=== PATIENT | male | born 1955 | race Caucasian/White ===

== ENCOUNTER 2019-12-12 22:18 | Inpatient (IN) | payer BC ==
[2019-12-12] MEDS ORDERED: NALOXONE 0.4 MG/ML 1 ML VIAL IV PRN (22:34)
[2019-12-12] MEDS ORDERED: ACETAMINOPHEN TAB 325 MG TAB PO PRN (22:34)
--- NOTE | 2019-12-12 22:34 | ED ---
General Adult HPI - General Chief complaint: Weakness Stated complaint: Weakness Time Seen by Provider: 12/12/19 22:24 Source: patient, EMS Mode of arrival: EMS Limitations: physical limitation - History of Present Illness Initial comments: Dictation was produced using [employer] dictation software. please excuse any grammatical, word or spelling errors. This patient was cared for during a federal and state declared state of emergency secondary to Covid 19 Chief Complaint: 64-year-old male with multiple comorbidities transferred from [facility] for debility. History of Present Illness: 64-year-old male he was transferred here from [facility] for debility. Patient was initially seen at [facility]. Patient story begins several weeks ago where he was diagnosed with a pathologic fracture to the left femur he was transferred to [facility] oriented orthopedic fixation. Shortly after he developed a pulmonary embolism and was placed on a liquids. Was recommended to him that he was to go to rehab facility however he opted instead to do home rehab. Over the last couple days patient has been having difficulties at home taking care of himself and performing his daily living. He then presented to [facility] because he could not handle take care of himself anymore. His initial complaint 1 pre sented to [facility] was generalized fatigue. Patient had workup performed there. He is found have stable vital signs he had labs that were within acceptable limits. An attempt was made to try to keep patient at their facility however concerned that that facility does not have up with specialists it was decided to transfer patient here. The ROS documented in this emergency department record has been reviewed and confirmed by me. Those systems with pertinent positive or negative responses have been documented in the HPI. All other systems are other negative and/or noncontributory. PHYSICAL EXAM: General Impression: Alert and oriented x3, not in acute distress HEENT: Normocephalic atraumatic, extra-ocular movements intact, pupils equal and reactive to light bilaterally, mucous membranes moist. Cardiovascular: Heart regular rate and rhythm Chest: Able to complete full sentences, no retractions, no tachypnea Abdomen: abdomen soft, non-tender, non-distended, no organomegaly Musculoskeletal: Pulses present and equal in all extremities, no peripheral edema Motor: no focal deficits noted Neurological: CN II-XII grossly intact, no focal motor or sensory deficits noted Skin: Intact with no visualized rashes Psych: Normal affect and mood ED course: 64 year-old male transferred from [facility] for debility. Patient was transferred here with intention of arranging for rehab facility placement. Patient's well-appearing at bedside. Transfer documentation was reviewed. Vital signs upon arrival shows mild tachycardia 107, rest vital signs within acceptable limits. Chest or documentation was placed and patient's chart. [facility]. - Related Data Previous Rx's Medication Instructions Recorded ALPRAZolam [Xanax] 0.25 mg PO DIRECTED #90 tab 04/21/17 Apixaban [Eliquis] 5 mg PO BID 30 Days tab 04/21/17 Flecainide [Tambocor] 50 mg PO Q12HR 30 Days tab 04/21/17 Nicotine 21Mg/24Hr Patch [Habitrol] 1 each TRANSDERM DAILY 28 Days 04/21/17 patch buPROPion XL [Wellbutrin XL] 150 mg PO DAILY 30 Days tab.er.24h 04/21/17 traZODone HCL [Desyrel] 300 mg PO HS 30 Days tab 04/21/17 Allergies Allergy/AdvReac Type Severity Reaction Status Date / Time No Known Allergies Allergy Verified 04/19/17 02:23 Review of Systems ROS Statement: Those systems with pertinent positive or pertinent negative responses have been documented in the HPI. ROS Other: All systems not noted in ROS Statement are negative. 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, lung CA History of Any Multi-Drug Resistant Organisms: None Reported Past Surgical History: Orthopedic Surgery Additional Past Surgical History / Comment(s): left quadriceps; skull fx age 15, chyna placed in right femur Past Psychological History: Depression Smoking Status: Current some day smoker Past Alcohol Use History: None Reported Past Drug Use History: Marijuana - Past Family History Mother Family Medical History: AFIB Father Family Medical History: Diabetes Mellitus General Exam Limitations: physical limitation Course Vital Signs 12/12/19 22:20 Temperature 98.9 F Pulse Rate 107 H Respiratory 16 Rate Blood Pressure 122/95 O2 Sat by Pulse 94 L Oximetry Disposition Clinical Impression: Debility Disposition: ADMITTED IP TO THIS HOSP Condition: Fair Referrals: Emil Saunders MD [Primary Care Provider] - 1-2 days Decision Time: 22:34
[2019-12-12] MEDS: SODIUM CHLORIDE 0.9% 1,000 ML IV SCH (22:49)
[2019-12-13] MEDS: APIXABAN 5 MG TAB PO SCH ×3 (01:18→21:44)
[2019-12-13] MEDS: METOPROLOL TARTRATE 25 MG TAB PO SCH ×3 (01:18→21:45)
[2019-12-13] MEDS: HYDROcodone/APAP 10-325MG 1 EACH TAB PO PRN ×4 (01:19→21:48)
[2019-12-13] MEDS: levETIRAcetam 500 MG TAB PO SCH ×3 (01:19→21:44)
[2019-12-13] MEDS: LORazepam 1 MG TAB PO PRN ×3 (04:11→19:55)
[2019-12-13] MEDS: IPRATROPIUM-ALBUTEROL 3 ML NEB INHALATION SCH ×4 (08:20→21:55)
[2019-12-13] MEDS: PANTOPRAZOLE 40 MG TABLET PO SCH (08:37)
[2019-12-13] MEDS: DILTIAZEM CD 240 MG CAP.ER.24H PO SCH (08:37)
[2019-12-13 10:48] LABS: Basophils # (A) 0.1 k/uL (0-0.2); Basophils % (A) 0 %; Eosinophils # (A) 0.1 k/uL (0-0.7); Eosinophils % (A) 1 %; HCT 43.8 % (39.0-53.0); HGB 13.8 gm/dL (13.0-17.5); Lymphocytes # (A) 1.3 k/uL (1.0-4.8); Lymphocytes % (A) 9 %; MCH 29.4 pg (25.0-35.0); MCHC 31.5 g/dL (31.0-37.0); MCV 93.1 fL (80.0-100.0); Monocytes # (A) 0.7 k/uL (0-1.0); Monocytes % (A) 5 %; Neutrophils # (A) 12.7 k/uL (1.3-7.7); Neutrophils % (A) 85 %; Platelet Count 298 k/uL (150-450); RBC 4.71 m/uL (4.30-5.90); RDW 15.5 % (11.5-15.5)
[2019-12-13 11:18] LABS: ALT 36 U/L (4-49); AST 22 U/L (17-59); African American GFR (CKD) >90 (>60 ml/min/1.73 sqM); Albumin 2.9 g/dL (3.5-5.0); Alkaline Phosphatase 82 U/L (38-126); Anion Gap 3 mmol/L; Blood Urea Nitrogen 18 mg/dL (9-20); Carbon Dioxide 30 mmol/L (22-30); Chloride 98 mmol/L (98-107); Glucose 132 mg/dL (74-99); Non-African American GFR(CKD) >90 (>60 ml/min/1.73 sqM); Potassium 4.5 mmol/L (3.5-5.1); Sodium 131 mmol/L (137-145); Total Protein 5.5 g/dL (6.3-8.2)
[2019-12-13] MEDS ORDERED: THIAMINE 100 MG/ML 2 ML VIAL IM STA (15:26)
[2019-12-13] MEDS ORDERED: LORazepam 2 MG/ML INJ IV PRN ×3 (15:26)
[2019-12-13] MEDS: NICOTINE 14MG/24HR PATCH TRANSDERM SCH (15:46)
--- NOTE | 2019-12-13 16:14 | HP ---
HISTORY AND PHYSICAL DATE OF SERVICE: 12/13/2019 CHIEF COMPLAINT: Weakness. HISTORY OF PRESENT ILLNESS: This 64-year-old gentleman with a past medical history of multiple medical problems, including atrial fibrillation, history of lung cancer, history of depression, being followed by primary physician Dr. Emil Saunders in the outpatient setting, presented to a hospital elsewhere with complaints of weakness. The patient has a very complicated recent medical history. The patient apparently has stage IV lung cancer with metastases to the clavicle and to the spine and also had a pathological fracture of the left femur. The patient was admitted apparently to [facility]. The patient also had an episode of atrial fibrillation and was admitted to the psych floor also in [facility]. Currently because of the fracture, the patient was transferred, and subsequently ORIF of the femur fracture was done. Postoperatively the patient developed pulmonary embolism and was placed on Eliquis. The patient was recommended inpatient rehab but declined that and opted for home care. The patient apparently tried to perform the home rehab for 2 days and was unable to that. The patient also had overall generalized weakness. Apparently he was living with his ex-, who is driving in and out from [place], and apparently the ex- brought the patient to the hospital, unable to take care of him, and the patient is admitted for further evaluation and treatment. Patient apparently was slated for radiation for the cancer also. The patient also has some mild shortness of breath. There is no history of any fever, rigor or chills. No history of headache, loss of consciousness, seizures at this time. PAST MEDICAL HISTORY: History of atrial fibrillation, history of lung cancer with metastases, history of skull fracture, history of depression. MEDICATIONS: Medications prior to admission include: 1. Fentanyl patch 50 mcg q.72 hours. 2. Senokot 8.6. 3. DuoNeb q.i.d. and p.r.n. 4. Diltiazem 240 mg daily. 5. Keppra 500 mg p.o. b.i.d. 6. Omeprazole 20 mg daily. 7. Metoprolol 25 mg b.i.d. 8. Eliquis 5 mg p.o. b.i.d. 9. Ativan 0.5 mg b.i.d. p.r.n. 10.Advance 1 tablet q.6 p.r.n. ALLERGIES: NONE. FAMILY HISTORY: History of atrial ablation in the family. SOCIAL HISTORY: History of smoking. REVIEW OF SYSTEMS: ENT: No diminished hearing. No diminished vision. CARDIOVASCULAR SYSTEM: As mentioned earlier. RESPIRATORY SYSTEM: As mentioned earlier. GI: No nausea, vomiting, diarrhea. : No dysuria or retention. NERVOUS SYSTEM: As mentioned earlier. ALLERGY/IMMUNOLOGY: No asthma, hayfever. MUSCULOSKELETAL: As mentioned earlier. HEMATOLOGY/ONCOLOGY: As mentioned earlier. ENDOCRINE: No history of diabetes, hypothyroidism. CONSTITUTIONAL: As mentioned earlier. DERMATOLOGY: Negative. RHEUMATOLOGY: Negative. PSYCHIATRY: As mentioned earlier. PHYSICAL EXAMINATION: Patient is alert, oriented x3. The pulse is 99, blood pressure 120/83, respiration 18, temperature 98.2, pulse ox 92% on 3 L. HEENT: Conjunctivae normal. NECK: No jugular venous distention. CARDIOVASCULAR SYSTEM: S1, S2 muffled. No S3. No S4. RESPIRATORY SYSTEM: Breath sounds diminished at the bases. A few scattered rhonchi and crackles. ABDOMEN: Soft, non-tender. LEGS: Status post surgery on the left leg. NERVOUS SYSTEM: Higher functions as mentioned earlier. Moves all 4 limbs. No focal motor or sensory deficit. LYMPHATICS: No lymph node palpable in neck, axillae or groin. SKIN: No ulcer, rash, bleeding. JOINTS: No active deforming arthropathy. LABS: WBC 15, sodium 131, calcium 8, albumin 2.9. ASSESSMENT: 1. History of left hip pathologic fracture and recent open reduction internal fixation. 2. Gait dysfunction with failure of outpatient treatment. 3. Hyponatremia. 4. History of recent stage IV lung cancer with metastases to the right clavicle as well as spine, for radiation therapy. 5. Increased white count. 6. Chronic obstructive pulmonary disease. 7. History of recent pulmonary embolism, on Eliquis. 8. History atrial fibrillation/flutter. 9. History of depression. 10.Continued ongoing nicotine dependence. 11.History of ETOH. 12.History of tetrahydrocannabinol. 13.FULL CODE. RECOMMENDATIONS AND DISCUSSION: In this 64-year-old gentleman who presented with multiple complex medical issues, at this time I recommend to continue current management, continue symptomatic treatment. Otherwise, I would recommend continuing the Eliquis. Obtain a baseline chest x-ray. Resume the home medications, bronchodilators, pain management. Will consult Dr. Reza regarding the radiation. Otherwise, social research assistant will be consulted for evaluating the home situation as well as arranging for possible ECF rehab. Overall prognosis is extremely guarded, which I discussed at length with the patient. The patient understands and agrees. Further recommendations to follow. MMKORYL / SUDHEERN: [id number] /
[2019-12-13] MEDS: THIAMINE 100 MG TAB PO SCH (16:22)
[2019-12-13 17:03] VITALS: BMI 29.8
--- NOTE | 2019-12-13 17:50 | XR ---
EXAMINATION TYPE: XR femur LT DATE OF EXAM: 12/13/2019 COMPARISON: NONE HISTORY: Postop TECHNIQUE: 4 views FINDINGS: There is intramedullary chyna with transverse screw fixing the intertrochanteric fracture lef t femur in anatomic position. The left acetabulum appears intact. Knee joint is anatomic. There is so me osteoarthritic spurring in the medial femoral and tibial condyles. IMPRESSION: Satisfactory reduction of the fracture. No complicating process seen.
[2019-12-13] MEDS: SENNOSIDES 8.6 MG TAB PO SCH (21:45)
[2019-12-13 22:33] LABS: Appearance,Urine Clear (Clear); Color,Urine Amber
[2019-12-13 22:34] LABS: Bilirubin,Urine Negative (Negative); Blood,Urine Negative (Negative); Glucose,Urine (UA) 2+ (Negative); Ketones,Urine Negative (Negative); Leukocyte Esterase,Urine Negative (Negative); Nitrite,Urine Negative (Negative); Protein,Urine Negative (Negative)
[2019-12-13 22:43] LABS: Amphetamine Screen,Urine Not Detected (NotDetected); Barbiturate Screen,Urine Not Detected (NotDetected); Benzodiazepines Screen,Urine Detected (NotDetected); Cocaine Screen,Urine Not Detected (NotDetected); Methadone Screen, Urine Not Detected (NotDetected); Opiate Screen,Urine Detected (NotDetected); Oxycodone Screen, Urine Not Detected (NotDetected); Phencyclidine Screen,Urine Not Detected (NotDetected); Tricyclic Antidepressant,Urine Not Detected (NotDetected); Urn Cannabinoid Scrn Detected (NotDetected)
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
[2019-12-14] MEDS: SODIUM CHLORIDE 0.9% 1,000 ML IV SCH (00:45)
[2019-12-14] MEDS: LORazepam 1 MG TAB PO PRN ×3 (05:30→17:58)
[2019-12-14] MEDS: IPRATROPIUM-ALBUTEROL 3 ML NEB INHALATION SCH ×4 (07:30→20:17)
[2019-12-14] MEDS ORDERED: THIAMINE 100 MG TAB PO SCH (07:30)
[2019-12-14] MEDS: levETIRAcetam 500 MG TAB PO SCH ×2 (08:48→20:40)
[2019-12-14] MEDS: METOPROLOL TARTRATE 25 MG TAB PO SCH ×2 (08:48→20:39)
[2019-12-14] MEDS: THIAMINE 100 MG TAB PO SCH (08:48)
[2019-12-14] MEDS: APIXABAN 5 MG TAB PO SCH ×2 (08:48→20:40)
[2019-12-14] MEDS: PANTOPRAZOLE 40 MG TABLET PO SCH (08:48)
[2019-12-14] MEDS: DEXAMETHASONE 4 MG TAB PO SCH ×2 (08:48→20:39)
[2019-12-14] MEDS: NICOTINE 14MG/24HR PATCH TRANSDERM SCH (08:49)
[2019-12-14] MEDS: DILTIAZEM CD 240 MG CAP.ER.24H PO SCH (08:49)
--- NOTE | 2019-12-14 10:15 | P.CNOR ---
History of Present Illness - [facility] Consult date: 12/14/19 Requesting physician: Chris Obregon Consult reason: fracture (follow-up evaluation for left hip and femur status post ORIF for pathological fracture) History of present illness: Patient is a pleasant 64-year-old male who is seeing exam at the bedside after consultation was placed for evaluation of his left femur. Patient is known to have recently undergone surgical fixation for a left femur pathological fracture. Surgery was performed at [facility] on 12/02/2018. Patient states his left hip and thigh pain has been adequately controlled. He has been ambulating on the left lower extremity without difficulty. He states he's been allowed to ambulate on the left lower extremity by his orthopedic surgeon. His vinay at the surgical sites remain intact. Patient is currently being seen and examined by multiple other medical bilaterally. He is known to have met astatic lung cancer. He continues to be seen by oncology as well as radiation oncology. Patient states he is ready to proceed with chemotherapy and radiation. Previous right clavicle biopsy performed on 11/17/2019 was positive for adenocarcinoma most consistent with primary lung cancer. Previous MRI of the brain was negative for metastatic disease. Oncology is currently pending for repeat brain MRI. Thoracic MRI imaging does show involvement of the T4 vertebrae. Patient states he is not having any significant difficulty regards to his left lower extremity. Patient does have a past medical history of atrial fibrillation. Patient is not having any difficulty with answering questions at the bedside. Patient also has a history of recent Recent pulmonary embolism status post ORIF currently on Eliquis. 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, lung CA History of Any Multi-Drug Resistant Organisms: None Reported Past Surgical History: Orthopedic Surgery Additional Past Surgical History / Comment(s): left quadriceps; skull fx age 15, chyna placed in right femur Past Psychological History: Depression Smoking Status: Current some day smoker Past Alcohol Use History: None Reported Past Drug Use History: Marijuana - Past Family History Mother Family Medical History: AFIB Father Family Medical History: Diabetes Mellitus Medications and Allergies Home Medications Medication Instructions Recorded Confirmed Type Apixaban [Eliquis] 5 mg PO BID 30 Days tab 04/21/17 12/12/19 Rx Diltiazem HCl [Diltiazem HCl 24Hr 240 mg PO DAILY 12/12/19 12/12/19 History ER (Cd)] Hydrocodone/Acetaminophen [[place] 1 tab PO Q6H PRN 12/12/19 12/12/19 History 10-325] Ipratropium-Albuterol Nebulize 3 ml INHALATION RT-QID 12/12/19 12/12/19 History [Duoneb 0.5 mg-3 mg/3 ml Soln] LORazepam [Ativan] 0.5 mg PO BID PRN 12/12/19 12/12/19 History Metoprolol Tartrate 25 mg PO BID 12/12/19 12/12/19 History Omeprazole 20 mg PO DAILY 12/12/19 12/12/19 History Sennosides [Senokot] 8.6 mg PO HS 12/12/19 12/12/19 History fentaNYL 50MCG/HR PATCH [Duragesic 50 mcg TRANSDERM Q72H 12/12/19 12/12/19 History 50MCG/HR] levETIRAcetam [Keppra] 500 mg PO BID 12/12/19 12/12/19 History Allergies Allergy/AdvReac Type Severity Reaction Status Date / Time No Known Allergies Allergy Verified 12/12/19 23:05 Physical Examination Physical Exam: Patient is awake, alert, and oriented 3 Vital signs stable Good chest excursion with deep inspiration and expiration No signs or symptoms of DVT; no calf pain Dressing is removed over the left hip and femur Evidence of vinay intact 3 surgical sites at the left hip and femur [place] are removed physical examination Incision sites appear to be healing well No active drainage or obvious sign of infection from the surgical sites at the left hip and femur Evidence of bruising around the left hip incision site and left proximal femur i ncision site Evidence of a well-healed incision over the anterior left knee from previous surgical intervention Dorsiflexion and plantarflexion positive sustained left lower extremity Patient is able slowly lift his left lower extremity off the bed Neurovascularly intact left lower extremity Results Pertinent studies: X-rays of the left femur taken on 12/13/2019: Evidence of intramedullary chyna with transverse screw fixation of the intertrochanteric fracture of the left femur which appears in satisfactory reduction; osteoarthritic spurring of the medial femoral and tibial condyles - Labs Labs: Abnormal Lab Results - Last 24 Hours (Table) 12/13/19 12/13/19 12/13/19 Range/Units 10:04 10:04 22:24 WBC 15.0 H (3.8-10.6) k/uL Neutrophils # 12.7 H (1.3-7.7) k/uL Sodium 131 L (137-145) mmol/L Glucose 132 H (74-99) mg/dL Calcium 8.0 L (8.4-10.2) mg/dL Total Protein 5.5 L (6.3-8.2) g/dL Albumin 2.9 L (3.5-5.0) g/dL Ur Specific [place] 1.000 L (1.001-1.035) Urine Opiates Screen Detected H (NotDetected) U Benzodiazepines Scrn Detected H (NotDetected) U Marijuana (THC) Screen Detected H (NotDetected) H & H 12/13/19 Range/Units 10:04 Hgb 13.8 (13.0-17.5) gm/dL Hct 43.8 (39.0-53.0) % Result Diagrams: 12/13/19 10:04 12/13/19 10:04 Assessment and Plan Assessment: Status post left hip and femur intramedullary nail fixation for pathologic femur fracture Metastatic adenocarcinoma of the lung Atrial fibrillation Recent pulmonary embolism status post ORIF currently on Eliquis (1) Pathologic femoral fracture Current Visit: Yes Status: Acute Code(s): M84.453A - PATHOLOGICAL FRACTURE, UNSP FEMUR, INIT ENCNTR FOR FRACTURE SNOMED Code(s): 962244109 (2) Adenocarcinoma, lung Current Visit: Yes Status: Acute Code(s): C34.90 - MALIGNANT NEOPLASM OF UNSP PART OF UNSP BRONCHUS OR LUNG SNOMED Code(s): 651656929 (3) Metastatic lung carcinoma Current Visit: Yes Status: Acute Code(s): C78.00 - SECONDARY MALIGNANT NEOPL ASM OF UNSPECIFIED LUNG SNOMED Code(s): 01213509 (4) Pulmonary embolism Current Visit: Yes Status: Acute Code(s): I26.99 - OTHER PULMONARY EMBOLISM WITHOUT ACUTE COR PULMONALE SNOMED Code(s): 93364265 (5) Atrial fibrillation Current Visit: Yes Status: Acute Code(s): I48.91 - UNSPECIFIED ATRIAL FIBRILLATION SNOMED Code(s): 21368892 Plan: Plan: 1. Patient has been discussed in detail with Dr. Alber Amse. Patient recently underwent left hip and femur intramedullary nail fixation for pathologic fracture performed on 12/03/2019 at [facility]. He is currently receiving further workup and multiple medical providers including oncology in medicine. He is known have metastatic adenocarcinoma of the lung. He is not able to follow-up with his orthopedic surgeon postoperatively. X-ray imaging of his left femur were taken here in the hospital which shows satisfactory alignment of the intramedullary nail fixation. Vinay have been removed at the bedside. His incision sites appear to be healing appropriately. There is no obvious sign of infection at his left hip. At this time, we are not planning for any acute treatment in regards to his left hip to left femur. He'll be cleared for discharge from an orthopedic standpoint. We will plan to have him follow-up in the outpatient setting with the surgeon who performed his surgery at [facility]. The patient's family states they have already been in contact with the surgeon and we'll plan to follow-up in the outpatient setting. Patient may continue with postoperative instructions as set forth by his orthopedic surgeon. Patient states he's been cleared to weight-bear on the left lower extremity by his previous surgeon and we discussed he may continue with weightbearing status as instructed. 2. Patient will continue be seen and examined by multiple other medical providers including medicine and oncology for his other medical diagnoses including metastatic adenocarcinoma of the lung and recent pulmonary embolism status post ORIF Time with Patient: Greater than 30 (Including obtaining history, physical examination, reviewing of imaging, and dictation.)
[2019-12-14] MEDS: HYDROcodone/APAP 10-325MG 1 EACH TAB PO PRN (10:26)
[2019-12-14 10:36] LABS: Basophils # (A) 0.1 k/uL (0-0.2); Basophils % (A) 0 %; Eosinophils # (A) 0.1 k/uL (0-0.7); Eosinophils % (A) 1 %; HCT 45.6 % (39.0-53.0); HGB 14.6 gm/dL (13.0-17.5); Lymphocytes # (A) 1.3 k/uL (1.0-4.8); Lymphocytes % (A) 9 %; MCH 29.5 pg (25.0-35.0); MCHC 31.9 g/dL (31.0-37.0); MCV 92.3 fL (80.0-100.0); Monocytes # (A) 0.6 k/uL (0-1.0); Monocytes % (A) 4 %; Neutrophils # (A) 13.4 k/uL (1.3-7.7); Neutrophils % (A) 86 %; Platelet Count 287 k/uL (150-450); RBC 4.94 m/uL (4.30-5.90); RDW 15.6 % (11.5-15.5); WBC 15.5 k/uL (3.8-10.6)
[2019-12-14 10:51] LABS: African American GFR (CKD) >90 (>60 ml/min/1.73 sqM); Anion Gap 6 mmol/L; Blood Urea Nitrogen 13 mg/dL (9-20); Calcium 8.5 mg/dL (8.4-10.2); Carbon Dioxide 26 mmol/L (22-30); Chloride 100 mmol/L (98-107); Glucose 127 mg/dL (74-99); Non-African American GFR(CKD) >90 (>60 ml/min/1.73 sqM); Potassium 4.4 mmol/L (3.5-5.1); Sodium 132 mmol/L (137-145)
--- NOTE | 2019-12-14 12:30 | P.CN ---
Psychiatric Consult - . Consult date: 12/14/19 Consult:: The patient was off the unit for testing when I attempted to interview him this morning at an early assessment. I'll try to interview him tomorrow. 12/14/19 12:30
--- NOTE | 2019-12-14 13:47 | MR ---
EXAMINATION TYPE: MR brain wo/w con DATE OF EXAM: 12/14/2019 COMPARISON: NONE HISTORY: Metastatic lung worsening neurological sx/sensation TECHNIQUE: Multiplanar, multisequence images of the brain and brainstem is performed without and with IV contras t, utilizing 10 mL intravenous Gadavist . FINDINGS: Diffusion weighted images demonstrate no evidence of a recent infarct or other diffusion ab normality. There is no worrisome extra-axial fluid collection. Mild ventricular and sulcal prominenc e. More prominent multifocal areas of T2 hyperintensity seen throughout the superficial, deep, and pe riventricular white matter. Midline structures demonstrate pituitary gland pushed to the right and posterior aspect axial image 1 2 possibly due to cellular nonenhancing cyst or cystic component measuring 7 x 6 x 9 mm axial image 1 2 and sagittal image 72. Postcontrast images show heterogeneous enhancement with superior extension m easuring roughly 16 mm sagittal image 77. Cannot exclude sellar mass such as pituitary tumor or macro adenoma. The lesion comes in close proximity to the optic chiasm coronal image 39. Pituitary stalk is not well identified. The craniocervical junction appears within normal limits. Post contrast images demonstrate no suspic ious enhancing intraparenchymal masses or. The dural venous sinuses appear patent. The visualized sin uses are clear and the globes are intact. IMPRESSION: 1. No suspicious enhancing intraparenchymal masses to suggest metastatic disease to the brain. 2. Background mild diffuse cerebral atrophy and moderate chronic small vessel ischemic change. 3. Suspicious sellar mass felt to have both solid and cystic component with suprasellar extension. Di fferential includes pituitary tumor or macroadenoma and other neoplasms such as craniopharyngioma. Ne urosurgical referral advised. Single metastatic focus this level unlikely but not entirely excluded.
--- NOTE | 2019-12-14 14:39 | MR ---
EXAMINATION TYPE: MR thoracic spine wo/w con DATE OF EXAM: 12/14/2019 COMPARISON: NONE HISTORY: Metastatic lung worsening neurological sx/sensation TECHNIQUE: Multiplanar, multisequence imaging of thoracic spine is performed without and with IV cont rast, the patient injected with 10 cc of gadolinium this for the study. FINDINGS: Spinal cord shows normal course, caliber, and signal as it courses the thoracic spine. Jd tebral body heights are satisfactory. Slight levoconvex scoliotic curvature centered upper thoracic s pine on coronal images. There is heterogeneous diminished T1 and increased T2 signal with enhancement involving the T4 vertebral body. Similar finding of diminished signal and enhancement involving the T3 spinous process noted. Posterior disc herniation is seen effacing the anterior thecal sac T7-T8 le everette sagittal image 7. Review of the axial images shows abnormal enhancing T3 spinous process image 12 with posterior epidu ral soft tissue causing some mild mass effect on the spinal canal posterior left aspect axial image 1 2. There is confirmation of central disc protrusion effacing the anterior thecal sac T7-T8 level axial i mage 18 series 1101. There are small right and tiny left pleural effusions noted. IMPRESSION: Osseous metastatic lesions are identified. Consider whole body bone scan to assess for p ossible additional lesions. No cord enhancing lesions are present.
[2019-12-14 15:22] VITALS: RESP 18
--- NOTE | 2019-12-14 17:44 | P.PN ---
Subjective Progress Note Date: 12/14/19 Principal diagnosis: no acute complaints Objective - Vital Signs Vital signs: Vital Signs Temp 98.1 F 12/14/19 15:00 Pulse 88 12/14/19 16:51 Resp 18 12/14/19 16:00 BP 129/77 12/14/19 15:00 Pulse Ox 96 12/14/19 15:00 Intake & Output 12/13/19 12/14/19 12/14/19 18:59 06:59 18:59 Intake Total 708 300 Output Total 1000 2150 200 Balance -292 -2150 100 Weight 102.512 kg Intake: Intake, IV Titration 300 Amount Sodium Chloride 0.9% 1, 300 000 ml @ 20 mls/hr IV . Q24H [facility] Rx#:[id number] Oral 708 Output: Urine 1000 2150 200 Other: Voiding Method Bedpan Bedpan # Voids 1 - Exam Gen: Alert NAD O/P Dry Lungs: No increased effort, Clear ant Heart: Tachy Abdomen:L Soft, ND Ext: Weak unilateral Inappropriate at times - Labs CBC & Chem 7: 12/14/19 10:01 12/14/19 10:01 Labs: Abnormal Lab Results - Last 24 Hours (Table) 12/13/19 12/14/19 12/14/19 Range/Units 22:24 10:01 10:01 WBC 15.5 H (3.8-10.6) k/uL RDW 15.6 H (11.5-15.5) % Neutrophils # 13.4 H (1.3-7.7) k/uL Sodium 132 L (137-145) mmol/L Creatinine 0.61 L (0.66-1.25) mg/dL Glucose 127 H (74-99) mg/dL Ur Specific [place] 1.000 L (1.001-1.035) Urine Opiates Screen Detected H (NotDetected) U Benzodiazepines Scrn Detected H (NotDetected) U Marijuana (THC) Screen Detected H (NotDetected) Assessment and Plan Plan: Assessement and Recommendations: Left Hip Pathological Fracture: Status Post ORIF Recent Diagnosis of Metastatic Adenocarcinoma of the Lung: - Currently undergoing palliative radiation in [place] under the care of Dr. Goncalves - Further details of his oncologic history and events in HPI Progressive events of disorientation: - Possible hypoxic related versus other - MRI Brain reveals ?non malignant or cystic changes. Will discuss with Dr. Reza regarding need of neurosurg consultation Worsening stability and unable to perform ADLS: - Question sensation loss new - Discussed with Radiation onc - Thoracic imaging revealed bone lesions - Re-initiate Dex and PPI Chronic Hypoxic Respiratory Failure: - Continue on home o2 Recent Pulmonary Embolism post ORIF: - Continue on Eliquis Hx: Aflutter RVR: on Eliquis Discussed with Primary team, plan to follow-up within 2 weeks
[2019-12-14] MEDS: SENNOSIDES 8.6 MG TAB PO SCH (20:39)
--- NOTE | 2019-12-14 22:56 | PN ---
PROGRESS NOTE DATE OF SERVICE: 12/14/2019 This 64-year-old gentleman admitted with weakness also had recent surgery. The patient had a pathologic fracture on the left femur. The patient also had significant cancer with metastasis, and brain MRI was done. Multiple consultants are following the patient closely. Brain MRI showed no suspicious enhancing parenchymal lesions. However, suspicious sella mass was thought to be a suprasellar extension. Otherwise, a thoracic spine MRI was also done which showed osseous metastatic lesions. No chest pain. No palpitations. No fever. Past medical history reviewed. REVIEW OF SYSTEMS: CARDIOVASCULAR SYSTEM: No angina, palpitations. RESPIRATORY SYSTEM: As mentioned earlier. GI: No nausea, vomiting. : No dysuria or retention. NERVOUS SYSTEM: No numbness, weakness. CURRENT MEDICATIONS: Current medications include Tylenol, [place], DuoNeb q.i.d., Eliquis, Cardizem, Keppra, Ativan, Lopressor, Narcan, Habitrol, Protonix, Senokot. PHYSICAL EXAMINATION: Patient is alert and oriented x3. The pulse is 89, blood pressure 129/77, respiration 18, temperature 98.1, pulse ox 96% on 2 L. HEENT: Conjunctivae normal. NECK: No jugular venous distention. CARDIOVASCULAR SYSTEM: S1, S2 muffled. RESPIRATORY SYSTEM: Breath sounds diminished at the bases. No rhonchi. No crackles. ABDOMEN: Soft, non-tender. LEGS: No edema. No swelling. NERVOUS SYSTEM: Diffusely weak. LABS: WBC 15.5, sodium 132. UA shows THC, benzodiazepines. ASSESSMENT: 1. History of recent left hip pathological fracture and recent open reduction internal fixation. 2. Gait dysfunction with failure of outpatient treatment. 3. Hyponatremia. 4. History of recent stage IV lung cancer with metastases to the right clavicle as well as spine, for radiation therapy. 5. Increased white count. 6. Chronic obstructive pulmonary disease. 7. History of recent pulmonary embolism, on Eliquis. 8. History of atrial flutter/fibrillation. 9. History of depression. 10.Continued ongoing nicotine dependence. 11.History of ETOH remotely. 12.History of tetrahydrocannabinol. 13.FULL CODE. RECOMMENDATIONS AND DISCUSSION: In this 64-year-old gentleman who presented with multiple complex medical issues, we will monitor the patient closely, continue the current medications, continue symptomatic treatment. The patient has multiple social issues at this time. At this time I would recommend evaluation by Case Management and social workers and possible ECF rehab. Otherwise, the patient has multiple medical problems, as mentioned earlier. We will follow the patient along with Psychiatry as well as Hematology/Oncology. Once again, the prognosis is extremely guarded. Further recommendations to follow. RONAK / SUDHEERN: [id number] / JAMES
[2019-12-15] MEDS: HYDROcodone/APAP 10-325MG 1 EACH TAB PO PRN ×2 (00:41→07:50)
[2019-12-15] MEDS: LORazepam 1 MG TAB PO PRN ×2 (02:22→07:51)
[2019-12-15] MEDS: SODIUM CHLORIDE 0.9% 1,000 ML IV SCH (02:33)
[2019-12-15] MEDS ORDERED: IPRATROPIUM-ALBUTEROL 3 ML NEB INHALATION PRN (02:39)
[2019-12-15] MEDS: levETIRAcetam 500 MG TAB PO SCH (07:42)
[2019-12-15] MEDS: METOPROLOL TARTRATE 25 MG TAB PO SCH (07:42)
[2019-12-15] MEDS: PANTOPRAZOLE 40 MG TABLET PO SCH (07:42)
[2019-12-15] MEDS: APIXABAN 5 MG TAB PO SCH (07:42)
[2019-12-15] MEDS: DEXAMETHASONE 4 MG TAB PO SCH (07:42)
[2019-12-15] MEDS: DILTIAZEM CD 240 MG CAP.ER.24H PO SCH (07:42)
[2019-12-15] MEDS: THIAMINE 100 MG TAB PO SCH (07:43)
[2019-12-15] MEDS: NICOTINE 14MG/24HR PATCH TRANSDERM SCH (07:43)
[2019-12-15 08:34] VITALS: BP 144/93; TEMP 97.8
[2019-12-15] MEDS: IPRATROPIUM-ALBUTEROL 3 ML NEB INHALATION SCH ×2 (09:02→12:32)
[2019-12-15 10:47] LABS: African American GFR (CKD) >90 (>60 ml/min/1.73 sqM); Anion Gap 7 mmol/L; Blood Urea Nitrogen 17 mg/dL (9-20); Calcium 8.7 mg/dL (8.4-10.2); Carbon Dioxide 26 mmol/L (22-30); Chloride 99 mmol/L (98-107); Glucose 230 mg/dL (74-99); Non-African American GFR(CKD) >90 (>60 ml/min/1.73 sqM); Potassium 4.7 mmol/L (3.5-5.1); Sodium 132 mmol/L (137-145)
[2019-12-15 11:35] LABS: Basophils % (A) 0 %; Eosinophils % (A) 0 %; HCT 45.2 % (39.0-53.0); HGB 14.4 gm/dL (13.0-17.5); Lymphocytes # (A) 0.8 k/uL (1.0-4.8); Lymphocytes % (A) 4 %; MCH 29.6 pg (25.0-35.0); MCHC 31.7 g/dL (31.0-37.0); MCV 93.3 fL (80.0-100.0); Mean Platelet Volume 7.6; Monocytes # (A) 0.4 k/uL (0-1.0); Monocytes % (A) 2 %; Neutrophils # (A) 19.8 k/uL (1.3-7.7); Neutrophils % (A) 94 %; Platelet Count 318 k/uL (150-450); RBC 4.84 m/uL (4.30-5.90); RDW 15.2 % (11.5-15.5); WBC 21.1 k/uL (3.8-10.6)
--- NOTE | 2019-12-15 11:46 | P.PN ---
Subjective Progress Note Date: 12/15/19 Principal diagnosis: no acute complaints Reviewed MRI of the brain. Not definitive evidence of metastatic disease. There is a sub centimeter abnormality. Since he does have prior MRI of the brain will ask radiation oncology to compare imaging and make recommendations for outpati ent follow-up. Does not appear to be definitive enough to cause issue with his intermittent confusion. It appears his confusion was related to fentanyl patch. Therefore this has been discontinued. Objective - Vital Signs Vital signs: Vital Signs Temp 97.8 F 12/15/19 07:23 Pulse 90 12/15/19 09:15 Resp 18 12/15/19 07:23 BP 144/93 12/15/19 07:23 Pulse Ox 93 L 12/15/19 07:23 Intake & Output 12/14/19 12/15/19 12/15/19 18:59 06:59 18:59 Intake Total 300 Output Total 200 800 Balance 100 -800 Intake: Intake, IV Titration 300 Amount Sodium Chloride 0.9% 1, 300 000 ml @ 20 mls/hr IV . Q24H [facility] Rx#:[id number] Output: Urine 200 800 Other: # Voids 1 - Exam Gen: Alert NAD O/P Dry Lungs: No increased effort, Clear ant Heart: Tachy Abdomen:L Soft, ND Ext: Weak unilateral Inappropriate at times - Labs CBC & Chem 7: 12/15/19 10:00 12/15/19 10:00 Labs: Abnormal Lab Results - Last 24 Hours (Table) 12/15/19 12/15/19 Range/Units 10:00 10:00 WBC 21.1 H (3.8-10.6) k/uL Neutrophils # 19.8 H (1.3-7.7) k/uL Lymphocytes # 0.8 L (1.0-4.8) k/uL Sodium 132 L (137-145) mmol/L Glucose 230 H (74-99) mg/dL Assessment and Plan Plan: Assessement and Recommendations: Left Hip Pathological Fracture: Status Post ORIF Recent Diagnosis of Metastatic Adenocarcinoma of the Lung: - Currently undergoing palliative radiation in [place] under the care of Dr. Goncalves - Further details of his oncologic history and events in HPI Progressive events of disorientation: - Possible hypoxic related versus other - MRI Brain reveals ?non malignant or cystic changes. Will discuss with Dr. Dr. Goodman radiation oncology regarding these findings. He can compare to prior and will communicate with current radiation oncologist Dr. Goncalves. Worsening stability and unable to perform ADLS: - Question sensation loss new - Discussed with Radiation onc - Thoracic imaging revealed bone lesions - Re-initiate Dex and PPI Chronic Hypoxic Respiratory Failure: - Continue on home o2 Recent Pulmonary Embolism post ORIF: - Continue on Eliquis Hx: Aflutter RVR: on Eliquis Plan: Despite progressive recommendations for inpatient or outpatient rehab facility he refuses. he agreed to PT/OT in his home and wants to get radiation started with Dr. Goncalves. - Ok for discharge from our standpoint, would like Dr. goodman to review MRI of the brain with prior to provide recommendation for incidental finding found.
[2019-12-15 12:39] VITALS: PULSE 92
--- NOTE | 2019-12-15 15:29 | P.CONS ---
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 He is status post left ORIF, and unfortunately developed postoperative DVT/PE. He was recently admitted secondary to concern for confusion and difficulty taking care of himself at home. According to the patient, he became confused after his pain medication was altered and he was placed on a 50 g fentanyl patch. He states that over the past couple of days since removal, he has been much more clear mentally. On admission, he underwent an MRI of the brain on December 13. This revealed no evidence of distant metastasis, however note was made of a solid/cystic mass in the sellar region. This is felt to be consistent with adenoma versus less likely a metastatic disease. MRI of the T-spine again redemonstrated a known metastatic deposit in the T4 vertebral body and the spinous process of T3. There is no evidence of spinal cord compression. At the current time, the patient denies difficulty with headache, nausea or vomiting. He states his pain is under better control at this time. He notes that his back is not causing him significant pain at this time. He still has some discomfort in the left hip and right clavicular region. He has been evaluated radiation oncology by Dr. Goncalves in [facility]. Review of Systems Constitutional: Denies chills, Denies fever Eyes: denies blurred vision Ears, nose, mouth and throat: Denies headache Cardiovascular: Denies chest pain Respiratory: Denies cough Gastrointestinal: Denies abdominal pain Genitourinary: Denies flank pain Musculoskeletal: Denies frequent falls, Denies low back pain Neurological: Reports confusion (improved), Denies aphasia, Denies ataxia, Denies balance difficulties, Denies convulsions, Denies double vision Psychiatric: Denies anxiety, Denies depression 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, lung CA History of Any Multi-Drug Resistant Organisms: None Reported Past Surgical History: Orthopedic Surgery Additional Past Surgical History / Comment(s): left quadriceps; skull fx age 15, chyna placed in right femur Past Psychological History: Depression Smoking Status: Current some day smoker Past Alcohol Use History: None Reported Past Drug Use History: Marijuana - Past Family History Mother Family Medical History: AFIB Father Family Medical History: Diabetes Mellitus Medications and Allergies Home Medications Medication Instructions Recorded Confirmed Type Apixaban [Eliquis] 5 mg PO BID 30 Days tab 04/21/17 12/12/19 Rx Diltiazem HCl [Diltiazem HCl 24Hr 240 mg PO DAILY 12/12/19 12/12/19 History ER (Cd)] Hydrocodone/Acetaminophen [[place] 1 tab PO Q6H PRN 12/12/19 12/12/19 History 10-325] Ipratropium-Albuterol Nebulize 3 ml INHALATION RT-QID 12/12/19 12/12/19 History [Duoneb 0.5 mg-3 mg/3 ml Soln] LORazepam [Ativan] 0.5 mg PO BID PRN 12/12/19 12/12/19 History Metoprolol Tartrate 25 mg PO BID 12/12/19 12/12/19 History Omeprazole 20 mg PO DAILY 12/12/19 12/12/19 History Sennosides [Senokot] 8.6 mg PO HS 12/12/19 12/12/19 History levETIRAcetam [Keppra] 500 mg PO BID 12/12/19 12/12/19 History Acetaminophen Tab [Tylenol] 650 mg PO Q6HR PRN tab 12/15/19 Rx Dexamethasone [Hexadrol] 4 mg PO DAILY #30 tab 12/15/19 Rx Ipratropium-Albuterol Nebulize 3 ml INHALATION RT-QID PRN ml 12/15/19 Rx [Duoneb 0.5 mg-3 mg/3 ml Soln] Thiamine [Vitamin B-1] 100 mg PO DAILY 30 Days #30 tab 12/15/19 Rx Allergies Allergy/AdvReac Type Severity Reaction Status Date / Time No Known Allergies Allergy Verified 12/12/19 23:05 Physical Exam Vitals: Vital Signs Temp Pulse Pulse Resp BP Pulse Ox 12/15/19 12:39 92 12/15/19 12:32 94 12/15/19 09:15 90 12/15/19 09:02 94 12/15/19 07:23 97.8 F 104 H 18 144/93 93 L 12/15/19 03:15 98.0 F 67 129/84 94 L 12/15/19 02:55 93 12/15/19 02:45 93 12/14/19 20:26 88 12/14/19 20:20 88 12/14/19 18:40 98.0 F 96 124/73 93 L 12/14/19 16:51 88 12/14/19 16:39 84 12/14/19 16:00 18 Intake and Output 12/15/19 12/15/19 12/15/19 06:59 14:59 22:59 Output Total 800 Balance -800 Output: Urine 800 Other: # Voids 1 - Constitutional General appearance: average body habitus, no acute distress - EENT Eyes: EOMI, PERRLA - Neck Neck: no lymphadenopathy - Respiratory Respiratory: bilateral: CTA - Cardiovascular Rhythm: regular - Integumentary Integumentary: no cellulitis - Neurologic Neurologic: CNII-XII intact - Musculoskeletal Musculoskeletal: strength equal bilaterally - Psychiatric Psychiatric: A&O x's 3, appropriate affect Results CBC & Chem 7: 12/15/19 10:00 12/15/19 10:00 Labs: Abnormal Lab Results - Last 24 Hours (Table) 12/15/19 12/15/19 Range/Units 10:00 10:00 WBC 21.1 H (3.8-10.6) k/uL Neutrophils # 19.8 H (1.3-7.7) k/uL Lymphocytes # 0.8 L (1.0-4.8) k/uL Sodium 132 L (137-145) mmol/L Glucose 230 H (74-99) mg/dL MRI - head: report reviewed, image reviewed Assessment and Plan Plan: The patient is a 64-year-old male with a history of a recently diagnosed 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 He is status post left ORIF, and unfortunately developed postoperative DVT/PE. He was recently admitted secondary to concern for confusion and difficulty taking care of himself at home. 1. Sellar mass on MRI brain: Based on my review, this would be a very atypical appearance for metastasis. This is most likely consistent with the patient's known history of non-secretory pituitary adenoma. I will mention this to Dr. Goncalves for attention on future exams. 2. Metastatic NSCLC: The patient is not yet initiated radiotherapy or chemotherapy. He is planning to follow-up with Dr. Goncalves as an outpatient, with plans to treat the right clavicle, thoracic spine and left hip in a palliative fashion. He will also be following with medical oncology tomorrow. The T-spine is not currently symptomatic with no evidence of compression. This can also be treated as outpatient. Time with Patient: Less than 30
--- NOTE | 2019-12-16 10:01 | P.DS ---
Providers Date of admission: 12/12/19 22:36 Expected date of discharge: 12/15/19 Attending physician: Gwen Chahal Consults: 12/13/19 14:24 Consult Physician Routine Consulting Provider: Chau Reza Consult Reason/Comments: Lung CA, current radiation treatment Do you want consulting provider notified?: Yes 12/13/19 14:32 Consult Physician Routine Consulting Provider: Jose Villela Consult Reason/Comments: orthopedic fixation of pathologic left femur fracture Do you want consulting provider notified?: Yes 12/13/19 15:29 Consult Physician Routine Consulting Provider: Rafal Pavon Consult Reason/Comments: depression Do you want consulting provider notified?: Yes 12/15/19 11:35 Consult Physician Routine Consulting Provider: Mansoor Goodman Consult Reason/Comments: regarding findings on MRI, have see b4 DC Do you want consulting provider notified?: Yes Primary care physician: Emil Saunders [place] [facility] Course: Final diagnosis History of recent left hip pathological fracture and recent open reduction internal fixation Gait dysfunction with failure of outpatient treatment Hyponatremia History of recent stage IV lung cancer with metastasis to the right clavicle as well as spine, for radiation therapy Increased white blood count Chronic obstructive pulmonary disease History of recent pulmonary embolism on anticoagulation History of atrial flutter/fibrillation History of depression Continued ongoing nicotine dependence history of EtOH remotely History of THC Full code Discharge disposition Patient is being discharged in a stable condition with guarded prognosis to home. Patient will follow-up with Dr. Emil Saunders upon discharge in the outpatient setting. Patient will continue with residential home care in the outpatient setting. Patient will also be following up with radiation oncology Dr. Goncalves in [place] in the outpatient setting. Total time taken is greater than 35 minutes. History of present illness This is a 64-year-old male who was recently admitted with weakness and also underwent recent surgery of the left hip and was being closely monitored. Multiple medical consultations following. Patient was seen by oncology and will continue with follow-up in the outpatient setting. Patient was also seen and evaluated by radiation oncology and recommending outpatient follow-up with Dr. Goncalves in [place] as scheduled. Patient was seen and evaluated by PT/OT recommending possible subacute rehab at an [facility] although patient is refusing and will be going home. Arrangements have been made for home care by case management in the outpatient setting. Currently no reports of chest pain, shortness of breath, or palpitations. Patient is afebrile. No reports of nausea or vomiting and patient is tolerating diet. Patient will be discharged home today. Discussed with the patient at length about continuing to avoid alcohol intake Guarded prognosis. On exam vital signs are stable. Temp is 97.8F, pulse is 104, respirations are 18, blood pressure is 144/93, oxygen saturation is 93% on 2-3 L via nasal cannula. Cardio S1, S2 are muffled. Respiratory system shows diminished breath sounds at the bases with some rhonchi noted. Abdomen is soft and nontender. Nervous system shows no focal deficits. Please refer to medication reconciliation sheet for a list of medications. Patient Condition at Discharge: Fair Plan - Discharge Summary New Discharge Prescriptions: New Ipratropium-Albuterol Nebulize [Duoneb 0.5 mg-3 mg/3 ml Soln] 3 ml INHALATION RT-QID PRN ml PRN Reason: Shortness Of Breath Or Wheezing Dexamethasone [Hexadrol] 4 mg PO DAILY #30 tab Acetaminophen Tab [Tylenol] 650 mg PO Q6HR PRN tab PRN Reason: Mild Pain Or Fever > 100.5 Thiamine [Vitamin B-1] 100 mg PO DAILY 30 Days #30 tab Continue Apixaban [Eliquis] 5 mg PO BID 30 Days tab Diltiazem HCl [Diltiazem HCl 24Hr ER (Cd)] 240 mg PO DAILY levETIRAcetam [Keppra] 500 mg PO BID Sennosides [Senokot] 8.6 mg PO HS Omeprazole 20 mg PO DAILY Metoprolol Tartrate 25 mg PO BID LORazepam [Ativan] 0.5 mg PO BID PRN PRN Reason: Anxiety Hydrocodone/Acetaminophen [[place] 10-325] 1 tab PO Q6H PRN PRN Reason: Pain Ipratropium-Albuterol Nebulize [Duoneb 0.5 mg-3 mg/3 ml Soln] 3 ml INHALATION RT-QID Discontinued fentaNYL 50MCG/HR PATCH [Duragesic 50MCG/HR] 50 mcg TRANSDERM Q72H Discharge Medication List Apixaban [Eliquis] 5 mg PO BID 30 Days tab 04/21/17 [Rx] Diltiazem HCl [Diltiazem HCl 24Hr ER (Cd)] 240 mg PO DAILY 06/21/20 [History] Hydrocodone/Acetaminophen [[place] 10-325] 1 tab PO Q6H PRN 12/12/19 [History] Ipratropium-Albuterol Nebulize [Duoneb 0.5 mg-3 mg/3 ml Soln] 3 ml INHALATION RT-QID 12/12/19 [History] LORazepam [Ativan] 0.5 mg PO BID PRN 12/12/19 [History] Metoprolol Tartrate 25 mg PO BID 12/12/19 [History] Omeprazole 20 mg PO DAILY 12/12/19 [History] Sennosides [Senokot] 8.6 mg PO HS 12/12/19 [History] levETIRAcetam [Keppra] 500 mg PO BID 12/12/19 [History] Acetaminophen Tab [Tylenol] 650 mg PO Q6HR PRN tab 12/15/19 [Rx] Dexamethasone [Hexadrol] 4 mg PO DAILY #30 tab 12/15/19 [Rx] Ipratropium-Albuterol Nebulize [Duoneb 0.5 mg-3 mg/3 ml Soln] 3 ml INHALATION RT-QID PRN ml 12/15/19 [Rx] Thiamine [Vitamin B-1] 100 mg PO DAILY 30 Days #30 tab 12/15/19 [Rx] Follow up Appointment(s)/Referral(s): Emil Saunders MD [Primary Care Provider] - 1-2 days (Staff unable to reach office at time of discharge please call to set up a follow up appointment) Residential Home,Health [NON-STAFF] - Patient Instructions/Handouts: Weakness (DC) Activity/Diet/Wound Care/Special Instructions: Radiation oncology to see prior to discharge Continue current diet Follow-up with primary care provider upon discharge Follow-up with oncology upon discharge Discontinue fentanyl patch Activity Limited until follow-up Continue with home care Discharge Disposition: HOME WITH HOME HEALTH SERVICES
== END 2019-12-15 14:45 | disposition home health service (06) | DRG 948 ==
LOC: EC 22:18 → 4SSUR 22:36
PROVIDERS: ADMIT Internal Medicine; ATTEND Internal Medicine
DX: R53.1 Weakness (principal); C34.11 Malignant neoplasm of upper lobe, right bronchus or lung; J96.11 Chronic respiratory failure with hypoxia; C79.51 Secondary malignant neoplasm of bone; E87.1 Hypo-osmolality and hyponatremia; I48.92 Unspecified atrial flutter; M84.452D Pathological fracture, left femur, subsequent encounter for fracture with routine healing; F17.210 Nicotine dependence, cigarettes, uncomplicated; Z11.59 Encounter for screening for other viral diseases; F32.9 Major depressive disorder, single episode, unspecified; H91.91 Unspecified hearing loss, right ear; Z86.711 Personal history of pulmonary embolism; Z79.01 Long term (current) use of anticoagulants; I48.91 Unspecified atrial fibrillation; J44.9 Chronic obstructive pulmonary disease, unspecified; Z79.899 Other long term (current) drug therapy; Z83.3 Family history of diabetes mellitus; D35.2 Benign neoplasm of pituitary gland; R53.81 Other malaise; R41.0 Disorientation, unspecified; R26.9 Unspecified abnormalities of gait and mobility; D72.829 Elevated white blood cell count, unspecified; Z99.81 Dependence on supplemental oxygen; Z79.891 Long term (current) use of opiate analgesic
CPT/HCPCS: 70553; 72157; 80048; 80053; 80306; 81003; 85025; 94640; 99285

== ENCOUNTER 2020-02-04 12:59 | Inpatient (IN) | payer BC ==
--- NOTE | 2020-02-04 13:25 | ED ---
General Adult HPI - General Chief complaint: Recheck/Abnormal Lab/Rx Stated complaint: Hand wounds Time Seen by Provider: 02/04/20 13:19 Source: patient, RN notes reviewed, old records reviewed Mode of arrival: ambulatory Limitations: no limitations - History of Present Illness Initial comments: 64-year-old male history of lung and bone cancer presenting for evaluation of right upper extremity swelling and nonhealing infection in the right hand. This initiated as a blister which has now responded to oral antibiotics and Lasix. Patient has diffuse body swelling and complains of dyspnea. He is on Lasix but is uncertain of what dose he is currently taking. He was sent over from his oncologist for evaluation. He is not currently on chemotherapy. He denies fever. Denies central chest pain. - Related Data Home Medications Medication Instructions Recorded Confirmed Diltiazem HCl [Diltiazem HCl 24Hr 240 mg PO DAILY 12/12/19 12/12/19 ER (Cd)] Hydrocodone/Acetaminophen [[place] 1 tab PO Q6H PRN 12/12/19 12/12/19 10-325] Ipratropium-Albuterol Nebulize 3 ml INHALATION RT-QID 12/12/19 12/12/19 [Duoneb 0.5 mg-3 mg/3 ml Soln] LORazepam [Ativan] 0.5 mg PO BID PRN 12/12/19 12/12/19 Metoprolol Tartrate 25 mg PO BID 12/12/19 12/12/19 Omeprazole 20 mg PO DAILY 12/12/19 12/12/19 Sennosides [Senokot] 8.6 mg PO HS 12/12/19 12/12/19 levETIRAcetam [Keppra] 500 mg PO BID 12/12/19 12/12/19 Previous Rx's Medication Instructions Recorded Apixaban [Eliquis] 5 mg PO BID 30 Days tab 04/21/17 Acetaminophen Tab [Tylenol] 650 mg PO Q6HR PRN tab 12/15/19 Ipratropium-Albuterol Nebulize 3 ml INHALATION RT-QID PRN ml 12/15/19 [Duoneb 0.5 mg-3 mg/3 ml Soln] Thiamine [Vitamin B-1] 100 mg PO DAILY 30 Days #30 tab 12/15/19 dexAMETHasone [Hexadrol] 4 mg PO DAILY #30 tab 12/15/19 Allergies Allergy/AdvReac Type Severity Reaction Status Date / Time No Known Allergies Allergy Verified 02/04/20 13:08 Review of Systems ROS Statement: Those systems with pertinent positive or pertinent negative responses have been documented in the HPI. ROS Other: All systems not noted in ROS Statement are negative. 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, lung CA History of Any Multi-Drug Resistant Organisms: None Reported Past Surgical History: Orthopedic Surgery Additional Past Surgical History / Comment(s): left quadriceps; skull fx age 15, chyna placed in right femur Past Psychological History: Depression Smoking Status: Current every day smoker Past Alcohol Use History: None Reported Past Drug Use History: Marijuana - Past Family History Mother Family Medical History: AFIB Father Family Medical History: Diabetes Mellitus General Exam Limitations: no limitations General appearance: alert, in distress Head exam: Present: atraumatic, normocephalic Eye exam: Present: normal appearance, PERRL ENT exam: Present: normal exam Neck exam: Present: normal inspection. Absent: tenderness, meningismus Respiratory exam: Present: respiratory distress, rales, decreased breath sounds Cardiovascular Exam: Present: tachycardia, irregular rhythm GI/Abdominal exam: Present: soft. Absent: distended, tenderness, guarding, rebound Extremities exam: Present: pedal edema, other (Bilateral upper and lower edema, anasarca. Right hand cellulitis with blistering and minimal hemorrhage.) Neurological exam: Present: alert, oriented X3 Psychiatric exam: Present: normal affect, normal mood Course Vital Signs 02/04/20 02/04/20 02/04/20 13:02 13:30 13:45 Temperature 98.2 F Pulse Rate 113 H 101 H 102 H Respiratory 20 22 17 Rate Blood Pressure 112/65 92/74 93/67 O2 Sat by Pulse 90 L 100 98 Oximetry 02/04/20 02/04/20 02/04/20 14:00 14:15 14:30 Temperature Pulse Rate 96 97 90 Respiratory 22 15 25 H Rate Blood Pressure 91/78 94/53 84/69 O2 Sat by Pulse 84 L 85 L Oximetry 02/04/20 14:45 Temperature Pulse Rate 102 H Respiratory 20 Rate Blood Pressure 92/68 O2 Sat by Pulse 94 L Oximetry - Reevaluation(s) Reevaluation #1: 02/04/20 14:[address] Garcia, will admit EKG Findings - EKG Comments: EKG Findings:: Atrial fibrillation with RVR, low voltage, rate of 110, QRS duration 86, QTC 438., No ST segment elevation. Medical Decision Making - Medical Decision Making 63-year-old male with active cancer presenting with right hand swelling and erythema. His right hand is infected, with cellulitic changes, no no drainable abscess appreciated, there is soft tissue swelling in the right upper extremity and venous Doppler has been ordered to rule out DVT, these results are pending. Patient has a significantly elevated white blood cell count of 37,000. I started ceftriaxone and vancomycin in the emergency department. He will be admitted with both oncology and infectious disease on consult. He may require hand surgery evaluation. He has been admitted to internal medicine. Patient is anemic and homicidal. With a very high white count. He has electrolyte imbalance including hyponatremia and hypokalemia. He's been given 1 g of calcium gluconate in the emergency department. Chest x-ray and ultrasound of the right upper extremity results are pending. - Lab Data Result diagrams: 02/04/20 13:56 02/04/20 13:56 Lab Results 02/04/20 02/04/20 02/04/20 Range/Units 13:56 13:56 13:56 WBC 37.2 H (3.8-10.6) k/uL RBC 3.36 L (4.30-5.90) m/uL Hgb 10.1 L D (13.0-17.5) gm/dL Hct 30.6 L (39.0-53.0) % MCV 91.1 (80.0-100.0) fL MCH 29.9 (25.0-35.0) pg MCHC 32.9 (31.0-37.0) g/dL RDW 18.5 H (11.5-15.5) % Plt Count 73 L D (150-450) k/uL Neutrophils % (Manual) 89 % Band Neutrophils % 4 % Lymphocytes % (Manual) 2 % Monocytes % (Manual) 4 % Metamyelocytes % 1 % Myelocytes % 1 % Neutrophils # (Manual) 34.50 H (1.3-7.7) k/uL Lymphocytes # (Manual) 0.74 L (1.0-4.8) k/uL Monocytes # (Manual) 1.49 H (0-1.0) k/uL Metamyelocytes # (Man) 0.37 H (0) k/uL Myelocytes # (Manual) 0.37 H (0) k/uL Nucleated RBCs 0 (0-0) /100 WBC Manual Slide Review Performed Toxic Granulation Present Toxic Vacuolation Present Dohle Bodies Present Anisocytosis Slight PT 11.7 (9.0-12.0) sec INR 1.2 H (<1.2) APTT 28.3 (22.0-30.0) sec Sodium 129 L (137-145) mmol/L Potassium 4.8 (3.5-5.1) mmol/L Chloride 97 L (98-107) mmol/L Carbon Dioxide 26 (22-30) mmol/L Anion Gap 6 mmol/L BUN 18 (9-20) mg/dL Creatinine 1.03 (0.66-1.25) mg/dL Est GFR (CKD-EPI)AfAm 89 (>60 ml/min/1.73 sqM) Est GFR (CKD-EPI)NonAf 77 (>60 ml/min/1.73 sqM) Glucose 100 H (74-99) mg/dL Plasma Lactic Acid Oswald (0.7-2.0) mmol/L Calcium 6.3 L* (8.4-10.2) mg/dL Magnesium 1.8 (1.6-2.3) mg/dL Total Bilirubin 0.6 (0.2-1.3) mg/dL AST 22 (17-59) U/L ALT 18 (4-49) U/L Alkaline Phosphatase 164 H (38-126) U/L NT-Pro-B Natriuret Pep pg/mL Total Protein 4.9 L (6.3-8.2) g/dL Albumin 2.6 L (3.5-5.0) g/dL 02/04/20 02/04/20 Range/Units 13:56 13:56 WBC (3.8-10.6) k/uL RBC (4.30-5.90) m/uL Hgb (13.0-17.5) gm/dL Hct (39.0-53.0) % MCV (80.0-100.0) fL MCH (25.0-35.0) pg MCHC (31.0-37.0) g/dL RDW (11.5-15.5) % Plt Count (150-450) k/uL Neutrophils % (Manual) % Band Neutrophils % % Lymphocytes % (Manual) % Monocytes % (Manual) % Metamyelocytes % % Myelocytes % % Neutrophils # (Manual) (1.3-7.7) k/uL Lymphocytes # (Manual) (1.0-4.8) k/uL Monocytes # (Manual) (0-1.0) k/uL Metamyelocytes # (Man) (0) k/uL Myelocytes # (Manual) (0) k/uL Nucleated RBCs (0-0) /100 WBC Manual Slide Review Toxic Granulation Toxic Vacuolation Dohle Bodies Anisocytosis PT (9.0-12.0) sec INR (<1.2) APTT (22.0-30.0) sec Sodium (137-145) mmol/L Potassium (3.5-5.1) mmol/L Chloride (98-107) mmol/L Carbon Dioxide (22-30) mmol/L Anion Gap mmol/L BUN (9-20) mg/dL Creatinine (0.66-1.25) mg/dL Est GFR (CKD-EPI)AfAm (>60 ml/min/1.73 sqM) Est GFR (CKD-EPI)NonAf (>60 ml/min/1.73 sqM) Glucose (74-99) mg/dL Plasma Lactic Acid Oswald 1.4 (0.7-2.0) mmol/L Calcium (8.4-10.2) mg/dL Magnesium (1.6-2.3) mg/dL Total Bilirubin (0.2-1.3) mg/dL AST (17-59) U/L ALT (4-49) U/L Alkaline Phosphatase (38-126) U/L NT-Pro-B Natriuret Pep 1980 pg/mL Total Protein (6.3-8.2) g/dL Albumin (3.5-5.0) g/dL Disposition Clinical Impression: Metastatic lung carcinoma, Rapid atrial fibrillation, Cellulitis of right hand, Sepsis, Hyponatremia, Hypocalcemia Disposition: ADMITTED IP TO THIS HOSP Condition: Stable Is patient prescribed a controlled substance at d/c from ED?: No Referrals: Nonstaff,Physician [Primary Care Provider] - 1-2 days Decision to Admit Reason: Admit from EC Decision Date: 02/04/20 Decision Time: 14:52
[2020-02-04] MEDS ORDERED: VANCOMYCIN IV PER PHARMACY 1 EACH MISC MISCELLANE PRN ×2 (13:30→20:21)
[2020-02-04] MEDS ORDERED: cefTRIAXone IN SWFI 1,000 MG/10 ML SYRINGE IVP STA (13:30)
[2020-02-04] MEDS ORDERED: VANCOMYCIN 1,500 MG in SODIUM CHLORIDE 0.9% 250 ML IVPB ONE (14:00)
[2020-02-04 14:07] LABS: Anisocytosis Slight; HCT 30.6 % (39.0-53.0); MCH 29.9 pg (25.0-35.0); MCHC 32.9 g/dL (31.0-37.0); MCV 91.1 fL (80.0-100.0); Mean Platelet Volume 10.1; RBC 3.36 m/uL (4.30-5.90); RDW 18.5 % (11.5-15.5); WBC 37.2 k/uL (3.8-10.6)
[2020-02-04 14:16] LABS: HGB 10.1 gm/dL (13.0-17.5)
[2020-02-04 14:23] LABS: INR 1.2 (<1.2); Partial Thromboplastin Time 28.3 sec (22.0-30.0); Prothrombin Time 11.7 sec (9.0-12.0)
[2020-02-04 14:29] LABS: Albumin 2.6 g/dL (3.5-5.0); Magnesium 1.8 mg/dL (1.6-2.3); Potassium 4.8 mmol/L (3.5-5.1); Total Bilirubin 0.6 mg/dL (0.2-1.3); Total Protein 4.9 g/dL (6.3-8.2)
[2020-02-04 14:30] LABS: Platelet Count 73 k/uL (150-450)
[2020-02-04 14:33] LABS: Band Neutrophils % 4 %; Lymphocytes # (M) 0.74 k/uL (1.0-4.8); Metamyelocytes # (M) 0.37 k/uL (0); Metamyelocytes % 1 %; Monocytes # (M) 1.49 k/uL (0-1.0); Myelocytes # (M) 0.37 k/uL (0); Myelocytes % 1 %; Neutrophils % (M) 89 %; Nucleated Red Blood Cells 0 /100 WBC (0-0); Total Cells Counted 200
[2020-02-04 14:35] LABS: Dohle Bodies Present; Toxic Granulation Present; Toxic Vacuolation Present
[2020-02-04] MEDS ORDERED: NALOXONE 0.4 MG/ML 1 ML VIAL IV PRN (14:46)
[2020-02-04 14:57] LABS: Calcium 6.3 mg/dL (8.4-10.2)
[2020-02-04] MEDS ORDERED: CALCIUM GLUCONATE 1 GM in SODIUM CHLORIDE 0.9% 100 ML IVPB ONE (15:00)
--- NOTE | 2020-02-04 15:03 | US ---
EXAMINATION TYPE: US venous doppler duplex UE RT DATE OF EXAM: 02/04/2020 COMPARISON: NONE CLINICAL HISTORY: 64-year-old male DVT. Right arm swelling, h/o lung CA with mets SIDE PERFORMED: Right FINDINGS: Right Arm: Noncompressible clot within the right IJV, otherwise, the remainder appeared negative for DVT IMPRESSION: Exam positive for DVT involving the right internal jugular vein.
--- NOTE | 2020-02-04 16:25 | XR ---
EXAMINATION TYPE: XR chest 2V DATE OF EXAM: 02/04/2020 CLINICAL HISTORY: Difficulty breathing . History of lung cancer. TECHNIQUE: Frontal and lateral views of the chest are obtained. COMPARISON: Chest radiograph 04/15/2017 FINDINGS: Right-sided MediPort distal tip over the cavoatrial junction. Elevation of the right hemid iaphragm. The cardiomediastinal silhouette is within normal limits for size. Pulmonary vasculature is normal. There is a somewhat linear hazy airspace opacity of the right lung base. Likely small right pleural effusion. No pneumothorax seen. There is questionable cortical lucency of the right mid clavi deborah. IMPRESSION: 1. Small right pleural effusion. 2. Somewhat linear hazy airspace opacity of the right lung base likely represents atelectasis. 3. Cortical lucency over the superior right mid clavicle may represent fracture, however with overlap ping tubing. Correlation can be performed with patient history and/or point tenderness.
[2020-02-04] MEDS ORDERED: IPRATROPIUM-ALBUTEROL 3 ML NEB INHALATION PRN (18:13)
[2020-02-04] MEDS ORDERED: IPRATROPIUM-ALBUTEROL 3 ML NEB INHALATION STA (18:13)
[2020-02-04] MEDS ORDERED: HYDROcodone/APAP 10-325MG 1 EACH TAB PO PRN (18:13)
[2020-02-04] MEDS ORDERED: FUROSEMIDE 10 MG/ML 4 ML VIAL IV STA (18:47)
[2020-02-04] MEDS ORDERED: CALCIUM CHLORIDE 100 MG/ML 10 ML SYRINGE IVP ONE (19:00)
--- NOTE | 2020-02-04 20:37 | P.HPIM ---
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 fib, chronic hypoxic respiratory failure, and COPD who presented to the emergency department at the [facility] of radiation oncology secondary to difficulty breathing. On arrival to the ER he was found to have a pulse rate of 113 and was 90% on room air. Laboratory analysis showed white blood cell count of 37.2, hemoglobin 10.1, platelets 73, sodium 129, calcium 6.3, alkaline phosphatase 164. EKG demonstrated atrial fibrillation with rapid ventricular response at a heart rate of 110. Chest x-ray demonstrated hazy airspace opacity at the right lung base likely representing atelectasis, cortical lucency over the superior right mid clavicle. Venous Doppler demonstrated a DVT in the right IJ. Patient was found have a right hand cellulitis versus osteomyelitis. He was started on vancomycin and Rocephin. Arrangements were made for admission. Patient seen and examined at bedside with significant other present. Initially he reports he was sent in by Dr. Reza due to increasing right hand edema. He stated that the swelling began approximately 2 weeks ago. He then noted due to his extensive swelling that he developed some splitting of his skin as well as skin slopping. He states later his hand started to look infected. He is having pain in the hand. He has difficulty both flexing and extending the fingers of the right hand. He has been taking Keflex without improvement on outpatient basis. His significant other than states he actually came to the hospital due to an event that happened at radiation therapy in [place] today. Apparently he went to lay flat and he describes that he had a panic attack. His heart rate went up to 140. He became short of breath and had some chest discomfort and palpitations. This resolved and he was able to complete his radiation treatment. He reports that he has had shortness of breath worsening with ambulation or lying flat. He reports that he has had swollen lower extremities for the last several months but they have been getting worse. He does have some left arm swelling but it is not as severe as the right. He states that he has had a decreased appetite and has not been eating much and has been drinking some fluids. He denies any significant cough. No chest pain, syncope. No fevers/ch ills, no nausea or vomiting. He isn't experiencing constipation but no diarrhea. Patient initially stated that he was on Eliquis in the past secondary to his A. fib after much testing he was taken off Eliquis. However on review of pulmonary consult from November 2019 patient should've been on Eliquis secondary to recent pulmonary embolism. It appears that the last and his Eliquis was prescribed was 12/08/2019 and he confirms that he is not taking this medications currently He follows with Dr. pittman and Rebekah Da Silva from [place]. Review of Systems Pertinent positives and negatives as discussed in HPI, a complete review of systems was performed and all other systems are negative. 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 Nebulizer. No oxygent at home - Past Family History Mother Family Medical History: AFIB Father Family Medical History: Diabetes Mellitus Medications and Allergies Home Medications Medication Instructions Recorded Confirmed Type Diltiazem HCl [Diltiazem HCl 24Hr 240 mg PO DAILY 12/12/19 02/04/20 History ER (Cd)] Hydrocodone/Acetaminophen [[place] 1 tab PO Q4-6H PRN 12/12/19 02/04/20 History 10-325] Metoprolol Tartrate 25 mg PO BID 12/12/19 02/04/20 History Omeprazole 20 mg PO DAILY 12/12/19 02/04/20 History levETIRAcetam [Keppra] 500 mg PO HS 12/12/19 02/04/20 History Acetaminophen Tab [Tylenol] 650 mg PO Q6HR PRN tab 12/15/19 02/04/20 Rx Ipratropium-Albuterol Nebulize 3 ml INHALATION RT-QID PRN ml 12/15/19 02/04/20 Rx [Duoneb 0.5 mg-3 mg/3 ml Soln] Thiamine [Vitamin B-1] 100 mg PO DAILY 30 Days #30 tab 12/15/19 02/04/20 Rx Calcium/Magnesium/Zinc 1 tab PO TID 02/04/20 02/04/20 History [Hicknmx-Feakpiynh-Fvkt Tablet] Cephalexin [Keflex] 500 mg PO BID 02/04/20 02/04/20 History Cholecalciferol [Vitamin D3] 400 unit PO DAILY 02/04/20 02/04/20 History Folic Acid 1 mg PO DAILY 02/04/20 02/04/20 History Furosemide [Lasix] 20 mg PO DAILY 02/04/20 02/04/20 History LORazepam [Ativan] 1 mg PO BID PRN 02/04/20 02/04/20 History Loratadine [Claritin] 10 mg PO DAILY 02/04/20 02/04/20 History Nystatin 100,000 Unit/ml Susp 4 ml PO QID 02/04/20 02/04/20 History [Mycostatin Oral Susp] Ondansetron Odt [Zofran Odt] 4 mg PO Q6H PRN 02/04/20 02/04/20 History Potassium Unknown 1 tab PO DAILY 02/04/20 02/04/20 History fentaNYL 25MCG/HR PATCH [Duragesic 25 mcg TRANSDERM Q72H 02/04/20 02/04/20 History 25MCG/HR] levETIRAcetam [Keppra Xr] 500 mg PO DAILY 02/04/20 02/04/20 History Allergies Allergy/AdvReac Type Severity Reaction Status Date / Time No Known Allergies Allergy Verified 02/04/20 18:03 Physical Exam Osteopathic Statement: *. No significant issues noted on an osteopathic structural exam other than those noted in the History and Physical/Consult. Vitals: Vital Signs Temp Pulse Resp BP Pulse Ox 02/04/20 16:00 94 15 84/72 98 02/04/20 15:45 103 H 14 91/67 97 02/04/20 15:30 108 H 24 95/81 99 02/04/20 15:15 101 H 16 99/75 98 02/04/20 15:00 104 H 18 87/68 98 02/04/20 14:45 102 H 20 92/68 94 L 02/04/20 14:30 90 25 H 84/69 85 L 02/04/20 14:15 97 15 94/53 84 L 02/04/20 14:00 96 22 91/78 02/04/20 13:45 102 H 17 93/67 98 02/04/20 13:30 101 H 22 92/74 100 02/04/20 13:02 98.2 F 113 H 20 112/65 90 L Intake and Output 02/04/20 02/04/20 02/04/20 06:59 14:59 22:59 Other: Weight 97.069 kg General: Ill-appearing, moderate distress, appears older than stated age, obese Derm: erythema with skin sloughing over right hand, purulent drainage. warm, dry Head: atraumatic, normocephalic, symmetric Eyes: EOMI, no lid lag, anicteric sclera, pupils equal round reactive to light ENT: Nose and ears atraumatic, no thrush, no pharyngeal erythema Neck: No thyromegaly, no cervical lymphadenopathy, trachea midline, supple Mouth: no lip lesion, mucus membranes moist Cardiovascular: S1S2 reg, no murmur, positive posterior tibial pulse bilateral,1+ bilateral lower extremity edema, 2+ left upper extremity edema, and 3+ right upper extremity edema, Capillary refill less than 2 seconds Lungs: decreased breath sounds bilateral, no ronchi, no rales, no wheeze, no accessory muscle use Abdominal: soft, nontender to palpation, no guarding, no appreciable organomegaly, normal bowel sounds Ext: right hand with swelling and difficulty with flexion and extension secondary to gross edema, sensation intact, no gross muscle atrophy, muscle strength muscle strength 5 out of 5 in all 4 extremities, no contractures Neuro: CN II-XI grossly intact, light touch intact all 4 extremities, finger to nose within normal limits, Psych: Alert, oriented, appropriate affect Results CBC & Chem 7: 02/04/20 13:56 02/04/20 13:56 Labs: Abnormal Lab Results - Last 24 Hours (Table) 02/04/20 02/04/20 02/04/20 Range/Units 13:56 13:56 13:56 WBC 37.2 H (3.8-10.6) k/uL RBC 3.36 L (4.30-5.90) m/uL Hgb 10.1 L D (13.0-17.5) gm/dL Hct 30.6 L (39.0-53.0) % RDW 18.5 H (11.5-15.5) % Plt Count 73 L D (150-450) k/uL Neutrophils # (Manual) 34.50 H (1.3-7.7) k/uL Lymphocytes # (Manual) 0.74 L (1.0-4.8) k/uL Monocytes # (Manual) 1.49 H (0-1.0) k/uL Metamyelocytes # (Man) 0.37 H (0) k/uL Myelocytes # (Manual) 0.37 H (0) k/uL INR 1.2 H (<1.2) Sodium 129 L (137-145) mmol/L Chloride 97 L (98-107) mmol/L Glucose 100 H (74-99) mg/dL Calcium 6.3 L* (8.4-10.2) mg/dL Alkaline Phosphatase 164 H (38-126) U/L Total Protein 4.9 L (6.3-8.2) g/dL Albumin 2.6 L (3.5-5.0) g/dL Chest x-ray: report reviewed Venous US: report reviewed Thrombosis Risk Factor Assmnt - DVT/VTE Prophylaxis DVT/VTE Prophylaxis: Pharmacologic Prophylaxis ordered Assessment and Plan Assessment: Right hand cellulitis with sepsis -Concern for osteomyelitis. Check CRP, consult orthopedic surgery. -Manas Ackerman -BRIAN consultation -Blood cultures -Repeat CBC in a.m. -Limit IV fluids secondary to significant fluid overload Diffuse anasarca -May be secondary to severe protein calorie malnutrition -Consideration for SVC syndrome however patient denies any facial swelling -Check echocardiogram to rule out systolic cardiomyopathy Intractable pain, cancer-related -Continue with home [place], fentanyl patch -Morphine as needed for breakthrough pain -Significant other is leery to increase fentanyl patch as patient has had an accidental overdose in the past. However this seems unrealistic with patient's progressive nature of his disease. Anemia and thrombocytopenia -Suspect secondary to chemotherapy -Repeat CBC in a.m. -Follow platelet count closely with his Eliquis. Right IJ DVT -Eliquis -Oncology recommendations Recent pulmonary embolism -Patient has not been taking Eliquis at home -Discussion with oncology in a.m. Hyponatremia -Suspect hypervolemic -Lasix 40 mg IV twice daily -Follow electrolytes -Avoid fluid resuscitation Adenocarcinoma with metastatic disease to the spine, hip, and clavicle - Known metastatic disease to the left iliac wing, small lesion left fifth rib, 2.6 cm lytic lesion at T4, 2 cm right upper lobe mass, left lower extremity moth-eaten the appearance of the femoral neck -consult oncology Atrophic fibrillation with rapid ventricular response -IV fluids -Continue with patient's diltiazem and metoprolol -Telemetry monitoring History of seizure disorder -Keppra COPD without exacerbation -Continue home inhaler regiment The patient is admitted with an anticipated greater than 2 midnight stay for evaluation of right had cellulitis. Surrogate decision-maker: Sisters CODE STATUS: Full DVT prophylaxis: Willy Anticipated discharge date: 3-[address]: Home A total of 90 minutes of time was spent on this complex patient.
[2020-02-04] MEDS: levETIRAcetam 500 MG TAB PO SCH (21:36)
[2020-02-04] MEDS: APIXABAN 5 MG TAB PO SCH (21:36)
[2020-02-04] MEDS: METOPROLOL TARTRATE 25 MG TAB PO SCH (21:36)
[2020-02-04] MEDS: NYSTATIN 100,000 UNIT/ML SUSP 500,000 UNIT/5 ML CUP PO SCH (21:37)
[2020-02-04] MEDS: NON FORMULARY DRUG (Calcium/Magnesium/Zinc [Calcium-Magnesium-Zinc Tablet] 1 TAB) PO SCH (21:37)
[2020-02-04] MEDS: AMPICILLIN-SULBACTAM 3 GM in SODIUM CHLORIDE 0.9% 100 ML IVPB SCH (23:18)
[2020-02-04] MEDS: HYDROcodone/APAP 10-325MG 1 EACH TAB PO PRN (23:34)
[2020-02-04] MEDS: LORazepam 1 MG TAB PO PRN (23:42)
[2020-02-05] MEDS: VANCOMYCIN 1,500 MG in SODIUM CHLORIDE 0.9% 250 ML IVPB SCH ×2 (01:15→13:54)
--- NOTE | 2020-02-05 01:27 | P.CONS ---
History of Present Illness - Reason for Consult Consult date: 02/04/20 Right hand cellulitis Requesting physician: Lilli Garcia - Chief Complaint Shortness of breath and and swelling x days - History of Present Illness Patient is 64 year male with a past medical history significant for metastatic adenocarcinoma of the lung currently undergoing chemotherapy and radiation therapy patient seemed to have problem with increasing swelling in all of his 4 extremities however more in his right arm patient seemed to have some superficial ulceration on the dorsum aspect of the right hand for possible ruptured blister that he has for more than 2 weeks now patient apparently has been treated outpatient setting with an oral antibiotic however the patient did not seem to have significant improvement patient was sent to the ER from the oncology office with concern for possible respiratory difficulty on arrival to the ER the patient was intermittently according and he was satting about 90% on room air, patient did have a upper extremity Doppler was positive for DVT involving the right internal jugular vein patient did have a white count of 37,000 but no fever he has been diagnosed with possible cellulitis of the right hand dorsum the patient was started on vancomycin and Unasyn has been admitted to the hospital infectious disease was consulted for further management of antibiotic therapy, patient had been complaining of shortness of breath apparently has been getting worse for the last few days patient did have a cough but no worsening or any purulent sputum production patient denies hemoptysis and no chest pain, did have mild than anything. 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, lung CA stage IV with bony metastases, Seizure disorder, pulmonary embolism, depression History of Any Multi-Drug Resistant Organisms: None Reported Past Surgical History: Orthopedic Surgery Additional Past Surgical History / Comment(s): left quadriceps; skull fx age 15, chyna placed in right femur 3 months ago Past Anesthesia/Blood Transfusion Reactions: No Reported Reaction Past Psychological History: Depression Smoking Status: Current every day smoker Past Alcohol Use History: None Reported Past Drug Use History: Marijuana - Past Family History Mother Family Medical History: AFIB Father Family Medical History: Diabetes Mellitus Medications and Allergies Home Medications Medication Instructions Recorded Confirmed Type Diltiazem HCl [Diltiazem HCl 24Hr 240 mg PO DAILY 12/12/19 02/04/20 History ER (Cd)] Hydrocodone/Acetaminophen [[place] 1 tab PO Q4-6H PRN 12/12/19 02/04/20 History 10-325] Metoprolol Tartrate 25 mg PO BID 12/12/19 02/04/20 History Omeprazole 20 mg PO DAILY 12/12/19 02/04/20 History levETIRAcetam [Keppra] 500 mg PO HS 12/12/19 02/04/20 History Acetaminophen Tab [Tylenol] 650 mg PO Q6HR PRN tab 12/15/19 02/04/20 Rx Ipratropium-Albuterol Nebulize 3 ml INHALATION RT-QID PRN ml 12/15/19 02/04/20 Rx [Duoneb 0.5 mg-3 mg/3 ml Soln] Thiamine [Vitamin B-1] 100 mg PO DAILY 30 Days #30 tab 12/15/19 02/04/20 Rx Calcium/Magnesium/Zinc 1 tab PO TID 02/04/20 02/04/20 History [Lghediq-Tbhpvgrsz-Ltln Tablet] Cephalexin [Keflex] 500 mg PO BID 02/04/20 02/04/20 History Cholecalciferol [Vitamin D3] 400 unit PO DAILY 02/04/20 02/04/20 History Folic Acid 1 mg PO DAILY 02/04/20 02/04/20 History Furosemide [Lasix] 20 mg PO DAILY 02/04/20 02/04/20 History LORazepam [Ativan] 1 mg PO BID PRN 02/04/20 02/04/20 History Loratadine [Claritin] 10 mg PO DAILY 02/04/20 02/04/20 History Nystatin 100,000 Unit/ml Susp 4 ml PO QID 02/04/20 02/04/20 History [Mycostatin Oral Susp] Ondansetron Odt [Zofran Odt] 4 mg PO Q6H PRN 02/04/20 02/04/20 History Potassium Unknown 1 tab PO DAILY 02/04/20 02/04/20 History fentaNYL 25MCG/HR PATCH [Duragesic 25 mcg TRANSDERM Q72H 02/04/20 02/04/20 History 25MCG/HR] levETIRAcetam [Keppra Xr] 500 mg PO DAILY 02/04/20 02/04/20 History Allergies Allergy/AdvReac Type Severity Reaction Status Date / Time No Known Allergies Allergy Verified 02/04/20 18:03 Physical Exam Vitals: Vital Signs Temp Pulse Pulse Resp BP BP Pulse Ox 02/04/20 23:00 97.7 F 66 16 96/61 90 L 02/04/20 20:22 97.6 F 108 H 16 130/84 94 L 02/04/20 19:54 116 H 18 100/68 93 L 02/04/20 19:04 114 H 18 02/04/20 19:00 112 H 19 99 02/04/20 18:54 112 H 18 02/04/20 18:30 118 H 16 103/61 99 02/04/20 18:00 109 H 23 114/71 95 02/04/20 17:30 98 11 L 85/67 96 02/04/20 17:00 105 H 22 92/79 100 02/04/20 16:30 99 13 82/71 96 02/04/20 16:00 94 15 84/72 98 02/04/20 15:45 103 H 14 91/67 97 02/04/20 15:30 108 H 24 95/81 99 02/04/20 15:15 101 H 16 99/75 98 02/04/20 15:00 104 H 18 87/68 98 02/04/20 14:45 102 H 20 92/68 94 L 02/04/20 14:30 90 25 H 84/69 85 L 02/04/20 14:15 97 15 94/53 84 L 02/04/20 14:00 96 22 91/78 02/04/20 13:45 102 H 17 93/67 98 02/04/20 13:30 101 H 22 92/74 100 02/04/20 13:02 98.2 F 113 H 20 112/65 90 L Intake and Output 02/04/20 02/04/20 02/05/20 14:59 22:59 06:59 Intake Total 200 Balance 200 Intake: Oral 200 Other: Voiding Method Toilet Urinal Weight 97.069 kg 97.069 kg GENERAL DESCRIPTION: Middle-aged male lying in bed, no distress. No tachypnea or accessory muscle of respiration use. HEENT: Shows Pallor , no scleral icterus. Oral mucous membrane is dry. No pharyngeal erythema or thrush NECK: Trachea central, no thyromegaly. LUNGS: Unlabored breathing. Decreased breath sounds at the base. No wheeze or crackle. HEART: S1, S2, regular rate and rhythm. No loud murmur ABDOMEN: Soft, no tenderness , guarding or rigidity, no organomegaly EXTREMITIES: 2+ edema of feet. Right hand dorsum did have swelling some superfi cial ulceration minimal slough no foul-smelling drainage SKIN: No rash, no masses palpable. NEUROLOGICAL: The patient is awake, alert, oriented x3, mood and affect normal. Results CBC & Chem 7: 02/04/20 13:56 02/04/20 13:56 Labs: Abnormal Lab Results - Last 24 Hours (Table) 02/04/20 02/04/20 02/04/20 Range/Units 13:56 13:56 13:56 WBC 37.2 H (3.8-10.6) k/uL RBC 3.36 L (4.30-5.90) m/uL Hgb 10.1 L D (13.0-17.5) gm/dL Hct 30.6 L (39.0-53.0) % RDW 18.5 H (11.5-15.5) % Plt Count 73 L D (150-450) k/uL Neutrophils # (Manual) 34.50 H (1.3-7.7) k/uL Lymphocytes # (Manual) 0.74 L (1.0-4.8) k/uL Monocytes # (Manual) 1.49 H (0-1.0) k/uL Metamyelocytes # (Man) 0.37 H (0) k/uL Myelocytes # (Manual) 0.37 H (0) k/uL INR 1.2 H (<1.2) Sodium 129 L (137-145) mmol/L Chloride 97 L (98-107) mmol/L Glucose 100 H (74-99) mg/dL Calcium 6.3 L* (8.4-10.2) mg/dL Alkaline Phosphatase 164 H (38-126) U/L C-Reactive Protein (<10.0) mg/L Total Protein 4.9 L (6.3-8.2) g/dL Albumin 2.6 L (3.5-5.0) g/dL 08/14/20 Range/Units 13:56 WBC (3.8-10.6) k/uL RBC (4.30-5.90) m/uL Hgb (13.0-17.5) gm/dL Hct (39.0-53.0) % RDW (11.5-15.5) % Plt Count (150-450) k/uL Neutrophils # (Manual) (1.3-7.7) k/uL Lymphocytes # (Manual) (1.0-4.8) k/uL Monocytes # (Manual) (0-1.0) k/uL Metamyelocytes # (Man) (0) k/uL Myelocytes # (Manual) (0) k/uL INR (<1.2) Sodium (137-145) mmol/L Chloride (98-107) mmol/L Glucose (74-99) mg/dL Calcium (8.4-10.2) mg/dL Alkaline Phosphatase (38-126) U/L C-Reactive Protein 70.7 H (<10.0) mg/L Total Protein (6.3-8.2) g/dL Albumin (3.5-5.0) g/dL Assessment and Plan Assessment: 1- patient with generalized swelling of his 4 extremities in this patient noticed to have more swelling of the right hand now with evidence of right IJ DVT may be contributing to some of his significant swelling in the right upper extremity patient did have some superficial ulceration dorsum of right hand Likely from some ruptured blister from increasing fluid concern for possible secondary cellulitis (1) Cellulitis of right hand Current Visit: Yes Status: Acute Code(s): L03.113 - CELLULITIS OF RIGHT UPPER LIMB SNOMED Code(s): 59979466 Plan: 1- local wound care to the right hand dorsum wound dry Aquacel silver dressing and mild compression dressing 2-vancomycin pharmacy to dose and Unasyn to continue for possible cellulitis We will follow on clinical condition and cultures to further adjust medication if needed Thank you for this consultation will follow this patient with you Time with Patient: Greater than 30
[2020-02-05] MEDS: HYDROcodone/APAP 10-325MG 1 EACH TAB PO PRN ×3 (03:55→20:18)
[2020-02-05] MEDS: AMPICILLIN-SULBACTAM 3 GM in SODIUM CHLORIDE 0.9% 100 ML IVPB SCH ×4 (05:29→23:14)
[2020-02-05] MEDS: FOLIC ACID 1 MG TAB PO SCH (07:22)
[2020-02-05] MEDS: METOPROLOL TARTRATE 25 MG TAB PO SCH (07:22)
[2020-02-05] MEDS: APIXABAN 5 MG TAB PO SCH (07:22)
[2020-02-05] MEDS: PANTOPRAZOLE 40 MG TABLET PO SCH (07:22)
[2020-02-05] MEDS: LORATADINE 10 MG TAB PO SCH (07:22)
[2020-02-05] MEDS: NON FORMULARY DRUG (Calcium/Magnesium/Zinc [Calcium-Magnesium-Zinc Tablet] 1 TAB) PO SCH ×3 (07:32→21:17)
[2020-02-05] MEDS: levETIRAcetam 250 MG TAB PO SCH ×2 (07:33→20:15)
[2020-02-05] MEDS: NYSTATIN 100,000 UNIT/ML SUSP 500,000 UNIT/5 ML CUP PO SCH ×4 (07:34→21:22)
[2020-02-05] MEDS: CHOLECALCIFEROL 400 UNIT TAB PO SCH (07:34)
[2020-02-05] MEDS ORDERED: DILTIAZEM CD 240 MG CAP.ER.24H PO SCH (09:00)
[2020-02-05 09:37] LABS: Anisocytosis Slight; HCT 31.9 % (39.0-53.0); HGB 10.3 gm/dL (13.0-17.5); MCH 30.1 pg (25.0-35.0); MCHC 32.2 g/dL (31.0-37.0); MCV 93.5 fL (80.0-100.0); Macrocytosis Slight; Mean Platelet Volume 9.5; RBC 3.41 m/uL (4.30-5.90); RDW 18.9 % (11.5-15.5); WBC 36.4 k/uL (3.8-10.6)
[2020-02-05 09:44] LABS: African American GFR (CKD) >90 (>60 ml/min/1.73 sqM); Anion Gap 6 mmol/L; Blood Urea Nitrogen 14 mg/dL (9-20); C Reactive Protein 59.8 mg/L (<10.0); Carbon Dioxide 26 mmol/L (22-30); Chloride 99 mmol/L (98-107); Glucose 109 mg/dL (74-99); Magnesium 1.8 mg/dL (1.6-2.3); Non-African American GFR(CKD) 86 (>60 ml/min/1.73 sqM); Phosphorus 2.9 mg/dL (2.5-4.5); Potassium 4.3 mmol/L (3.5-5.1); Sodium 131 mmol/L (137-145)
[2020-02-05 09:47] LABS: Platelet Count 87 k/uL (150-450)
[2020-02-05 09:51] LABS: Calcium 6.4 mg/dL (8.4-10.2)
[2020-02-05] MEDS ORDERED: CALCIUM GLUCONATE 2 GM in SODIUM CHLORIDE 0.9% 100 ML IVPB ONE (11:00)
--- NOTE | 2020-02-05 11:25 | P.CNOR ---
History of Present Illness - [facility] Consult date: 02/05/20 Consult reason: other History of present illness: Patient is a 64-year-old male who was brought to [facility] yesterday afternoon with an episode of severe shortness of breath that occurred while at his doctor's appointment in [place]. Patient has a known history of metastatic lung cancer and is currently being treated. He was found to have significant abnormalities in his labs and other exacerbation of his medical comorbidities. He was admitted to the hospital. Orthopedic team was consult with regards to right hand swelling/cellulitis. Patient was evaluated today at bedside, is resting comfortably. He states that he's had swelling in the hand for about 3 weeks, he was initially told cellulitis, hehas been taking oral Keflex for this with little improvement. He is noted worsening swelling of the hand. Patient's also had total body swelling that has been going on for quite some time. He denies any previous surgery involving the right hand. He admits to recent orthopedic surgery on his left hip due to the metastatic cancer, this was done by an orthopedic surgeon in [place]. He admits that since being admitted to the hospital receiving IV antibiotics, the swelling in both hands seems to be much improved. He states that the movement throughout both hands and fingers is much improved. He has no other orthopedic complaints at this time. 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, lung CA stage IV with bony metastases, Seizure disorder, pulmonary embolism, depression History of Any Multi-Drug Resistant Organisms: None Reported Past Surgical History: Orthopedic Surgery Additional Past Surgical History / Comment(s): left quadriceps; skull fx age 15, chyna placed in right femur 3 months ago Past Anesthesia/Blood Transfusion Reactions: No Reported Reaction Past Psychological History: Depression Smoking Status: Current every day smoker Past Alcohol Use History: None Reported Past Drug Use History: Marijuana - Past Family History Mother Family Medical History: AFIB Father Family Medical History: Diabetes Mellitus Medications and Allergies Home Medications Medication Instructions Recorded Confirmed Type Diltiazem HCl [Diltiazem HCl 24Hr 240 mg PO DAILY 12/12/19 02/04/20 History ER (Cd)] Hydrocodone/Acetaminophen [Dobbins 1 tab PO Q4-6H PRN 12/12/19 02/04/20 History 10-325] Metoprolol Tartrate 25 mg PO BID 12/12/19 02/04/20 History Omeprazole 20 mg PO DAILY 12/12/19 02/04/20 History levETIRAcetam [Keppra] 500 mg PO HS 12/12/19 02/04/20 History Acetaminophen Tab [Tylenol] 650 mg PO Q6HR PRN tab 12/15/19 02/04/20 Rx Ipratropium-Albuterol Nebulize 3 ml INHALATION RT-QID PRN ml 12/15/19 02/04/20 Rx [Duoneb 0.5 mg-3 mg/3 ml Soln] Thiamine [Vitamin B-1] 100 mg PO DAILY 30 Days #30 tab 12/15/19 02/04/20 Rx Calcium/Magnesium/Zinc 1 tab PO TID 02/04/20 02/04/20 History [Mbxreca-Fvzawbczk-Cupz Tablet] Cephalexin [Keflex] 500 mg PO BID 02/04/20 02/04/20 History Cholecalciferol [Vitamin D3] 400 unit PO DAILY 02/04/20 02/04/20 History Folic Acid 1 mg PO DAILY 02/04/20 02/04/20 History Furosemide [Lasix] 20 mg PO DAILY 02/04/20 02/04/20 History LORazepam [Ativan] 1 mg PO BID PRN 02/04/20 02/04/20 History Loratadine [Claritin] 10 mg PO DAILY 02/04/20 02/04/20 History Nystatin 100,000 Unit/ml Susp 4 ml PO QID 02/04/20 02/04/20 History [Mycostatin Oral Susp] Ondansetron Odt [Zofran Odt] 4 mg PO Q6H PRN 02/04/20 02/04/20 History Potassium Unknown 1 tab PO DAILY 02/04/20 02/04/20 History fentaNYL 25MCG/HR PATCH [Duragesic 25 mcg TRANSDERM Q72H 02/04/20 02/04/20 History 25MCG/HR] levETIRAcetam [Keppra Xr] 500 mg PO DAILY 02/04/20 02/04/20 History Allergies Allergy/AdvReac Type Severity Reaction Status Date / Time No Known Allergies Allergy Verified 02/04/20 18:03 Physical Examination Right upper extremity: Obvious soft tissue swelling and erythema noted throughout the hand. There are multiple areas of scabs and sloughing skin. There are 2 main scabs over the dorsum of the hand along the third and fourth metacarpal. I'm unable to appreciate any active drainage. They're difficult to assess for any areas of fluctuance. There was no significant erythema or areas of fluctuance appreciated on the flexor side. Patient was able to wiggle all the fingers in almost make a full fist. His sensation to light touch throughout that extremity is intact. His radial pulses 2+. Results - Labs Labs: Abnormal Lab Results - Last 24 Hours (Table) 02/04/20 02/04/20 02/04/20 Range/Units 13:56 13:56 13:56 WBC 37.2 H (3.8-10.6) k/uL RBC 3.36 L (4.30-5.90) m/uL Hgb 10.1 L D (13.0-17.5) gm/dL Hct 30.6 L (39.0-53.0) % RDW 18.5 H (11.5-15.5) % Plt Count 73 L D (150-450) k/uL Neutrophils # (Manual) 34.50 H (1.3-7.7) k/uL Lymphocytes # (Manual) 0.74 L (1.0-4.8) k/uL Monocytes # (Manual) 1.49 H (0-1.0) k/uL Metamyelocytes # (Man) 0.37 H (0) k/uL Myelocytes # (Manual) 0.37 H (0) k/uL INR 1.2 H (<1.2) Sodium 129 L (137-145) mmol/L Chloride 97 L (98-107) mmol/L Glucose 100 H (74-99) mg/dL Calcium 6.3 L* (8.4-10.2) mg/dL Alkaline Phosphatase 164 H (38-126) U/L C-Reactive Protein (<10.0) mg/L Total Protein 4.9 L (6.3-8.2) g/dL Albumin 2.6 L (3.5-5.0) g/dL 02/04/20 02/05/20 02/05/20 Range/Units 13:56 08:38 08:38 WBC 36.4 H (3.8-10.6) k/uL RBC 3.41 L (4.30-5.90) m/uL Hgb 10.3 L (13.0-17.5) gm/dL Hct 31.9 L (39.0-53.0) % RDW 18.9 H (11.5-15.5) % Plt Count 87 L (150-450) k/uL Neutrophils # (Manual) (1.3-7.7) k/uL Lymphocytes # (Manual) (1.0-4.8) k/uL Monocytes # (Manual) (0-1.0) k/uL Metamyelocytes # (Man) (0) k/uL Myelocytes # (Manual) (0) k/uL INR (<1.2) Sodium 131 L (137-145) mmol/L Chloride (98-107) mmol/L Glucose 109 H (74-99) mg/dL Calcium 6.4 L* (8.4-10.2) mg/dL Alkaline Phosphatase (38-126) U/L C-Reactive Protein 70.7 H 59.8 H (<10.0) mg/L Total Protein (6.3-8.2) g/dL Albumin (3.5-5.0) g/dL H & H 02/04/20 02/05/20 Range/Units 13:56 08:38 Hgb 10.1 L D 10.3 L (13.0-17.5) gm/dL Hct 30.6 L 31.9 L (39.0-53.0) % Coagulation 02/04/20 Range/Units 13:56 INR 1.2 H (<1.2) Result Diagrams: 02/05/20 08:38 02/05/20 08:38 Assessment and Plan Assessment: Right hand cellulitis/abscess Multiple medical comorbidities Plan: I was able to discuss the case, including both physical exam findings and imaging studies my attending Dr. Barker. Due to the significant amount of skin sloughing in the areas of scabbing there is a high concern for possible abscess. Also with regards to failed outpatient antibiotic treatment, we would like to proceed with an incision and drainage with irrigation and debridement procedure of the right hand. Our plan is to proceed with this on 02/06/2020. Obtain consent Nothing by mouth after midnight Other district medical examiner recommendations Further recommendations to follow Time with Patient: Less than 30
--- NOTE | 2020-02-05 12:01 | XR ---
EXAMINATION TYPE: XR hand complete RT DATE OF EXAM: 02/05/2020 CLINICAL HISTORY: Pain and swelling. TECHNIQUE: Frontal, lateral and oblique images of the right hand are obtained. COMPARISON: None. FINDINGS: There is no acute fracture/dislocation evident in the right hand. The joint spaces in the right hand appear within normal limits. No suspicious bony destruction. Mild to moderate diffuse subc utaneous edema and soft tissue swelling noted greatest over the distal forearm and wrist level extend ing into the dorsum of the hand over the metacarpals. IMPRESSION: As above.
[2020-02-05] MEDS: IPRATROPIUM-ALBUTEROL 3 ML NEB INHALATION PRN ×2 (14:03→19:33)
[2020-02-05] MEDS ORDERED: HEPARIN SODIUM,PORCINE 10,000 UNIT/ML 1 ML VIAL IV ONE (14:37)
[2020-02-05] MEDS ORDERED: HEPARIN SODIUM,PORCINE 5,000 UNIT/ML 1 ML VIAL IV PRN (14:37)
[2020-02-05] MEDS ORDERED: LACTULOSE 20 GM/30 ML CUP PO PRN (14:41)
[2020-02-05] MEDS ORDERED: HEPARIN SOD,PORK IN 0.45% NACL 25,000 UNIT in 0.45% NACL 1 250ML.BAG IV SCH (14:45)
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
[2020-02-05] MEDS: guaiFENesin 600 MG TABLET.ER PO SCH ×2 (14:53→20:15)
[2020-02-05] MEDS: polyethylene glycoL 3350 17 GM POWD.PACK PO SCH (14:53)
--- NOTE | 2020-02-05 14:57 | ECHOF ---
Referral Reason:chf MEASUREMENTS -------- HEIGHT: 180.3 cm WEIGHT: 97.1 kg BP: RVIDd: 3.1 cm (< 3.3) IVSd: 1.1 cm (0.6 - 1.1) LVIDd: 5.8 cm (3.9 - 5.3) LVPWd: 1.2 cm (0.6 - 1.1) IVSs: 1.3 cm LVIDs: 4.9 cm LVPWs: 1.6 cm LAESV Index (A-L): 26.73 ml/m Ao Diam: 4.1 cm (2.0 - 3.7) AV Cusp: 2.6 cm (1.5 - 2.6) LA Diam: 3.4 cm (2.7 - 3.8) MV EXCURSION: 21.518 mm (> 18.000) MV EF SLOPE: 131 mm/s (70 - 150) EPSS: 1.2 cm RAP: 5.00 mmHg RVSP: 18.80 mmHg FINDINGS -------- Atrial fibrillation. This was a technically adequate study. The left ventricular size is normal. There is mild concentric left ventricular hypertrophy. There is moderate global hypokinesis of LV . Overall left ventricular systolic function is moderately im paired with, an EF between 35 - 40 %. The right ventricle is normal in size. Normal LA size by volume 22+/-6 ml/m2. The right atrial size is normal. Unable to visualize the septum. The aortic valve is trileaflet, and appears structurally normal. No aortic stenosis or regurgitation. The mitral valve leaflets are mildly thickened. [id number] mitral regurgitation is present. The tricuspid valve appears structurally normal. Trace tricuspid regurgitation present. Right ang tricular systolic pressure is normal at < 35 mmHg. There is no pulmonic regurgitation present. The aortic root is dilated measuring 4.1 cm.. Normal inferior vena cava with normal inspiratory collapse consistent with estimated right atrial pre ssure of 5 mmHg. There is a small, generalized pericardial effusion present. CONCLUSIONS -------- 1. There is mild concentric left ventricular hypertrophy. 2. There is moderate global hypokinesis of LV . 3. Overall left ventricular systolic function is moderately impaired with, an EF between 35 - 40 %. 4. Normal LA size by volume 22+/-6 ml/m2. 5. The aortic valve is trileaflet, and appears structurally normal. No aortic stenosis or regurgitati on. 6. Pksa-ig-oznrsgoy mitral regurgitation is present. 7. Trace tricuspid regurgitation present. 8. The aortic root is dilated measuring 4.1 cm. 9. There is a small, generalized pericardial effusion present. [employer]SEMBLER: Deepa Kaufman RDCS
[2020-02-05 15:17] LABS: Anisocytosis Slight; Basophils # (A) 0.1 k/uL (0-0.2); Basophils % (A) 0 %; Eosinophils % (A) 0 %; HCT 30.5 % (39.0-53.0); HGB 9.9 gm/dL (13.0-17.5); Lymphocytes # (A) 0.6 k/uL (1.0-4.8); Lymphocytes % (A) 2 %; MCH 30.2 pg (25.0-35.0); MCHC 32.4 g/dL (31.0-37.0); Macrocytosis Slight; Mean Platelet Volume 9.7; Monocytes % (A) 3 %; Neutrophils # (A) 29.3 k/uL (1.3-7.7); Neutrophils % (A) 94 %; RBC 3.28 m/uL (4.30-5.90); WBC 31.2 k/uL (3.8-10.6)
[2020-02-05 15:21] LABS: INR 1.3 (<1.2)
[2020-02-05 15:22] LABS: Partial Thromboplastin Time 33.6 sec (22.0-30.0); Prothrombin Time 12.7 sec (9.0-12.0)
[2020-02-05 15:48] LABS: Platelet Count 98 k/uL (150-450)
--- NOTE | 2020-02-05 16:43 | US ---
EXAMINATION TYPE: US venous doppler duplex LE BI DATE OF EXAM: 02/05/2020 4:16 PM COMPARISON: NONE CLINICAL HISTORY: edema, PE. SIDE PERFORMED: Bilateral TECHNIQUE: The lower extremity deep venous system is examined utilizing real time linear array sonog karen with graded compression, doppler sonography and color-flow sonography. VESSELS IMAGED: External Iliac Vein (EIV) Common Femoral Vein Deep Femoral Vein Greater Saphenous Vein * Femoral Vein Popliteal Vein Small Saphenous Vein * Proximal Calf Veins (* superficial vessels) Right Leg: Negative for DVT Left Leg: Negative for DVT IMPRESSION: No evidence of deep vein thrombosis in both legs.
[2020-02-05] MEDS: levETIRAcetam 500 MG TAB PO SCH (20:15)
[2020-02-05] MEDS ORDERED: METOPROLOL TARTRATE 12.5 MG TAB PO SCH (21:00)
[2020-02-05] MEDS: LORazepam 1 MG TAB PO PRN (21:29)
--- NOTE | 2020-02-05 21:29 | P.PN ---
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 fib, chronic hypoxic respiratory failure, and COPD who presented to the emergency department at the direction of radiation oncology secondary to difficulty breathing. On arrival to the ER he was found to have a pulse rate of 113 and was 90% on room air. Laboratory analysis showed white blood cell count of 37.2, hemoglobin 10.1, platelets 73, sodium 129, calcium 6.3, alkaline phosphatase 164. EKG demonstrated atrial fibrillation with rapid ventricular response at a heart rate of 110. Chest x-ray demonstrated hazy airspace opacity at the right lung base likely representing atelectasis, cortical lucency over the superior right mid clavicle. Venous Doppler demonstrated a DVT in the right IJ. Patient was found have a right hand cellulitis versus osteomyelitis. He was started on vancomycin and Rocephin. Arrangements were made for admission. ID, ortho and oncology were consulted. Plan for I and D in the AM 02/05 he was trasnitioned of eliquis and onto heparin gtt due to need for intervention. Patient seen and examined at bedside. He reports that his hand pain is slightly better. He also reports that he is having improvement in his swelling in his hands and his legs. He continues to have some shortness of breath. He reports the pain still is not well-controlled encouraged him to use his morphine. We again discussed his overall prognosis and his frustration with his current state of health. We discussed the importance of him getting up and moving around. He is in agreement. General: ill appearing, moderate distress due to pain, appears at stated age Derm: Right hand with dressing in place, significant decrease in edema right and left upper extremities warm, dry Head: atraumatic, normocephalic, symmetric Eyes: EOMI, no lid lag, anicteric sclera Mouth: no lip lesion, mucus membranes moist Cardiovascular: S1S2 reg, no murmur, positive posterior tibial pulse bilateral, Lungs: Crackles and rales bilateral , no accessory muscle use Abdominal: soft, nontender to palpation, no guarding, no appreciable o rganomegaly Ext: no gross muscle atrophy, 2+ edema bilateral lower extremities, no contractures Neuro: CN II-XI grossly intact, no focal neuro deficits Psych: Alert, oriented, appropriate affect Right hand cellulitis with sepsis -ortho recs appreciated: I and D 02/06/2020 - ID recs appreciated -Manas Ackerman -Blood cultures negative to date -Repeat CBC in a.m. -Limit IV fluids secondary to significant fluid overload - x-ray without osteomyelitis Acute exacerbation of systolic cardiomyopathy, newly discovered - Lasix IV BID - strict I and O daily weights - consult cardio - continue with BB, stop CA leslie with low EF and hypotension in hopes of starting ACEI Intractable pain, cancer-related -Continue with home [place], fentanyl patch -Morphine as needed for breakthrough pain -Significant other is leery to increase fentanyl patch as patient has had an accidental overdose in the past. However this seems unrealistic with patient's progressive nature of his disease. Anemia and thrombocytopenia -Suspect secondary to chemotherapy -Repeat CBC in a.m. 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 Increase Metoprolol. - cardio consult -Telemetry monitoring History of seizure disorder -Keppra COPD without exacerbation -Continue home inhaler regiment Hypocalcemia - likley due to Xgeva side effect - replacement - Corrected calcium 7.7 DVT prophylaxis: heparin gtt Anticipated discharge date: 3-[address]: Home A total of 35 minutes of time was spent on this complex patient. Objective - Vital Signs Vital signs: Vital Signs Temp 98.1 F 02/05/20 15:00 Pulse 113 H 02/05/20 19:43 Resp 20 02/05/20 15:00 BP 94/46 08/15/20 15:00 Pulse Ox 97 02/05/20 15:00 Intake & Output 02/05/20 02/05/20 02/06/20 06:59 18:59 06:59 Intake Total 500 Output Total 1100 Balance -600 Weight 97.069 kg Intake: Oral 500 Output: Urine 1100 Other: Voiding Method Toilet Toilet Urinal Urinal # Voids 1 2 - Labs CBC & Chem 7: 02/05/20 14:47 02/05/20 08:38 Labs: Abnormal Lab Results - Last 24 Hours (Table) 02/05/20 02/05/20 02/05/20 Range/Units 08:38 08:38 14:47 WBC 36.4 H 31.2 H (3.8-10.6) k/uL RBC 3.41 L 3.28 L (4.30-5.90) m/uL Hgb 10.3 L 9.9 L (13.0-17.5) gm/dL Hct 31.9 L 30.5 L (39.0-53.0) % RDW 18.9 H 19.0 H (11.5-15.5) % Plt Count 87 L 98 L (150-450) k/uL Neutrophils # 29.3 H (1.3-7.7) k/uL Lymphocytes # 0.6 L (1.0-4.8) k/uL PT (9.0-12.0) sec INR (<1.2) APTT (22.0-30.0) sec Sodium 131 L (137-145) mmol/L Glucose 109 H (74-99) mg/dL Calcium 6.4 L* (8.4-10.2) mg/dL C-Reactive Protein 59.8 H (<10.0) mg/L 02/05/20 Range/Units 14:47 WBC (3.8-10.6) k/uL RBC (4.30-5.90) m/uL Hgb (13.0-17.5) gm/dL Hct (39.0-53.0) % RDW (11.5-15.5) % Plt Count (150-450) k/uL Neutrophils # (1.3-7.7) k/uL Lymphocytes # (1.0-4.8) k/uL PT 12.7 H (9.0-12.0) sec INR 1.3 H (<1.2) APTT 33.6 H (22.0-30.0) sec Sodium (137-145) mmol/L Glucose (74-99) mg/dL Calcium (8.4-10.2) mg/dL C-Reactive Protein (<10.0) mg/L Microbiology - Last 24 Hours (Table) 02/04/20 13:51 Blood Culture - Preliminary Blood No Growth after 24 hours
--- NOTE | 2020-02-05 23:22 | PN ---
PROGRESS NOTE DATE OF SERVICE: 02/05/2020 REASON FOR FOLLOWUP: Right hand cellulitis. INTERVAL HISTORY: Patient is currently afebrile. Overall pain and discomfort to the right hand is slightly decreased. The patient denies having any chest pain or shortness of breath or cough. No abdominal pain or diarrhea. PHYSICAL EXAMINATION: Blood pressure is 94/53 with a pulse of 129, temperature 98.3. He is 95% on 3 L nasal cannula. General description is a middle-aged male up in the bed in no distress. Respiratory system: Unlabored breathing, clear to auscultation anteriorly. Heart S1, S2. Regular rate and rhythm. Right hand is currently dressed up. No obvious drainage on the dressing. LABS: Hemoglobin is 9.8, white count 31.2, BUN of 14, creatinine 0.94. DIAGNOSTIC IMPRESSION AND PLAN: Patient with right hand wound cellulitis, concern for possible underlying abscess. Scheduled for surgery tomorrow with medical deep cultures. Continue with vancomycin and Unasyn adjusting antibiotic further based on culture report. Continue supportive care. MMODL / IJN: [id number] /
--- NOTE | 2020-02-06 01:09 | P.PN ---
Progress Note - Text Progress Note Date: 02/06/20 Patient's PTT continues to be elevated despite Heparin infusion being held since 2209. Possibly secondary to impaired clearance and having recently having been on Eliquis. Case discussed in detail with pharmacist and patient's RN. Will avoid reversing due to underlying DVT. Neurochecks q1h ordered. Will continue to monitor PTT.
[2020-02-06] MEDS: VANCOMYCIN 1,500 MG in SODIUM CHLORIDE 0.9% 250 ML IVPB SCH (01:26)
[2020-02-06] MEDS: LORazepam 1 MG TAB PO PRN (04:51)
[2020-02-06] MEDS ORDERED: METOPROLOL TARTRATE 12.5 MG TAB PO STA (04:56)
[2020-02-06] MEDS: AMPICILLIN-SULBACTAM 3 GM in SODIUM CHLORIDE 0.9% 100 ML IVPB SCH ×3 (05:06→16:38)
[2020-02-06 05:45] LABS: Anisocytosis Slight; HCT 31.9 % (39.0-53.0); HGB 10.4 gm/dL (13.0-17.5); MCH 30.6 pg (25.0-35.0); MCHC 32.7 g/dL (31.0-37.0); MCV 93.5 fL (80.0-100.0); Macrocytosis Slight; Platelet Count 113 k/uL (150-450); RBC 3.41 m/uL (4.30-5.90); RDW 19.1 % (11.5-15.5); WBC 29.5 k/uL (3.8-10.6)
[2020-02-06 05:53] LABS: African American GFR (CKD) >90 (>60 ml/min/1.73 sqM); Anion Gap 3 mmol/L; Blood Urea Nitrogen 14 mg/dL (9-20); Calcium 6.6 mg/dL (8.4-10.2); Carbon Dioxide 27 mmol/L (22-30); Chloride 102 mmol/L (98-107); Glucose 110 mg/dL (74-99); Magnesium 1.8 mg/dL (1.6-2.3); Non-African American GFR(CKD) >90 (>60 ml/min/1.73 sqM); Phosphorus 3.2 mg/dL (2.5-4.5); Potassium 4.1 mmol/L (3.5-5.1); Sodium 132 mmol/L (137-145)
[2020-02-06 06:12] LABS: Metamyelocytes # (M) 0.59 k/uL (0); Metamyelocytes % 2 %; Monocytes # (M) 1.77 k/uL (0-1.0); Myelocytes # (M) 0.89 k/uL (0); Myelocytes % 3 %; Neutrophils # (M) 25.96 k/uL (1.3-7.7); Neutrophils % (M) 88 %; Nucleated Red Blood Cells 0 /100 WBC (0-0); Total Cells Counted 200
[2020-02-06] MEDS ORDERED: HEPARIN SODIUM,PORCINE 10,000 UNIT/ML 1 ML VIAL IV ONE (06:28)
[2020-02-06] MEDS ORDERED: HEPARIN SODIUM,PORCINE 5,000 UNIT/ML 1 ML VIAL IV PRN (06:28)
[2020-02-06] MEDS: HEPARIN SOD,PORK IN 0.45% NACL 25,000 UNIT in 0.45% NACL 1 250ML.BAG IV SCH (06:39)
[2020-02-06] MEDS ORDERED: SODIUM CHLORIDE 0.9% 1,000 ML IV ONE ×2 (09:49→12:10)
[2020-02-06] MEDS ORDERED: PHENYLEPHRINE-0.9% NACL SYG 1 MG/10 ML SYRINGE ONE (10:18)
[2020-02-06] MEDS ORDERED: LABETALOL 5 MG/ML VIAL MDV ONE (10:18)
[2020-02-06] MEDS ORDERED: LIDOCAINE 2%-EPI 1:100,000 20 ML VIAL ONE (10:18)
[2020-02-06] MEDS ORDERED: MIDAZOLAM 2 MG/2 ML VIAL ONE (10:18)
[2020-02-06] MEDS ORDERED: fentaNYL (PF) 50 MCG/ML 2 ML AMP ONE (10:18)
[2020-02-06] MEDS ORDERED: ceFAZolin 1,000 MG in SODIUM CHLORIDE 0.9% 1,000 ML IRRIGATION ONE (10:33)
--- NOTE | 2020-02-06 11:00 | P.OP ---
Date of Procedure: 02/06/20 Preoperative Diagnosis: Right hand cellulitis/necrotic dorsal eschar Postoperative Diagnosis: Same Procedure(s) Performed: Irrigation and debridement right hand necrotic eschar Anesthesia: regional Surgeon: Pan Barker Specialty Development Consultant #1: Abhi Martin Estimated Blood Loss (ml): 5 Pathology: other (Cultures) Condition: stable Disposition: PACU Indications for Procedure: The patient is a 64-year-old male with metastatic lung adenocarcinoma presents with progressive right hand pain/swelling/cellulitis despite IV antibiotic treatment. A discussion of the risks and benefits of operative intervention was made with patient. He opted to proceed. Operative risks to include persistence of infection need for subsequent procedures was discussed. Informed consent was obtained. Operative Findings: As below Description of Procedure: The patient was brought to the operating room after placement of a supraclavicular block by anesthesia. The right upper extremity was prepped and draped in normal fashion. 2 large necrotic eschar were noted dorsally. These were debrided sharply with a scalpel back to a bleeding base. This extended down to the subcutaneous tissues. Remaining skin was also removed. Cultures were obtained. This was then copiously irrigated with normal saline. A sterile dressing was then placed. The patient was then awoken from sedation and transferred to recovery room in good condition. Blood loss was estimated 5 mL. No complications were incurred.
[2020-02-06] MEDS ORDERED: VANCOMYCIN TROUGH DUE 1 EACH MISC MISCELLANE ONE (13:00)
--- NOTE | 2020-02-06 13:37 | P.CRDCN ---
History of Present Illness Consult date: 02/06/20 Requesting physician: Lilli Garcia Reason for Consult (text): new cardiomyopathy Chief complaint: Upper extremity swelling and nonhealing infection on the right hand History of present illness: This is a pleasant 64-year-old gentleman with a history of atrial fibrillation, status post cardioversion in 2017, smoking, mildly impaired LV systolic function with ejection fraction of 45-50% on echo done in 2017. He was recently diagnosed with adenocarcinoma of the lung with bone metastasis requiring left hip ORIF. He developed PE postoperatively and was placed on Eliquis. He has been undergoing radiation to his spine, right clavicle and left hip. He has been started on a chemotherapy immunotherapy combination about 2 weeks ago. Since starting the chemotherapy he began experiencing some swelling of his upper and lower extremities. He presented to his oncologist with some blistering and superficial ulcers and redness of the right hand. He recommended admission for IV antibiotics and the patient refused at that time. He subsequently called his oncologist with complaints of rapid heartbeat at which time he was recommended to go to the nearest emergency room however drove down here to [place] as the patient lives up near [place]. Upon presentation he was found to be in atrial fibrillation with rapid ventricular response. He underwent debridement of that wound this morning. We were asked to see the patient in consultation due to an abnormal echocardiogram which showed an ejection fraction of 35-40%. The patient has also been found to have a new DVT in the right internal jugular vein. He has been on IV heparin due to the surgery but will likely be switched back to Eliquis. Patient's NT proBNP is elevated at 1980. His CBC is relatively stable. Blood pressure is running on the low side. 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, lung CA stage IV with bony metastases, Seizure disorder, pulmonary embolism, depression History of Any Multi-Drug Resistant Organisms: None Reported Past Surgical History: Orthopedic Surgery Additional Past Surgical History / Comment(s): left quadriceps; skull fx age 15, chyna placed in right femur 3 months ago Past Anesthesia/Blood Transfusion Reactions: No Reported Reaction Past Psychological History: Depression Smoking Status: Current every day smoker Past Alcohol Use History: None Reported Past Drug Use History: Marijuana - Past Family History Mother Family Medical History: AFIB Father Family Medical History: Diabetes Mellitus Medications and Allergies Home Medications Medication Instructions Recorded Confirmed Type Diltiazem HCl [Diltiazem HCl 24Hr 240 mg PO DAILY 12/12/19 02/04/20 History ER (Cd)] Hydrocodone/Acetaminophen [[place] 1 tab PO Q4-6H PRN 12/12/19 02/04/20 History 10-325] Metoprolol Tartrate 25 mg PO BID 12/12/19 02/04/20 History Omeprazole 20 mg PO DAILY 12/12/19 02/04/20 History levETIRAcetam [Keppra] 500 mg PO HS 12/12/19 02/04/20 History Acetaminophen Tab [Tylenol] 650 mg PO Q6HR PRN tab 12/15/19 02/04/20 Rx Ipratropium-Albuterol Nebulize 3 ml INHALATION RT-QID PRN ml 12/15/19 02/04/20 Rx [Duoneb 0.5 mg-3 mg/3 ml Soln] Thiamine [Vitamin B-1] 100 mg PO DAILY 30 Days #30 tab 12/15/19 02/04/20 Rx Calcium/Magnesium/Zinc 1 tab PO TID 02/04/20 02/04/20 History [Deotsxj-Lcobdzqyp-Pgjl Tablet] Cephalexin [Keflex] 500 mg PO BID 02/04/20 02/04/20 History Cholecalciferol [Vitamin D3] 400 unit PO DAILY 02/04/20 02/04/20 History Folic Acid 1 mg PO DAILY 02/04/20 02/04/20 History Furosemide [Lasix] 20 mg PO DAILY 02/04/20 02/04/20 History LORazepam [Ativan] 1 mg PO BID PRN 02/04/20 02/04/20 History Loratadine [Claritin] 10 mg PO DAILY 02/04/20 02/04/20 History Nystatin 100,000 Unit/ml Susp 4 ml PO QID 02/04/20 02/04/20 History [Mycostatin Oral Susp] Ondansetron Odt [Zofran Odt] 4 mg PO Q6H PRN 02/04/20 02/04/20 History Potassium Unknown 1 tab PO DAILY 02/04/20 02/04/20 History fentaNYL 25MCG/HR PATCH [Duragesic 25 mcg TRANSDERM Q72H 02/04/20 02/04/20 History 25MCG/HR] levETIRAcetam [Keppra Xr] 500 mg PO DAILY 02/04/20 02/04/20 History Allergies Allergy/AdvReac Type Severity Reaction Status Date / Time No Known Allergies Allergy Verified 02/04/20 18:03 Physical Exam Vitals: Vital Signs Temp Pulse Pulse Pulse Resp BP BP 02/06/20 12:25 59 L 24 84/54 02/06/20 12:00 68 20 96/59 02/06/20 11:50 120 H 20 118/56 02/06/20 11:39 117 H 18 91/57 02/06/20 11:24 121 H 18 02/06/20 11:09 122 H 18 87/50 02/06/20 10:54 97.1 F L 115 H 20 91/56 02/06/20 09:58 122 H 22 80/56 02/06/20 09:28 98.8 F 62 20 108/80 02/06/20 09:21 24 02/06/20 05:45 98.4 F 126 H 24 115/69 02/06/20 00:47 97.8 F 73 20 98/66 02/05/20 21:20 89 96/66 02/05/20 19:43 113 H 02/05/20 19:33 112 H 02/05/20 19:02 98.3 F 129 H 26 H 94/53 02/05/20 15:00 98.1 F 119 H 20 94/46 02/05/20 14:11 96 02/05/20 14:03 98 Pulse Ox 02/06/20 12:25 92 L 02/06/20 12:00 93 L 02/06/20 11:50 95 02/06/20 11:39 96 02/06/20 11:24 98 02/06/20 11:09 02/06/20 10:54 98 02/06/20 09:58 92 L 02/06/20 09:28 94 L 02/06/20 09:21 02/06/20 05:45 97 02/06/20 00:47 94 L 02/05/20 21:20 96 02/05/20 19:43 02/05/20 19:33 02/05/20 19:02 95 02/05/20 15:00 97 02/05/20 14:11 02/05/20 14:03 Intake and Output 02/05/20 02/06/20 02/06/20 22:59 06:59 14:59 Intake Total 81.536 401 Output Total 600 5 Balance 81.536 -600 396 Intake: IV 401 Intake, IV Titration 81.536 Amount Heparin Sod,Pork in 0.45% 81.536 NaCl 25,000 unit In 0.45 % NaCl 1 250ml.bag @ 18 UNITS/KG/HR 17.472 mls/hr IV .[id number] [facility] Rx#: [id number] Output: Urine 600 Estimated Blood Loss 5 Other: Voiding Method Toilet Toilet Toilet Urinal Urinal Urinal PHYSICAL EXAMINATION: This is a 64-year-old male in no apparent distress at the time of my examination. VITAL SIGNS: Blood pressure 84/54, heart rate 59, respirations 24, temp 97.1F. Patient is 92 % on 3 L nasal cannula. HEENT: Head is atraumatic, normocephalic. Pupils are equal, round. Sclerae anicteric. Conjunctivae are clear. Mucous membranes of the mouth are moist. Neck is supple. There is no elevated jugular venous pressure. No carotid bruit is heard. CHEST EXAMINATION: Lungs reveal diminished air entry bilaterally. No wheezes rales or rhonchi. HEART EXAMINATION: Heart irregularly irregular, positive S1 and S2. No S3. No S4. With a systolic ejection murmur at the base. ABDOMEN: Soft, nontender. Bowel sounds are heard. No organomegaly noted. EXTREMITIES: 2+ peripheral pulses with evidence of generalized peripheral edema and no calf tenderness noted. Dressing and Luther wrap noted to right forearm and hand. NEUROLOGIC EXAMINATION: Patient is awake, alert and oriented x3. Results 02/06/20 05:23 02/06/20 05:23 Coagulation 02/05/20 02/05/20 02/05/20 Range/Units 14:47 20:42 22:41 PT 12.7 H (9.0-12.0) sec APTT 33.6 H >200.0 H* >200.0 H* (22.0-30.0) sec 02/06/20 02/06/20 Range/Units 00:10 05:23 PT (9.0-12.0) sec APTT >200.0 H* 30.4 H (22.0-30.0) sec CBC 02/05/20 02/06/20 Range/Units 14:47 05:23 WBC 31.2 H 29.5 H (3.8-10.6) k/uL RBC 3.28 L 3.41 L (4.30-5.90) m/uL Hgb 9.9 L 10.4 L (13.0-17.5) gm/dL Hct 30.5 L 31.9 L (39.0-53.0) % Plt Count 98 L 113 L (150-450) k/uL Comprehensive Metabolic Panel 02/06/20 Range/Units 05:23 Sodium 132 L (137-145) mmol/L Potassium 4.1 (3.5-5.1) mmol/L Chloride 102 (98-107) mmol/L Carbon Dioxide 27 (22-30) mmol/L BUN 14 (9-20) mg/dL Creatinine 0.74 (0.66-1.25) mg/dL Glucose 110 H (74-99) mg/dL Calcium 6.6 L (8.4-10.2) mg/dL Current Medications Generic Name Dose Route Start Last Admin Trade Name Freq PRN Reason Stop Dose Admin Hydrocodone Bitart/Acetaminophen 1 each 02/04/20 20:18 02/05/20 20:18 [place] 10 PO 1 each Q4H PRN Administration Pain Albuterol/Ipratropium 3 ml 02/04/20 20:18 02/05/20 19:33 Duoneb 0.5 Mg-3 Mg/3 Ml Soln INHALATION 3 ml RT-QID PRN Administration Shortness Of Breath Or Wheezing Cholecalciferol 400 unit 02/05/20 09:00 02/05/20 07:34 Vitamin D3 PO 400 unit DAILY RENA Administration Fentanyl 1 patch 02/05/20 09:00 02/05/20 07:21 Duragesic 25mcg/Hr Patch TRANSDERM 1 patch Q72H RENA Administration Folic Acid 1 mg 02/05/20 09:00 02/05/20 07:22 Folic Acid PO 1 mg DAILY RENA Administration Guaifenesin 600 mg 02/05/20 14:45 02/05/20 20:15 Mucinex PO 600 mg Q12HR RENA Administration Heparin Sodium (Porcine) 0 unit 02/05/20 14:37 Heparin IV PER PROTOCOL PRN Low PTT Protocol Heparin Sodium (Porcine) 0 unit 02/06/20 06:28 Heparin IV PER PROTOCOL PRN Low PTT Protocol Vancomycin HCl 1,500 mg/ 250 mls @ 125 mls/hr 02/05/20 02:00 02/06/20 01:26 Sodium Chloride IVPB 125 mls/hr Q12H RENA Administration Ampicillin Sodium/Sulbactam 100 mls @ 200 mls/hr 02/05/20 00:00 02/06/20 13:03 Sodium 3 gm/ Sodium Chloride IVPB 200 mls/hr Q6HR RENA Administration Heparin Sodium/Sodium Chloride 250 mls @ 17.472 mls/hr 02/06/20 06:30 02/06/20 06:39 25,000 unit/ Sodium Chloride IV 18 units/kg/hr .[id number] RENA 17.472 mls/hr Administration Protocol 18 UNITS/KG/HR Lactulose 20 gm 02/05/20 14:41 02/05/20 20:15 Cephulac PO 20 gm DAILY PRN Administration Constipation Levetiracetam 500 mg 02/04/20 21:00 02/05/20 20:15 Keppra PO 500 mg HS RENA Administration Levetiracetam 250 mg 02/05/20 09:00 02/05/20 20:15 Keppra PO 250 mg BID RENA Administration Loratadine 10 mg 02/05/20 09:00 02/05/20 07:22 Claritin PO 10 mg DAILY RENA Administration Lorazepam 1 mg 02/04/20 20:18 02/06/20 04:51 Ativan PO 1 mg BID PRN Administration Anxiety Metoprolol Tartrate 25 mg 02/06/20 09:00 Lopressor PO BID RENA Morphine Sulfate 4 mg 02/04/20 18:47 Morphine Sulfate (Inj) IVP Q6HR PRN Pain Naloxone HCl 0.2 mg 02/04/20 14:46 Narcan IV Q2M PRN Opioid Reversal Nystatin 400,000 unit 02/04/20 22:00 02/05/20 21:22 Mycostatin Oral Susp PO 400,000 unit QID RENA Administration Pantoprazole Sodium 40 mg 02/05/20 09:00 08/15/20 07:22 Protonix PO 40 mg DAILY RENA Administration Polyethylene Glycol 17 gm 02/05/20 14:45 02/05/20 14:53 Miralax PO 17 gm DAILY RENA Administration Intake and Output 02/05/20 02/06/20 02/06/20 22:59 06:59 14:59 Intake Total 81.536 401 Output Total 600 5 Balance 81.536 -600 396 Intake: IV 401 Intake, IV Titration 81.536 Amount Heparin Sod,Pork in 0.45% 81.536 NaCl 25,000 unit In 0.45 % NaCl 1 250ml.bag @ 18 UNITS/KG/HR 17.472 mls/hr IV .[id number] [facility] Rx#: [id number] Output: Urine 600 Estimated Blood Loss 5 Other: Voiding Method Toilet Toilet Toilet Urinal Urinal Urinal 02/06/20 05:23 02/06/20 05:23 Assessment and Plan Assessment: #1 lung cancer with bone metastasis #2 acute on chronic systolic congestive heart failure #3 atrial fibrillation, likely persistent #4 DVT #5 right hand cellulitis, status post debridement #6 nicotine dependence Plan: From cardiology perspective we will add IV diuretics. We will hold off on initiating an LUTHER inhibitor due to hypotension. Continue beta leslie. Due to the complexity and acuity of his comorbid conditions we will treat the patient medically at this time. We will continue to follow the patient and provide further recommendations accordingly. Continue to follow renal function and e lectrolytes as well as intake and output and daily weights. [employer] note has been reviewed, I agree with a documented findings and plan of care. Patient was seen and examined.
[2020-02-06] MEDS: NYSTATIN 100,000 UNIT/ML SUSP 500,000 UNIT/5 ML CUP PO SCH ×4 (14:24→22:36)
[2020-02-06] MEDS: guaiFENesin 600 MG TABLET.ER PO SCH ×2 (14:25→22:33)
[2020-02-06] MEDS: PANTOPRAZOLE 40 MG TABLET PO SCH (14:25)
[2020-02-06] MEDS: polyethylene glycoL 3350 17 GM POWD.PACK PO SCH (14:26)
[2020-02-06] MEDS: LORATADINE 10 MG TAB PO SCH (14:26)
[2020-02-06] MEDS: FOLIC ACID 1 MG TAB PO SCH (14:26)
[2020-02-06] MEDS: HYDROcodone/APAP 10-325MG 1 EACH TAB PO PRN (14:27)
[2020-02-06] MEDS: METOPROLOL TARTRATE 12.5 MG TAB PO SCH ×2 (14:33→22:35)
[2020-02-06] MEDS: CHOLECALCIFEROL 400 UNIT TAB PO SCH (14:39)
[2020-02-06] MEDS: levETIRAcetam 250 MG TAB PO SCH ×2 (15:06→22:34)
[2020-02-06] MEDS ORDERED: VANCOMYCIN 1,500 MG in SODIUM CHLORIDE 0.9% 250 ML IVPB SCH (18:00)
--- NOTE | 2020-02-06 18:22 | P.PN ---
Subjective Progress Note Date: 02/06/20 Patient was seen and examined. No acute events overnight. Underwent I&D today. He complains of thirst from being nothing by mouth yesterday. Patient reports continued pain in his right hand, requesting additional medication. He denies any chest pain, shortness breath or palpitations. No nausea or vomiting. No fever or chills. Objective - Vital Signs Vital signs: Vital Signs Temp 98.7 F 02/06/20 17:06 Pulse 100 02/06/20 17:06 Resp 16 02/06/20 17:06 BP 83/60 02/06/20 17:06 Pulse Ox 95 02/06/20 17:06 Intake & Output 02/05/20 02/06/20 02/06/20 18:59 06:59 18:59 Intake Total 81.536 541.067 Output Total 600 5 Balance -518.464 536.067 Intake: IV 401 Intake, IV Titration 81.536 140.067 Amount Heparin Sod,Pork in 0.45% 81.536 NaCl 25,000 unit In 0.45 % NaCl 1 250ml.bag @ 18 UNITS/KG/HR 17.472 mls/hr IV .[id number] [facility] Rx#: [id number] Heparin Sod,Pork in 0.45% 140.067 NaCl 25,000 unit In 0.45 % NaCl 1 250ml.bag @ 18 UNITS/KG/HR 17.472 mls/hr IV .[id number] [facility] Rx#: [id number] Output: Urine 600 Estimated Blood Loss 5 Other: Voiding Method Toilet Toilet Toilet Urinal Urinal Urinal # Voids 2 - Exam General: [non toxic], [no distress], [appears at stated age] Derm: [warm], [dry], right and dressing clean dry and intact Head: [atraumatic], [normocephalic], [symmetric] Eyes: [EOMI], [no lid lag], [anicteric sclera] Mouth: [no lip lesion], [mucus membranes moist] Cardiovascular: [S1S2 reg], [no murmur], [positive posterior tibial pulse bilateral], Lungs: [Coarse breath sounds bilateral], [no rhonchi, no rales] , [no accessory muscle use] Abdominal: [soft], [ nontender to palpation], [no guarding], [no appreciable organomegaly] Ext: [no gross muscle atrophy], [2+ pitting lower extremity edema], [no contractures] Neuro: [no focal neuro deficits] Psych: [Alert], [oriented], [appropriate affect] - Labs CBC & Chem 7: 02/06/20 05:23 02/06/20 05:23 Labs: Abnormal Lab Results - Last 24 Hours (Table) 02/05/20 02/05/20 02/06/20 Range/Units 20:42 22:41 00:10 WBC (3.8-10.6) k/uL RBC (4.30-5.90) m/uL Hgb (13.0-17.5) gm/dL Hct (39.0-53.0) % RDW (11.5-15.5) % Plt Count (150-450) k/uL Neutrophils # (Manual) (1.3-7.7) k/uL Lymphocytes # (Manual) (1.0-4.8) k/uL Monocytes # (Manual) (0-1.0) k/uL Metamyelocytes # (Man) (0) k/uL Myelocytes # (Manual) (0) k/uL APTT >200.0 H* >200.0 H* >200.0 H* (22.0-30.0) sec Sodium (137-145) mmol/L Glucose (74-99) mg/dL Calcium (8.4-10.2) mg/dL 02/06/20 02/06/20 02/06/20 Range/Units 05:23 05:23 05:23 WBC 29.5 H (3.8-10.6) k/uL RBC 3.41 L (4.30-5.90) m/uL Hgb 10.4 L (13.0-17.5) gm/dL Hct 31.9 L (39.0-53.0) % RDW 19.1 H (11.5-15.5) % Plt Count 113 L (150-450) k/uL Neutrophils # (Manual) 25.96 H (1.3-7.7) k/uL Lymphocytes # (Manual) 0.30 L (1.0-4.8) k/uL Monocytes # (Manual) 1.77 H (0-1.0) k/uL Metamyelocytes # (Man) 0.59 H (0) k/uL Myelocytes # (Manual) 0.89 H (0) k/uL APTT 30.4 H (22.0-30.0) sec Sodium 132 L (137-145) mmol/L Glucose 110 H (74-99) mg/dL Calcium 6.6 L (8.4-10.2) mg/dL 02/06/20 Range/Units 12:43 WBC (3.8-10.6) k/uL RBC (4.30-5.90) m/uL Hgb (13.0-17.5) gm/dL Hct (39.0-53.0) % RDW (11.5-15.5) % Plt Count (150-450) k/uL Neutrophils # (Manual) (1.3-7.7) k/uL Lymphocytes # (Manual) (1.0-4.8) k/uL Monocytes # (Manual) (0-1.0) k/uL Metamyelocytes # (Man) (0) k/uL Myelocytes # (Manual) (0) k/uL APTT >200.0 H* (22.0-30.0) sec Sodium (137-145) mmol/L Glucose (74-99) mg/dL Calcium (8.4-10.2) mg/dL Microbiology - Last 24 Hours (Table) 02/06/20 10:41 Anaerobic Culture - Preliminary Hand - Right 02/06/20 10:41 Wound Culture - Preliminary Hand - Right 02/04/20 13:51 Blood Culture - Preliminary Blood No Growth after 48 hours Assessment and Plan Assessment: Right hand cellulitis with sepsis -ortho recs appreciated: I and D 02/06/2020, follow wound cultures - ID recs appreciated -Manas Ackerman -Blood cultures negative to date -Repeat CBC in a.m. -Limit IV fluids secondary to significant fluid overload - x-ray without osteomyelitis Acute exacerbation of systolic cardiomyopathy, newly discovered - Lasix IV BID - strict I and O daily weights - consult cardio - continue with BB, stop CA leslie with low EF and hypotension in hopes of starting ACEI Intractable pain, cancer-related -Increase [place] from 1 tab to 2 tab for better pain control -Continue with home fentanyl patch -Morphine as needed for breakthrough pain -Significant other is leery to increase fentanyl patch as patient has had an accidental overdose in the past. However this seems unrealistic with patient's progressive nature of his disease. Anemia and thrombocytopenia -Suspect secondary to chemotherapy -Repeat CBC in a.m. -Follow platelet count closely with anticoagulation Right IJ DVT -Eliquis meterman, likely life long - heparin gtt to bridge for surgery - LE dopplers per oncology -Oncology recommendations appreciated, D/W Dr. 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 Increase Metoprolol. - cardio consult -Telemetry monitoring History of seizure disorder -Keppra COPD without exacerbation -Continue home inhaler regiment Hypocalcemia - likley due to Xgeva side effect - replacement
[2020-02-06] MEDS: IPRATROPIUM-ALBUTEROL 3 ML NEB INHALATION PRN (20:36)
[2020-02-06] MEDS: levETIRAcetam 500 MG TAB PO SCH (22:33)
--- NOTE | 2020-02-06 23:10 | PN ---
PROGRESS NOTE DATE OF SERVICE: 02/06/2020 REASON FOR FOLLOWUP: Right hand necrotic wound and cellulitis. INTERVAL HISTORY: The patient is afebrile. The patient is taken to the OR and is status post debridement of the right hand dorsum necrotic wound and deep cultures. Patient tolerated procedure. Complaining of pain to the right hand, more of a throbbing , no radiation. PHYSICAL EXAMINATION: Blood pressure 96/59 with pulse of 68, temperature 98. He is 93% on 3 L nasal cannula. General description is a middle-aged male lying in bed in no distress. RESPIRATORY SYSTEM: Unlabored breathing, clear to auscultation anteriorly. HEART: S1, S2. Regular rate and rhythm. ABDOMEN: Soft, no tenderness. The right hand is currently dressed up. Minimal blood-stained drainage on the dressing. LABS: Hemoglobin is 10.4, white count 29.5, BUN of 14, creatinine 0.74. Vancomycin trough is 20. Blood culture so far negative. DIAGNOSTIC IMPRESSION AND PLAN: Patient with right hand necrotic wound with cellulitis, status post debridement. Cultures are pending. Will wait for the culture to finalize to determine his discharge antibiotics and monitor his kidney function and Vancomycin trough closely. Continue supportive care. MMODL / IJN: [id number] /
[2020-02-07] MEDS: AMPICILLIN-SULBACTAM 3 GM in SODIUM CHLORIDE 0.9% 100 ML IVPB SCH ×5 (00:02→23:19)
[2020-02-07] MEDS: HYDROcodone/APAP 10-325MG 1 EACH TAB PO PRN ×4 (01:08→21:36)
[2020-02-07 03:30] LABS: Anisocytosis Slight; HCT 29.8 % (39.0-53.0); HGB 9.5 gm/dL (13.0-17.5); Hypochromasia Slight; MCH 30.2 pg (25.0-35.0); MCHC 31.9 g/dL (31.0-37.0); MCV 94.7 fL (80.0-100.0); Macrocytosis Slight; Mean Platelet Volume 8.8; Platelet Count 148 k/uL (150-450); RBC 3.15 m/uL (4.30-5.90); RDW 19.4 % (11.5-15.5); WBC 37.2 k/uL (3.8-10.6)
[2020-02-07 03:38] LABS: African American GFR (CKD) >90 (>60 ml/min/1.73 sqM); Anion Gap 4 mmol/L; Blood Urea Nitrogen 15 mg/dL (9-20); Carbon Dioxide 26 mmol/L (22-30); Chloride 104 mmol/L (98-107); Glucose 90 mg/dL (74-99); Non-African American GFR(CKD) >90 (>60 ml/min/1.73 sqM); Potassium 4.1 mmol/L (3.5-5.1); Sodium 134 mmol/L (137-145)
[2020-02-07 04:13] LABS: Band Neutrophils % 9 %; Lymphocytes # (M) 1.86 k/uL (1.0-4.8); Metamyelocytes # (M) 1.86 k/uL (0); Metamyelocytes % 5 %; Monocytes # (M) 2.23 k/uL (0-1.0); Myelocytes # (M) 0.37 k/uL (0); Myelocytes % 1 %; Neutrophils % (M) 74 %; Nucleated Red Blood Cells 0 /100 WBC (0-0); Total Cells Counted 100; Toxic Granulation Present
[2020-02-07] MEDS ORDERED: CALCIUM GLUCONATE 2 GM in SODIUM CHLORIDE 0.9% 100 ML IVPB ONE (05:11)
[2020-02-07] MEDS: HEPARIN SOD,PORK IN 0.45% NACL 25,000 UNIT in 0.45% NACL 1 250ML.BAG IV SCH ×2 (05:53→08:21)
--- NOTE | 2020-02-07 07:24 | P.ANPRN ---
Procedure Note - Anesthesia - Nerve Block Performed Right Supraclavicular Single Time Out Performed: Yes Date of Procedure: 02/06/20 Procedure Start Time: 10:02 Procedure Stop Time: 10:06 Location of Patient: PreOp Indication: Acute Post-Operative Pain, Requested by Surgeon Sedation Type: Sedate with meaningful contact maintained Preparation: Sterile Prep Position: Supine Needle Types: Pajunk Needle Gauge: 21 Ultrasound used to visualize needle placement: Yes Ultrasound used to observe medication spread: Yes Blood Aspirated: No Pain Paresthesia on Injection Noted: No Resistance on Injection: Normal Image Stored and Saved: Yes Events: Uneventful and Well Tolerated (lido 2% with epi 20 cc)
--- NOTE | 2020-02-07 08:06 | P.PN ---
Subjective Progress Note Date: 02/07/20 This is a pleasant 64-year-old gentleman with a history of atrial fibrillation, status post cardioversion in 2017, smoking, mildly impaired LV systolic function with ejection fraction of 45-50% on echo done in 2017. He was recently diagnosed with adenocarcinoma of the lung with bone metastasis requiring left hip ORIF. He developed PE postoperatively and was placed on Eliquis. He has been undergoing radiation to his spine, right clavicle and left hip. He has been started on a chemotherapy immunotherapy combination about 2 weeks ago. Since starting the chemotherapy he began experiencing some swelling of his upper and lower extremities. He presented to his oncologist with some blistering and superficial ulcers and redness of the right hand. He recommended admission for IV antibiotics and the patient refused at that time. He subsequently called his oncologist with complaints of rapid heartbeat at which time he was recommended to go to the nearest emergency room however drove down here to [place] as the patient lives up near [place]. Upon presentation he was found to be in atrial fibrillation with rapid ventricular response. He underwent debridement of that wound this morning. We were asked to see the patient in consultation due to an abnormal echocardiogram which showed an ejection fraction of 35-40%. The patient has also been found to have a new DVT in the right internal jugular vein. He has been on IV heparin due to the surgery but will likely be switched back to Eliquis. Patient's NT proBNP is elevated at 1980. His CBC is relatively stable. Blood pressure is running on the low side. 02/07/2020 The patient was seen and examined this morning sitting up in a chair. He is more awake and alert this morning. She is to have significant upper extremity edema. Lower extremity edema seems to be improved. Breathing is stable. He remains on IV heparin. Renal function as well as lytes are stable this morning. Blood pressure remains low at times. He remains in atrial fibrillation with a rate around 100-110 with spikes up to 130 at times. He is currently on metoprolol titrate 25 mg by mouth twice a day. Objective - Vital Signs Vital signs: Vital Signs Temp 97.7 F 02/07/20 04:00 Pulse 108 H 02/07/20 04:00 Resp 14 02/07/20 04:00 BP 93/56 02/07/20 04:00 Pulse Ox 93 L 02/07/20 04:00 Intake & Output 02/06/20 02/07/20 02/07/20 18:59 06:59 18:59 Intake Total 661.067 91.728 Output Total 5 Balance 656.067 91.728 Weight 98.5 kg Intake: IV 401 Intake, IV Titration 140.067 91.728 Amount Heparin Sod,Pork in 0.45% 140.067 91.728 NaCl 25,000 unit In 0.45 % NaCl 1 250ml.bag @ 18 UNITS/KG/HR 17.472 mls/hr IV .[id number] [facility] Rx#: [id number] Oral 120 Output: Estimated Blood Loss 5 Other: Voiding Method Toilet Toilet Urinal Urinal - Exam PHYSICAL EXAMINATION: HEENT: Head is atraumatic, normocephalic. Pupils equal, round. Neck is supple. There is no elevated jugular venous pressure. HEART EXAMINATION: Heart sounds irregularly irregular, S1 and S2 with a systolic ejection murmur at the base. CHEST EXAMINATION: Lungs reveal diminished air exchange bilaterally. No chest wall tenderness is noted on palpation or with deep breathing. ABDOMEN: Soft, nontender. Bowel sounds are heard. No organomegaly noted. EXTREMITIES: 2+ peripheral pulses with evidence of pitting peripheral edema. Dressing and Luther wrap noted to right forearm and hand. NEUROLOGIC patient is awake, alert and oriented x3. . - Labs CBC & Chem 7: 02/07/20 03:11 02/07/20 03:11 Labs: Abnormal Lab Results - Last 24 Hours (Table) 02/06/20 02/06/20 02/07/20 Range/Units 12:43 20:50 00:15 WBC (3.8-10.6) k/uL RBC (4.30-5.90) m/uL Hgb (13.0-17.5) gm/dL Hct (39.0-53.0) % RDW (11.5-15.5) % Plt Count (150-450) k/uL Neutrophils # (Manual) (1.3-7.7) k/uL Monocytes # (Manual) (0-1.0) k/uL Metamyelocytes # (Man) (0) k/uL Myelocytes # (Manual) (0) k/uL APTT >200.0 H* >200.0 H* 122.4 H* (22.0-30.0) sec Sodium (137-145) mmol/L Calcium (8.4-10.2) mg/dL 02/07/20 02/07/20 02/07/20 Range/Units 03:11 03:11 03:11 WBC 37.2 H (3.8-10.6) k/uL RBC 3.15 L (4.30-5.90) m/uL Hgb 9.5 L (13.0-17.5) gm/dL Hct 29.8 L (39.0-53.0) % RDW 19.4 H (11.5-15.5) % Plt Count 148 L (150-450) k/uL Neutrophils # (Manual) 30.80 H (1.3-7.7) k/uL Monocytes # (Manual) 2.23 H (0-1.0) k/uL Metamyelocytes # (Man) 1.86 H (0) k/uL Myelocytes # (Manual) 0.37 H (0) k/uL APTT 40.4 H (22.0-30.0) sec Sodium 134 L (137-145) mmol/L Calcium 6.0 L* (8.4-10.2) mg/dL Microbiology - Last 24 Hours (Table) 02/06/20 10:41 Gram Stain - Preliminary Hand - Right Wound Culture - Preliminary 02/06/20 10:41 Anaerobic Culture - Preliminary Hand - Right 02/04/20 13:51 Blood Culture - Preliminary Blood No Growth after 48 hours Assessment and Plan Assessment: #1 lung cancer with bone metastasis #2 acute on chronic systolic congestive heart failure #3 atrial fibrillation, likely persistent, heart rate suboptimally controlled. #4 DVT #5 right hand cellulitis, status post debridement #6 nicotine dependence Plan: From cardiology perspective we will add IV diuretics. We will hold off on initiating an LUTHER inhibitor due to hypotension. Continue beta leslie. Due to the complexity and acuity of his comorbid conditions we will treat the patient medically at this time. Continue to follow renal function and electrolytes as well as intake and output and daily weights. We will follow heart rate closely and provide further recommendations accordingly. MANAGEMENT REP note has been reviewed, I agree with a documented findings and plan of care. Patient was seen and examined.
[2020-02-07] MEDS: LORazepam 1 MG TAB PO PRN ×2 (08:35→23:18)
[2020-02-07] MEDS: FOLIC ACID 1 MG TAB PO SCH (08:37)
[2020-02-07] MEDS: guaiFENesin 600 MG TABLET.ER PO SCH ×2 (08:37→21:35)
[2020-02-07] MEDS: FUROSEMIDE 10 MG/ML 4 ML VIAL IV SCH ×2 (08:37→21:36)
[2020-02-07] MEDS: CHOLECALCIFEROL 400 UNIT TAB PO SCH (08:37)
[2020-02-07] MEDS: METOPROLOL TARTRATE 12.5 MG TAB PO SCH ×2 (08:38→21:35)
[2020-02-07] MEDS: LORATADINE 10 MG TAB PO SCH (08:38)
[2020-02-07] MEDS: PANTOPRAZOLE 40 MG TABLET PO SCH (08:38)
[2020-02-07] MEDS: levETIRAcetam 250 MG TAB PO SCH ×2 (08:38→23:18)
[2020-02-07] MEDS: polyethylene glycoL 3350 17 GM POWD.PACK PO SCH (08:39)
[2020-02-07] MEDS: NYSTATIN 100,000 UNIT/ML SUSP 500,000 UNIT/5 ML CUP PO SCH ×4 (08:39→21:35)
[2020-02-07] MEDS: VANCOMYCIN 1,500 MG in SODIUM CHLORIDE 0.9% 250 ML IVPB SCH (13:22)
[2020-02-07] MEDS ORDERED: CALCIUM CHLORIDE 100 MG/ML 10 ML SYRINGE IVP ONE (15:08)
--- NOTE | 2020-02-07 15:59 | P.PN ---
Subjective Progress Note Date: 02/07/20 Patient was seen and examined. No acute events overnight. Underwent I&D yesterday. Patient reports continued pain in his right hand. He denies any chest pain or palpitations. Breathing slightly improved from yesterday. No IV access, plans for midline today. No nausea or vomiting. No fever or chills. Objective - Vital Signs Vital signs: Vital Signs Temp 97.6 F 02/07/20 12:00 Pulse 110 H 02/07/20 12:00 Resp 20 02/07/20 12:00 BP 90/54 02/07/20 12:00 Pulse Ox 92 L 02/07/20 12:00 Intake & Output 02/06/20 02/07/20 02/07/20 18:59 06:59 18:59 Intake Total 661.067 91.728 Output Total 5 Balance 656.067 91.728 Weight 98.5 kg Intake: IV 401 Intake, IV Titration 140.067 91.728 Amount Heparin Sod,Pork in 0.45% 140.067 91.728 NaCl 25,000 unit In 0.45 % NaCl 1 250ml.bag @ 18 UNITS/KG/HR 17.472 mls/hr IV .[id number] [facility] Rx#: [id number] Oral 120 Output: Estimated Blood Loss 5 Other: Voiding Method Toilet Toilet Toilet Urinal Urinal Urinal - Exam General: [non toxic], [no distress], [appears at stated age] Derm: [warm], [dry], right hand dressing clean dry and intact Head: [atraumatic], [normocephalic], [symmetric] Eyes: [EOMI], [no lid lag], [anicteric sclera] Mouth: [no lip lesion], [mucus membranes moist] Cardiovascular: [S1S2 reg], [no murmur], [positive posterior tibial pulse bilateral], Lungs: [Coarse breath sounds bilateral], [no rhonchi, no rales] , [no accessory muscle use] Abdominal: [soft], [ nontender to palpation], [no guarding], [no appreciable organomegaly] Ext: [no gross muscle atrophy], [2+ pitting lower extremity edema], [no contractures] Neuro: [no focal neuro deficits] Psych: [Alert], [oriented], [appropriate affect] - Labs CBC & Chem 7: 02/07/20 03:11 02/07/20 03:11 Labs: Abnormal Lab Results - Last 24 Hours (Table) 02/06/20 02/07/20 02/07/20 Range/Units 20:50 00:15 03:11 WBC (3.8-10.6) k/uL RBC (4.30-5.90) m/uL Hgb (13.0-17.5) gm/dL Hct (39.0-53.0) % RDW (11.5-15.5) % Plt Count (150-450) k/uL Neutrophils # (Manual) (1.3-7.7) k/uL Monocytes # (Manual) (0-1.0) k/uL Metamyelocytes # (Man) (0) k/uL Myelocytes # (Manual) (0) k/uL APTT >200.0 H* 122.4 H* (22.0-30.0) sec Sodium 134 L (137-145) mmol/L Calcium 6.0 L* (8.4-10.2) mg/dL 02/07/20 02/07/20 02/07/20 Range/Units 03:11 03:11 11:53 WBC 37.2 H (3.8-10.6) k/uL RBC 3.15 L (4.30-5.90) m/uL Hgb 9.5 L (13.0-17.5) gm/dL Hct 29.8 L (39.0-53.0) % RDW 19.4 H (11.5-15.5) % Plt Count 148 L (150-450) k/uL Neutrophils # (Manual) 30.80 H (1.3-7.7) k/uL Monocytes # (Manual) 2.23 H (0-1.0) k/uL Metamyelocytes # (Man) 1.86 H (0) k/uL Myelocytes # (Manual) 0.37 H (0) k/uL APTT 40.4 H 33.2 H (22.0-30.0) sec Sodium (137-145) mmol/L Calcium (8.4-10.2) mg/dL Microbiology - Last 24 Hours (Table) 02/06/20 10:41 Gram Stain - Preliminary Hand - Right Wound Culture - Preliminary 02/06/20 10:41 Anaerobic Culture - Preliminary Hand - Right 02/04/20 13:51 Blood Culture - Preliminary Blood No Growth after 48 hours Assessment and Plan Assessment: Right hand cellulitis with sepsis -ortho recs appreciated: I and D 02/06/2020, follow wound cultures - ID recs appreciated -Manas Ackerman -Blood cultures negative to date -Repeat CBC in AM -Limit IV fluids secondary to significant fluid overload - x-ray without osteomyelitis Hypocalcemia - 1g IV calcium gluconate today - Repeat CMP tomorrow Acute exacerbation of systolic cardiomyopathy, newly discovered - Lasix 40mg IV BID - strict I and O daily weights - consult cardio - continue with BB, stop CA leslie with low EF and hypotension in hopes of starting ACEI Intractable pain, cancer-related -Increase [place] from 1 tab to 2 tab for better pain control -Continue with home fentanyl patch -Morphine as needed for breakthrough pain -Significant other is leery to increase fentanyl patch as patient has had an accidental overdose in the past. However this seems unrealistic with patient's progressive nature of his disease. Anemia and thrombocytopenia -Suspect secondary to chemotherapy -Repeat CBC in AM -Follow platelet count closely with anticoagulation Right IJ DVT - heparin gtt to bridge for surgery, restart Eliquis when OK by orthopedic surgery - LE dopplers per oncology -Oncology recommendations appreciated, D/W Dr. 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 Increase Metoprolol. - cardio consult -Telemetry monitoring History of seizure disorder -Keppra COPD without exacerbation -Continue home inhaler regiment
--- NOTE | 2020-02-07 17:20 | CT ---
EXAMINATION TYPE: CT angio chest DATE OF EXAM: 02/07/2020 COMPARISON: None HISTORY: Abnormal cxr. CT DLP: 827.1 mGycm Automated exposure control for dose reduction was used. CONTRAST: Performed with IV Contrast, patient injected with 100 mL of Isovue 370. Images were obtained from the thoracic inlet to the diaphragm with IV contrast and 3-D post processed images. There is moderate bilateral pleural effusions. Heart is slightly enlarged. There is some atelectasis at both lung bases. There is 2 cm enlarged pretracheal lymph node. There are no hilar masses. There i s some spurring in the thoracic spine. There is 2 cm enlarged subcarinal lymph node. There are lymph nodes at the right pulmonary hilum measuring up to 2 cm. There is osteosclerosis and mild compression deformity of T4 vertebra. There is some destructive alonzo ges on the posterior aspect of the body there is suggestion of mass encroaching on the spinal canal a t T4 level. There is probably spinal stenosis. Destructive changes extend into the left pedicle of T4 . I see no filling defects in the pulmonary arteries. Thoracic aorta is intact. There is no aneurysm or dissection. IMPRESSION: No evidence of pulmonary embolism. I lateral pleural effusions and bilateral pulmonary airspace consolidation and atelectasis in the low er lung chin. Mediastinal and right bronchial adenopathy. Destructive lesion in T4 vertebra with mass encroaching on the spinal canal. Pathologic compression m ild fracture of T4. There is significant progression of disease at T4 level compared to the MR scan o f 12/14/2019.
--- NOTE | 2020-02-07 17:36 | P.PN ---
Subjective Progress Note Date: 02/07/20 Principal diagnosis: Status post irrigation and debridement right hand necrotic eschar Patient evaluated today at bedside, is resting comfortably. He has minimal pain in the right hand. He denies any fevers or chills at this time. Objective - Vital Signs Vital signs: Vital Signs Temp 97.6 F 02/07/20 12:00 Pulse 110 H 02/07/20 12:00 Resp 20 02/07/20 12:00 BP 90/54 02/07/20 12:00 Pulse Ox 92 L 02/07/20 12:00 Intake & Output 02/06/20 02/07/20 02/07/20 18:59 06:59 18:59 Intake Total 661.067 91.728 Output Total 5 Balance 656.067 91.728 Weight 98.5 kg Intake: IV 401 Intake, IV Titration 140.067 91.728 Amount Heparin Sod,Pork in 0.45% 140.067 91.728 NaCl 25,000 unit In 0.45 % NaCl 1 250ml.bag @ 18 UNITS/KG/HR 17.472 mls/hr IV .[id number] [facility] Rx#: [id number] Oral 120 Output: Estimated Blood Loss 5 Other: Voiding Method Toilet Toilet Toilet Urinal Urinal Urinal - Exam right upper extremity: Postoperative bandages in good position and condition. Sensation to light touch that the extremity is intact. Skin is warm to touch. - Labs CBC & Chem 7: 02/07/20 03:11 02/07/20 03:11 Labs: Abnormal Lab Results - Last 24 Hours (Table) 02/06/20 02/07/20 02/07/20 Range/Units 20:50 00:15 03:11 WBC (3.8-10.6) k/uL RBC (4.30-5.90) m/uL Hgb (13.0-17.5) gm/dL Hct (39.0-53.0) % RDW (11.5-15.5) % Plt Count (150-450) k/uL Neutrophils # (Manual) (1.3-7.7) k/uL Monocytes # (Manual) (0-1.0) k/uL Metamyelocytes # (Man) (0) k/uL Myelocytes # (Manual) (0) k/uL APTT >200.0 H* 122.4 H* (22.0-30.0) sec Sodium 134 L (137-145) mmol/L Calcium 6.0 L* (8.4-10.2) mg/dL 02/07/20 02/07/20 02/07/20 Range/Units 03:11 03:11 11:53 WBC 37.2 H (3.8-10.6) k/uL RBC 3.15 L (4.30-5.90) m/uL Hgb 9.5 L (13.0-17.5) gm/dL Hct 29.8 L (39.0-53.0) % RDW 19.4 H (11.5-15.5) % Plt Count 148 L (150-450) k/uL Neutrophils # (Manual) 30.80 H (1.3-7.7) k/uL Monocytes # (Manual) 2.23 H (0-1.0) k/uL Metamyelocytes # (Man) 1.86 H (0) k/uL Myelocytes # (Manual) 0.37 H (0) k/uL APTT 40.4 H 33.2 H (22.0-30.0) sec Sodium (137-145) mmol/L Calcium (8.4-10.2) mg/dL Microbiology - Last 24 Hours (Table) 02/04/20 13:51 Blood Culture - Preliminary Blood No Growth after 72 hours 02/06/20 10:41 Gram Stain - Preliminary Hand - Right Wound Culture - Preliminary 02/06/20 10:41 Anaerobic Culture - Preliminary Hand - Right Assessment and Plan Assessment: Status post irrigation and debridement right hand necrotic eschar Plan: Plan for dressing change tomorrow at bedside, I will do this myself Continue elevating to help with swelling Other biomedical equipment technician and recommendations Time with Patient: Less than 30
[2020-02-07] MEDS: IPRATROPIUM-ALBUTEROL 3 ML NEB INHALATION PRN (19:33)
--- NOTE | 2020-02-07 20:45 | P.PN ---
Subjective Progress Note Date: 02/07/20 Principal diagnosis: Sepsis Patient seen in follow-up, family member at bedside. He is laying in bed eating. He has only agreed to get out of bed once today, we discussed the importance of getting up, sitting in chair and working with PT/OT. BLE edema appears improved. BUE edema still persistent and skin scaled and cracking, right arm wrapped. Objective - Vital Signs Vital signs: Vital Signs Temp 97.7 F 02/07/20 04:00 Pulse 108 H 02/07/20 04:00 Resp 14 02/07/20 04:00 BP 93/56 02/07/20 04:00 Pulse Ox 93 L 02/07/20 04:00 Intake & Output 02/06/20 02/07/20 02/07/20 18:59 06:59 18:59 Intake Total 661.067 91.728 Output Total 5 Balance 656.067 91.728 Weight 98.5 kg Intake: IV 401 Intake, IV Titration 140.067 91.728 Amount Heparin Sod,Pork in 0.45% 140.067 91.728 NaCl 25,000 unit In 0.45 % NaCl 1 250ml.bag @ 18 UNITS/KG/HR 17.472 mls/hr IV .[id number] [facility] Rx#: [id number] Oral 120 Output: Estimated Blood Loss 5 Other: Voiding Method Toilet Toilet Urinal Urinal - Exam - Constitutional General appearance: mild distress - EENT Eyes: EOMI, PERRLA ENT: hearing grossly normal, normal oropharynx - Neck Neck: no lymphadenopathy - Respiratory Respiratory: bilateral: CTA - Cardiovascular Rhythm: irregularly irregular Heart sounds: normal: S1, S2 - Gastrointestinal General gastrointestinal: normal bowel sounds, soft - Integumentary Confluent erythema involving the distal right upper extremity and right hand associated with underlying swelling. Central portion of dorsum of right hand showed confluent purulent area with thin underlying skin. Dorsum of left hand shows erythema with thickening of the skin and development o f small patches of purulence Integumentary: calor, cellulitis - Neurologic Neurologic: CNII-XII intact - Musculoskeletal Musculoskeletal: generalized weakness, strength equal bilaterally - Psychiatric Psychiatric: A&O x's 3 - Labs CBC & Chem 7: 02/07/20 03:11 02/07/20 03:11 Labs: Abnormal Lab Results - Last 24 Hours (Table) 02/06/20 02/06/20 02/07/20 Range/Units 12:43 20:50 00:15 WBC (3.8-10.6) k/uL RBC (4.30-5.90) m/uL Hgb (13.0-17.5) gm/dL Hct (39.0-53.0) % RDW (11.5-15.5) % Plt Count (150-450) k/uL Neutrophils # (Manual) (1.3-7.7) k/uL Monocytes # (Manual) (0-1.0) k/uL Metamyelocytes # (Man) (0) k/uL Myelocytes # (Manual) (0) k/uL APTT >200.0 H* >200.0 H* 122.4 H* (22.0-30.0) sec Sodium (137-145) mmol/L Calcium (8.4-10.2) mg/dL 02/07/20 02/07/20 02/07/20 Range/Units 03:11 03:11 03:11 WBC 37.2 H (3.8-10.6) k/uL RBC 3.15 L (4.30-5.90) m/uL Hgb 9.5 L (13.0-17.5) gm/dL Hct 29.8 L (39.0-53.0) % RDW 19.4 H (11.5-15.5) % Plt Count 148 L (150-450) k/uL Neutrophils # (Manual) 30.80 H (1.3-7.7) k/uL Monocytes # (Manual) 2.23 H (0-1.0) k/uL Metamyelocytes # (Man) 1.86 H (0) k/uL Myelocytes # (Manual) 0.37 H (0) k/uL APTT 40.4 H (22.0-30.0) sec Sodium 134 L (137-145) mmol/L Calcium 6.0 L* (8.4-10.2) mg/dL Microbiology - Last 24 Hours (Table) 02/06/20 10:41 Gram Stain - Preliminary Hand - Right Wound Culture - Preliminary 02/06/20 10:41 Anaerobic Culture - Preliminary Hand - Right 02/04/20 13:51 Blood Culture - Preliminary Blood No Growth after 48 hours Assessment and Plan (1) Metastatic lung carcinoma Current Visit: Yes Status: Acute Code(s): C78.00 - SECONDARY MALIGNANT NEOPLASM OF UNSPECIFIED LUNG SNOMED Code(s): 46279663 (2) Sepsis Current Visit: Yes Status: Acute Code(s): A41.9 - SEPSIS, UNSPECIFIED ORGANISM SNOMED Code(s): 05084482 Plan: Comments: Hand x-ray report reviewed Chest x-ray: report reviewed Venous US: report reviewed Assessment and Plan: Sepsis - Cellulitis of right hand - Right upper extremity examination appears same, wrapped, LUE with cracking and erythema scaling. - He had been strongly advised for admission for IV antibiotics in previous follow-up visits but had refused the same. - He has been seen by hand surgery and status post debridement on 02/05 - ID is following and managing antibiotics. Deep vein thrombosis (DVT) of right upper extremity - New Acute DVT in the right internal jugular. - Doppler within the last 2-3 weeks for the same complaint was negative. - The patient was supposed to be on anticoagulation but apparently had stopped taking it. - Re-discussed adherence to his anticoagulation as he will likely need to be on it indefinitely as long as he tolerates it well. - Heparin drip was initiated in anticipation of I and D, ok to resume PO anticoagulation as previously ordered Rapid atrial fibrillation - New onset atrial fibrillation. He came in with very rapid ventricular rate. - Increase could be due to sepsis - CTA was negative for PE - Rate is much better controlled. - Continue on anticoagulation BLE and BUE Edema - Etiology of Right IJ clot unknown, CTA ordered to also further assess for SVC type phenomenon - BLE doppler negative for DVT - Echocardiogram reviewed and EF 35-40% Metastatic lung carcinoma - Primarily skeletal disease, with fairly mild systemic disease - Status post palliative radiation to symptomatic sites of bone disease, as well as surgery to the left hip. - He has just started systemic chemotherapy with immunotherapy as noted. This will be on hold until acute condition resolves. - Despite receiving radiation to symptomatic sites in the skeleton, the patient still complains of pain. - Concern of decreased performance status and continuation of systemic treatment related to this. We discussed increased activity, out of bed and in chair and working with PT/OT Hypocalcemia - Likely secondary to Sepsis and Xgeva effect - Check in am and supp prn Plan: Given multiple ongoing medical issues, overall prognosis is guarded. Continue current supportive care.
[2020-02-07] MEDS: levETIRAcetam 500 MG TAB PO SCH (21:35)
--- NOTE | 2020-02-07 23:26 | PN ---
PROGRESS NOTE DATE OF SERVICE: 02/07/2020 REASON FOR FOLLOWUP: Right hand wound and cellulitis. INTERVAL HISTORY: The patient is currently afebrile, has been breathing comfortably. Denies having any chest pain or shortness of breath or cough. No nausea or vomiting. No abdominal pain or diarrhea. the right hand. PHYSICAL EXAMINATION: Blood pressure is 97/68 with the pulse of 124, temperature 98.1. He is 91% on 3 L nasal cannula. General description is a middle-aged male lying in bed in no distress. RESPIRATORY SYSTEM: Unlabored breathing, decreased breath sounds at the bases. No wheeze. HEART: S1, S2. Regular rate and rhythm. ABDOMEN: Soft, no tenderness. Right right hand is currently dressed up. No obvious drainage on the dressing. LABS: Hemoglobin 9.5, white count 37.2, BUN of 15, creatinine 0.68. Wound cultures currently pending. DIAGNOSTIC IMPRESSION AND PLAN: Patient with right hand abscess and necrotic wound status post debridement. Cultures are currently pending. The patient is currently covered with the Unasyn and vancomycin to continue adjusting antibiotic further based on culture report. Continue supportive care. MMODL / IJN: [id number] /
[2020-02-08] MEDS: HYDROcodone/APAP 10-325MG 1 EACH TAB PO PRN ×4 (05:31→20:20)
[2020-02-08] MEDS: AMPICILLIN-SULBACTAM 3 GM in SODIUM CHLORIDE 0.9% 100 ML IVPB SCH ×4 (05:35→23:43)
[2020-02-08] MEDS: HEPARIN SOD,PORK IN 0.45% NACL 25,000 UNIT in 0.45% NACL 1 250ML.BAG IV SCH (05:37)
[2020-02-08] MEDS: VANCOMYCIN 1,500 MG in SODIUM CHLORIDE 0.9% 250 ML IVPB SCH (06:30)
[2020-02-08 06:43] LABS: Ionized Calcium 4.2 mg/dL (4.5-5.3)
[2020-02-08 06:45] LABS: Anisocytosis Moderate; HCT 30.5 % (39.0-53.0); HGB 9.4 gm/dL (13.0-17.5); Hypochromasia Slight; MCH 29.5 pg (25.0-35.0); MCHC 30.9 g/dL (31.0-37.0); MCV 95.5 fL (80.0-100.0); Macrocytosis Slight; Mean Platelet Volume 8.5; Platelet Count 181 k/uL (150-450); RBC 3.19 m/uL (4.30-5.90)
[2020-02-08 06:56] LABS: ALT 13 U/L (4-49); AST 18 U/L (17-59); African American GFR (CKD) >90 (>60 ml/min/1.73 sqM); Albumin 2.2 g/dL (3.5-5.0); Alkaline Phosphatase 134 U/L (38-126); Anion Gap 5 mmol/L; Blood Urea Nitrogen 13 mg/dL (9-20); Calcium 6.7 mg/dL (8.4-10.2); Carbon Dioxide 28 mmol/L (22-30); Chloride 102 mmol/L (98-107); Glucose 95 mg/dL (74-99); Magnesium 1.5 mg/dL (1.6-2.3); Non-African American GFR(CKD) >90 (>60 ml/min/1.73 sqM); Potassium 4.1 mmol/L (3.5-5.1); Sodium 135 mmol/L (137-145); Total Bilirubin 0.4 mg/dL (0.2-1.3); Total Protein 4.6 g/dL (6.3-8.2)
[2020-02-08 07:22] LABS: Monocytes # (M) 0.63 k/uL (0-1.0); Myelocytes % 3 %; Neutrophils % (M) 94 %; Nucleated Red Blood Cells 1 /100 WBC (0-0); Total Cells Counted 200
[2020-02-08 07:23] LABS: Lymphocytes # (M) 0.31 k/uL (1.0-4.8); Myelocytes # (M) 0.94 k/uL (0); Neutrophils # (M) 29.52 k/uL (1.3-7.7); WBC 31.4 k/uL (3.8-10.6)
[2020-02-08] MEDS: IPRATROPIUM-ALBUTEROL 3 ML NEB INHALATION PRN ×2 (08:02→18:00)
--- NOTE | 2020-02-08 09:04 | P.PN ---
Subjective Progress Note Date: 02/08/20 Feels better today. Remains afebrile. Heart rate 120 to 130 Objective - Vital Signs Vital signs: Vital Signs Temp 97.2 F L 02/08/20 04:00 Pulse 104 H 02/08/20 08:15 Resp 18 02/08/20 04:00 BP 125/79 02/08/20 04:00 Pulse Ox 98 02/08/20 04:00 Intake & Output 02/07/20 02/08/20 02/08/20 18:59 06:59 18:59 Intake Total 600 Output Total 850 Balance -250 Weight 101.5 kg Intake: Oral 600 Output: Urine 850 Other: Voiding Method Toilet Toilet Urinal Urinal # Voids 3 # Bowel Movements 1 - Exam General: [non toxic], [no distress], [appears at stated age] Derm: [warm], [dry], right hand dressing clean dry and intact Head: [atraumatic] Eyes: [EOMI], Mouth: [no lip lesion], [mucus membranes moist] Cardiovascular: [S1S2 reg], [no murmur], tachycardic. Lungs: [Coarse breath sounds bilateral], [no rhonchi, no rales] , [no accessory muscle use] Abdominal: [soft], [ nontender to palpation], [no guarding], [no appreciable organomegaly] Ext: [no gross muscle atrophy], [2+ pitting lower extremity edema], [no cont ractures] Neuro: [no focal neuro deficits] Psych: [Alert], [oriented], [appropriate affect] - Labs CBC & Chem 7: 02/08/20 06:22 02/08/20 06:22 Labs: Abnormal Lab Results - Last 24 Hours (Table) 02/07/20 02/07/20 02/08/20 Range/Units 11:53 19:25 06:22 WBC (3.8-10.6) k/uL RBC (4.30-5.90) m/uL Hgb (13.0-17.5) gm/dL Hct (39.0-53.0) % MCHC (31.0-37.0) g/dL RDW (11.5-15.5) % Neutrophils # (Manual) (1.3-7.7) k/uL Lymphocytes # (Manual) (1.0-4.8) k/uL Myelocytes # (Manual) (0) k/uL Nucleated RBCs (0-0) /100 WBC APTT 33.2 H 46.2 H (22.0-30.0) sec Sodium 135 L (137-145) mmol/L Calcium 6.7 L (8.4-10.2) mg/dL Ionized Calcium Rachel 4.2 L (4.5-5.3) mg/dL Magnesium 1.5 L (1.6-2.3) mg/dL Alkaline Phosphatase 134 H (38-126) U/L Total Protein 4.6 L (6.3-8.2) g/dL Albumin 2.2 L (3.5-5.0) g/dL 02/08/20 Range/Units 06:22 WBC 31.4 H (3.8-10.6) k/uL RBC 3.19 L (4.30-5.90) m/uL Hgb 9.4 L (13.0-17.5) gm/dL Hct 30.5 L (39.0-53.0) % MCHC 30.9 L (31.0-37.0) g/dL RDW 20.0 H (11.5-15.5) % Neutrophils # (Manual) 29.52 H (1.3-7.7) k/uL Lymphocytes # (Manual) 0.31 L (1.0-4.8) k/uL Myelocytes # (Manual) 0.94 H (0) k/uL Nucleated RBCs 1 H (0-0) /100 WBC APTT (22.0-30.0) sec Sodium (137-145) mmol/L Calcium (8.4-10.2) mg/dL Ionized Calcium Rachel (4.5-5.3) mg/dL Magnesium (1.6-2.3) mg/dL Alkaline Phosphatase (38-126) U/L Total Protein (6.3-8.2) g/dL Albumin (3.5-5.0) g/dL Microbiology - Last 24 Hours (Table) 02/04/20 13:51 Blood Culture - Preliminary Blood No Growth after 72 hours Assessment and Plan Plan: Right hand cellulitis with sepsis -ortho recs appreciated: I and D 02/06/2020, follow wound cultures - ID recs appreciated, continue current management. -Manas Ackerman -Blood cultures negative -Limit IV fluids secondary to significant fluid overload - x-ray without osteomyelitis Hypocalcemia Serum calcium 6.7 with albumin 2.2, monitor. Acute exacerbation of systolic cardiomyopathy, newly discovered - Lasix 40mg IV BID - strict I and O daily weights - consult cardio - continue with BB, stop CA leslie with low EF and hypotension in hopes of starting ACEI Intractable pain, cancer-related -Increase [place] from 1 tab to 2 tab for better pain control -Continue with home fentanyl patch -Morphine as needed for breakthrough pain Anemia and thrombocytopenia -Suspect secondary to chemotherapy -Repeat CBC , monitor. Right IJ DVT - heparin gtt to bridge for surgery, restart Eliquis when OK by orthopedic surgery - LE dopplers per oncology -Oncology recommendations appreciated Recent pulmonary embolism -Patient has not been taking Eliquis at home, restart platelets 1. Orbital. 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 Increase Metoprolol. - cardio consult , input appreciated -Telemetry monitoring History of seizure disorder -Keppra COPD without exacerbation -Continue home inhaler regiment Disposition: Home in 2-3 days
[2020-02-08] MEDS: PANTOPRAZOLE 40 MG TABLET PO SCH (10:06)
[2020-02-08] MEDS: NYSTATIN 100,000 UNIT/ML SUSP 500,000 UNIT/5 ML CUP PO SCH ×4 (10:07→23:43)
[2020-02-08] MEDS: levETIRAcetam 250 MG TAB PO SCH ×2 (10:07→21:59)
[2020-02-08] MEDS: MAGNESIUM SULFATE-D5W PMX 1 GM in DEXTROSE/WATER 1 100ML.BAG IVPB SCH ×2 (10:07→12:16)
[2020-02-08] MEDS: FOLIC ACID 1 MG TAB PO SCH (10:07)
[2020-02-08] MEDS: polyethylene glycoL 3350 17 GM POWD.PACK PO SCH (10:07)
[2020-02-08] MEDS: guaiFENesin 600 MG TABLET.ER PO SCH ×2 (10:08→20:19)
[2020-02-08] MEDS: LORATADINE 10 MG TAB PO SCH (10:08)
[2020-02-08] MEDS: CHOLECALCIFEROL 400 UNIT TAB PO SCH (10:08)
--- NOTE | 2020-02-08 10:49 | P.PN ---
Subjective Progress Note Date: 02/08/20 CHIEF COMPLAINT: atrial fibrillation HISTORY OF PRESENT ILLNESS: Patient examined this morning the bedside. Patient denies chest pain. Denies shortness of breath. Patient reports his lower extremity edema is improving. He remains on IV Lasix. Fluid balance over the last 24 hours is -250 mL's. Patient remains in afib. HR 104 this morning. PHYSICAL EXAM: VITAL SIGNS: Reviewed. GENERAL: Well-developed in no acute distress. NECK: Supple. No JVD or thyromegaly LUNGS: Respirations even and unlabored. Lungs essentially clear to auscultation bilaterally. HEART: Irregular rate and rhythm. S1 and S2 heard. EXTREMITIES: Normal range of motion. No clubbing or cyanosis. Peripheral pulses intact. 2+ lower extremity edema ASSESSMENT: #1 lung cancer with bone metastasis #2 acute on chronic systolic congestive heart failure #3 atrial fibrillation, persistent, heart rate suboptimally controlled #4 DVT #5 right hand cellulitis, status post debridement #6 nicotine dependence PLAN: -Discontinue IV heparin -Begin Eliquis 5mg BID -Increase metoprolol to 50 mg twice a day for optimal heart rate control -Discontinue IV lasix. Begin oral lasix 40mg daily Nurse practitioner note has been reviewed by physician. Signing provider agrees with the documented findings, assessment, and plan of care. Objective - Vital Signs Vital signs: Vital Signs Temp 97.2 F L 02/08/20 04:00 Pulse 104 H 02/08/20 08:15 Resp 18 02/08/20 04:00 BP 125/79 02/08/20 04:00 Pulse Ox 98 02/08/20 04:00 Intake & Output 02/07/20 02/08/20 02/08/20 18:59 06:59 18:59 Intake Total 600 Output Total 850 Balance -250 Weight 101.5 kg Intake: Oral 600 Output: Urine 850 Other: Voiding Method Toilet Toilet Urinal Urinal # Voids 3 # Bowel Movements 1 - Labs CBC & Chem 7: 02/08/20 06:22 02/08/20 06:22 Labs: Abnormal Lab Results - Last 24 Hours (Table) 02/07/20 02/07/20 02/08/20 Range/Units 11:53 19:25 06:22 WBC (3.8-10.6) k/uL RBC (4.30-5.90) m/uL Hgb (13.0-17.5) gm/dL Hct (39.0-53.0) % MCHC (31.0-37.0) g/dL RDW (11.5-15.5) % Neutrophils # (Manual) (1.3-7.7) k/uL Lymphocytes # (Manual) (1.0-4.8) k/uL Myelocytes # (Manual) (0) k/uL Nucleated RBCs (0-0) /100 WBC APTT 33.2 H 46.2 H (22.0-30.0) sec Sodium 135 L (137-145) mmol/L Calcium 6.7 L (8.4-10.2) mg/dL Ionized Calcium Rachel 4.2 L (4.5-5.3) mg/dL Magnesium 1.5 L (1.6-2.3) mg/dL Alkaline Phosphatase 134 H (38-126) U/L Total Protein 4.6 L (6.3-8.2) g/dL Albumin 2.2 L (3.5-5.0) g/dL 02/08/20 Range/Units 06:22 WBC 31.4 H (3.8-10.6) k/uL RBC 3.19 L (4.30-5.90) m/uL Hgb 9.4 L (13.0-17.5) gm/dL Hct 30.5 L (39.0-53.0) % MCHC 30.9 L (31.0-37.0) g/dL RDW 20.0 H (11.5-15.5) % Neutrophils # (Manual) 29.52 H (1.3-7.7) k/uL Lymphocytes # (Manual) 0.31 L (1.0-4.8) k/uL Myelocytes # (Manual) 0.94 H (0) k/uL Nucleated RBCs 1 H (0-0) /100 WBC APTT (22.0-30.0) sec Sodium (137-145) mmol/L Calcium (8.4-10.2) mg/dL Ionized Calcium Rachel (4.5-5.3) mg/dL Magnesium (1.6-2.3) mg/dL Alkaline Phosphatase (38-126) U/L Total Protein (6.3-8.2) g/dL Albumin (3.5-5.0) g/dL Microbiology - Last 24 Hours (Table) 02/04/20 13:51 Blood Culture - Preliminary Blood No Growth after 72 hours
[2020-02-08] MEDS: MORPHINE SULFATE 4 MG/ML SYRINGE IVP PRN ×2 (12:12→17:18)
[2020-02-08] MEDS: APIXABAN 5 MG TAB PO SCH ×2 (12:16→20:19)
[2020-02-08] MEDS ORDERED: PETROLATUM, WHITE OINT 50 GM TUBE TOPICAL PRN (12:35)
--- NOTE | 2020-02-08 12:45 | P.PN ---
Subjective Progress Note Date: 02/08/20 Principal diagnosis: Sepsis Remains afebrile. He sat in chair today. He is eager to go home, his sister at bedside. Wound culture from I and D negative at this time (treated with Keflex and doxycycline prior) Objective - Vital Signs Vital signs: Vital Signs Temp 97.6 F 02/08/20 12:00 Pulse 104 H 02/08/20 12:00 Resp 20 02/08/20 12:00 BP 107/84 02/08/20 12:00 Pulse Ox 100 02/08/20 12:00 Intake & Output 02/07/20 02/08/20 02/08/20 18:59 06:59 18:59 Intake Total 600 630 Output Total 850 Balance -250 630 Weight 101.5 kg Intake: Oral 600 630 Output: Urine 850 Other: Voiding Method Toilet Toilet Urinal Urinal # Voids 3 # Bowel Movements 1 - Exam - Constitutional General appearance: mild distress - EENT Eyes: EOMI, PERRLA ENT: hearing grossly normal, normal oropharynx - Neck Neck: no lymphadenopathy - Respiratory Respiratory: bilateral: CTA - Cardiovascular Rhythm: irregularly irregular Heart sounds: normal: S1, S2 - Gastrointestinal General gastrointestinal: normal bowel sounds, soft - Integumentary Confluent erythema involving the distal right upper extremity and right hand associated with underlying swelling. Central portion of dorsum of right hand showed confluent purulent area with thin underlying skin. Dorsum of left hand shows erythema with thickening of the skin and development of small patches of purulence Integumentary: calor, cellulitis - Neurologic Neurologic: CNII-XII intact - Musculoskeletal Musculoskeletal: generalized weakness, strength equal bilaterally - Psychiatric Psychiatric: A&O x's 3 - Labs CBC & Chem 7: 02/08/20 06:22 02/08/20 06:22 Labs: Abnormal Lab Results - Last 24 Hours (Table) 02/07/20 02/07/20 02/08/20 Range/Units 11:53 19:25 06:22 WBC (3.8-10.6) k/uL RBC (4.30-5.90) m/uL Hgb (13.0-17.5) gm/dL Hct (39.0-53.0) % MCHC (31.0-37.0) g/dL RDW (11.5-15.5) % Neutrophils # (Manual) (1.3-7.7) k/uL Lymphocytes # (Manual) (1.0-4.8) k/uL Myelocytes # (Manual) (0) k/uL Nucleated RBCs (0-0) /100 WBC APTT 33.2 H 46.2 H (22.0-30.0) sec Sodium 135 L (137-145) mmol/L Calcium 6.7 L (8.4-10.2) mg/dL Ionized Calcium Rachel 4.2 L (4.5-5.3) mg/dL Magnesium 1.5 L (1.6-2.3) mg/dL Alkaline Phosphatase 134 H (38-126) U/L Total Protein 4.6 L (6.3-8.2) g/dL Albumin 2.2 L (3.5-5.0) g/dL 02/08/20 Range/Units 06:22 WBC 31.4 H (3.8-10.6) k/uL RBC 3.19 L (4.30-5.90) m/uL Hgb 9.4 L (13.0-17.5) gm/dL Hct 30.5 L (39.0-53.0) % MCHC 30.9 L (31.0-37.0) g/dL RDW 20.0 H (11.5-15.5) % Neutrophils # (Manual) 29.52 H (1.3-7.7) k/uL Lymphocytes # (Manual) 0.31 L (1.0-4.8) k/uL Myelocytes # (Manual) 0.94 H (0) k/uL Nucleated RBCs 1 H (0-0) /100 WBC APTT (22.0-30.0) sec Sodium (137-145) mmol/L Calcium (8.4-10.2) mg/dL Ionized Calcium Rachel (4.5-5.3) mg/dL Magnesium (1.6-2.3) mg/dL Alkaline Phosphatase (38-126) U/L Total Protein (6.3-8.2) g/dL Albumin (3.5-5.0) g/dL Microbiology - Last 24 Hours (Table) 02/06/20 10:41 Gram Stain - Final Hand - Right Wound Culture - Final 02/04/20 13:51 Blood Culture - Preliminary Blood No Growth after 72 hours Assessment and Plan (1) Metastatic lung carcinoma Current Visit: Yes Status: Acute Code(s): C78.00 - SECONDARY MALIGNANT NEOPLASM OF UNSPECIFIED LUNG SNOMED Code(s): 86348201 (2) Sepsis Current Visit: Yes Status: Acute Code(s): A41.9 - SEPSIS, UNSPECIFIED ORGANISM SNOMED Code(s): 29336124 Plan: Comments: Hand x-ray report reviewed Chest x-ray: report reviewed Venous US: report reviewed Assessment and Plan: Sepsis - Cellulitis of right hand - Right upper extremity examination appears same, wrapped, LUE with cracking and erythema scaling. - He had been strongly advised for admission for IV antibiotics in previous follow-up visits but had refused the same. - He has been seen by hand surgery and status post debridement on 02/05 - ID is following and managing antibiotics. - Defer home medications to ID. HE was previously treated with Keflex and doxy. Deep vein thrombosis (DVT) of right upper extremity - New Acute DVT in the right internal jugular. - Doppler within the last 2-3 weeks for the same complaint was negative. - The patient was supposed to be on anticoagulation but apparently had stopped taking it. - Re-discussed adherence to his anticoagulation as he will likely need to be on it indefinitely as long as he tolerates it well. - Resumed on Eliquis Rapid atrial fibrillation - New onset atrial fibrillation. He came in with very rapid ventricular rate. - Increase could be due to sepsis - CTA was negative for PE - Rate is much better controlled. - Continue on anticoagulation BLE and BUE Edema - Etiology of Right IJ clot unknown, CTA ordered to also further assess for SVC type phenomenon - BLE doppler negative for DVT - Echocardiogram reviewed and EF 35-40% Metastatic lung carcinoma - Primarily skeletal disease, with fairly mild systemic disease - Status post palliative radiation to symptomatic sites of bone disease, as well as surgery to the left hip. - He has just started systemic chemotherapy with immunotherapy as noted. This will be on hold until acute condition resolves. - Despite receiving radiation to symptomatic sites in the skeleton, the patient still complains of pain. - Concern of decreased performance status and continuation of systemic treatm ent related to this. We discussed increased activity, out of bed and in chair and working with PT/OT Hypocalcemia - Likely secondary to Sepsis and Xgeva effect - Check in am and supp prn Weakness and Myopathy: - Increase activity with PT/OT - Will need support at discharge, primary team managing - Up in chair with all meals Plan: Given multiple ongoing medical issues, overall prognosis is guarded. Continue current supportive care. Will need improved performance and resolution of above issues prior to resuming treatment for his metastatic lung cancer Discussed in detail with patient and significant other Aquaphor ordered for dry cracked skin. Still very swollen and decreased appetite, patient's sister with many questions all answered to the best of my ability.
[2020-02-08] MEDS: LORazepam 1 MG TAB PO PRN ×2 (13:05→21:59)
[2020-02-08] MEDS: FUROSEMIDE 10 MG/ML 4 ML VIAL IV SCH (14:01)
[2020-02-08] MEDS ORDERED: METOPROLOL TARTRATE 25 MG TAB PO STA (14:02)
[2020-02-08] MEDS: METOPROLOL TARTRATE 12.5 MG TAB PO SCH (14:02)
--- NOTE | 2020-02-08 15:59 | P.PN ---
Subjective Progress Note Date: 02/08/20 Principal diagnosis: Status post irrigation and debridement right hand necrotic eschar Patient evaluated today at bedside, is resting comfortably. He has minimal pain in the right hand. He denies any fevers or chills at this time. Objective - Vital Signs Vital signs: Vital Signs Temp 97.6 F 02/08/20 12:00 Pulse 104 H 02/08/20 12:00 Resp 20 02/08/20 12:00 BP 107/84 02/08/20 12:00 Pulse Ox 100 02/08/20 12:00 Intake & Output 02/07/20 02/08/20 02/08/20 18:59 06:59 18:59 Intake Total 600 630 Output Total 850 Balance -250 630 Weight 101.5 kg Intake: Oral 600 630 Output: Urine 850 Other: Voiding Method Toilet Toilet Urinal Urinal # Voids 3 # Bowel Movements 1 - Exam right upper extremity: Postoperative bandages in good position and condition. Discussed with nursing staff, the dressing was changed today. Silvadene cream applied. No purulent drainage noted - Labs CBC & Chem 7: 02/08/20 06:22 02/08/20 06:22 Labs: Abnormal Lab Results - Last 24 Hours (Table) 02/07/20 02/08/20 02/08/20 Range/Units 19:25 06:22 06:22 WBC 31.4 H (3.8-10.6) k/uL RBC 3.19 L (4.30-5.90) m/uL Hgb 9.4 L (13.0-17.5) gm/dL Hct 30.5 L (39.0-53.0) % MCHC 30.9 L (31.0-37.0) g/dL RDW 20.0 H (11.5-15.5) % Neutrophils # (Manual) 29.52 H (1.3-7.7) k/uL Lymphocytes # (Manual) 0.31 L (1.0-4.8) k/uL Myelocytes # (Manual) 0.94 H (0) k/uL Nucleated RBCs 1 H (0-0) /100 WBC APTT 46.2 H (22.0-30.0) sec Sodium 135 L (137-145) mmol/L Calcium 6.7 L (8.4-10.2) mg/dL Ionized Calcium Rachel 4.2 L (4.5-5.3) mg/dL Magnesium 1.5 L (1.6-2.3) mg/dL Alkaline Phosphatase 134 H (38-126) U/L Total Protein 4.6 L (6.3-8.2) g/dL Albumin 2.2 L (3.5-5.0) g/dL Microbiology - Last 24 Hours (Table) 02/06/20 10:41 Anaerobic Culture - Preliminary Hand - Right 02/06/20 10:41 Gram Stain - Final Hand - Right Wound Culture - Final 02/04/20 13:51 Blood Culture - Preliminary Blood No Growth after 72 hours Assessment and Plan Assessment: Status post irrigation and debridement right hand necrotic eschar Plan: Dressing changes every 2 days Continue elevating to help with swelling Other medical coding manager and recommendations We will be available for any questions regarding patient Time with Patient: Less than 30
[2020-02-08] MEDS: levETIRAcetam 500 MG TAB PO SCH (20:19)
[2020-02-08] MEDS: METOPROLOL TARTRATE 50 MG TAB PO SCH (20:19)
--- NOTE | 2020-02-09 00:45 | PN ---
PROGRESS NOTE DATE OF SERVICE: 02/08/2020 REASON FOR FOLLOWUP: Right hand dorsum wound and cellulitis. INTERVAL HISTORY: The patient is currently afebrile. The patient is breathing comfortably. Denies having any chest pain or shortness of breath. No cough. No nausea. No abdominal pain. No pain to the right hand, swelling has decreased. PHYSICAL EXAMINATION: Blood pressure 119/73 with a pulse of 121, temperature is 97.6. He is 97% on 2 L nasal cannula. General description is a middle-aged male lying in bed in no distress. RESPIRATORY SYSTEM: Unlabored breathing, clear to auscultation anteriorly. HEART: S1, S2. Regular rate and rhythm. ABDOMEN: Soft, no tenderness. Right hand dorsum swelling and redness has much improved. No necrotic tissue or any drainage. LABS: Wound culture has been negative for resistant pathogen. White count is 31.4. DIAGNOSTIC IMPRESSION AND PLAN: Patient with right hand dorsum necrotic wound with secondary cellulitis, status post debridement. Culture has been negative for any resistant gram-positive. Vancomycin will be discontinued. Continue with Unasyn and if continue to improve hopefully finish therapy with oral antibiotics. Continue with supportive care. MMODL / IJN: [id number] /
[2020-02-09] MEDS: HYDROcodone/APAP 10-325MG 1 EACH TAB PO PRN ×3 (02:05→17:12)
[2020-02-09] MEDS: AMPICILLIN-SULBACTAM 3 GM in SODIUM CHLORIDE 0.9% 100 ML IVPB SCH ×2 (05:19→13:00)
[2020-02-09] MEDS: IPRATROPIUM-ALBUTEROL 3 ML NEB INHALATION PRN (07:51)
[2020-02-09] MEDS: PANTOPRAZOLE 40 MG TABLET PO SCH (08:45)
[2020-02-09] MEDS: FOLIC ACID 1 MG TAB PO SCH (08:47)
[2020-02-09] MEDS: LORATADINE 10 MG TAB PO SCH (08:47)
[2020-02-09] MEDS: APIXABAN 5 MG TAB PO SCH (08:47)
[2020-02-09] MEDS: guaiFENesin 600 MG TABLET.ER PO SCH (08:47)
[2020-02-09] MEDS: METOPROLOL TARTRATE 50 MG TAB PO SCH (08:47)
[2020-02-09] MEDS: LORazepam 1 MG TAB PO PRN (08:47)
[2020-02-09] MEDS: CHOLECALCIFEROL 400 UNIT TAB PO SCH (08:48)
[2020-02-09] MEDS: levETIRAcetam 250 MG TAB PO SCH (08:48)
[2020-02-09] MEDS: NYSTATIN 100,000 UNIT/ML SUSP 500,000 UNIT/5 ML CUP PO SCH ×2 (08:49→13:04)
[2020-02-09] MEDS: polyethylene glycoL 3350 17 GM POWD.PACK PO SCH (08:49)
[2020-02-09 08:50] LABS: Anisocytosis Moderate; HCT 32.7 % (39.0-53.0); HGB 10.3 gm/dL (13.0-17.5); Hypochromasia Slight; MCH 30.3 pg (25.0-35.0); MCHC 31.7 g/dL (31.0-37.0); MCV 95.7 fL (80.0-100.0); Macrocytosis Slight; Platelet Count 266 k/uL (150-450); Poikilocytosis Slight; RBC 3.42 m/uL (4.30-5.90); RDW 20.1 % (11.5-15.5); WBC 36.3 k/uL (3.8-10.6)
[2020-02-09 08:58] LABS: African American GFR (CKD) >90 (>60 ml/min/1.73 sqM); Anion Gap 6 mmol/L; Blood Urea Nitrogen 12 mg/dL (9-20); Calcium 6.9 mg/dL (8.4-10.2); Carbon Dioxide 26 mmol/L (22-30); Chloride 103 mmol/L (98-107); Glucose 97 mg/dL (74-99); Non-African American GFR(CKD) >90 (>60 ml/min/1.73 sqM); Potassium 4.4 mmol/L (3.5-5.1); Sodium 135 mmol/L (137-145)
[2020-02-09] MEDS ORDERED: FUROSEMIDE 40 MG TAB PO SCH (09:00)
[2020-02-09 09:39] LABS: Band Neutrophils % 2 %; Metamyelocytes # (M) 1.82 k/uL (0); Metamyelocytes % 5 %; Monocytes # (M) 1.09 k/uL (0-1.0); Myelocytes # (M) 1.45 k/uL (0); Myelocytes % 4 %; Neutrophils % (M) 87 %; Nucleated Red Blood Cells 0 /100 WBC (0-0); Promyelocytes # (M) 0.36 k/uL (0); Promyelocytes % 1 %; Total Cells Counted 200
[2020-02-09 09:40] LABS: Toxic Granulation Present
--- NOTE | 2020-02-09 12:02 | P.DS ---
Providers Date of admission: 02/04/20 14:46 Expected date of discharge: 02/09/20 Attending physician: Lilli Garcia DO Consults: 02/04/20 14:46 Consult Physician Routine Consulting Provider: Chau Reza Consult Reason/Comments: Right hand infection, anasarca Do you want consulting provider notified?: Yes Consult Physician Routine Consulting Provider: Maame Barajas Consult Reason/Comments: Right hand infection, failed outpatient treatment Do you want consulting provider notified?: Yes 02/05/20 09:28 Consult Physician Routine Consulting Provider: Christos Vickers Consult Reason/Comments: right hand cellulitis Do you want consulting provider notified?: Already Contacted 02/05/20 21:22 Consult Physician Routine Consulting Provider: Christopher Suresh Consult Reason/Comments: newly discovered systolic cardiomyopathy Do you want consulting provider notified?: Yes Primary care physician: Physician Nonstaff Hospital Course: HPI: Patient is a 64-year-old male with 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 fib, chronic hypoxic respiratory failure, and COPD who presented to the emergency department at the direction of radiation oncology secondary to difficulty breathing. On arrival to the ER he was found to have a pulse rate of 113 and was 90% on room air. Laboratory analysis showed white blood cell count of 37.2, hemoglobin 10.1, platelets 73, sodium 129, calcium 6.3, alkaline phosphatase 164. EKG demonstrated atrial fibrillation with rapid ventricular response at a heart rate of 110. Chest x-ray demonstrated hazy airspace opacity at the right lung base likely representing atelectasis, cortical lucency over the superior right mid clavicle. Venous Doppler demonstrated a DVT in the right IJ. Patient was found have a right hand cellulitis versus osteomyelitis. He was started on vancomycin and Rocephin. Arrangements were made for admission. Patient seen and examined at bedside with significant other present. Initially he reports he was sent in by Dr. Reza due to increasing right hand edema. He stated that the swelling began approximately 2 weeks ago. He then noted due to his extensive swelling that he developed some splitting of his skin as well as skin slopping. He states later his hand started to look infected. He is having pain in the hand. He has difficulty both flexing and extending the fingers of the right hand. He has been taking Keflex without improvement on outpatient basis. His significant other than states he actually came to the hospital due to an event that happened at radiation therapy in [place] today. Apparently he went to lay flat and he describes that he had a panic attack. His heart rate went up to 140. He became short of breath and had some chest discomfort and palpitations. This resolved and he was able to complete his radiation treatment. He reports that he has had shortness of breath worsening with ambulation or lying flat. He reports that he has had swollen lower extremities for the last several months but they have been getting worse. He does have some left arm swelling but it is not as severe as the right. He states that he has had a decreased appetite and has not been eating much and has been drinking some fluids. He denies any significant cough. No chest pain, syncope. No fev ers/chills, no nausea or vomiting. He isn't experiencing constipation but no diarrhea. Patient initially stated that he was on Eliquis in the past secondary to his A. fib after much testing he was taken off Eliquis. However on review of pulmonary consult from November 2019 patient should've been on Eliquis secondary to recent pulmonary embolism. It appears that the last and his Eliquis was prescribed was 12/08/2019 and he confirms that he is not taking this medications currently He follows with Dr. pittman and Rebekah Da Silva from [place]. Hospital course and treatment: Patient was admitted to the hospital with right hand cellulitis and sepsis, he was evaluated by orthopedics, he underwent an I&D 02/06/2020, cultures obtained, remained negative. He was evaluated by infectious disease and was treated with IV vancomycin and Unasyn, switched to Augmentin at the time of discharge. He was treated with IV Lasix for hypervolemia and acute on chronic systolic heart failure with ejection fraction 35%. He was evaluated by cardiology for possible paroxysmal atrial fibrillation, he was started on Eliquis, metoprolol was increased, Cardizem was placed on hold secondary to low EF. He had mild hyponatremia secondary to hypovolemia which improved with IV Lasix. At the time of discharge he was switched to oral Lasix 40 mg daily. He was found to have new onset DVT in the right internal jugular and was anticoagulated. He has a history of metastatic lung carcinoma to the bones, he status post palliative radiation, he will need follow-up with hematology/oncology as an outpatient He also had hypocalcemia secondary to sepsis and Xgeva effect He was physically weak and was evaluated by CT status. He continued to have leukocytosis which is multifactorial. He feels much better and wants to go home, we will discharge patient home with follow-up appointments. Patient Condition at Discharge: Fair Plan - Discharge Summary New Discharge Prescriptions: New Apixaban [Eliquis] 5 mg PO BID #60 tab Amoxic-Pot Clav 875-125Mg [Augmentin 875-125] 1 tab PO Q12HR #14 tab Apixaban [Eliquis] 5 mg PO BID #0 tab Furosemide [Lasix] 40 mg PO DAILY 30 Days #30 tab Metoprolol Tartrate [Lopressor] 100 mg PO BID 30 Days #60 tab lisinopriL [Zestril] 2.5 mg PO DAILY 30 Days #30 tab Continue levETIRAcetam [Keppra] 500 mg PO HS Omeprazole 20 mg PO DAILY Hydrocodone/Acetaminophen [[place] 10-325] 1 tab PO Q4-6H PRN PRN Reason: Pain Ipratropium-Albuterol Nebulize [Duoneb 0.5 mg-3 mg/3 ml Soln] 3 ml INHALATION RT-QID PRN ml PRN Reason: Shortness Of Breath Or Wheezing Acetaminophen Tab [Tylenol] 650 mg PO Q6HR PRN tab PRN Reason: Mild Pain Or Fever > 100.5 Thiamine [Vitamin B-1] 100 mg PO DAILY 30 Days #30 tab Cholecalciferol [Vitamin D3] 400 unit PO DAILY Calcium/Magnesium/Zinc [Pxdvnct-Xvmuqxacg-Oijl Tablet] 1 tab PO TID Ondansetron Odt [Zofran ODT] 4 mg PO Q6H PRN PRN Reason: Nausea Nystatin 100,000 Unit/ml Susp [Mycostatin Oral Susp] 4 ml PO QID levETIRAcetam [Keppra Xr] 500 mg PO DAILY fentaNYL 25MCG/HR PATCH [Duragesic 25MCG/HR] 25 mcg TRANSDERM Q72H Folic Acid 1 mg PO DAILY Loratadine [Claritin] 10 mg PO DAILY Potassium Unknown 1 tab PO DAILY LORazepam [Ativan] 0.5 mg PO BID PRN PRN Reason: Anxiety LORazepam 1 mg PO HS Discontinued Diltiazem HCl [Diltiazem HCl 24Hr ER (Cd)] 240 mg PO DAILY Metoprolol Tartrate 25 mg PO BID Furosemide [Lasix] 20 mg PO DAILY Cephalexin [Keflex] 500 mg PO BID Discharge Medication List Hydrocodone/Acetaminophen [[place] 10-325] 1 tab PO Q4-6H PRN 12/12/19 [History] Omeprazole 20 mg PO DAILY 12/12/19 [History] levETIRAcetam [Keppra] 500 mg PO HS 12/12/19 [History] Acetaminophen Tab [Tylenol] 650 mg PO Q6HR PRN tab 12/15/19 [Rx] Ipratropium-Albuterol Nebulize [Duoneb 0.5 mg-3 mg/3 ml Soln] 3 ml INHALATION RT-QID PRN ml 12/15/19 [Rx] Thiamine [Vitamin B-1] 100 mg PO DAILY 30 Days #30 tab 12/15/19 [Rx] Calcium/Magnesium/Zinc [Lvgeojp-Qeyaqujmt-Ilei Tablet] 1 tab PO TID 02/04/20 [History] Cholecalciferol [Vitamin D3] 400 unit PO DAILY 02/04/20 [History] Folic Acid 1 mg PO DAILY 02/04/20 [History] Loratadine [Claritin] 10 mg PO DAILY 02/04/20 [History] Nystatin 100,000 Unit/ml Susp [Mycostatin Oral Susp] 4 ml PO QID 02/04/20 [History] Ondansetron Odt [Zofran ODT] 4 mg PO Q6H PRN 02/04/20 [History] Potassium Unknown 1 tab PO DAILY 02/04/20 [History] fentaNYL 25MCG/HR PATCH [Duragesic 25MCG/HR] 25 mcg TRANSDERM Q72H 02/04/20 [History] levETIRAcetam [Keppra Xr] 500 mg PO DAILY 02/04/20 [History] LORazepam 1 mg PO HS 02/07/20 [History] LORazepam [Ativan] 0.5 mg PO BID PRN 02/07/20 [History] Apixaban [Eliquis] 5 mg PO BID #60 tab 02/08/20 [Rx] Amoxic-Pot Clav 875-125Mg [Augmentin 875-125] 1 tab PO Q12HR #14 tab 02/09/20 [Rx] Apixaban [Eliquis] 5 mg PO BID #0 tab 02/09/20 [Rx] Furosemide [Lasix] 40 mg PO DAILY 30 Days #30 tab 02/09/20 [Rx] Metoprolol Tartrate [Lopressor] 100 mg PO BID 30 Days #60 tab 02/09/20 [Rx] lisinopriL [Zestril] 2.5 mg PO DAILY 30 Days #30 tab 02/09/20 [Rx] Follow up Appointment(s)/Referral(s): Nonstaff,Physician [Primary Care Provider] - 1-2 days Residential Home[facility] [NON-STAFF] - Discharge Disposition: HOME WITH HOME HEALTH SERVICES
[2020-02-09] MEDS ORDERED: VANCOMYCIN TROUGH DUE 1 EACH MISC MISCELLANE ONE (13:00)
[2020-02-09 14:00] VITALS: RESP 18; TEMP 98.2
--- NOTE | 2020-02-09 14:00 | P.PN ---
<Kasia Cobian Iris - Last Filed: 02/09/20 14:00> Subjective Progress Note Date: 02/09/20 CHIEF COMPLAINT: atrial fibrillation HISTORY OF PRESENT ILLNESS: Patient examined this morning the bedside. Patient denies chest pain. Denies shortness of breath. Patient reports his lower extremity edema is improving. Patient was transitioned to oral Lasix yesterday. Beta leslie was increased yesterday due to uncontrolled heart rate. His heart rate remains in the 110s today. PHYSICAL EXAM: VITAL SIGNS: Reviewed. GENERAL: Well-developed in no acute distress. NECK: Supple. No JVD or thyromegaly LUNGS: Respirations even and unlabored. Lungs essentially clear to auscultation bilaterally. HEART: Irregular rate and rhythm. S1 and S2 heard. EXTREMITIES: Normal range of motion. No clubbing or cyanosis. Peripheral pulses intact. 2+ lower extremity edema ASSESSMENT: #1 lung cancer with bone metastasis #2 acute on chronic systolic congestive heart failure #3 atrial fibrillation, persistent, heart rate suboptimally controlled #4 DVT #5 right hand cellulitis, status post debridement #6 nicotine dependence PLAN: -Continue Eliquis 5mg BID -Continue oral Lasix -Daily weight and accurate I&O -Increase betablocker to 100mg BID. Monitor heart rate Nurse practitioner note has been reviewed by physician. Signing provider agrees with the documented findings, assessment, and plan of care. Objective - Vital Signs Vital signs: Vital Signs Temp 98.0 F 02/08/20 20:00 Pulse 110 H 02/09/20 08:02 Resp 21 02/09/20 03:28 BP 125/68 02/09/20 03:28 Pulse Ox 95 02/09/20 03:28 Intake & Output 02/08/20 02/09/20 02/09/20 18:59 06:59 18:59 Intake Total 1090 Output Total 500 325 Balance 590 -325 Weight 102.4 kg Intake: Oral 1090 Output: Urine 500 325 Other: Voiding Method Toilet Urinal # Voids 0 - Labs CBC & Chem 7: 02/09/20 08:28 02/09/20 08:28 Labs: Abnormal Lab Results - Last 24 Hours (Table) 02/09/20 02/09/20 Range/Units 08:28 08:28 WBC 36.3 H (3.8-10.6) k/uL RBC 3.42 L (4.30-5.90) m/uL Hgb 10.3 L (13.0-17.5) gm/dL Hct 32.7 L (39.0-53.0) % RDW 20.1 H (11.5-15.5) % Neutrophils # (Manual) 32.30 H (1.3-7.7) k/uL Monocytes # (Manual) 1.09 H (0-1.0) k/uL Metamyelocytes # (Man) 1.82 H (0) k/uL Myelocytes # (Manual) 1.45 H (0) k/uL Promyelocytes # (Man) 0.36 H (0) k/uL Sodium 135 L (137-145) mmol/L Calcium 6.9 L (8.4-10.2) mg/dL Microbiology - Last 24 Hours (Table) 02/04/20 13:51 Blood Culture - Preliminary Blood No Growth after 96 hours 02/06/20 10:41 Anaerobic Culture - Preliminary Hand - Right 02/06/20 10:41 Gram Stain - Final Hand - Right Wound Culture - Final <Bryce Thao - Last Filed: 02/09/20 15:47> Subjective Patient has predominantly upper extremity edema however CAT scan yesterday showed no evidence of SVC syndrome per radiology report. Continue with diuretics. Patient appears stable for discharge home on his oral Lasix and Eliquis. Bryce Thoa D.O. Objective - Vital Signs Vital signs: Vital Signs Temp 98.2 F 02/09/20 08:00 Pulse 90 02/09/20 12:00 Resp 18 02/09/20 12:00 BP 154/90 02/09/20 12:00 Pulse Ox 96 02/09/20 12:00 Intake & Output 02/08/20 02/09/20 02/09/20 18:59 06:59 18:59 Intake Total 1090 480 Output Total 500 325 325 Balance 590 -325 155 Weight 102.4 kg Intake: Oral 1090 480 Output: Urine 500 325 325 Other: Voiding Method Toilet Toilet Urinal Urinal # Voids 0 - Labs CBC & Chem 7: 02/09/20 08:28 02/09/20 08:28 Labs: Abnormal Lab Results - Last 24 Hours (Table) 02/09/20 02/09/20 Range/Units 08:28 08:28 WBC 36.3 H (3.8-10.6) k/uL RBC 3.42 L (4.30-5.90) m/uL Hgb 10.3 L (13.0-17.5) gm/dL Hct 32.7 L (39.0-53.0) % RDW 20.1 H (11.5-15.5) % Neutrophils # (Manual) 32.30 H (1.3-7.7) k/uL Monocytes # (Manual) 1.09 H (0-1.0) k/uL Metamyelocytes # (Man) 1.82 H (0) k/uL Myelocytes # (Manual) 1.45 H (0) k/uL Promyelocytes # (Man) 0.36 H (0) k/uL Sodium 135 L (137-145) mmol/L Calcium 6.9 L (8.4-10.2) mg/dL Microbiology - Last 24 Hours (Table) 02/04/20 13:51 Blood Culture - Preliminary Blood No Growth after 96 hours 02/06/20 10:41 Anaerobic Culture - Preliminary Hand - Right
[2020-02-09 14:02] VITALS: BP 154/90; PULSE 90
--- NOTE | 2020-02-09 14:51 | P.PN ---
Subjective Progress Note Date: 02/09/20 Principal diagnosis: Sepsis Plan for discharge today, patient should have homecare and PT/OT at discharge. Follow-up with Dr. Reza in 7-10 days Objective - Vital Signs Vital signs: Vital Signs Temp 98.2 F 02/09/20 08:00 Pulse 90 02/09/20 12:00 Resp 18 02/09/20 12:00 BP 154/90 02/09/20 12:00 Pulse Ox 96 02/09/20 12:00 Intake & Output 02/08/20 02/09/20 02/09/20 18:59 06:59 18:59 Intake Total 1090 480 Output Total 500 325 325 Balance 590 -325 155 Weight 102.4 kg Intake: Oral 1090 480 Output: Urine 500 325 325 Other: Voiding Method Toilet Toilet Urinal Urinal # Voids 0 - Exam - Constitutional General appearance: mild distress - EENT Eyes: EOMI, PERRLA ENT: hearing grossly normal, normal oropharynx - Neck Neck: no lymphadenopathy - Respiratory Respiratory: bilateral: CTA - Cardiovascular Rhythm: irregularly irregular Heart sounds: normal: S1, S2 - Gastrointestinal General gastrointestinal: normal bowel sounds, soft - Integumentary Confluent erythema involving the distal right upper extremity and right hand associated with underlying swelling. Central portion of dorsum of right hand showed confluent purulent area with thin underlying skin. Dorsum of left hand shows erythema with thickening of the skin and development of small patches of purulence Integumentary: calor, cellulitis - Neurologic Neurologic: CNII-XII intact - Musculoskeletal Musculoskeletal: generalized weakness, strength equal bilaterally - Psychiatric Psychiatric: A&O x's 3 - Labs CBC & Chem 7: 02/09/20 08:28 02/09/20 08:28 Labs: Abnormal Lab Results - Last 24 Hours (Table) 02/09/20 02/09/20 Range/Units 08:28 08:28 WBC 36.3 H (3.8-10.6) k/uL RBC 3.42 L (4.30-5.90) m/uL Hgb 10.3 L (13.0-17.5) gm/dL Hct 32.7 L (39.0-53.0) % RDW 20.1 H (11.5-15.5) % Neutrophils # (Manual) 32.30 H (1.3-7.7) k/uL Monocytes # (Manual) 1.09 H (0-1.0) k/uL Metamyelocytes # (Man) 1.82 H (0) k/uL Myelocytes # (Manual) 1.45 H (0) k/uL Promyelocytes # (Man) 0.36 H (0) k/uL Sodium 135 L (137-145) mmol/L Calcium 6.9 L (8.4-10.2) mg/dL Microbiology - Last 24 Hours (Table) 02/04/20 13:51 Blood Culture - Preliminary Blood No Growth after 96 hours 02/06/20 10:41 Anaerobic Culture - Preliminary Hand - Right 02/06/20 10:41 Gram Stain - Final Hand - Right Wound Culture - Final Assessment and Plan (1) Metastatic lung carcinoma Current Visit: Yes Status: Acute Code(s): C78.00 - SECONDARY MALIGNANT NEOPLASM OF UNSPECIFIED LUNG SNOMED Code(s): 39701429 (2) Sepsis Current Visit: Yes Status: Acute Code(s): A41.9 - SEPSIS, UNSPECIFIED ORGANISM SNOMED Code(s): 25022689 Plan: Comments: Hand x-ray report reviewed Chest x-ray: report reviewed Venous US: report reviewed Assessment and Plan: Sepsis - Cellulitis of right hand - Right upper extremity examination appears same, wrapped, LUE with cracking and erythema scaling. - He had been strongly advised for admission for IV antibiotics in previous follow-up visits but had refused the same. - He has been seen by hand surgery and status post debridement on 02/05 - ID is following and managing antibiotics. - Defer home medications to ID. HE was previously treated with Keflex and doxy. Deep vein thrombosis (DVT) of right upper extremity - New Acute DVT in the right internal jugular. - Doppler within the last 2-3 weeks for the same complaint was negative. - The patient was supposed to be on anticoagulation but apparently had stopped taking it. - Re-discussed adherence to his anticoagulation as he will likely need to be on it indefinitely as long as he tolerates it well. - Resumed on Eliquis Rapid atrial fibrillation - New onset atrial fibrillation. He came in with very rapid ventricular rate. - Increase could be due to sepsis - CTA was negative for PE - Rate is much better controlled. - Continue on anticoagulation BLE and BUE Edema - Persistent - Etiology of Right IJ clot unknown, CTA ordered to also further assess for SVC type phenomenon - BLE doppler negative for DVT - Echocardiogram reviewed and EF 35-40% Metastatic lung carcinoma - Primarily skeletal disease, with fairly mild systemic disease - Status post palliative radiation to symptomatic sites of bone disease, as well as surgery to the left hip. - He has just started systemic chemotherapy with immunotherapy as noted. This will be on hold until acute condition resolves. - Despite receiving radiation to symptomatic sites in the skeleton, the patient still complains of pain. - Concern of decreased performance status and continuation of systemic treatment related to this. We discussed increased activity, out of bed and in chair and working with PT/OT Hypocalcemia - Improved - Likely secondary to Sepsis and Xgeva effect - Will follow up in office Weakness and Myopathy: - Continue PT/OT at discharge Plan: Given multiple ongoing medical issues, overall prognosis is guarded. Continue current supportive care. Discharge planned per primary team today, PT/OT and homecare nursing at discharge. Discussed palliative care at discharge as an appropriate option.
--- NOTE | 2020-02-09 15:09 | PN ---
PROGRESS NOTE DATE OF SERVICE: 02/09/2020. REASON FOR FOLLOWUP: Right hand wound and cellulitis. INTERVAL HISTORY: The patient is currently afebrile. The patient is feeling better and has been insisting on going home. No chest pain or shortness of breath. Minimal cough. No abdominal pain. Pain to the right hand area. EXAMINATION: Blood pressure 125/60 with a pulse of 112, temperature is 98, he is 95% on 4 L nasal cannula. General description is a middle-aged male up in the bed in no distress. Respiratory system: Unlabored breathing. Clear to auscultation anteriorly. Heart S1, S2. Regular rate and rhythm. Abdomen soft, no tenderness. Right hand is currently dressed. No obvious drainage on the dressing. LABS: Hemoglobin 10.4, white count 6.3, BUN of 12, creatinine 0.74. Wound culture has been negative for resistant pathogen. DIAGNOSTIC IMPRESSION AND PLAN: Patient with right hand wound with secondary cellulitis, status post debridement. Culture has been negative for resistant pathogen. He did well on Unasyn. We will give a short course of oral Augmentin. Local wound care with dry Aquacel silver dressing and close outpatient followup. MMODL / IJN: [id number] /
--- NOTE | 2020-02-09 15:33 | CDI ---
Documentation Clarification Form Date: 02/09/2020 03:25:03 PM From: Jill BahKATHLEEN musa, CCDS Admit Date: 02/04/2020 02:46:00 PM Patient Name: Aristeo Goodman Visit Number: [id number] Discharge Date: ATTENTION: The Clinical Documentation Specialists (CDI) and [facility] Coding Staff appreciate your assistance in clarifying documentation. Please respond to the clarification below the line at the bottom and electronically sign. The CDI & [facility] Coding staff will review the response and follow-up if needed. Please note: Queries are made part of the Legal Health Record. If you have any questions, please contact the author of this message via ITS. Dr. Pan Barker: Per your progress notes/operative note, a debridement was performed on 02/05: "Irrigation and debridement right hand necrotic eschar." History/Risk Factors: Lung Cancer with metastasis to multiple bones & spine, recent PE, Persistent Atrial Fibrillation, Seizure disorder, COPD, Depression & current smoker. Clinical Indicators: Presented to the ED on 02/03 with Right Hand Cellulitis. Treatment: Debridement as above, IV antibiotics: Rocephin, Vancomycin, Ampicillin, IV Calcium Gluconate, IV Lasix, IV Morphine, INH Albuterol. Five elements required for accurate and compliant documentation of a debridement: 1. Technique used (e.g., excisional, excised, cutting, etc.) 2. Instrument(s) used (e.g., scalpel, curette, etc.) 3. Nature of the tissue removed (e.g., necrotic, devitalized tissues, non- viable tissue, etc.) 4. Appearance and size of the wound (e.g., down to fresh bleeding tissue, 7cm x 10cm, etc.) 5. Depth of the debridement* (e.g., skin, subcutaneous tissue, fascia, muscle, bone, etc.) In order to capture the severity of condition and code the appropriate procedure; could you please document the following: Excisional debridement (the removal of necrotic, devitalized tissue or slough by means of cutting away of tissue) Non-excisional debridement (the removal of necrotic, devitalized tissue or slough by means of flushing, brushing, or washing. (Irrigation) Other; please specify Unable to determine (Last Revision: September 2017) _excisional debridement, used scapel to remove necrotic tissue, 4 by 4 cm down to subcutaneous tissue. [facility]
[2020-02-09] MEDS ORDERED: METOPROLOL TARTRATE 50 MG TAB PO SCH (21:00)
== END 2020-02-09 17:25 | disposition home health service (06) | DRG 853 ==
LOC: EC 12:59 → 4SSUR 14:46 → 1SOBS 18:15 → 4SSUR 18:16 → 3SCARD 02-06 05:48
PROVIDERS: ADMIT Internal Medicine; ATTEND Internal Medicine
PROC: 0JBJ0ZZ Excision of Right Hand Subcutaneous Tissue and Fascia, Open Approach (ICD-10-PCS; principal; 2020-02-06 10:00)
PROC: 05HF33Z Insertion of Infusion Device into Left Cephalic Vein, Percutaneous Approach (ICD-10-PCS; 2020-02-07 11:45)
DX: A41.9 Sepsis, unspecified organism (principal); E43 Unspecified severe protein-calorie malnutrition; I50.23 Acute on chronic systolic (congestive) heart failure; J96.11 Chronic respiratory failure with hypoxia; I82.C11 Acute embolism and thrombosis of right internal jugular vein; C79.51 Secondary malignant neoplasm of bone; I42.9 Cardiomyopathy, unspecified; I48.19 Other persistent atrial fibrillation; E87.1 Hypo-osmolality and hyponatremia; C34.90 Malignant neoplasm of unspecified part of unspecified bronchus or lung; L03.113 Cellulitis of right upper limb; J98.11 Atelectasis; L02.511 Cutaneous abscess of right hand; E83.51 Hypocalcemia; D69.59 Other secondary thrombocytopenia; G40.909 Epilepsy, unspecified, not intractable, without status epilepticus; J44.9 Chronic obstructive pulmonary disease, unspecified; D64.81 Anemia due to antineoplastic chemotherapy; T45.1X5A Adverse effect of antineoplastic and immunosuppressive drugs, initial encounter; K21.9 Gastro-esophageal reflux disease without esophagitis; F41.0 Panic disorder [episodic paroxysmal anxiety]; H91.91 Unspecified hearing loss, right ear; F17.210 Nicotine dependence, cigarettes, uncomplicated; Z68.29 Body mass index [BMI] 29.0-29.9, adult; Z79.891 Long term (current) use of opiate analgesic; Z79.899 Other long term (current) drug therapy; Z86.711 Personal history of pulmonary embolism; Z92.3 Personal history of irradiation; Z87.81 Personal history of (healed) traumatic fracture; Z87.311 Personal history of (healed) other pathological fracture; Z86.59 Personal history of other mental and behavioral disorders; Z98.890 Other specified postprocedural states; Z82.49 Family history of ischemic heart disease and other diseases of the circulatory system; Z83.3 Family history of diabetes mellitus
CPT/HCPCS: 36410; 36415; 64999; 71046; 71275; 76937; 76942; 80048; 80053; 80202; 82330; 83605; 83735; 83880; 84100; 85025; 85027; 85610; 85730; 86140; 87040; 87070; 87075; 87205; 93005; 93306; 93970; 94640; 96365; 96366; 96367; 96375; 99285

== ENCOUNTER 2020-03-10 11:23 | Inpatient (IN) | payer BC ==
[2020-03-10] MEDS ORDERED: DILTIAZEM DRIP BOLUS FROM BAG 1 MG SOLN IV ONE ×2 (11:42→14:09)
--- NOTE | 2020-03-10 11:46 | ED ---
General Adult HPI - General Chief complaint: Weakness Stated complaint: Weak Time Seen by Provider: 03/10/20 11:30 Source: patient, family, RN notes reviewed Mode of arrival: wheelchair Limitations: physical limitation - History of Present Illness Initial comments: Patient is a pleasant 65-year-old male presenting to the emergency Department with complaints of short of breath and weakness. Symptoms progressed with the past several days. Patient does have metastatic lung cancer and saw Dr. Orta today who advised him to come to the emergency department. Patient does complain of leg swelling increasing over the past few days. No chest pain. Patient has occasional cough. Dyspnea increases with lying flat. - Related Data Home Medications Medication Instructions Recorded Confirmed levETIRAcetam [Keppra] 500 mg PO HS 12/12/19 03/10/20 Calcium/Magnesium/Zinc 1 tab PO TID 02/04/20 03/10/20 [Lwfhdbb-Wixlpxckm-Yqrq Tablet] Cholecalciferol [Vitamin D3] 400 unit PO DAILY 02/04/20 03/10/20 Folic Acid 1 mg PO DAILY 02/04/20 03/10/20 Loratadine [Claritin] 10 mg PO DAILY 02/04/20 03/10/20 Nystatin 100,000 Unit/ml Susp 4 ml PO QID 02/04/20 03/10/20 [Mycostatin Oral Susp] levETIRAcetam [Keppra Xr] 500 mg PO DAILY 02/04/20 03/10/20 LORazepam 1 mg PO HS 02/07/20 03/10/20 LORazepam [Ativan] 0.5 mg PO BID PRN 02/07/20 03/10/20 Potassium Chloride [Klor-Con 10] 10 meq PO DAILY 03/10/20 03/10/20 fentaNYL 50MCG/HR PATCH [Duragesic 50 mcg TRANSDERM Q72H 03/10/20 03/10/20 50MCG/HR] oxyCODONE HCL/ACETAMINOPHEN 1 tab PO Q6HR PRN 03/10/20 03/10/20 [Percocet 5-325 mg] Previous Rx's Medication Instructions Recorded Ipratropium-Albuterol Nebulize 3 ml INHALATION RT-QID PRN ml 12/15/19 [Duoneb 0.5 mg-3 mg/3 ml Soln] Thiamine [Vitamin B-1] 100 mg PO DAILY 30 Days #30 tab 12/15/19 Apixaban [Eliquis] 5 mg PO BID #0 tab 02/09/20 Furosemide [Lasix] 40 mg PO DAILY 30 Days #30 tab 02/09/20 Metoprolol Tartrate [Lopressor] 100 mg PO BID 30 Days #60 tab 02/09/20 Allergies Allergy/AdvReac Type Severity Reaction Status Date / Time No Known Allergies Allergy Verified 03/10/20 14:01 Review of Systems ROS Statement: Those systems with pertinent positive or pertinent negative responses have been documented in the HPI. ROS Other: All systems not noted in ROS Statement are negative. 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, lung CA History of Any Multi-Drug Resistant Organisms: None Reported Past Surgical History: Orthopedic Surgery Additional Past Surgical History / Comment(s): left quadriceps; skull fx age 15, chyna placed in right femur Past Psychological History: Depression Smoking Status: Current every day smoker Past Alcohol Use History: None Reported Past Drug Use History: Marijuana - Past Family History Mother Family Medical History: AFIB Father Family Medical History: Diabetes Mellitus General Exam Limitations: physical limitation General appearance: alert Head exam: Present: normocephalic Eye exam: Present: normal appearance Neck exam: Present: normal inspection Respiratory exam: Present: decreased breath sounds Cardiovascular Exam: Present: tachycardia GI/Abdominal exam: Present: soft. Absent: tenderness Extremities exam: Present: pedal edema (+3 bilateral). Absent: calf tenderness Neurological exam: Present: alert Psychiatric exam: Present: normal affect, normal mood Skin exam: Present: normal color Course Vital Signs 03/10/20 03/10/20 03/10/20 11:27 12:10 12:44 Temperature 97.6 F Pulse Rate 47 L 151 H 150 H Respiratory 14 22 18 Rate Blood Pressure 109/65 86/51 O2 Sat by Pulse 70 L 96 94 L Oximetry 03/10/20 13:16 Temperature Pulse Rate 147 H Respiratory 22 Rate Blood Pressure O2 Sat by Pulse Oximetry EKG Findings - EKG Comments: EKG Findings:: A. fib with RVR, rate 158. QRS 80. QT 274. QTC 444. Left axis. Low QRS voltage. No acute ST change. Medical Decision Making - Medical Decision Making Patient reevaluated and resting comfortably in bed. Systolic blood pressure 98. Heart rate 140. Cardizem drip will be increased. Patient and family are updated on results and plan. Dr. Dickinson has been paged for admission covering for hospital call. - Lab Data Result diagrams: 03/10/20 11:59 03/10/20 11:59 Lab Results 03/10/20 03/10/20 03/10/20 Range/Units 11:59 11:59 11:59 WBC 6.8 (3.8-10.6) k/uL RBC 3.41 L (4.30-5.90) m/uL Hgb 11.2 L (13.0-17.5) gm/dL Hct 36.7 L (39.0-53.0) % MCV 107.6 H D (80.0-100.0) fL MCH 32.9 (25.0-35.0) pg MCHC 30.5 L (31.0-37.0) g/dL RDW 20.7 H (11.5-15.5) % Plt Count 130 L D (150-450) k/uL Neutrophils % 89 % Lymphocytes % 4 % Monocytes % 4 % Eosinophils % 3 % Basophils % 0 % Neutrophils # 6.1 (1.3-7.7) k/uL Lymphocytes # 0.3 L (1.0-4.8) k/uL Monocytes # 0.2 (0-1.0) k/uL Eosinophils # 0.2 (0-0.7) k/uL Basophils # 0.0 (0-0.2) k/uL Manual Slide Review Performed Hypochromasia Marked Poikilocytosis Slight Anisocytosis Moderate Macrocytosis Marked A PT 15.3 H (9.0-12.0) sec INR 1.6 H (<1.2) APTT 40.5 H (22.0-30.0) sec Sodium 137 (137-145) mmol/L Potassium 4.8 (3.5-5.1) mmol/L Chloride 104 (98-107) mmol/L Carbon Dioxide 28 (22-30) mmol/L Anion Gap 5 mmol/L BUN 24 H (9-20) mg/dL Creatinine 0.85 (0.66-1.25) mg/dL Est GFR (CKD-EPI)AfAm >90 (>60 ml/min/1.73 sqM) Est GFR (CKD-EPI)NonAf >90 (>60 ml/min/1.73 sqM) Glucose 128 H (74-99) mg/dL Calcium 7.8 L (8.4-10.2) mg/dL Magnesium 2.1 (1.6-2.3) mg/dL Total Bilirubin 1.7 H (0.2-1.3) mg/dL AST 64 H (17-59) U/L ALT 51 H (4-49) U/L Alkaline Phosphatase 88 (38-126) U/L Troponin I (0.000-0.034) ng/mL NT-Pro-B Natriuret Pep pg/mL Total Protein 5.5 L (6.3-8.2) g/dL Albumin 2.7 L (3.5-5.0) g/dL 03/10/20 03/10/20 Range/Units 11:59 11:59 WBC (3.8-10.6) k/uL RBC (4.30-5.90) m/uL Hgb (13.0-17.5) gm/dL Hct (39.0-53.0) % MCV (80.0-100.0) fL MCH (25.0-35.0) pg MCHC (31.0-37.0) g/dL RDW (11.5-15.5) % Plt Count (150-450) k/uL Neutrophils % % Lymphocytes % % Monocytes % % Eosinophils % % Basophils % % Neutrophils # (1.3-7.7) k/uL Lymphocytes # (1.0-4.8) k/uL Monocytes # (0-1.0) k/uL Eosinophils # (0-0.7) k/uL Basophils # (0-0.2) k/uL Manual Slide Review Hypochromasia Poikilocytosis Anisocytosis Macrocytosis PT (9.0-12.0) sec INR (<1.2) APTT (22.0-30.0) sec Sodium (137-145) mmol/L Potassium (3.5-5.1) mmol/L Chloride (98-107) mmol/L Carbon Dioxide (22-30) mmol/L Anion Gap mmol/L BUN (9-20) mg/dL Creatinine (0.66-1.25) mg/dL Est GFR (CKD-EPI)AfAm (>60 ml/min/1.73 sqM) Est GFR (CKD-EPI)NonAf (>60 ml/min/1.73 sqM) Glucose (74-99) mg/dL Calcium (8.4-10.2) mg/dL Magnesium (1.6-2.3) mg/dL Total Bilirubin (0.2-1.3) mg/dL AST (17-59) U/L ALT (4-49) U/L Alkaline Phosphatase (38-126) U/L Troponin I <0.012 (0.000-0.034) ng/mL NT-Pro-B Natriuret Pep 2770 pg/mL Total Protein (6.3-8.2) g/dL Albumin (3.5-5.0) g/dL - Radiology Data Radiology results: image reviewed (Chest x-ray shows moderate to large right- sided effusion.) Critical Care Time Critical Care Time: Yes Total Critical Care Time: 33 Disposition Clinical Impression: Atrial fibrillation with RVR, Pleural effusion Disposition: ADMITTED IP TO [facility] Is patient prescribed a controlled substance at d/c from ED?: No Referrals: Rebekah Da Silva NPC [REFERRING] - 1-2 days Decision Time: 14:11
[2020-03-10] MEDS: DILTIAZEM 125 MG in SODIUM CHLORIDE 0.9% 100 ML IV SCH ×2 (12:03→22:09)
[2020-03-10 12:15] LABS: Anisocytosis Moderate; Basophils % (A) 0 %; Eosinophils # (A) 0.2 k/uL (0-0.7); Eosinophils % (A) 3 %; HCT 36.7 % (39.0-53.0); HGB 11.2 gm/dL (13.0-17.5); Hypochromasia Marked; Lymphocytes # (A) 0.3 k/uL (1.0-4.8); Lymphocytes % (A) 4 %; MCH 32.9 pg (25.0-35.0); MCHC 30.5 g/dL (31.0-37.0); Macrocytosis Marked; Mean Platelet Volume 8.9; Monocytes # (A) 0.2 k/uL (0-1.0); Monocytes % (A) 4 %; Neutrophils # (A) 6.1 k/uL (1.3-7.7); Neutrophils % (A) 89 %; Poikilocytosis Slight; RBC 3.41 m/uL (4.30-5.90); RDW 20.7 % (11.5-15.5); WBC 6.8 k/uL (3.8-10.6)
[2020-03-10 12:17] LABS: MCV 107.6 fL (80.0-100.0)
[2020-03-10 12:20] LABS: ALT 51 U/L (4-49); AST 64 U/L (17-59); African American GFR (CKD) >90 (>60 ml/min/1.73 sqM); Albumin 2.7 g/dL (3.5-5.0); Alkaline Phosphatase 88 U/L (38-126); Anion Gap 5 mmol/L; Blood Urea Nitrogen 24 mg/dL (9-20); Calcium 7.8 mg/dL (8.4-10.2); Carbon Dioxide 28 mmol/L (22-30); Chloride 104 mmol/L (98-107); Glucose 128 mg/dL (74-99); Magnesium 2.1 mg/dL (1.6-2.3); Non-African American GFR(CKD) >90 (>60 ml/min/1.73 sqM); Potassium 4.8 mmol/L (3.5-5.1); Sodium 137 mmol/L (137-145); Total Bilirubin 1.7 mg/dL (0.2-1.3); Total Protein 5.5 g/dL (6.3-8.2)
[2020-03-10 12:35] LABS: Platelet Count 130 k/uL (150-450)
[2020-03-10 12:39] LABS: INR 1.6 (<1.2); Partial Thromboplastin Time 40.5 sec (22.0-30.0); Prothrombin Time 15.3 sec (9.0-12.0)
--- NOTE | 2020-03-10 13:21 | XR ---
EXAMINATION TYPE: XR chest 2V DATE OF EXAM: 03/10/2020 CLINICAL HISTORY: Dysrhythmia. Difficult in breathing for 6 months. History of metastatic lung cancer . TECHNIQUE: Frontal and lateral views of the chest are obtained. COMPARISON: 02/04/2020 chest radiograph. 02/07/2020 CTA chest FINDINGS: Right-sided MediPort. Cardiomegaly. Mediastinal silhouette unchanged. Large right pleural effusion increased, with right basilar airspace opacities. The left hemidiaphragm is silhouetted. No pneumothorax seen, although the medial apices are somewhat obscured by overlapping neck soft tissue. IMPRESSION: Large right pleural effusion is increased versus 02/07/2020. Right basilar airspace opacit ies.
[2020-03-10] MEDS ORDERED: ONDANSETRON 4 MG/2 ML VIAL IVP PRN (14:11)
[2020-03-10] MEDS ORDERED: NALOXONE 0.4 MG/ML 1 ML VIAL IV PRN (14:11)
[2020-03-10] MEDS: MORPHINE SULFATE 4 MG/ML SYRINGE IV PRN (16:50)
[2020-03-10] MEDS: SODIUM CHLORIDE 0.9% 1,000 ML IV SCH (17:26)
[2020-03-10] MEDS ORDERED: oxyCODONE-APAP 5-325MG 1 EACH TAB PO PRN (17:37)
[2020-03-10] MEDS ORDERED: LORazepam 0.5 MG TAB PO PRN (17:37)
--- NOTE | 2020-03-10 17:37 | P.HPIM ---
History of Present Illness H&P Date: 03/10/20 Chief Complaint: Shortness of breath and weakness 65-year-old male presenting to the emergency Department with complaints of short of breath and weakness. Symptoms progressed with the past several days. Patient does have metastatic lung cancer and saw Dr. Orta today who advised him to come to the emergency department. Patient does complain of leg swelling increasing over the past few days. No chest pain. Patient has occasional cough. Dyspnea increases with lying flat. Workup in ED including an EKG showed patient to be in atrial fibrillation with RVR with heart rate in 150s. No acute ST or T-wave changes; patient was started on IV Cardizem which was titrated to control heart rate; chest x-ray shows moderate to large right-sided pleural effusion; patient is admitted to the hospital for cardiology and pulmonary evaluation Review of Systems 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, lung CA History of Any Multi-Drug Resistant Organisms: None Reported Past Surgical History: Orthopedic Surgery Additional Past Surgical History / Comment(s): left quadriceps; skull fx age 15, chyna placed in right femur Past Psychological History: Depression Smoking Status: Current every day smoker Past Alcohol Use History: None Reported Past Drug Use History: Marijuana - Past Family History Mother Family Medical History: AFIB Father Family Medical History: Diabetes Mellitus Medications and Allergies Home Medications Medication Instructions Recorded Confirmed Type levETIRAcetam [Keppra] 500 mg PO HS 12/12/19 03/10/20 History Ipratropium-Albuterol Nebulize 3 ml INHALATION RT-QID PRN ml 12/15/19 03/10/20 Rx [Duoneb 0.5 mg-3 mg/3 ml Soln] Thiamine [Vitamin B-1] 100 mg PO DAILY 30 Days #30 tab 12/15/19 03/10/20 Rx Calcium/Magnesium/Zinc 1 tab PO TID 02/04/20 03/10/20 History [Hlwzqoa-Jecqaukkm-Hnsy Tablet] Cholecalciferol [Vitamin D3] 400 unit PO DAILY 02/04/20 03/10/20 History Folic Acid 1 mg PO DAILY 02/04/20 03/10/20 History Loratadine [Claritin] 10 mg PO DAILY 02/04/20 03/10/20 History Nystatin 100,000 Unit/ml Susp 4 ml PO QID 02/04/20 03/10/20 History [Mycostatin Oral Susp] levETIRAcetam [Keppra Xr] 500 mg PO DAILY 02/04/20 03/10/20 History LORazepam 1 mg PO HS 02/07/20 03/10/20 History LORazepam [Ativan] 0.5 mg PO BID PRN 02/07/20 03/10/20 History Apixaban [Eliquis] 5 mg PO BID #0 tab 02/09/20 03/10/20 Rx Furosemide [Lasix] 40 mg PO DAILY 30 Days #30 tab 02/09/20 03/10/20 Rx Metoprolol Tartrate [Lopressor] 100 mg PO BID 30 Days #60 tab 02/09/20 03/10/20 Rx Potassium Chloride [Klor-Con 10] 10 meq PO DAILY 03/10/20 03/10/20 History fentaNYL 50MCG/HR PATCH [Duragesic 50 mcg TRANSDERM Q72H 03/10/20 03/10/20 History 50MCG/HR] oxyCODONE HCL/ACETAMINOPHEN 1 tab PO Q6HR PRN 03/10/20 03/10/20 History [Percocet 5-325 mg] Allergies Allergy/AdvReac Type Severity Reaction Status Date / Time No Known Allergies Allergy Verified 03/10/20 14:01 Physical Exam Vitals: Vital Signs Temp Pulse Resp BP Pulse Ox 03/10/20 14:14 140 H 22 100/80 03/10/20 13:16 147 H 22 03/10/20 12:44 150 H 18 86/51 94 L 03/10/20 12:10 151 H 22 109/65 96 03/10/20 11:27 97.6 F 47 L 14 70 L Intake and Output 03/10/20 03/10/20 03/10/20 06:59 14:59 22:59 Intake Total 11.167 Balance 11.167 Intake: Intake, IV Titration . Amount Diltiazem 125 mg In . Sodium Chloride 0.9% 100 ml @ 5 MG/HR 5 mls/hr IV .Q24H [facility] Rx#:[id number] Other: Weight 90.718 kg - Constitutional General appearance: Present: average body habitus, cooperative, no acute distress - EENT Eyes: Present: anicteric sclerae, EOMI, PERRLA, normal appearance ENT: Present: hearing grossly normal, normal oropharynx Ears: bilateral: normal - Neck Neck: Present: normal ROM. Absent: lymphadenopathy, rigidity, thyromegaly Carotids: negative: bruit present Thyroid: bilateral: normal size, negative: enlarged, nodule - Respiratory Respiratory: bilateral: CTA, negative: rales, rhonchi, wheezing - Cardiovascular Rhythm: regular Heart sounds: normal: S1, S2 Abnormal Heart Sounds: Absent: systolic murmur, diastolic murmur - Gastrointestinal General gastrointestinal: Present: normal bowel sounds, soft. Absent: distended, organomegaly, tenderness - Genitourinary Genitourinary Comment(s): deferred - Integumentary Integumentary: Present: normal turgor. Absent: jaundiced, rash, ulcer - Neurologic Neurologic: Present: CNII-XII intact. Absent: focal deficits - Musculoskeletal Musculoskeletal: Present: gait normal, strength equal bilaterally - Psychiatric Psychiatric: Present: A&O x's 3, appropriate affect, intact judgment & insight Results CBC & Chem 7: 03/10/20 11:59 03/10/20 11:59 Labs: Abnormal Lab Results - Last 24 Hours (Table) 03/10/20 03/10/20 03/10/20 Range/Units 11:59 11:59 11:59 RBC 3.41 L (4.30-5.90) m/uL Hgb 11.2 L (13.0-17.5) gm/dL Hct 36.7 L (39.0-53.0) % MCV 107.6 H D (80.0-100.0) fL MCHC 30.5 L (31.0-37.0) g/dL RDW 20.7 H (11.5-15.5) % Plt Count 130 L D (150-450) k/uL Lymphocytes # 0.3 L (1.0-4.8) k/uL Macrocytosis Marked A PT 15.3 H (9.0-12.0) sec INR 1.6 H (<1.2) APTT 40.5 H (22.0-30.0) sec BUN 24 H (9-20) mg/dL Glucose 128 H (74-99) mg/dL Calcium 7.8 L (8.4-10.2) mg/dL Total Bilirubin 1.7 H (0.2-1.3) mg/dL AST 64 H (17-59) U/L ALT 51 H (4-49) U/L Total Protein 5.5 L (6.3-8.2) g/dL Albumin 2.7 L (3.5-5.0) g/dL Assessment and Plan Assessment: 1. Atrial fibrillation with RVR; remains on IV Cardizem with plan to titrate as needed; metoprolol 100 mg daily 2. Large right-sided pleural effusion/dyspnea; consult pulmonary for possible thoracentesis; we will hold off on anticoagulation therapy 3. Metastatic lung cancer/elevated transaminitis/elevated bilirubin; patient is followed by oncology; possibility of liver metastases; we will trend liver enzymes if needed 4. Acute exacerbation CHF; start patient on Lasix 40 mg IV every 12 hours; we will monitor strict CLEMENT's, daily weights, renal function and electrolytes; await cardiology evaluation for further recommendations 5. Seizure disorder; continue with Keppra 500 mg daily along with 500 mg daily at bedtime 6. Hypertension; Lopressor 100 mg twice a day DVT prophylaxis; SCDs/systemic anticoagulation on hold for possible thoracen tesis CODE STATUS; full code
[2020-03-10] MEDS: IPRATROPIUM-ALBUTEROL 3 ML NEB INHALATION PRN (20:16)
[2020-03-10] MEDS ORDERED: levETIRAcetam 500 MG TAB PO SCH (21:00)
[2020-03-10] MEDS: LORazepam 1 MG TAB PO SCH (21:20)
[2020-03-10] MEDS: CALCIUM CARB-VIT D 500MG-200UN 1 EACH TAB PO SCH (21:20)
[2020-03-10] MEDS: METOPROLOL TARTRATE 50 MG TAB PO SCH (21:20)
[2020-03-10] MEDS: NYSTATIN 100,000 UNIT/ML SUSP 500,000 UNIT/5 ML CUP PO SCH ×2 (21:20→23:22)
[2020-03-11] MEDS ORDERED: FUROSEMIDE 10 MG/ML 4 ML VIAL IV STA (00:13)
[2020-03-11 01:07] LABS: Appearance,Urine Clear (Clear); Bacteria,Urine Rare /hpf; Bilirubin,Urine Negative (Negative); Blood,Urine Negative (Negative); Color,Urine Yellow; Glucose,Urine (UA) Negative (Negative); Hyaline Casts,Urine 4 /lpf (0-2); Ketones,Urine Negative (Negative); Leukocyte Esterase,Urine Negative (Negative); Mucus,Urine Rare /hpf; Nitrite,Urine Negative (Negative); PH, Urine 5.5 (5.0-8.0); Protein,Urine 1+ (Negative); RBC,Urine <1 /hpf (0-5); Specific Gravity,Urine 1.021 (1.001-1.035); WBC,Urine 1 /hpf (0-5)
[2020-03-11] MEDS: MORPHINE SULFATE 4 MG/ML SYRINGE IV PRN (01:08)
[2020-03-11 01:35] LABS: Amphetamine Screen,Urine Not Detected (NotDetected); Cocaine Screen,Urine Not Detected (NotDetected); Opiate Screen,Urine Detected (NotDetected); Phencyclidine Screen,Urine Not Detected (NotDetected)
[2020-03-11 01:36] LABS: Barbiturate Screen,Urine Not Detected (NotDetected); Benzodiazepines Screen,Urine Detected (NotDetected); Methadone Screen, Urine Not Detected (NotDetected); Oxycodone Screen, Urine Detected (NotDetected); Tricyclic Antidepressant,Urine Not Detected (NotDetected); Urn Cannabinoid Scrn Detected (NotDetected)
[2020-03-11] MEDS: IPRATROPIUM-ALBUTEROL 3 ML NEB INHALATION PRN ×4 (08:12→19:18)
[2020-03-11 08:20] LABS: Anisocytosis Moderate; Basophils % (A) 0 %; Eosinophils # (A) 0.1 k/uL (0-0.7); Eosinophils % (A) 1 %; HCT 38.3 % (39.0-53.0); HGB 10.8 gm/dL (13.0-17.5); Hypochromasia Marked; Lymphocytes # (A) 0.4 k/uL (1.0-4.8); Lymphocytes % (A) 6 %; MCH 31.7 pg (25.0-35.0); MCHC 28.2 g/dL (31.0-37.0); MCV 112.4 fL (80.0-100.0); Macrocytosis Marked; Mean Platelet Volume 8.7; Monocytes # (A) 0.4 k/uL (0-1.0); Monocytes % (A) 5 %; Neutrophils # (A) 6.2 k/uL (1.3-7.7); Neutrophils % (A) 85 %; Platelet Count 117 k/uL (150-450); RBC 3.41 m/uL (4.30-5.90); RDW 20.6 % (11.5-15.5); WBC 7.3 k/uL (3.8-10.6)
[2020-03-11 08:26] LABS: Calcium 7.9 mg/dL (8.4-10.2); Potassium 5.5 mmol/L (3.5-5.1)
[2020-03-11 08:51] LABS: Poikilocytosis (M) Present
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
[2020-03-11] MEDS ORDERED: FUROSEMIDE 40 MG TAB PO SCH (09:00)
[2020-03-11] MEDS ORDERED: FUROSEMIDE 10 MG/ML 10 ML VIAL IV SCH (09:00)
[2020-03-11 09:16] LABS: Glucose,Whole Blood 136 mg/dL (75-99)
[2020-03-11] MEDS ORDERED: VANCOMYCIN IV PER PHARMACY 1 EACH MISC MISCELLANE PRN (09:17)
[2020-03-11] MEDS ORDERED: NOREPINEPHRIN 4 MG-0.9% NS PMX 4 MG/250 ML ML IV ONE (09:27)
[2020-03-11] MEDS ORDERED: propofoL 100 ML IV ONE (09:27)
[2020-03-11] MEDS ORDERED: PIPERACILLIN-TAZOBACTAM 3.375 GM in SODIUM CHLORIDE 0.9% 100 ML IVPB SCH (09:30)
[2020-03-11] MEDS ORDERED: CHLORHEXIDINE GLUCONATE 15 ML CUP MUCOUS MEM ONE (09:33)
[2020-03-11] MEDS ORDERED: HEPARIN SODIUM,PORCINE 5,000 UNIT/ML 1 ML VIAL IV PRN (09:34)
[2020-03-11] MEDS ORDERED: SODIUM CHLORIDE 0.9% 1,000 ML IV ONE (09:37)
[2020-03-11 09:40] LABS: Bilirubin, Delta 0.9 mg/dL (0.0-0.2); Total Bilirubin 1.9 mg/dL (0.2-1.3); Total Protein 5.8 g/dL (6.3-8.2)
[2020-03-11 09:40] LABS: ABG Base Excess -1.3 mmol/L; ABG HCO3 27 mmol/L (21-25); ABG Oxygen Saturation 89.3 % (94-97); ABG PCO2 70 mmHg (35-45); ABG PO2 69 mmHg (83-108); ABG TCO2 29 mmol/L (19-24)
[2020-03-11 09:44] LABS: ABG PH 7.19 (7.35-7.45); Allen Test Performed? no
[2020-03-11] MEDS: FOLIC ACID 1 MG TAB PO SCH (09:56)
[2020-03-11] MEDS: CHOLECALCIFEROL 400 UNIT TAB PO SCH (09:56)
[2020-03-11] MEDS: CALCIUM CARB-VIT D 500MG-200UN 1 EACH TAB PO SCH ×3 (09:56→21:34)
[2020-03-11] MEDS: LORATADINE 10 MG TAB PO SCH (09:56)
[2020-03-11] MEDS: NYSTATIN 100,000 UNIT/ML SUSP 500,000 UNIT/5 ML CUP PO SCH ×4 (09:57→23:01)
[2020-03-11] MEDS: THIAMINE 100 MG TAB PO SCH (09:57)
[2020-03-11] MEDS: METOPROLOL TARTRATE 50 MG TAB PO SCH (09:58)
[2020-03-11] MEDS: POTASSIUM CHLORIDE ER 10 MEQ TAB.ER.PRT PO SCH (09:58)
[2020-03-11] MEDS: SODIUM CHLORIDE 0.9% 1,000 ML IV SCH ×4 (09:59→23:09)
--- NOTE | 2020-03-11 10:03 | XR ---
EXAMINATION TYPE: XR chest 1V DATE OF EXAM: 03/11/2020 CLINICAL HISTORY: Difficulty breathing had to be intubated. TECHNIQUE: Single AP portable upright view of the chest is obtained. COMPARISON: Chest x-ray from one day earlier. CTA chest February 07, 2020. FINDINGS: New Endotracheal tube at mid clavicular margin approximately 4 cm above candis. New orogas tric tube projecting below diaphragm. Stable right internal jugular Mediport catheter. Persistent cardiomegaly with central vascular conges tion and bibasilar opacities. Osseous structures are intact. IMPRESSION: 1. New endotracheal and orogastric tubes satisfactory in position. 2. Suspect CHF exacerbations as there is cardiomegaly with small to moderate-sized bilateral pleural effusions and central vascular congestion redemonstrated. Correlate clinically. No significant interv al change from one day earlier. Associated bibasilar compressive atelectasis is present.
[2020-03-11] MEDS: NOREPINEPHRINE 8 MG in SODIUM CHLORIDE 0.9% 250 ML IV SCH (10:13)
[2020-03-11] MEDS: VANCOMYCIN 1,500 MG in SODIUM CHLORIDE 0.9% 250 ML IVPB SCH ×2 (10:13→22:50)
[2020-03-11] MEDS: HEPARIN SOD,PORK IN 0.45% NACL 25,000 UNIT in 0.45% NACL 1 250ML.BAG IV SCH (10:35)
[2020-03-11 10:40] LABS: ABG Base Excess -0.8 mmol/L; ABG HCO3 25 mmol/L (21-25); ABG Oxygen Saturation 98.4 % (94-97); ABG PCO2 45 mmHg (35-45); ABG PH 7.35 (7.35-7.45); ABG PO2 103 mmHg (83-108); ABG TCO2 26 mmol/L (19-24)
[2020-03-11 10:43] LABS: Allen Test Performed? no
[2020-03-11 11:24] LABS: Anisocytosis Moderate; Basophils % (A) 0 %; Eosinophils # (A) 0.1 k/uL (0-0.7); Eosinophils % (A) 1 %; HCT 38.3 % (39.0-53.0); HGB 11.4 gm/dL (13.0-17.5); Hypochromasia Marked; Lymphocytes # (A) 0.3 k/uL (1.0-4.8); Lymphocytes % (A) 5 %; MCH 33.2 pg (25.0-35.0); MCHC 29.7 g/dL (31.0-37.0); MCV 111.6 fL (80.0-100.0); Macrocytosis Marked; Monocytes # (A) 0.3 k/uL (0-1.0); Monocytes % (A) 5 %; Neutrophils # (A) 5.6 k/uL (1.3-7.7); Neutrophils % (A) 89 %; Platelet Count 107 k/uL (150-450); RBC 3.43 m/uL (4.30-5.90); RDW 20.7 % (11.5-15.5); WBC 6.3 k/uL (3.8-10.6)
[2020-03-11 11:32] LABS: INR 1.5 (<1.2); Partial Thromboplastin Time 37.6 sec (22.0-30.0); Prothrombin Time 15.3 sec (9.0-12.0)
[2020-03-11 11:39] LABS: Poikilocytosis (M) Present
[2020-03-11] MEDS: levETIRAcetam 250 MG TAB PO SCH ×2 (11:46→21:23)
--- NOTE | 2020-03-11 12:05 | P.CNPUL ---
History of Present Illness Consult date: 03/11/20 Reason for consult: dyspnea History of present illness: This is a 65-year-old. Male patient with metastatic adenocarcinoma of the lung was receiving most of his care in outside facilities and locally being followed up by Dr. bahena . The patient came in yesterday to the hospital because of feeling weak, lethargic, hypotension, atrial fibrillation and shortness of breath and he was found to have large bilateral pleural effusions. Subsequently earlier this morning, the patient became severely hypoxic with his pulse ox drop in the mid 40s. He was placed on a nonrebreather and later on on a BiPAP without any response. He was transferred to the intensive care unit where he was intubated and placed on a mechanical ventilator. He became hypotensive and he was also started on pressors. I was able to stabilize patient's condition. I have them currently intubated on mechanical ventilator on propofol which is running at 20 mg per KG per minute. The patient is also on norepinephrine infusion running at 0.1 g per KG per minute. He is on a mechanical ventilator. Most recent vent settings with assist control of 28 with a tidal volume of 500 and FiO2 of 100% with a PEEP of 10. Blood gases on this setting showed a pH of 7.35 with a pCO2 of 45 and pO2 of 103. Triple lumen cath was established in the left IJ. An outlying catheter was also established. His white cell count is 6.3. Hemoglobin 11.4. Chest x-ray post intubation showed bilateral pleural effusion worse on the right. He has moderate-sized bilateral pleural effusion. He has also pulmonary vascular congestion. NG tube is in a good location. There is cardiomegaly. In terms of his lung cancer, the patient was diagnosed having metastatic lung cancer. He initially presented with hip pain and right shoulder pain and he was found to have mass in the right apex and another 2 cm mass in the left midlung. CAT scan of the upper extremity showed a lytic destructive lesion involving the right clavicle with associated soft tissue swelling and the patient was also found to have a 2.6 cm lytic lesion involving the T4 vertebral body and another smaller lesion involving the left rib. The patient underwent a biopsy of the right clavicle and the diagnosis was consistent with adenocarcinoma of a lung primary. MRI of the brain was negative. MRI of the thoracic spine showed also T4 vertebral body involvement without evidence of any cord compression. CAT sc an of the abdomen and pelvis showed no intra-abdominal metastases. However there was extensive involvement of the left hip, pelvic bone and left upper femur. Biomarkers were negative. The patient underwent ORIF and following that he developed a PE and he was placed on Eliquis. The patient was started on systemic chemotherapy and radiation therapy to his T4 spine. He completed radiation therapy [facility]. He received 1 cycle of carboplatinum, Alimta and Keytruda . History of a course was also Combigan by development of ulcers and wounds and necrotic changes involving the dorsal aspect of the right hand and left hand. He required incision and drainage and antibiotics. He also had DVT of the right internal jugular vein. He has been utilizing excessive amount of narcotic medications. He is also using marijuana. He is quite weak and debilitated. He was lethargic following this systemic chemotherapy based on the reported was given by oncology. 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, Metastatic adenocarcinoma of the lung, skeletal metastases involving the right clavicle, ribs, T4 spine, pelvis and hips, DVT of the right internal jugular, wound in the upper extremities post IND and antibiotic treatment, chronic atrial fibrillation, chronic pain, History of Any Multi-Drug Resistant Organisms: None Reported Past Surgical History: Orthopedic Surgery Additional Past Surgical History / Comment(s): left quadriceps; skull fx age 15, chyna placed in right femur Past Anesthesia/Blood Transfusion Reactions: Previous Problems w/ Anesthesia Additional Past Anesthesia/Blood Transfusion Reaction / Comment(s): difficulty waking up Past Psychological History: Depression Smoking Status: Current every day smoker Past Alcohol Use History: None Reported Past Drug Use History: Marijuana - Past Family History Mother Family Medical History: AFIB Father Family Medical History: Diabetes Mellitus Medications and Allergies Home Medications Medication Instructions Recorded Confirmed Type levETIRAcetam [Keppra] 500 mg PO HS 12/12/19 03/10/20 History Ipratropium-Albuterol Nebulize 3 ml INHALATION RT-QID PRN ml 12/15/19 03/10/20 Rx [Duoneb 0.5 mg-3 mg/3 ml Soln] Thiamine [Vitamin B-1] 100 mg PO DAILY 30 Days #30 tab 12/15/19 03/10/20 Rx Calcium/Magnesium/Zinc 1 tab PO TID 02/04/20 03/10/20 History [Yvjpxpd-Ukcuqtboq-Kvko Tablet] Cholecalciferol [Vitamin D3] 400 unit PO DAILY 02/04/20 03/10/20 History Folic Acid 1 mg PO DAILY 02/04/20 03/10/20 History Loratadine [Claritin] 10 mg PO DAILY 02/04/20 03/10/20 History Nystatin 100,000 Unit/ml Susp 4 ml PO QID 02/04/20 03/10/20 History [Mycostatin Oral Susp] levETIRAcetam [Keppra Xr] 500 mg PO DAILY 02/04/20 03/10/20 History LORazepam 1 mg PO HS 02/07/20 03/10/20 History LORazepam [Ativan] 0.5 mg PO BID PRN 02/07/20 03/10/20 History Apixaban [Eliquis] 5 mg PO BID #0 tab 02/09/20 03/10/20 Rx Furosemide [Lasix] 40 mg PO DAILY 30 Days #30 tab 02/09/20 03/10/20 Rx Metoprolol Tartrate [Lopressor] 100 mg PO BID 30 Days #60 tab 02/09/20 03/10/20 Rx Potassium Chloride [Klor-Con 10] 10 meq PO DAILY 03/10/20 03/10/20 History fentaNYL 50MCG/HR PATCH [Duragesic 50 mcg TRANSDERM Q72H 03/10/20 03/10/20 History 50MCG/HR] oxyCODONE HCL/ACETAMINOPHEN 1 tab PO Q6HR PRN 03/10/20 03/10/20 History [Percocet 5-325 mg] Allergies Allergy/AdvReac Type Severity Reaction Status Date / Time No Known Allergies Allergy Verified 03/10/20 14:01 Physical Exam Vitals: Vital Signs Temp Pulse Pulse Resp BP BP Pulse Ox 03/11/20 08:26 114 H 03/11/20 08:16 110 H 03/11/20 08:00 97.7 F 94 12 135/58 42 L 03/11/20 04:00 97.4 F L 103 H 19 103/73 94 L 03/11/20 00:00 97.6 F 114 H 22 105/65 91 L 03/10/20 20:28 121 H 03/10/20 20:18 117 H 03/10/20 20:00 20 03/10/20 19:52 97.9 F 112 H 20 114/70 92 L 03/10/20 16:52 96.3 F L 124 H 20 105/64 90 L 03/10/20 16:02 98.8 F 128 H 22 90/68 03/10/20 14:14 140 H 22 100/80 03/10/20 13:16 147 H 22 03/10/20 12:44 150 H 18 86/51 94 L 03/10/20 12:10 151 H 22 109/65 96 Intake and Output 03/10/20 03/11/20 03/11/20 22:59 06:59 14:59 Intake Total 78.667 360 Output Total 300 150 Balance -221.333 210 Intake: IV 360 Diltiazem 125 mg In 120 Sodium Chloride 0.9% 100 ml @ 5 MG/HR 5 mls/hr IV .Q24H RENA Rx#:[id number] Sodium Chloride 0.9% 1, 240 000 ml @ 20 mls/hr IV . Q24H RENA Rx#:[id number] Intake, IV Titration 78.667 Amount Diltiazem 125 mg In 78.667 Sodium Chloride 0.9% 100 ml @ 5 MG/HR 5 mls/hr IV .Q24H RENA Rx#:[id number] Output: Urine 300 150 Other: # Voids 1 Weight 90.718 kg 94 kg 94 kg Gen. appearance the patient is currently calm and comfortable on a mechanical ventila Orogastric and orotracheal tube are both in place. Head exam was generally normal. There was no scleral icterus or corneal arcus. Mucous membranes were moist. Neck was supple and without jugular venous distension, thyromegaly, or carotid bruits. Carotids were easily palpable bilaterally. There was no adenopathy.The patient is a left IJ triple-lumen cat Lungs sounds are diminished bilaterally esppecially on the right. scattered rhonchi. Heart sounds are irregular S1-S2 consiste No significant murmurs appreciated. Abdominal exam revealed normal bowel sounds. The abdomen was soft, non-tender, and without masses, organomegaly, or appreciable enlargement of the abdominal aorta. Extremities are swollen and the patient has signs of old wounds and ulceration in the dorsal aspect of the hand bilaterall He has also several wounds in lower and upper extremities that seemed to He has +1 edema in all 4 extremities ginger Neurologically, the patient is sedated, and he is calm and he is comfortable. Cranial nerves are intact. skin examination as discussed above. No open wounds or sores No active cell ulitis. Results - Laboratory Findings CBC and BMP: 03/11/20 10:10 03/11/20 07:24 ABG ABG pH 7.35 (7.35-7.45) 03/11/20 10:35 ABG pCO2 45 mmHg (35-45) 03/11/20 10:35 ABG pO2 103 mmHg (83-108) 03/11/20 10:35 ABG O2 Saturation 98.4 % (94-97) H 03/11/20 10:35 PT/INR, D-dimer PT 15.3 sec (9.0-12.0) H 03/11/20 10:10 INR 1.5 (<1.2) H 03/11/20 10:10 Abnormal lab findings: Abnormal Labs 03/10/20 03/10/20 03/10/20 11:59 11:59 11:59 RBC 3.41 L Hgb 11.2 L Hct 36.7 L MCV 107.6 H D MCHC 30.5 L RDW 20.7 H Plt Count 130 L D Lymphocytes # 0.3 L Macrocytosis Marked A PT 15.3 H INR 1.6 H APTT 40.5 H ABG pH ABG pCO2 ABG pO2 ABG HCO3 ABG Total CO2 ABG O2 Saturation Potassium BUN 24 H Glucose 128 H POC Glucose (mg/dL) Calcium 7.8 L Total Bilirubin 1.7 H Delta Bilirubin AST 64 H ALT 51 H Total Protein 5.5 L Albumin 2.7 L Urine Protein Urine Bacteria Hyaline Casts Urine Mucus Urine Opiates Screen Ur Oxycodone Screen U Benzodiazepines Scrn U Marijuana (THC) Screen 03/11/20 03/11/20 03/11/20 00:43 07:24 07:24 RBC 3.41 L Hgb 10.8 L Hct 38.3 L MCV 112.4 H MCHC 28.2 L RDW 20.6 H Plt Count 117 L Lymphocytes # 0.4 L Macrocytosis Marked A PT INR APTT ABG pH ABG pCO2 ABG pO2 ABG HCO3 ABG Total CO2 ABG O2 Saturation Potassium 5.5 H BUN 26 H Glucose 106 H POC Glucose (mg/dL) Calcium 7.9 L Total Bilirubin 1.9 H Delta Bilirubin 0.9 H AST 121 H ALT 91 H Total Protein 5.8 L Albumin 3.0 L Urine Protein 1+ H Urine Bacteria Rare H Hyaline Casts 4 H Urine Mucus Rare H Urine Opiates Screen Detected H Ur Oxycodone Screen Detected H U Benzodiazepines Scrn Detected H U Marijuana (THC) Screen Detected H 03/11/20 03/11/20 03/11/20 09:14 09:38 10:10 RBC 3.43 L Hgb 11.4 L Hct 38.3 L MCV 111.6 H MCHC 29.7 L RDW 20.7 H Plt Count 107 L Lymphocytes # 0.3 L Macrocytosis Marked A PT INR APTT ABG pH 7.19 L* ABG pCO2 70 H ABG pO2 69 L ABG HCO3 27 H ABG Total CO2 29 H ABG O2 Saturation 89.3 L Potassium BUN Glucose POC Glucose (mg/dL) 136 H Calcium Total Bilirubin Delta Bilirubin AST ALT Total Protein Albumin Urine Protein Urine Bacteria Hyaline Casts Urine Mucus Urine Opiates Screen Ur Oxycodone Screen U Benzodiazepines Scrn U Marijuana (THC) Screen 03/11/20 03/11/20 10:10 10:35 RBC Hgb Hct MCV MCHC RDW Plt Count Lymphocytes # Macrocytosis PT 15.3 H INR 1.5 H APTT 37.6 H ABG pH ABG pCO2 ABG pO2 ABG HCO3 ABG Total CO2 26 H ABG O2 Saturation 98.4 H Potassium BUN Glucose POC Glucose (mg/dL) Calcium Total Bilirubin Delta Bilirubin AST ALT Total Protein Albumin Urine Protein Urine Bacteria Hyaline Casts Urine Mucus Urine Opiates Screen Ur Oxycodone Screen U Benzodiazepines Scrn U Marijuana (THC) Screen - Diagnostic Findings Chest x-ray: image reviewed Assessment and Plan Plan: 1 acute hypoxic respiratory failure. The patient was profoundly hypoxic and the patient had failed high flow oxygen and BiPAP and the patimechanical ventilator. Necessity ventilator changes were done. 2 metastatic adenocarcinoma of the lung with extensive skeletal metastases involving the clavicle on the right, bilateral hips, pelvis, T4 spine and the patient has received radiation therapy to the back. He has also undergone ORIF of the left hip.note that the patient also has received 1 cycle and Alimta and he was started on immunotherapy Keytruda 3 bilateral pleural effusion. Consider aspiration pneumonia. Consider congestion heart failure. Consider malignant pleural effusion. 4 chronic atrial fibrillation 5 hypotension currently on pressors. Still under investigation. Consider a component of septic event contributing to this patient's lower blood pressure. 6 previous history of DVT. 7 previous history of a right IJ DVT 8 previous history of upper extremity wounds and cellulitis in infection, healed 9 extensive debility secondary to above-mentioned comorbidities. plan Patient carries a very poor prognosis based on his history of metastatic adenocarcinoma of the lung Continue ventilator support and this is a ventilator changes were done Stabilized hemodynamics utilize pressors. The patient will be given a liter of bolus and placed on 75 mL's an hour. A triple lumen catheter was established. An arterial line catheter was also established. Cover the patient with accommodation Zosyn and vancomycin Cover the patient IV heparin Cover this patient with propofol for sedation Monitored atrial fibrillation and use Cardizem drip if needed. For now the patient is hypotensive and he would require pressors and made recommendations to titrate levo fed to maintain a mean arterial pressure above 65 May consider drainage of the pleural effusion either right pigtail catheter or chest tube insertion of a later stage Would like to establish a CODE STATUS with the family and discuss goals of treatment with oncology. We'll continue to follow. His condition is critical for now. Time with Patient: Greater than 30
--- NOTE | 2020-03-11 12:09 | P.PCN ---
Date of Procedure: 03/11/20 Preoperative Diagnosis: acute hypoxic respiratory failure Postoperative Diagnosis: acute hypoxic respiratory failure Procedure(s) Performed: intubation, insertion of a arterial lineand insertion of a triple-lumen catheter Anesthesia: local Surgeon: Theodore Chavez Pathology: none sent Condition: critical Disposition: ICU Operative Findings: Indication: Hemodynamic monitoring/Intravenous access. A time-out was completed verifying correct patient, procedure, site, positioning, and implant(s) or special equipment if applicable. The patient was placed in a dependent position appropriate for central line placement based on the vein to be cannulated. The patients left neck was prepped and draped in sterile fashion. 1% Lidocaine was used to anesthetize the surrounding skin area. A triple lumen 9F Cordis catheter was introduced into the internal jugular vein using Seldinger technique. The catheter was threaded smoothly over the guide wire and appropriate blood return was obtained. Each lumen of the catheter was evacuated of air and flushed with sterile saline. The catheter was then sutured in place to the skin and a sterile dressing applied. Perfusion to the extremity distal to the point of catheter insertion was checked and found to be adequate. The patient tolerated the procedure well and there were no complications. Indication: Hemodynamic monitoring. A time-out was completed verifying correct patient, procedure, site, positioning, and implant(s) or special equipment if applicable. Allens test was performed to ensure adequate perfusion. The patients left breast was prepped and draped in sterile fashion. 1% Lidocaine was used to anesthetize the area. An 18G Arrow arterial line was introduced into theradial artery. The catheter was threaded over the guide wire and the needle was removed with appropriate pulsatile blood return. Blood loss was minimal. The catheter was then sutured in place to the skin and a sterile dressing applied. Perfusion to the extremity distal to the point of catheter insertion was checked and found to be adequate. The patient tolerated the procedure well and there were no complications. Indication: Respiratory compromise. A time-out was completed verifying correct patient, procedure, site, positioning, and implant(s) or special equipment if applicable. The patient was positioned appropriately and a # endotracheal tube was placed under direct laryngoscopy. The tube was anchored at 22 cm at the teeth. Correct placement was confirmed by presence of bilateral breath sounds without air sounds in the abdomen on auscultation. An end-tidal CO2 monitor was also used to confirm tracheal placement of the ET tube. A chest x-ray was ordered to assess for pneumothorax and verify endotracheal tube placement. The patient tolerated the procedure well and there were no complications.
--- NOTE | 2020-03-11 12:33 | P.CRDCN ---
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 We have been asked to see in consultation for heart failure. He is seen and examined sitting up in bed. He is obtunded and lethargic. He is not answering questions appropriately. Information is obtained from the medical record and nursing staff. He presents to the emergency department with symptoms of shortness of breath and generalized weakness. He also complains of cough, orthopnea and lower extremity edema. On admission he was found to be in A. fib with RVR and Cardizem infusion was initiated. He is being transferred to ICU. Echocardiogram obtained in January 2020 revealed impaired LV systolic function with ejection fraction 35-40%, mild to moderate MR and trace TR. At that time he had a small generalized pericardial effusion. DIAGNOSTICS EKG reveals A. fib with RVR poor R-wave progression heart rate of 158. Chest xray large right pleural effusion increased in size from February 06 with right basilar airspace opacities. Laboratory reviewed, WBC 7.3, hemoglobin 10.8, platelets 117, INR 1.6, sodium 137, potassium 5.5, creatinine 1.17, and T proBNP 2770 and troponin negative 1. Current cardiac medications include Eliquis 5 mg twice a day, Lasix 40 mg daily and Lopressor 100 mg twice a day. REVIEW OF SYSTEMS At the time of my exam: Unable to obtain an accurate review of systems secondary to altered mental sta tus PHYSICAL EXAMINATION Blood pressure 135/58 heart rate 110 afebrile and maintaining oxygen saturation on nasal cannula. CONSTITUTIONAL: No apparent distress. HEENT: Head is normocephalic. Pupils are equal, round. Sclerae anicteric. Mucous membranes of the mouth are moist. No JVD. No carotid bruit. CHEST EXAMINATION: Bibasilar rales, scattered rhonchi, no wheezes and diminshed. No chest wall tenderness is noted on palpation or with deep breathing. HEART EXAMINATION: Irregular rate and rhythm. S1, S2 heard. Systolic ejection murmur at the left sternal border, no gallops or rub. ABDOMEN: Soft, nontender. Positive bowel sounds. EXTREMITIES: 2+ peripheral pulses, no lower extremity edema and no calf tenderness. NEUROLOGIC EXAMINATION: Patient is awake, alert and oriented x3. ASSESSMENT Chronic persistent atrial fibrillation with rapid ventricular rates Acute on chronic systolic heart failure Hypoxic respiratory failure Adenocarcinoma of the lung with bone metastasis COPD Hypertension PLAN Continue Cardizem infusion. Incrase IV diuresis to lasix 60 mg IV BID. Follow renal function and electrolytes in the morning. Patient is being transferred to the intensive care unit for higher level of care and possible intubation. Further recommendations to follow. Thank you kindly for this consultation. Nurse Practitioner note has been reviewed, I agree with a documented findings an d plan of care. Patient was seen and examined. 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, Metastatic adenocarcinoma of the lung, skeletal metastases involving the right clavicle, ribs, T4 spine, pelvis and hips, DVT of the right internal jugular, wound in the upper extremities post IND and antibiotic treatment, chronic atrial fibrillation, chronic pain, History of Any Multi-Drug Resistant Organisms: None Reported Past Surgical History: Orthopedic Surgery Additional Past Surgical History / Comment(s): left quadriceps; skull fx age 15, chnya placed in right femur Past Anesthesia/Blood Transfusion Reactions: Previous Problems w/ Anesthesia Additional Past Anesthesia/Blood Transfusion Reaction / Comment(s): difficulty waking up Past Psychological History: Depression Smoking Status: Current every day smoker Past Alcohol Use History: None Reported Past Drug Use History: Marijuana - Past Family History Mother Family Medical History: AFIB Father Family Medical History: Diabetes Mellitus Medications and Allergies Home Medications Medication Instructions Recorded Confirmed Type levETIRAcetam [Keppra] 500 mg PO HS 12/12/19 03/10/20 History Ipratropium-Albuterol Nebulize 3 ml INHALATION RT-QID PRN ml 12/15/19 03/10/20 Rx [Duoneb 0.5 mg-3 mg/3 ml Soln] Thiamine [Vitamin B-1] 100 mg PO DAILY 30 Days #30 tab 12/15/19 03/10/20 Rx Calcium/Magnesium/Zinc 1 tab PO TID 02/04/20 03/10/20 History [Zreblhn-Odeusmiec-Ddyh Tablet] Cholecalciferol [Vitamin D3] 400 unit PO DAILY 02/04/20 03/10/20 History Folic Acid 1 mg PO DAILY 02/04/20 03/10/20 History Loratadine [Claritin] 10 mg PO DAILY 02/04/20 03/10/20 History Nystatin 100,000 Unit/ml Susp 4 ml PO QID 02/04/20 03/10/20 History [Mycostatin Oral Susp] levETIRAcetam [Keppra Xr] 500 mg PO DAILY 02/04/20 03/10/20 History LORazepam 1 mg PO HS 02/07/20 03/10/20 History LORazepam [Ativan] 0.5 mg PO BID PRN 02/07/20 03/10/20 History Apixaban [Eliquis] 5 mg PO BID #0 tab 02/09/20 03/10/20 Rx Furosemide [Lasix] 40 mg PO DAILY 30 Days #30 tab 02/09/20 03/10/20 Rx Metoprolol Tartrate [Lopressor] 100 mg PO BID 30 Days #60 tab 02/09/20 03/10/20 Rx Potassium Chloride [Klor-Con 10] 10 meq PO DAILY 03/10/20 03/10/20 History fentaNYL 50MCG/HR PATCH [Duragesic 50 mcg TRANSDERM Q72H 03/10/20 03/10/20 History 50MCG/HR] oxyCODONE HCL/ACETAMINOPHEN 1 tab PO Q6HR PRN 03/10/20 03/10/20 History [Percocet 5-325 mg] Allergies Allergy/AdvReac Type Severity Reaction Status Date / Time No Known Allergies Allergy Verified 03/10/20 14:01 Physical Exam Vitals: Vital Signs Temp Pulse Pulse Resp BP BP Pulse Ox 03/11/20 12:06 110 H 03/11/20 11:52 112 H 03/11/20 08:26 114 H 03/11/20 08:16 110 H 03/11/20 08:00 97.7 F 94 12 135/58 42 L 03/11/20 04:00 97.4 F L 103 H 19 103/73 94 L 03/11/20 00:00 97.6 F 114 H 22 105/65 91 L 03/10/20 20:28 121 H 03/10/20 20:18 117 H 03/10/20 20:00 20 03/10/20 19:52 97.9 F 112 H 20 114/70 92 L 03/10/20 16:52 96.3 F L 124 H 20 105/64 90 L 03/10/20 16:02 98.8 F 128 H 22 90/68 03/10/20 14:14 140 H 22 100/80 03/10/20 13:16 147 H 22 03/10/20 12:44 150 H 18 86/51 94 L Intake and Output 03/10/20 03/11/20 03/11/20 22:59 06:59 14:59 Intake Total 78.667 360 20.68 Output Total 300 150 Balance -221.333 210 20.68 Intake: IV 360 Diltiazem 125 mg In 120 Sodium Chloride 0.9% 100 ml @ 5 MG/HR 5 mls/hr IV .Q24H [facility] Rx#:[id number] Sodium Chloride 0.9% 1, 240 000 ml @ 20 mls/hr IV . Q24H [facility] Rx#:[id number] Intake, IV Titration 78.667 20.68 Amount Diltiazem 125 mg In 78.667 Sodium Chloride 0.9% 100 ml @ 5 MG/HR 5 mls/hr IV .Q24H [facility] Rx#:[id number] propofoL 1,000 mg In 20.68 Empty Bag 1 bag @ 20 MCG/ KG/MIN 11.28 mls/hr IV . Q8H52M [facility] Rx#:[id number] Output: Urine 300 150 Other: # Voids 1 Weight 90.718 kg 94 kg 94 kg Results 03/11/20 10:10 03/11/20 07:24 Cardiac Enzymes 03/10/20 03/11/20 Range/Units 11:59 07:24 AST 121 H (17-59) U/L Troponin I <0.012 (0.000-0.034) ng/mL Coagulation 03/10/20 03/11/20 Range/Units 11:59 10:10 PT 15.3 H 15.3 H (9.0-12.0) sec APTT 40.5 H 37.6 H (22.0-30.0) sec CBC 03/10/20 03/11/20 03/11/20 Range/Units 11:59 07:24 10:10 WBC 6.8 7.3 6.3 (3.8-10.6) k/uL RBC 3.41 L 3.41 L 3.43 L (4.30-5.90) m/uL Hgb 11.2 L 10.8 L 11.4 L (13.0-17.5) gm/dL Hct 36.7 L 38.3 L 38.3 L (39.0-53.0) % Plt Count 130 L D 117 L 107 L (150-450) k/uL Comprehensive Metabolic Panel 03/11/20 Range/Units 07:24 Sodium 137 (137-145) mmol/L Potassium 5.5 H (3.5-5.1) mmol/L Chloride 103 (98-107) mmol/L Carbon Dioxide 28 (22-30) mmol/L BUN 26 H (9-20) mg/dL Creatinine 1.17 (0.66-1.25) mg/dL Glucose 106 H (74-99) mg/dL Calcium 7.9 L (8.4-10.2) mg/dL Unconjugated Bilirubin 1.0 (0.0-1.1) mg/dL AST 121 H (17-59) U/L ALT 91 H (4-49) U/L Alkaline Phosphatase 88 (38-126) U/L Total Protein 5.8 L (6.3-8.2) g/dL Albumin 3.0 L (3.5-5.0) g/dL Current Medications Generic Name Dose Route Start Last Admin Trade Name Freq PRN Reason Stop Dose Admin Albuterol/Ipratropium 3 ml 03/10/20 17:37 03/11/20 11:44 Ipratropium-Albuterol 3 Ml Neb INHALATION 3 ml RT-QID PRN Administration Shortness Of Breath Or Wheezing Calcium Carbonate 1 each 03/10/20 22:00 03/11/20 09:56 Calcium Carb-Vit D 500mg-200un 1 Each Tab PO Not Given TID [facility] Cholecalciferol 400 unit 03/11/20 09:00 03/11/20 09:56 Cholecalciferol 400 Unit Tab PO Not Given DAILY [facility] Fentanyl 1 patch 03/11/20 09:00 Fentanyl 50mcg/Hr Patch TRANSDERM Q72H [facility] Folic Acid 1 mg 03/11/20 09:00 03/11/20 09:56 Folic Acid 1 Mg Tab PO Not Given DAILY [facility] Heparin Sodium (Porcine) 0 unit 03/11/20 09:34 Heparin Sodium,Porcine 5,000 Unit/Ml 1 Ml Vial IV PER PROTOCOL PRN Low PTT Protocol Diltiazem HCl 125 mg/ Sodium 125 mls @ 5 mls/hr 03/10/20 11:45 03/10/20 22:09 Chloride IV 10 mg/hr .Q24H [facility] 10 mls/hr Administration 5 MG/HR Sodium Chloride 1,000 mls @ 20 mls/hr 03/10/20 14:15 03/10/20 17:26 Saline 0.9% IV 20 mls/hr .Q24H [facility] Administration Piperacillin Sod/Tazobactam 100 mls @ 25 mls/hr 03/11/20 09:30 03/11/20 10:13 Sod 3.375 gm/ Sodium Chloride IVPB 25 mls/hr Q12HR [facility] Administration Vancomycin HCl 1,500 mg/ 250 mls @ 125 mls/hr 03/11/20 10:00 03/11/20 10:13 Sodium Chloride IVPB 125 mls/hr Q12H [facility] Administration Heparin Sodium/Sodium Chloride 250 mls @ 10 mls/hr 03/11/20 09:45 03/11/20 10:35 25,000 unit/ Sodium Chloride IV 10.638 units/kg/hr .Q24H [facility] 10 mls/hr Administration Protocol 10.638 UNITS/KG/HR Propofol 1,000 mg/ IV Solution 100 mls @ 11.28 mls/hr 03/11/20 09:45 03/11/20 11:52 IV 20 mcg/kg/min .Q8H52M [facility] 11.28 mls/hr Administration Protocol 20 MCG/KG/MIN Sodium Chloride 1,000 mls @ 75 mls/hr 03/11/20 09:45 03/11/20 09:59 Saline 0.9% IV 75 mls/hr .[id number] RENA Administration Norepinephrine Bitartrate 8 mg 258 mls @ 9.095 mls/hr 03/11/20 09:45 03/11/20 10:13 / Sodium Chloride IV 0.15 mcg/kg/min .Q24H [facility] 27.284 mls/hr Administration Protocol 0.05 MCG/KG/MIN Levetiracetam 250 mg 03/11/20 09:00 03/11/20 11:46 Levetiracetam 250 Mg Tab PO 250 mg DAILY [facility] Administration Levetiracetam 750 mg 03/11/20 21:00 Levetiracetam 250 Mg Tab PO HS RENA Loratadine 10 mg 03/11/20 09:00 03/11/20 09:56 Loratadine 10 Mg Tab PO Not Given DAILY [facility] Lorazepam 0.5 mg 03/10/20 17:37 Lorazepam 0.5 Mg Tab PO BID PRN Anxiety Lorazepam 1 mg 03/10/20 21:00 03/10/20 21:20 Lorazepam 1 Mg Tab PO 1 mg HS RENA Administration Metoprolol Tartrate 100 mg 03/10/20 21:00 03/11/20 09:58 Metoprolol Tartrate 50 Mg Tab PO Not Given BID RENA Morphine Sulfate 4 mg 03/10/20 14:11 03/11/20 01:08 Morphine Sulfate 4 Mg/Ml Syringe IV 4 mg Q4HR PRN Administration Severe Pain Naloxone HCl 0.2 mg 03/10/20 14:11 Naloxone 0.4 Mg/Ml 1 Ml Vial IV Q2M PRN Opioid Reversal Nystatin 400,000 unit 03/10/20 18:00 03/11/20 09:57 Nystatin 100,000 Unit/Ml Susp 500,000 Unit/5 Ml Cup PO Not Given QID [facility] Ondansetron HCl 4 mg 03/10/20 14:11 Ondansetron 4 Mg/2 Ml Vial IVP Q8HR PRN Nausea And Vomiting Oxycodone/Acetaminophen 1 each 03/10/20 17:37 03/11/20 03:22 Oxycodone-Apap 5-325mg 1 Each Tab PO 1 each Q6HR PRN Administration Pain Potassium Chloride 10 meq 03/11/20 09:00 03/11/20 09:58 Potassium Chloride Er 10 Meq Tab.Er.Prt PO Not Given DAILY [facility] Thiamine HCl 100 mg 03/11/20 09:00 03/11/20 09:57 Thiamine 100 Mg Tab PO Not Given DAILY [facility] Intake and Output 03/10/20 03/11/20 03/11/20 22:59 06:59 14:59 Intake Total 78.667 360 20.68 Output Total 300 150 Balance -221.333 210 20.68 Intake: IV 360 Diltiazem 125 mg In 120 Sodium Chloride 0.9% 100 ml @ 5 MG/HR 5 mls/hr IV .Q24H [facility] Rx#:[id number] Sodium Chloride 0.9% 1, 240 000 ml @ 20 mls/hr IV . Q24H [facility] Rx#:[id number] Intake, IV Titration 78.667 20.68 Amount Diltiazem 125 mg In 78.667 Sodium Chloride 0.9% 100 ml @ 5 MG/HR 5 mls/hr IV .Q24H [facility] Rx#:[id number] propofoL 1,000 mg In 20.68 Empty Bag 1 bag @ 20 MCG/ KG/MIN 11.28 mls/hr IV . Q8H52M [facility] Rx#:[id number] Output: Urine 300 150 Other: # Voids 1 Weight 90.718 kg 94 kg 94 kg Patient Weight 03/12/20 06:59 Weight 94 kg 03/11/20 10:10 03/11/20 07:24
[2020-03-11 16:48] LABS: Glucose,Whole Blood 112 mg/dL (75-99)
[2020-03-11 17:03] LABS: Anisocytosis Moderate; HCT 37.8 % (39.0-53.0); HGB 11.7 gm/dL (13.0-17.5); Hypochromasia Marked; MCH 33.7 pg (25.0-35.0); MCHC 30.8 g/dL (31.0-37.0); MCV 109.2 fL (80.0-100.0); Macrocytosis Marked; Mean Platelet Volume 10.4; Platelet Count 111 k/uL (150-450); Poikilocytosis Slight; RBC 3.46 m/uL (4.30-5.90); RDW 20.8 % (11.5-15.5); WBC 8.5 k/uL (3.8-10.6)
--- NOTE | 2020-03-11 17:11 | P.PN ---
Subjective Progress Note Date: 03/11/20 65-year-old male presenting to the emergency Department with complaints of short of breath and weakness. Symptoms progressed with the past several days. Patient does have metastatic lung cancer and saw Dr. Orta today who advised him to come to the emergency department. Patient does complain of leg swelling increasing over the past few days. No chest pain. Patient has occasional cough. Dyspnea increases with lying flat. Workup in ED including an EKG showed patient to be in atrial fibrillation with RVR with heart rate in 150s. No acute ST or T-wave changes; patient was started on IV Cardizem which was titrated to control heart rate; chest x-ray shows moderate to large right-sided pleural effusion; patient is admitted to the hospital for cardiology and pulmonary evaluation 03/11/2020 Patient is seen and evaluated at bedside in ICU; earlier this morning, the patient became severely hypoxic with his pulse ox drop in the mid 40s. He was placed on a nonrebreather and later on on a BiPAP without any response. He was transferred to the intensive care unit where he was intubated and placed on a mechanical ventilator. He became hypotensive and he was also started on pressors. His white cell count is 6.3. Hemoglobin 11.4. Chest x-ray post intubation showed bilateral pleural effusion worse on the right. He has moderate-sized bilateral pleural effusion. He has also pulmonary vascular congestion. NG tube is in a good location. Objective - Vital Signs Vital signs: Vital Signs Temp 97.6 F 03/11/20 12:00 Pulse 102 H 03/11/20 13:45 Resp 28 H 03/11/20 13:45 BP 93/72 03/11/20 12:00 Pulse Ox 100 03/11/20 13:45 Intake & Output 03/10/20 03/11/20 03/11/20 18:59 06:59 18:59 Intake Total 11.167 913.911 8590.085 Output Total 450 85 Balance 11.167 -11.333 1411.085 Weight 90.718 kg 94 kg 94 kg Intake: IV 360 1425 Diltiazem 125 mg In 120 Sodium Chloride 0.9% 100 ml @ 5 MG/HR 5 mls/hr IV .Q24H [facility] Rx#:[id number] Piperacillin-Tazobactam 3 100 .375 gm In Sodium Chloride 0.9% 100 ml @ 25 mls/hr IVPB Q12HR [facility] Rx #:[id number] Sodium Chloride 0.9% 1, 240 000 ml @ 20 mls/hr IV . Q24H [facility] Rx#:[id number] Sodium Chloride 0.9% 1, 75 000 ml @ 75 mls/hr IV . [id number] [facility] Rx#:[id number] Sodium Chloride 0.9% 1, 1000 000 ml @ 999 mls/hr IV . Q1H1M [facility] Rx#:[id number] Vancomycin 1,500 mg In 250 Sodium Chloride 0.9% 250 ml @ 125 mls/hr IVPB Q12H [facility] Rx#:[id number] Intake, IV Titration 11.167 78.667 71.085 Amount Diltiazem 125 mg In 11.167 78.667 Sodium Chloride 0.9% 100 ml @ 5 MG/HR 5 mls/hr IV .Q24H [facility] Rx#:[id number] Norepinephrine 8 mg In 41.381 Sodium Chloride 0.9% 250 ml @ 0.05 MCG/KG/MIN 9. 095 mls/hr IV .Q24H [facility] Rx#:[id number] propofoL 1,000 mg In 29.704 Empty Bag 1 bag @ 20 MCG/ KG/MIN 11.28 mls/hr IV . Q8H52M [facility] Rx#:[id number] Output: Urine 450 85 Other: # Voids 1 ABP, PAP, CO, CI - Last Documented Arterial Blood Pressure 108/72 - Exam PHYSICAL EXAMINATION: GENERAL: The patient is intubated and mechanically ventilated HEENT: Pupils are round and equally reacting to light. EOMI. No scleral icterus. No conjunctival pallor. Normocephalic, atraumatic. No pharyngeal erythema. No thyromegaly. CARDIOVASCULAR: S1 and S2 present. No murmurs, rubs, or gallops. PULMONARY: Chest is clear to auscultation, no wheezing or crackles. ABDOMEN: Soft, nontender, nondistended, normoactive bowel sounds. No palpable organomegaly. MUSCULOSKELETAL: No joint swelling or deformity. EXTREMITIES: No cyanosis, clubbing, or pedal edema. NEUROLOGICAL: Unable to evaluate. SKIN: No rashes. - Labs CBC & Chem 7: 03/11/20 16:30 03/11/20 07:24 Labs: Abnormal Lab Results - Last 24 Hours (Table) 03/11/20 03/11/20 03/11/20 Range/Units 00:43 07:24 07:24 RBC 3.41 L (4.30-5.90) m/uL Hgb 10.8 L (13.0-17.5) gm/dL Hct 38.3 L (39.0-53.0) % MCV 112.4 H (80.0-100.0) fL MCHC 28.2 L (31.0-37.0) g/dL RDW 20.6 H (11.5-15.5) % Plt Count 117 L (150-450) k/uL Lymphocytes # 0.4 L (1.0-4.8) k/uL Macrocytosis Marked A PT (9.0-12.0) sec INR (<1.2) APTT (22.0-30.0) sec ABG pH (7.35-7.45) ABG pCO2 (35-45) mmHg ABG pO2 (83-108) mmHg ABG HCO3 (21-25) mmol/L ABG Total CO2 (19-24) mmol/L ABG O2 Saturation (94-97) % Potassium 5.5 H (3.5-5.1) mmol/L BUN 26 H (9-20) mg/dL Glucose 106 H (74-99) mg/dL POC Glucose (mg/dL) (75-99) mg/dL Calcium 7.9 L (8.4-10.2) mg/dL Total Bilirubin 1.9 H (0.2-1.3) mg/dL Delta Bilirubin 0.9 H (0.0-0.2) mg/dL AST 121 H (17-59) U/L ALT 91 H (4-49) U/L Total Protein 5.8 L (6.3-8.2) g/dL Albumin 3.0 L (3.5-5.0) g/dL Urine Protein 1+ H (Negative) Urine Bacteria Rare H (None) /hpf Hyaline Casts 4 H (0-2) /lpf Urine Mucus Rare H (None) /hpf Urine Opiates Screen Detected H (NotDetected) Ur Oxycodone Screen Detected H (NotDetected) U Benzodiazepines Scrn Detected H (NotDetected) U Marijuana (THC) Screen Detected H (NotDetected) 03/11/20 03/11/20 03/11/20 Range/Units 09:14 09:38 10:10 RBC 3.43 L (4.30-5.90) m/uL Hgb 11.4 L (13.0-17.5) gm/dL Hct 38.3 L (39.0-53.0) % MCV 111.6 H (80.0-100.0) fL MCHC 29.7 L (31.0-37.0) g/dL RDW 20.7 H (11.5-15.5) % Plt Count 107 L (150-450) k/uL Lymphocytes # 0.3 L (1.0-4.8) k/uL Macrocytosis Marked A PT (9.0-12.0) sec INR (<1.2) APTT (22.0-30.0) sec ABG pH 7.19 L* (7.35-7.45) ABG pCO2 70 H (35-45) mmHg ABG pO2 69 L (83-108) mmHg ABG HCO3 27 H (21-25) mmol/L ABG Total CO2 29 H (19-24) mmol/L ABG O2 Saturation 89.3 L (94-97) % Potassium (3.5-5.1) mmol/L BUN (9-20) mg/dL Glucose (74-99) mg/dL POC Glucose (mg/dL) 136 H (75-99) mg/dL Calcium (8.4-10.2) mg/dL Total Bilirubin (0.2-1.3) mg/dL Delta Bilirubin (0.0-0.2) mg/dL AST (17-59) U/L ALT (4-49) U/L Total Protein (6.3-8.2) g/dL Albumin (3.5-5.0) g/dL Urine Protein (Negative) Urine Bacteria (None) /hpf Hyaline Casts (0-2) /lpf Urine Mucus (None) /hpf Urine Opiates Screen (NotDetected) Ur Oxycodone Screen (NotDetected) U Benzodiazepines Scrn (NotDetected) U Marijuana (THC) Screen (NotDetected) 03/11/20 03/11/20 Range/Units 10:10 10:35 RBC (4.30-5.90) m/uL Hgb (13.0-17.5) gm/dL Hct (39.0-53.0) % MCV (80.0-100.0) fL MCHC (31.0-37.0) g/dL RDW (11.5-15.5) % Plt Count (150-450) k/uL Lymphocytes # (1.0-4.8) k/uL Macrocytosis PT 15.3 H (9.0-12.0) sec INR 1.5 H (<1.2) APTT 37.6 H (22.0-30.0) sec ABG pH (7.35-7.45) ABG pCO2 (35-45) mmHg ABG pO2 (83-108) mmHg ABG HCO3 (21-25) mmol/L ABG Total CO2 26 H (19-24) mmol/L ABG O2 Saturation 98.4 H (94-97) % Potassium (3.5-5.1) mmol/L BUN (9-20) mg/dL Glucose (74-99) mg/dL POC Glucose (mg/dL) (75-99) mg/dL Calcium (8.4-10.2) mg/dL Total Bilirubin (0.2-1.3) mg/dL Delta Bilirubin (0.0-0.2) mg/dL AST (17-59) U/L ALT (4-49) U/L Total Protein (6.3-8.2) g/dL Albumin (3.5-5.0) g/dL Urine Protein (Negative) Urine Bacteria (None) /hpf Hyaline Casts (0-2) /lpf Urine Mucus (None) /hpf Urine Opiates Screen (NotDetected) Ur Oxycodone Screen (NotDetected) U Benzodiazepines Scrn (NotDetected) U Marijuana (THC) Screen (NotDetected) Assessment and Plan Assessment: 1. Atrial fibrillation with RVR; remains on IV Cardizem with plan to titrate as needed; metoprolol 100 mg daily 2. Large right-sided pleural effusion/dyspnea; consult pulmonary for possible thoracentesis; we will hold off on anticoagulation therapy 3. Metastatic lung cancer/elevated transaminitis/elevated bilirubin; patient is followed by oncology; possibility of liver metastases; we will trend liver enzymes if needed 4. Acute exacerbation CHF; start patient on Lasix 40 mg IV every 12 hours; we will monitor strict CLEMENT's, daily weights, renal function and electrolytes; await cardiology evaluation for further recommendations 5. Seizure disorder; continue with Keppra 500 mg daily along with 500 mg daily at bedtime 6. Hypertension; Lopressor 100 mg twice a day DVT prophylaxis; SCDs/systemic anticoagulation on hold for possible thoracentesis CODE STATUS; full code
[2020-03-11] MEDS: LORazepam 1 MG TAB PO SCH (21:12)
[2020-03-11] MEDS: METOPROLOL TARTRATE 25 MG TAB PO SCH (21:12)
[2020-03-12 00:48] LABS: Glucose,Whole Blood 102 mg/dL (75-99)
[2020-03-12] MEDS: PIPERACILLIN-TAZOBACTAM 3.375 GM in SODIUM CHLORIDE 0.9% 100 ML IVPB SCH ×2 (04:26→16:18)
[2020-03-12 04:27] LABS: Anisocytosis Moderate; Basophils # (A) 0.1 k/uL (0-0.2); Basophils % (A) 1 %; Eosinophils # (A) 0.2 k/uL (0-0.7); Eosinophils % (A) 3 %; HCT 39.7 % (39.0-53.0); HGB 11.7 gm/dL (13.0-17.5); Hypochromasia Marked; Lymphocytes # (A) 0.3 k/uL (1.0-4.8); Lymphocytes % (A) 5 %; MCH 32.2 pg (25.0-35.0); MCHC 29.5 g/dL (31.0-37.0); MCV 109.1 fL (80.0-100.0); Macrocytosis Marked; Mean Platelet Volume 9.8; Monocytes # (A) 0.4 k/uL (0-1.0); Monocytes % (A) 7 %; Neutrophils # (A) 4.6 k/uL (1.3-7.7); Neutrophils % (A) 82 %; Poikilocytosis Slight; RBC 3.64 m/uL (4.30-5.90); RDW 20.4 % (11.5-15.5); WBC 5.6 k/uL (3.8-10.6)
[2020-03-12 04:36] LABS: Calcium 6.7 mg/dL (8.4-10.2); Potassium 4.8 mmol/L (3.5-5.1)
[2020-03-12 05:24] LABS: ABG Base Excess -7.6 mmol/L; ABG HCO3 18 mmol/L (21-25); ABG Oxygen Saturation 96.2 % (94-97); ABG PCO2 34 mmHg (35-45); ABG PH 7.34 (7.35-7.45); ABG PO2 86 mmHg (83-108); ABG TCO2 19 mmol/L (19-24); Allen Test Performed? Yes
[2020-03-12 05:36] LABS: Glucose,Whole Blood 106 mg/dL (75-99)
[2020-03-12 07:13] LABS: Large Platelets Present
[2020-03-12 07:14] LABS: Crenated RBC Present
[2020-03-12 07:15] LABS: Platelet Count 87 k/uL (150-450); Polychromasia Present
[2020-03-12] MEDS: IPRATROPIUM-ALBUTEROL 3 ML NEB INHALATION PRN (07:17)
--- NOTE | 2020-03-12 07:51 | XR ---
EXAMINATION TYPE: XR chest 1V portable DATE OF EXAM: 03/12/2020 COMPARISON: Prior chest x-ray dated 03/11/2020 HISTORY: Respiratory failure, intubated TECHNIQUE: Single frontal view of the chest is obtained. FINDINGS: Patient is rotated. Endotracheal tube, NG tube, Port-A-Cath, left jugular central venous c atheter are again noted, there is been interval repositioning of the central venous catheter, distal tips overlying the confluence of the innominate veins. Bibasilar increased attenuation persists. Ther e is no evident pneumothorax. There are overlying cardiac leads. Heart size is stable, may be accentu ated by rotation. IMPRESSION: Basilar pneumonia versus atelectasis, possible associated effusions. Interval central ve nous catheter repositioning.
[2020-03-12] MEDS: IPRATROPIUM-ALBUTEROL 3 ML NEB INHALATION SCH ×4 (07:52→19:22)
[2020-03-12] MEDS: DILTIAZEM 125 MG in SODIUM CHLORIDE 0.9% 100 ML IV SCH ×2 (09:11→20:17)
[2020-03-12] MEDS: POTASSIUM CHLORIDE ER 10 MEQ TAB.ER.PRT PO SCH (09:54)
[2020-03-12] MEDS: CHOLECALCIFEROL 400 UNIT TAB PO SCH (10:03)
[2020-03-12] MEDS: FOLIC ACID 1 MG TAB PO SCH (10:04)
[2020-03-12] MEDS: NYSTATIN 100,000 UNIT/ML SUSP 500,000 UNIT/5 ML CUP PO SCH ×4 (10:04→20:20)
[2020-03-12] MEDS: METOPROLOL TARTRATE 25 MG TAB PO SCH ×2 (10:04→19:35)
[2020-03-12] MEDS: LORATADINE 10 MG TAB PO SCH (10:04)
[2020-03-12] MEDS: levETIRAcetam 250 MG TAB PO SCH ×2 (10:04→20:21)
[2020-03-12] MEDS: THIAMINE 100 MG TAB PO SCH (10:05)
[2020-03-12] MEDS: VANCOMYCIN 1,500 MG in SODIUM CHLORIDE 0.9% 250 ML IVPB SCH ×2 (10:22→20:21)
[2020-03-12 10:33] VITALS: BMI 31.4
--- NOTE | 2020-03-12 11:58 | P.PN ---
Subjective Progress Note Date: 03/12/20 CHIEF COMPLAINT: Heart failure HISTORY OF PRESENT ILLNESS: Patient examined at the bedside. Patient remains intubated on mechanical ventilation. He is requiring vasopressor support. He remains in atrial fibrillation. Heart rate 110s. He is currently on a Cardizem drip and nursing reports the dose was decreased per pulmonary this morning to 5mg/hr in attempts to wean levophed. PHYSICAL EXAM: VITAL SIGNS: Reviewed. GENERAL: Well-developed in no acute distress-sedated on mechanical ventilation. NECK: Supple. No JVD or thyromegaly LUNGS: Respirations even and unlabored. Lungs coarse with scattered rhonchi HEART: Irregular rate and rhythm. S1 and S2 heard. EXTREMITIES: Normal range of motion. No clubbing or cyanosis. Peripheral pulses intact. 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 Signing provider agrees with the documented findings, assessment, and plan of care. Objective - Vital Signs Vital signs: Vital Signs Temp 98.4 F 03/12/20 08:00 Pulse 114 H 03/12/20 11:00 Resp 28 H 03/12/20 11:00 BP 93/72 03/11/20 12:00 Pulse Ox 97 03/12/20 11:00 Intake & Output 03/11/20 03/12/20 03/12/20 18:59 06:59 18:59 Intake Total 2122.199 900 936.981 Output Total 220 307 95 Balance 1902.199 593 841.981 Weight 94 kg 105 kg 105 kg Intake: IV 1800 900 580 Piperacillin-Tazobactam 3 100 .375 gm In Sodium Chloride 0.9% 100 ml @ 25 mls/hr IVPB Q12HR RENA Rx #:[id number] Sodium Chloride 0.9% 1, 30 000 ml @ 20 mls/hr IV . Q24H RENA Rx#:[id number] Sodium Chloride 0.9% 1, 450 900 300 000 ml @ 75 mls/hr IV . [id number] RENA Rx#:[id number] Sodium Chloride 0.9% 1, 1000 000 ml @ 999 mls/hr IV . Q1H1M ONE Rx#:[id number] Vancomycin 1,500 mg In 250 250 Sodium Chloride 0.9% 250 ml @ 125 mls/hr IVPB Q12H RENA Rx#:[id number] Intake, IV Titration 322.199 356.981 Amount Diltiazem 125 mg In 125 Sodium Chloride 0.9% 100 ml @ 5 MG/HR 5 mls/hr IV .Q24H RENA Rx#:[id number] Heparin Sod,Pork in 0.45% 75.5 NaCl 25,000 unit In 0.45 % NaCl 1 250ml.bag @ 10. 638 UNITS/KG/HR 10 mls/hr IV .Q24H RENA Rx#: [id number] Norepinephrine 8 mg In 126.019 131.981 Sodium Chloride 0.9% 250 ml @ 0.05 MCG/KG/MIN 9. 095 mls/hr IV .Q24H RENA Rx#:[id number] propofoL 1,000 mg In 120.680 100 Empty Bag 1 bag @ 20 MCG/ KG/MIN 11.28 mls/hr IV . Q8H52M RENA Rx#:[id number] Output: Urine 220 307 95 Other: Voiding Method Indwelling Catheter Indwelling Catheter Indwelling Catheter ABP, PAP, CO, CI - Last Documented Arterial Blood Pressure 101/67 - Labs CBC & Chem 7: 03/12/20 04:00 03/12/20 04:00 Labs: Abnormal Lab Results - Last 24 Hours (Table) 03/11/20 03/11/20 03/11/20 Range/Units 16:30 16:30 16:45 RBC 3.46 L (4.30-5.90) m/uL Hgb 11.7 L (13.0-17.5) gm/dL Hct 37.8 L (39.0-53.0) % MCV 109.2 H (80.0-100.0) fL MCHC 30.8 L (31.0-37.0) g/dL RDW 20.8 H (11.5-15.5) % Plt Count 111 L (150-450) k/uL Lymphocytes # (1.0-4.8) k/uL Macrocytosis Marked A APTT 78.3 H (22.0-30.0) sec ABG pH (7.35-7.45) ABG pCO2 (35-45) mmHg ABG HCO3 (21-25) mmol/L Sodium (137-145) mmol/L Chloride (98-107) mmol/L Carbon Dioxide (22-30) mmol/L BUN (9-20) mg/dL Glucose (74-99) mg/dL POC Glucose (mg/dL) 112 H (75-99) mg/dL Calcium (8.4-10.2) mg/dL 03/12/20 03/12/20 03/12/20 Range/Units 00:35 00:45 04:00 RBC 3.64 L (4.30-5.90) m/uL Hgb 11.7 L (13.0-17.5) gm/dL Hct (39.0-53.0) % MCV 109.1 H (80.0-100.0) fL MCHC 29.5 L (31.0-37.0) g/dL RDW 20.4 H (11.5-15.5) % Plt Count 87 L (150-450) k/uL Lymphocytes # 0.3 L (1.0-4.8) k/uL Macrocytosis Marked A APTT 59.2 H (22.0-30.0) sec ABG pH (7.35-7.45) ABG pCO2 (35-45) mmHg ABG HCO3 (21-25) mmol/L Sodium (137-145) mmol/L Chloride (98-107) mmol/L Carbon Dioxide (22-30) mmol/L BUN (9-20) mg/dL Glucose (74-99) mg/dL POC Glucose (mg/dL) 102 H (75-99) mg/dL Calcium (8.4-10.2) mg/dL 03/12/20 03/12/20 03/12/20 Range/Units 04:00 04:00 05:20 RBC (4.30-5.90) m/uL Hgb (13.0-17.5) gm/dL Hct (39.0-53.0) % MCV (80.0-100.0) fL MCHC (31.0-37.0) g/dL RDW (11.5-15.5) % Plt Count (150-450) k/uL Lymphocytes # (1.0-4.8) k/uL Macrocytosis APTT 55.2 H (22.0-30.0) sec ABG pH 7.34 L (7.35-7.45) ABG pCO2 34 L (35-45) mmHg ABG HCO3 18 L (21-25) mmol/L Sodium 136 L (137-145) mmol/L Chloride 110 H (98-107) mmol/L Carbon Dioxide 18 L (22-30) mmol/L BUN 26 H (9-20) mg/dL Glucose 103 H (74-99) mg/dL POC Glucose (mg/dL) (75-99) mg/dL Calcium 6.7 L (8.4-10.2) mg/dL 03/12/20 Range/Units 05:32 RBC (4.30-5.90) m/uL Hgb (13.0-17.5) gm/dL Hct (39.0-53.0) % MCV (80.0-100.0) fL MCHC (31.0-37.0) g/dL RDW (11.5-15.5) % Plt Count (150-450) k/uL Lymphocytes # (1.0-4.8) k/uL Macrocytosis APTT (22.0-30.0) sec ABG pH (7.35-7.45) ABG pCO2 (35-45) mmHg ABG HCO3 (21-25) mmol/L Sodium (137-145) mmol/L Chloride (98-107) mmol/L Carbon Dioxide (22-30) mmol/L BUN (9-20) mg/dL Glucose (74-99) mg/dL POC Glucose (mg/dL) 106 H (75-99) mg/dL Calcium (8.4-10.2) mg/dL Microbiology - Last 24 Hours (Table) 03/11/20 09:30 Gram Stain - Preliminary Sputum Sputum Culture - Preliminary
--- NOTE | 2020-03-12 12:05 | P.PN ---
Subjective Progress Note Date: 03/12/20 This is a 65-year-old. Male patient with metastatic adenocarcinoma of the lung was receiving most of his care in outside facilities and locally being followed up by Dr. bahena . The patient came in yesterday to the hospital because of feeling weak, lethargic, hypotension, atrial fibrillation and shortness of breath and he was found to have large bilateral pleural effusions. Subsequently earlier this morning, the patient became severely hypoxic with his pulse ox drop in the mid 40s. He was placed on a nonrebreather and later on on a BiPAP without any response. He was transferred to the intensive care unit where he was intubated and placed on a mechanical ventilator. He became hypotensive and he was also started on pressors. I was able to stabilize patient's condition. I have them currently intubated on mechanical ventilator on propofol which is running at 20 mg per KG per minute. The patient is also on norepinephrine infusion running at 0.1 g per KG per minute. He is on a mechanical ventilator. Most recent vent settings with assist control of 28 with a tidal volume of 500 and FiO2 of 100% with a PEEP of 10. Blood gases on this setting showed a pH of 7.35 with a pCO2 of 45 and pO2 of 103. Triple lumen cath was established in the left IJ. An outlying catheter was also established. His white cell count is 6.3. Hemoglobin 11.4. Chest x-ray post intubation showed bilateral pleural effusion worse on the right. He has moderate-sized bilateral pleural effusion. He has also pulmonary vascular congestion. NG tube is in a good location. There is cardiomegaly. In terms of his lung cancer, the patient was diagnosed having metastatic lung cancer. He initially presented with hip pain and right shoulder pain and he was found to have mass in the right apex and another 2 cm mass in the left midlung. CAT scan of the upper extremity showed a lytic destructive lesion involving the right clavicle with associated soft tissue swelling and the patient was also found to have a 2.6 cm lytic lesion involving the T4 vertebral body and another smaller lesion involving the left rib. The patient underwent a biopsy of the right clavicle and the diagnosis was consistent with adenocarcinoma of a lung primary. MRI of the brain was negative. MRI of the thoracic spine showed also T4 vertebral body involvement without evidence of any cord compression. CAT scan of the abdomen and pelvis showed no intra-abdominal metastases. However there was extensive involvement of the left hip, pelvic bone and left upper femur. Biomarkers were negative. The patient underwent ORIF and following that he developed a PE and he was placed on Eliquis. The patient was started on systemic chemotherapy and radiation therapy to his T4 spine. He completed radiation therapy [facility]. He received 1 cycle of carboplatinum, Alimta and Keytruda . History of a course was also [place] by development of ulcers and wounds and necrotic changes involving the dorsal aspect of the right hand and left hand. He required incision and drainage and antibiotics. He also had DVT of the right internal jugular vein. He has been utilizing excessive amount of narcotic medications. He is also using marijuana. He is quite weak and debilitated. He was lethargic following this systemic chemotherapy based on the reported was given by oncology. 03/12/2020, the patient is being seen for a follow-up. Sedated this morning on propofol at 40 mg per KG per minute. Still having issues with hypotension. The patient is on levo fed which is in order of 0.1 g per KG per minute which is 9 g per minute. He is also on normal saline at the rate of 75 mL an hour. Cardizem drip is at 10 mg an hour regarding his atrial fibrillation and this will be gradually weaned off. The patient remains on IV heparin. Antibiotic coverage continues to be a combination of Zosyn and vancomycin. Sputum culture was sent. Blood culture was sent. Results are still pending for now. Meanwhile, the repeat chest x-ray from today shows infiltrates/atelectasis/effusion the lung bases bilaterally. The patient remains on assist control mode of ventilation at the rate of 28 with a tidal volume of 500 FiO2 of 50% with a PEEP of 10. The pH is at 7.34 with a pCO2 of 34 and pO2 of 86. The patient is well sedated, comfortable. Tolerating enteral feeding for nutritional support. The patient's white cell count of 5.6. Renal function is stable. He has developed some non-anion gap metabolic acidosis with a serum bicarb of 18. Calcium level is at 6.7. Sugar today's is 106. Objective - Vital Signs Vital signs: Vital Signs Temp 98.4 F 03/12/20 08:00 Pulse 114 H 03/12/20 11:00 Resp 28 H 03/12/20 11:00 BP 93/72 03/11/20 12:00 Pulse Ox 97 03/12/20 11:00 Intake & Output 03/11/20 03/12/20 03/12/20 18:59 06:59 18:59 Intake Total 2122.199 900 936.981 Output Total 220 307 95 Balance 1902.199 593 841.981 Weight 94 kg 105 kg 105 kg Intake: IV 1800 900 580 Piperacillin-Tazobactam 3 100 .375 gm In Sodium Chloride 0.9% 100 ml @ 25 mls/hr IVPB Q12HR RENA Rx #:[id number] Sodium Chloride 0.9% 1, 30 000 ml @ 20 mls/hr IV . Q24H RENA Rx#:[id number] Sodium Chloride 0.9% 1, 450 900 300 000 ml @ 75 mls/hr IV . [id number] RENA Rx#:[id number] Sodium Chloride 0.9% 1, 1000 000 ml @ 999 mls/hr IV . Q1H1M ONE Rx#:[id number] Vancomycin 1,500 mg In 250 250 Sodium Chloride 0.9% 250 ml @ 125 mls/hr IVPB Q12H RENA Rx#:[id number] Intake, IV Titration 322.199 356.981 Amount Diltiazem 125 mg In 125 Sodium Chloride 0.9% 100 ml @ 5 MG/HR 5 mls/hr IV .Q24H RENA Rx#:[id number] Heparin Sod,Pork in 0.45% 75.5 NaCl 25,000 unit In 0.45 % NaCl 1 250ml.bag @ 10. 638 UNITS/KG/HR 10 mls/hr IV .Q24H RENA Rx#: [id number] Norepinephrine 8 mg In 126.019 131.981 Sodium Chloride 0.9% 250 ml @ 0.05 MCG/KG/MIN 9. 095 mls/hr IV .Q24H RENA Rx#:[id number] propofoL 1,000 mg In 120.680 100 Empty Bag 1 bag @ 20 MCG/ KG/MIN 11.28 mls/hr IV . Q8H52M RENA Rx#:[id number] Output: Urine 220 307 95 Other: Voiding Method Indwelling Catheter Indwelling Catheter Indwelling Catheter ABP, PAP, CO, CI - Last Documented Arterial Blood Pressure 101/67 - Exam Gen. appearance the patient is currently calm and comfortable on a mechanical ventila Orogastric and orotracheal tube are both in place. Head exam was generally normal. There was no scleral icterus or corneal arcus. Mucous membranes were moist. Neck was supple and without jugular venous distension, thyromegaly, or carotid bruits. Carotids were easily palpable bilaterally. There was no adenopathy.The patient is a left IJ triple-lumen cat Lungs sounds are diminished bilaterally esppecially on the right. scattered rhonchi. Heart sounds are irregular S1-S2 consiste No significant murmurs appreciated. Abdominal exam revealed normal bowel sounds. The abdomen was soft, non-tender, and without masses, organomegaly, or appreciable enlargement of the abdominal aorta. Extremities are swollen and the patient has signs of old wounds and ulceration in the dorsal aspect of the hand bilaterall He has also several wounds in lower and upper extremities that seemed to He has +1 edema in all 4 extremities ginger Neurologically, the patient is sedated, and he is calm and he is comfortable. Cranial nerves are intact. skin examination as discussed above. No open wounds or sores No active cellulitis. - Labs CBC & Chem 7: 03/12/20 04:00 03/12/20 04:00 Labs: Abnormal Lab Results - Last 24 Hours (Table) 03/11/20 03/11/20 03/11/20 Range/Units 16:30 16:30 16:45 RBC 3.46 L (4.30-5.90) m/uL Hgb 11.7 L (13.0-17.5) gm/dL Hct 37.8 L (39.0-53.0) % MCV 109.2 H (80.0-100.0) fL MCHC 30.8 L (31.0-37.0) g/dL RDW 20.8 H (11.5-15.5) % Plt Count 111 L (150-450) k/uL Lymphocytes # (1.0-4.8) k/uL Macrocytosis Marked A APTT 78.3 H (22.0-30.0) sec ABG pH (7.35-7.45) ABG pCO2 (35-45) mmHg ABG HCO3 (21-25) mmol/L Sodium (137-145) mmol/L Chloride (98-107) mmol/L Carbon Dioxide (22-30) mmol/L BUN (9-20) mg/dL Glucose (74-99) mg/dL POC Glucose (mg/dL) 112 H (75-99) mg/dL Calcium (8.4-10.2) mg/dL 03/12/20 03/12/20 03/12/20 Range/Units 00:35 00:45 04:00 RBC 3.64 L (4.30-5.90) m/uL Hgb 11.7 L (13.0-17.5) gm/dL Hct (39.0-53.0) % MCV 109.1 H (80.0-100.0) fL MCHC 29.5 L (31.0-37.0) g/dL RDW 20.4 H (11.5-15.5) % Plt Count 87 L (150-450) k/uL Lymphocytes # 0.3 L (1.0-4.8) k/uL Macrocytosis Marked A APTT 59.2 H (22.0-30.0) sec ABG pH (7.35-7.45) ABG pCO2 (35-45) mmHg ABG HCO3 (21-25) mmol/L Sodium (137-145) mmol/L Chloride (98-107) mmol/L Carbon Dioxide (22-30) mmol/L BUN (9-20) mg/dL Glucose (74-99) mg/dL POC Glucose (mg/dL) 102 H (75-99) mg/dL Calcium (8.4-10.2) mg/dL 03/12/20 03/12/20 03/12/20 Range/Units 04:00 04:00 05:20 RBC (4.30-5.90) m/uL Hgb (13.0-17.5) gm/dL Hct (39.0-53.0) % MCV (80.0-100.0) fL MCHC (31.0-37.0) g/dL RDW (11.5-15.5) % Plt Count (150-450) k/uL Lymphocytes # (1.0-4.8) k/uL Macrocytosis APTT 55.2 H (22.0-30.0) sec ABG pH 7.34 L (7.35-7.45) ABG pCO2 34 L (35-45) mmHg ABG HCO3 18 L (21-25) mmol/L Sodium 136 L (137-145) mmol/L Chloride 110 H (98-107) mmol/L Carbon Dioxide 18 L (22-30) mmol/L BUN 26 H (9-20) mg/dL Glucose 103 H (74-99) mg/dL POC Glucose (mg/dL) (75-99) mg/dL Calcium 6.7 L (8.4-10.2) mg/dL 03/12/20 Range/Units 05:32 RBC (4.30-5.90) m/uL Hgb (13.0-17.5) gm/dL Hct (39.0-53.0) % MCV (80.0-100.0) fL MCHC (31.0-37.0) g/dL RDW (11.5-15.5) % Plt Count (150-450) k/uL Lymphocytes # (1.0-4.8) k/uL Macrocytosis APTT (22.0-30.0) sec ABG pH (7.35-7.45) ABG pCO2 (35-45) mmHg ABG HCO3 (21-25) mmol/L Sodium (137-145) mmol/L Chloride (98-107) mmol/L Carbon Dioxide (22-30) mmol/L BUN (9-20) mg/dL Glucose (74-99) mg/dL POC Glucose (mg/dL) 106 H (75-99) mg/dL Calcium (8.4-10.2) mg/dL Microbiology - Last 24 Hours (Table) 03/11/20 09:30 Gram Stain - Preliminary Sputum Sputum Culture - Preliminary Assessment and Plan Plan: 1 acute hypoxic respiratory failure. The patient has acute respiratory failure which is multifactorial. The patient has metastatic lung cancer in addition to bilateral pleural effusion which could be malignant/parapneumonic. Noted the patient also has underlying CHF with an ejection fraction of 30-35% based on previous echocardiogram. Currently is hypotensive. Septic component is being entertained and the patient currently is pressor dependent still intubated on a mechanical ventilator. Chest x-ray shows no major interval changes. 2 metastatic adenocarcinoma of the lung with extensive skeletal metastases involving the clavicle on the right, bilateral hips, pelvis, T4 spine and the patient has received radiation therapy to the back. He has also undergone ORIF of the left hip.note that the patient also has received 1 cycle and Alimta and he was started on immunotherapy Keytruda 3 bilateral pleural effusion. Consider aspiration pneumonia. Consider congestion heart failure. Consider malignant pleural effusion. 4 chronic atrial fibrillation 5 hypotension currently on pressors. Still under investigation. Consider a component of septic event contributing to this patient's lower blood pressure. 6 previous history of DVT. 7 previous history of a right IJ DVT 8 previous history of upper extremity wounds and cellulitis in infection, healed 9 extensive debility secondary to above-mentioned comorbidities. 10 non-anion gap metabolic acidosis with a serum bicarb of 18 11 CHF with an ejection fraction of 30-35%. plan Patient carries a very poor prognosis based on his history of metastatic adenocarcinoma of the lung Continue ventilator support Still hypotensive requiring pressors for hemodynamic support. The patient is covered with broad-spectrum antibiotics. Cover the patient with accommodation Zosyn and vancomycin Cover the patient IV heparin Cover this patient with propofol for sedation Monitored atrial fibrillation and use Cardizem drip if needed. For now the patient is hypotensive and he would require pressors and made recommendations to titrate levo fed to maintain a mean arterial pressure above 65. Suggest weaning of the Cardizem drip and a large dependent on a rate control May consider drainage of the pleural effusion either right pigtail catheter or chest tube insertion of a later stage. I'm not going to do any procedures until I get a final prognosis and a better understanding of his outcome in regards to his lung cancer. I would like to have a discussion with oncology regarding treatment care goals. If aggressive treated is still requested by oncology and family, will consider drainage of the chest fluids. Would like to establish a CODE STATUS with the family and discuss goals of treatment with oncology. We'll continue to follow. His condition is critical for now. Time with Patient: Greater than 30
[2020-03-12] MEDS: CALCIUM CARB-VIT D 500MG-200UN 1 EACH TAB PO SCH ×3 (13:06→20:20)
[2020-03-12] MEDS: NOREPINEPHRINE 8 MG in SODIUM CHLORIDE 0.9% 250 ML IV SCH (13:07)
[2020-03-12] MEDS: HEPARIN SOD,PORK IN 0.45% NACL 25,000 UNIT in 0.45% NACL 1 250ML.BAG IV SCH (13:13)
[2020-03-12] MEDS: CHLORHEXIDINE GLUCONATE 15 ML CUP MUCOUS MEM SCH ×2 (13:15→20:20)
--- NOTE | 2020-03-12 13:51 | P.PN ---
Subjective Progress Note Date: 03/12/20 Principal diagnosis: Acute hypoxic respiratory failure Bilateral pleural effusion/aspiration pneumonia A. 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 Symptoms progressed with the past several days. Patient does have metastatic lung cancer and saw Dr. Orta today who advised him to come to the emergency department. Patient does complain of leg swelling increasing over the past few days. No chest pain. Patient has occasional cough. Dyspnea increases with lying flat. Workup in ED including an EKG showed patient to be in atrial fibrillation with RVR with heart rate in 150s. No acute ST or T-wave changes; patient was started on IV Cardizem which was titrated to control heart rate; chest x-ray shows moderate to large right-sided pleural effusion; patient is admitted to the [facility] for cardiology and pulmonary evaluation 03/11/2020 Patient is seen and evaluated at bedside in ICU; earlier this morning, the patient became severely hypoxic with his pulse ox drop in the mid 40s. He was placed on a nonrebreather and later on on a BiPAP without any response. He was transferred to the intensive care unit where he was intubated and placed on a mechanical ventilator. He became hypotensive and he was also started on pressors. His white cell count is 6.3. Hemoglobin 11.4. Chest x-ray post intubation showed bilateral pleural effusion worse on the right. He has moderate-sized bilateral pleural effusion. He has also pulmonary vascular congestion. NG tube is in a good location. 03/12/2020 Patient remains in ICU. Sedated and mechanically ventilated Remains hypotensive. The patient is on levofed and normal saline at the rate of 75 mL an hour. Cardizem drip is at 10 mg an hour regarding his atrial fibrillation and this will be gradually weaned off. The patient remains on IV heparin. Antibiotics in form of of Zosyn and vancomycin. Sputum culture was sent. Blood culture was sent. Results are still pending for now. Meanwhile, the repeat chest x-ray from today shows infiltrates/atelectasis/effusion the lung bases bilaterally. Tolerating enteral feeding for nutritional support. The patient's white cell count of 5.6. Renal function is stable. He has developed some non-anion gap metabolic acidosis with a serum bicarb of 18. Calcium level is at 6.7. Sugar today's is 106. Objective - Vital Signs Vital signs: Vital Signs Temp 98.4 F 03/12/20 08:00 Pulse 115 H 03/12/20 10:00 Resp 28 H 03/12/20 10:00 BP 93/72 03/11/20 12:00 Pulse Ox 97 03/12/20 10:00 Intake & Output 03/11/20 03/12/20 03/12/20 18:59 06:59 18:59 Intake Total 2122.199 900 936.981 Output Total 220 307 95 Balance 1902.199 593 841.981 Weight 94 kg 105 kg Intake: IV 1800 900 580 Piperacillin-Tazobactam 3 100 .375 gm In Sodium Chloride 0.9% 100 ml @ 25 mls/hr IVPB Q12HR RENA Rx #:[id number] Sodium Chloride 0.9% 1, 30 000 ml @ 20 mls/hr IV . Q24H RENA Rx#:[id number] Sodium Chloride 0.9% 1, 450 900 300 000 ml @ 75 mls/hr IV . [id number] RENA Rx#:[id number] Sodium Chloride 0.9% 1, 1000 000 ml @ 999 mls/hr IV . Q1H1M ONE Rx#:[id number] Vancomycin 1,500 mg In 250 250 Sodium Chloride 0.9% 250 ml @ 125 mls/hr IVPB Q12H RENA Rx#:[id number] Intake, IV Titration 322.199 356.981 Amount Diltiazem 125 mg In 125 Sodium Chloride 0.9% 100 ml @ 5 MG/HR 5 mls/hr IV .Q24H RENA Rx#:[id number] Heparin Sod,Pork in 0.45% 75.5 NaCl 25,000 unit In 0.45 % NaCl 1 250ml.bag @ 10. 638 UNITS/KG/HR 10 mls/hr IV .Q24H RENA Rx#: [id number] Norepinephrine 8 mg In 126.019 131.981 Sodium Chloride 0.9% 250 ml @ 0.05 MCG/KG/MIN 9. 095 mls/hr IV .Q24H RENA Rx#:[id number] propofoL 1,000 mg In 120.680 100 Empty Bag 1 bag @ 20 MCG/ KG/MIN 11.28 mls/hr IV . Q8H52M RENA Rx#:[id number] Output: Urine 220 307 95 Other: Voiding Method Indwelling Catheter Indwelling Catheter ABP, PAP, CO, CI - Last Documented Arterial Blood Pressure 105/66 - Exam PHYSICAL EXAMINATION: GENERAL: The patient is intubated and mechanically ventilated HEENT: Pupils are round and equally reacting to light. EOMI. No scleral icterus. No conjunctival pallor. Normocephalic, atraumatic. No pharyngeal erythema. No thyromegaly. CARDIOVASCULAR: S1 and S2 present. No murmurs, rubs, or gallops. PULMONARY: Chest is clear to auscultation, no wheezing or crackles. ABDOMEN: Soft, nontender, nondistended, normoactive bowel sounds. No palpable or ganomegaly. MUSCULOSKELETAL: No joint swelling or deformity. EXTREMITIES: No cyanosis, clubbing, or pedal edema. NEUROLOGICAL: Unable to evaluate. SKIN: No rashes. - Labs CBC & Chem 7: 03/12/20 04:00 03/12/20 04:00 Labs: Abnormal Lab Results - Last 24 Hours (Table) 03/11/20 03/11/20 03/11/20 Range/Units 10:10 10:10 10:35 RBC 3.43 L (4.30-5.90) m/uL Hgb 11.4 L (13.0-17.5) gm/dL Hct 38.3 L (39.0-53.0) % MCV 111.6 H (80.0-100.0) fL MCHC 29.7 L (31.0-37.0) g/dL RDW 20.7 H (11.5-15.5) % Plt Count 107 L (150-450) k/uL Lymphocytes # 0.3 L (1.0-4.8) k/uL Macrocytosis Marked A PT 15.3 H (9.0-12.0) sec INR 1.5 H (<1.2) APTT 37.6 H (22.0-30.0) sec ABG pH (7.35-7.45) ABG pCO2 (35-45) mmHg ABG HCO3 (21-25) mmol/L ABG Total CO2 26 H (19-24) mmol/L ABG O2 Saturation 98.4 H (94-97) % Sodium (137-145) mmol/L Chloride (98-107) mmol/L Carbon Dioxide (22-30) mmol/L BUN (9-20) mg/dL Glucose (74-99) mg/dL POC Glucose (mg/dL) (75-99) mg/dL Calcium (8.4-10.2) mg/dL 03/11/20 03/11/20 03/11/20 Range/Units 16:30 16:30 16:45 RBC 3.46 L (4.30-5.90) m/uL Hgb 11.7 L (13.0-17.5) gm/dL Hct 37.8 L (39.0-53.0) % MCV 109.2 H (80.0-100.0) fL MCHC 30.8 L (31.0-37.0) g/dL RDW 20.8 H (11.5-15.5) % Plt Count 111 L (150-450) k/uL Lymphocytes # (1.0-4.8) k/uL Macrocytosis Marked A PT (9.0-12.0) sec INR (<1.2) APTT 78.3 H (22.0-30.0) sec ABG pH (7.35-7.45) ABG pCO2 (35-45) mmHg ABG HCO3 (21-25) mmol/L ABG Total CO2 (19-24) mmol/L ABG O2 Saturation (94-97) % Sodium (137-145) mmol/L Chloride (98-107) mmol/L Carbon Dioxide (22-30) mmol/L BUN (9-20) mg/dL Glucose (74-99) mg/dL POC Glucose (mg/dL) 112 H (75-99) mg/dL Calcium (8.4-10.2) mg/dL 03/12/20 03/12/20 03/12/20 Range/Units 00:35 00:45 04:00 RBC 3.64 L (4.30-5.90) m/uL Hgb 11.7 L (13.0-17.5) gm/dL Hct (39.0-53.0) % MCV 109.1 H (80.0-100.0) fL MCHC 29.5 L (31.0-37.0) g/dL RDW 20.4 H (11.5-15.5) % Plt Count 87 L (150-450) k/uL Lymphocytes # 0.3 L (1.0-4.8) k/uL Macrocytosis Marked A PT (9.0-12.0) sec INR (<1.2) APTT 59.2 H (22.0-30.0) sec ABG pH (7.35-7.45) ABG pCO2 (35-45) mmHg ABG HCO3 (21-25) mmol/L ABG Total CO2 (19-24) mmol/L ABG O2 Saturation (94-97) % Sodium (137-145) mmol/L Chloride (98-107) mmol/L Carbon Dioxide (22-30) mmol/L BUN (9-20) mg/dL Glucose (74-99) mg/dL POC Glucose (mg/dL) 102 H (75-99) mg/dL Calcium (8.4-10.2) mg/dL 03/12/20 03/12/20 03/12/20 Range/Units 04:00 04:00 05:20 RBC (4.30-5.90) m/uL Hgb (13.0-17.5) gm/dL Hct (39.0-53.0) % MCV (80.0-100.0) fL MCHC (31.0-37.0) g/dL RDW (11.5-15.5) % Plt Count (150-450) k/uL Lymphocytes # (1.0-4.8) k/uL Macrocytosis PT (9.0-12.0) sec INR (<1.2) APTT 55.2 H (22.0-30.0) sec ABG pH 7.34 L (7.35-7.45) ABG pCO2 34 L (35-45) mmHg ABG HCO3 18 L (21-25) mmol/L ABG Total CO2 (19-24) mmol/L ABG O2 Saturation (94-97) % Sodium 136 L (137-145) mmol/L Chloride 110 H (98-107) mmol/L Carbon Dioxide 18 L (22-30) mmol/L BUN 26 H (9-20) mg/dL Glucose 103 H (74-99) mg/dL POC Glucose (mg/dL) (75-99) mg/dL Calcium 6.7 L (8.4-10.2) mg/dL 03/12/20 Range/Units 05:32 RBC (4.30-5.90) m/uL Hgb (13.0-17.5) gm/dL Hct (39.0-53.0) % MCV (80.0-100.0) fL MCHC (31.0-37.0) g/dL RDW (11.5-15.5) % Plt Count (150-450) k/uL Lymphocytes # (1.0-4.8) k/uL Macrocytosis PT (9.0-12.0) sec INR (<1.2) APTT (22.0-30.0) sec ABG pH (7.35-7.45) ABG pCO2 (35-45) mmHg ABG HCO3 (21-25) mmol/L ABG Total CO2 (19-24) mmol/L ABG O2 Saturation (94-97) % Sodium (137-145) mmol/L Chloride (98-107) mmol/L Carbon Dioxide (22-30) mmol/L BUN (9-20) mg/dL Glucose (74-99) mg/dL POC Glucose (mg/dL) 106 H (75-99) mg/dL Calcium (8.4-10.2) mg/dL Microbiology - Last 24 Hours (Table) 03/11/20 09:30 Gram Stain - Preliminary Sputum Sputum Culture - Preliminary Assessment and Plan Assessment: 1. Atrial fibrillation with RVR; remains on IV Cardizem with plan to titrate as needed; metoprolol 100 mg daily 2. Large right-sided pleural effusion/dyspnea; consult pulmonary for possible thoracentesis; we will hold off on anticoagulation therapy 3. Metastatic lung cancer/elevated transaminitis/elevated bilirubin; patient is followed by oncology; possibility of liver metastases; we will trend liver enzymes if needed 4. Acute exacerbation CHF; start patient on Lasix 40 mg IV every 12 hours; we will monitor strict CLEMENT's, daily weights, renal function and electrolytes; await cardiology evaluation for further recommendations 5. Seizure disorder; continue with Keppra 500 mg daily along with 500 mg daily at bedtime 6. Hypertension; Lopressor 100 mg twice a day DVT prophylaxis; SCDs/systemic anticoagulation on hold for possible thoracentesis CODE STATUS; full code
[2020-03-12 17:14] LABS: Glucose,Whole Blood 98 mg/dL (75-99)
[2020-03-12] MEDS: INSULIN ASPART (NovoLOG) 100 UNIT/ML VIAL SQ SCH (20:11)
[2020-03-12] MEDS: SODIUM CHLORIDE 0.9% 1,000 ML IV SCH (20:15)
[2020-03-12] MEDS: LORazepam 1 MG TAB PO SCH (20:20)
--- NOTE | 2020-03-12 22:41 | XR ---
EXAMINATION TYPE: XR chest 1V portable DATE OF EXAM: 03/12/2020 COMPARISON: 03/12/2020 HISTORY: Check tube placement TECHNIQUE: FINDINGS: Endotracheal tube is 8 cm from the candis. There is nasogastric tube in the stomach. There is left jugular catheter with tip in the superior vena cava. There is right jugular catheter with tip in the superior vena cava. There are chest leads. There are some mild infiltrate at both lung bases. IMPRESSION: Endotracheal tube is high. There is improvement in the lower lobe pulmonary airspace infi ltrates compared to exam this morning. No heart failure.
[2020-03-12 23:34] LABS: Glucose,Whole Blood 97 mg/dL (75-99)
[2020-03-13] MEDS: INSULIN ASPART (NovoLOG) 100 UNIT/ML VIAL SQ SCH ×4 (00:22→19:02)
[2020-03-13] MEDS: SODIUM CHLORIDE 0.9% 1,000 ML IV SCH ×3 (04:33→16:09)
[2020-03-13] MEDS: DILTIAZEM 125 MG in SODIUM CHLORIDE 0.9% 100 ML IV SCH (04:34)
[2020-03-13 04:39] LABS: ABG Base Excess -5.7 mmol/L; ABG HCO3 20 mmol/L (21-25); ABG Oxygen Saturation 97.2 % (94-97); ABG PCO2 36 mmHg (35-45); ABG PH 7.35 (7.35-7.45); ABG PO2 93 mmHg (83-108); ABG TCO2 21 mmol/L (19-24)
[2020-03-13] MEDS: NOREPINEPHRINE 8 MG in SODIUM CHLORIDE 0.9% 250 ML IV SCH ×2 (04:47→10:05)
[2020-03-13] MEDS: PIPERACILLIN-TAZOBACTAM 3.375 GM in SODIUM CHLORIDE 0.9% 100 ML IVPB SCH ×3 (04:54→20:07)
[2020-03-13] MEDS: METOPROLOL TARTRATE 25 MG TAB PO SCH ×3 (04:55→21:33)
[2020-03-13 04:56] LABS: Anisocytosis Moderate; Basophils # (A) 0.1 k/uL (0-0.2); Basophils % (A) 1 %; Eosinophils # (A) 0.3 k/uL (0-0.7); Eosinophils % (A) 4 %; HCT 39.1 % (39.0-53.0); HGB 11.7 gm/dL (13.0-17.5); Hypochromasia Marked; Lymphocytes # (A) 0.4 k/uL (1.0-4.8); Lymphocytes % (A) 5 %; MCH 32.5 pg (25.0-35.0); MCHC 29.9 g/dL (31.0-37.0); MCV 108.6 fL (80.0-100.0); Macrocytosis Marked; Monocytes # (A) 0.6 k/uL (0-1.0); Monocytes % (A) 8 %; Neutrophils # (A) 5.7 k/uL (1.3-7.7); Neutrophils % (A) 81 %; Poikilocytosis Slight; RDW 20.6 % (11.5-15.5)
[2020-03-13 04:58] LABS: Allen Test Performed? no
[2020-03-13 05:05] LABS: Platelet Count 73 k/uL (150-450)
[2020-03-13 05:08] LABS: African American GFR (CKD) >90 (>60 ml/min/1.73 sqM); Anion Gap 6 mmol/L; Blood Urea Nitrogen 26 mg/dL (9-20); Calcium 6.6 mg/dL (8.4-10.2); Carbon Dioxide 19 mmol/L (22-30); Chloride 111 mmol/L (98-107); Glucose 124 mg/dL (74-99); Non-African American GFR(CKD) >90 (>60 ml/min/1.73 sqM); Potassium 4.6 mmol/L (3.5-5.1); Sodium 136 mmol/L (137-145)
[2020-03-13 06:11] LABS: Glucose,Whole Blood 125 mg/dL (75-99)
[2020-03-13] MEDS: IPRATROPIUM-ALBUTEROL 3 ML NEB INHALATION SCH ×4 (07:27→21:01)
--- NOTE | 2020-03-13 07:51 | XR ---
EXAMINATION TYPE: XR chest 1V portable DATE OF EXAM: 03/13/2020 COMPARISON: 03/12/2020 HISTORY: Tube placement TECHNIQUE: Single frontal view of the chest is obtained. FINDINGS: ET, NG tube, PICC line, and Mediport stable. Cardiomegaly with bilateral infiltrate and pl eural effusion progressed. No pneumothorax. Underlying COPD suspected. IMPRESSION: 1. Increasing bilateral infiltrate and pleural effusion correlate for pneumonia otherwise consider CH F.
--- NOTE | 2020-03-13 07:51 | P.PN ---
Subjective Progress Note Date: 03/13/20 Principal diagnosis: Long-standing persistent atrial fibrillation This is a 65-year-old gentleman with an extensive medical history consistent of metastatic lung cancer as well as chronic obstructive pulmonary disease as well as long-standing persistent atrial fibrillation who was admitted to the hospital with acute hypoxic respiratory failure requiring intubation and mechanical ventilation. The patient was seen today 03/13/2020. He continues to be intubated on mechanical ventilation. Hemodynamically he is stable and still require norepinephrine. He is also on Cardizem IV for the atrial fibrillation was a slight do not controlled. I'm going to DC the Cardizem IV and start the patient on amiodarone was bolus and drip hoping that we can wean him from norepinephrine. The chest x-ray was reviewed this morning and showed bilateral pleural effusion. Beside that he is on heparin IV. Objective - Vital Signs Vital signs: Vital Signs Temp 98.7 F 03/13/20 04:00 Pulse 116 H 03/13/20 07:40 Resp 28 H 03/13/20 07:00 BP 93/72 03/11/20 12:00 Pulse Ox 98 03/13/20 07:00 Intake & Output 03/12/20 03/13/20 03/13/20 18:59 06:59 18:59 Intake Total 2079.585 1988.666 85 Output Total 320 422 100 Balance 4276.982 8016.666 -15 Weight 105 kg 104.1 kg Intake: IV 1360 1270 85 Piperacillin-Tazobactam 3 100 .375 gm In Sodium Chloride 0.9% 100 ml @ 25 mls/hr IVPB Q12HR RENA Rx #:[id number] Sodium Chloride 0.9% 1, 110 120 10 000 ml @ 20 mls/hr IV . Q24H RENA Rx#:[id number] Sodium Chloride 0.9% 1, 900 900 75 000 ml @ 75 mls/hr IV . [id number] RENA Rx#:[id number] Vancomycin 1,500 mg In 250 250 Sodium Chloride 0.9% 250 ml @ 125 mls/hr IVPB Q12H RENA Rx#:[id number] Intake, IV Titration 699.585 568.666 Amount Diltiazem 125 mg In 141.583 110.666 Sodium Chloride 0.9% 100 ml @ 5 MG/HR 5 mls/hr IV .Q24H RENA Rx#:[id number] Heparin Sod,Pork in 0.45% 154.957 NaCl 25,000 unit In 0.45 % NaCl 1 250ml.bag @ 10. 638 UNITS/KG/HR 10 mls/hr IV .Q24H RENA Rx#: [id number] Norepinephrine 8 mg In 131.981 258 Sodium Chloride 0.9% 250 ml @ 0.05 MCG/KG/MIN 9. 095 mls/hr IV .Q24H RENA Rx#:[id number] Piperacillin-Tazobactam 3 100 .375 gm In Sodium Chloride 0.9% 100 ml @ 25 mls/hr IVPB Q12H RENA Rx# :[id number] propofoL 1,000 mg In 271.064 100 Empty Bag 1 bag @ 20 MCG/ KG/MIN 11.28 mls/hr IV . Q8H52M RENA Rx#:[id number] Tube Feeding 20 150 Output: Urine 320 422 100 Other: Voiding Method Indwelling Catheter Indwelling Catheter ABP, PAP, CO, CI - Last Documented Arterial Blood Pressure 106/68 - Constitutional General appearance: Present: no acute distress - Respiratory Respiratory: bilateral: wheezing - Cardiovascular Rhythm: irregularly irregular Heart sounds: normal: S1, S2 - Labs CBC & Chem 7: 03/13/20 04:30 03/13/20 04:30 Labs: Abnormal Lab Results - Last 24 Hours (Table) 03/12/20 03/13/20 03/13/20 Range/Units 04:00 04:30 04:30 RBC 3.60 L (4.30-5.90) m/uL Hgb 11.7 L (13.0-17.5) gm/dL MCV 108.6 H (80.0-100.0) fL MCHC 29.9 L (31.0-37.0) g/dL RDW 20.6 H (11.5-15.5) % Plt Count 73 L (150-450) k/uL Lymphocytes # 0.4 L (1.0-4.8) k/uL Macrocytosis Marked A APTT (22.0-30.0) sec ABG HCO3 (21-25) mmol/L ABG O2 Saturation (94-97) % Sodium 136 L (137-145) mmol/L Chloride 111 H (98-107) mmol/L Carbon Dioxide 19 L (22-30) mmol/L BUN 26 H (9-20) mg/dL Glucose 124 H (74-99) mg/dL POC Glucose (mg/dL) (75-99) mg/dL Calcium 6.6 L (8.4-10.2) mg/dL Procalcitonin 0.51 H (0.02-0.09) ng/mL 03/13/20 03/13/20 03/13/20 Range/Units 04:30 04:33 06:09 RBC (4.30-5.90) m/uL Hgb (13.0-17.5) gm/dL MCV (80.0-100.0) fL MCHC (31.0-37.0) g/dL RDW (11.5-15.5) % Plt Count (150-450) k/uL Lymphocytes # (1.0-4.8) k/uL Macrocytosis APTT 63.6 H (22.0-30.0) sec ABG HCO3 20 L (21-25) mmol/L ABG O2 Saturation 97.2 H (94-97) % Sodium (137-145) mmol/L Chloride (98-107) mmol/L Carbon Dioxide (22-30) mmol/L BUN (9-20) mg/dL Glucose (74-99) mg/dL POC Glucose (mg/dL) 125 H (75-99) mg/dL Calcium (8.4-10.2) mg/dL Procalcitonin (0.02-0.09) ng/mL Microbiology - Last 24 Hours (Table) 03/11/20 10:10 Blood Culture - Preliminary Blood No Growth after 24 hours Assessment and Plan Assessment: Assessment #1 acute hypoxic respiratory failure #2 hypotension requires vasopressors #3 atrial fibrillation with RVR #4 metastatic lung cancer #5 multiple comorbid conditions Plan #1 DC the Cardizem IV #2 start amiodarone by mouth #3 continue IV anticoagulation with heparin #4 try to wean the patient from norepinephrine #5 follow-up with the patient
[2020-03-13] MEDS ORDERED: AMIODARONE 360 MG in DEXTROSE 5% IN WATER 200 ML IV ONE ×2 (08:00)
[2020-03-13] MEDS ORDERED: DEXTROSE 5% IN WATER 100 ML with AMIODARONE 150 MG IV ONE (08:00)
[2020-03-13] MEDS: FUROSEMIDE 10 MG/ML 4 ML VIAL IV SCH ×2 (08:41→21:28)
[2020-03-13] MEDS: CHLORHEXIDINE GLUCONATE 15 ML CUP MUCOUS MEM SCH ×2 (08:52→21:29)
[2020-03-13] MEDS: POTASSIUM CHLORIDE ER 10 MEQ TAB.ER.PRT PO SCH (08:52)
[2020-03-13] MEDS: LORATADINE 10 MG TAB PO SCH (08:52)
[2020-03-13] MEDS: FOLIC ACID 1 MG TAB PO SCH (08:52)
[2020-03-13] MEDS: CALCIUM CARB-VIT D 500MG-200UN 1 EACH TAB PO SCH ×3 (08:52→21:28)
[2020-03-13] MEDS: NYSTATIN 100,000 UNIT/ML SUSP 500,000 UNIT/5 ML CUP PO SCH ×4 (08:53→21:34)
[2020-03-13] MEDS: THIAMINE 100 MG TAB PO SCH (08:53)
[2020-03-13] MEDS ORDERED: VANCOMYCIN TROUGH DUE 1 EACH MISC MISCELLANE ONE (09:00)
[2020-03-13] MEDS: CHOLECALCIFEROL 400 UNIT TAB PO SCH (09:54)
[2020-03-13] MEDS: levETIRAcetam 250 MG TAB PO SCH ×2 (09:55→21:28)
[2020-03-13] MEDS: VANCOMYCIN 1,500 MG in SODIUM CHLORIDE 0.9% 250 ML IVPB SCH ×2 (10:33→21:30)
[2020-03-13 11:39] LABS: Glucose,Whole Blood 127 mg/dL (75-99)
--- NOTE | 2020-03-13 12:00 | P.PN ---
Subjective Progress Note Date: 03/13/20 Principal diagnosis: Acute hypoxic respiratory failure secondary to metastatic lung cancer bilateral pleural effusions cardiomyopathy and chronic systolic congestive heart failure, possible sepsis. This is a 65-year-old. Male patient with metastatic adenocarcinoma of the lung was receiving most of his care in outside facilities and locally being followed up by Dr. bahena . The patient came in yesterday to the hospital because of feeling weak, lethargic, hypotension, atrial fibrillation and shortness of breath and he was found to have large bilateral pleural effusions. Subsequently earlier this morning, the patient became severely hypoxic with his pulse ox drop in the mid 40s. He was placed on a nonrebreather and later on on a BiPAP without any response. He was transferred to the intensive care unit where he was intubated and placed on a mechanical ventilator. He became hypotensive and he was also started on pressors. I was able to stabilize patient's condition. I have them currently intubated on mechanical ventilator on propofol which is running at 20 mg per KG per minute. The patient is also on norepinephrine infusion running at 0.1 g per KG per minute. He is on a mechanical ventilator. Most recent vent settings with assist control of 28 with a tidal volume of 500 and FiO2 of 100% with a PEEP of 10. Blood gases on this setting showed a pH of 7.35 with a pCO2 of 45 and pO2 of 103. Triple lumen cath was established in the left IJ. An outlying catheter was also established. His white cell count is 6.3. Hemoglobin 11.4. Chest x-ray post intubation showed bilateral pleural effusion worse on the right. He has moderate-sized bilateral pleural effusion. He has also pulmonary vascular congestion. NG tube is in a good location. There is cardiomegaly. In terms of his lung cancer, the patient was diagnosed having metastatic lung cancer. He initially presented with hip pain and right shoulder pain and he was found to have mass in the right apex and another 2 cm mass in the left midlung. CAT scan of the upper extremity showed a lytic destructive lesion involving the right clavicle with associated soft tissue swelling and the patient was also found to have a 2.6 cm lytic lesion involving the T4 vertebral body and another smaller lesion involving the left rib. The patient underwent a biopsy of the right clavicle and the diagnosis was consistent with adenocarcinoma of a lung primary. MRI of the brain was negative. MRI of the thoracic spine showed also T4 vertebral body involvement without evidence of any cord compression. CAT scan of the abdomen and pelvis showed no intra-abdominal metastases. However there was extensive involvement of the left hip, pelvic bone and left upper femur. Biomarkers were negative. The patient underwent ORIF and following that he developed a PE and he was placed on Eliquis. The patient was started on systemic chemotherapy and radiation therapy to his T4 spine. He completed radiation therapy [facility]. He received 1 cycle of carboplatinum, Alimta and Keytruda . History of a course was also Com[place] by development of ulcers and wounds and necrotic changes involving the dorsal aspect of the right hand and left hand. He required incision and drainage and antibiotics. He also had DVT of the right internal jugular vein. He has been utilizing excessive amount of narcotic medications. He is also using marijuana. He is quite weak and debilitated. He was lethargic following this systemic chemotherapy based on the reported was given by oncology. 03/12/2020, the patient is being seen for a follow-up. Sedated this morning on propofol at 40 mg per KG per minute. Still having issues with hypotension. The patient is on levo fed which is in order of 0.1 g per KG per minute which is 9 g per minute. He is also on normal saline at the rate of 75 mL an hour. Ca rdizem drip is at 10 mg an hour regarding his atrial fibrillation and this will be gradually weaned off. The patient remains on IV heparin. Antibiotic coverage continues to be a combination of Zosyn and vancomycin. Sputum culture was sent. Blood culture was sent. Results are still pending for now. Meanwhile, the repeat chest x-ray from today shows infiltrates/atelectasis/effusion the lung bases bilaterally. The patient remains on assist control mode of ventilation at the rate of 28 with a tidal volume of 500 FiO2 of 50% with a PEEP of 10. The pH is at 7.34 with a pCO2 of 34 and pO2 of 86. The patient is well sedated, comfortable. Tolerating enteral feeding for nutritional support. The patient's white cell count of 5.6. Renal function is stable. He has developed some non-anion gap metabolic acidosis with a serum bicarb of 18. Calcium level is at 6.7. Sugar today's is 106. Patient was reevaluated today on 03/13/20, patient remains in the ICU, intubated and mechanically ventilated. His present ventilator settings are assist control rate of 28 volume is 500 FiO2 is 50% and PEEP 10. His ABG this morning showed a pO2 of 9536 pH of 7.35. Patient is on IV fluid at 0.9 normal saline 75 mL per hour. He is on norepinephrine at 0.15 mcg/kg/m Cardizem drip which was already changed to amiodarone. He is also on propofol at 40 mcg/kg/m. Patient remains on feeding at 20 mL per hour. He is also on antibiotics in the form of Zosyn and vancomycin. Patient is atrial fibrillation with a rate of 116 beats per minutes. Chest x-ray continues to show bilateral pleural effusions, endotracheal tube was noted to be high in the trachea. This was advanced to see him down. Echocardiogram showed LV dysfunction with ejection fraction of 30- 35%. Patient is sedated, and his ventilator settings were adjusted, he was already seen by cardiology, and the plan is to switch him to amiodarone instead of Cardizem. Patient is tolerating enteral feeding. Labs were reviewed WBC co unt 7 hemoglobin is 11.7 PTT is 63.6. Basic metabolic profile is normal, bicarb is a bit low at 19, renal profile is normal. Objective - Vital Signs Vital signs: Vital Signs Temp 97.7 F 03/13/20 08:15 Pulse 116 H 03/13/20 11:39 Resp 24 03/13/20 11:00 BP 113/86 03/13/20 09:00 Pulse Ox 96 03/13/20 11:00 Intake & Output 03/12/20 03/13/20 03/13/20 18:59 06:59 18:59 Intake Total 2079.585 1988.666 686.078 Output Total 635 158 6841 Balance 0475.782 2084.666 -593.922 Weight 105 kg 104.1 kg Intake: IV 1360 1270 310 Piperacillin-Tazobactam 3 100 .375 gm In Sodium Chloride 0.9% 100 ml @ 25 mls/hr IVPB Q12HR RENA Rx #:[id number] Sodium Chloride 0.9% 1, 110 120 10 000 ml @ 20 mls/hr IV . Q24H RENA Rx#:[id number] Sodium Chloride 0.9% 1, 900 900 300 000 ml @ 75 mls/hr IV . [id number] RENA Rx#:[id number] Vancomycin 1,500 mg In 250 250 Sodium Chloride 0.9% 250 ml @ 125 mls/hr IVPB Q12H RENA Rx#:[id number] Intake, IV Titration 699.585 568.666 286.078 Amount Diltiazem 125 mg In 141.583 110.666 50.167 Sodium Chloride 0.9% 100 ml @ 5 MG/HR 5 mls/hr IV .Q24H RENA Rx#:[id number] Heparin Sod,Pork in 0.45% 154.957 NaCl 25,000 unit In 0.45 % NaCl 1 250ml.bag @ 10. 638 UNITS/KG/HR 10 mls/hr IV .Q24H RENA Rx#: [id number] Norepinephrine 8 mg In 131.981 258 129.143 Sodium Chloride 0.9% 250 ml @ 0.05 MCG/KG/MIN 9. 095 mls/hr IV .Q24H RENA Rx#:[id number] Piperacillin-Tazobactam 3 100 .375 gm In Sodium Chloride 0.9% 100 ml @ 25 mls/hr IVPB Q12H RENA Rx# :[id number] propofoL 1,000 mg In 271.064 100 106.768 Empty Bag 1 bag @ 20 MCG/ KG/MIN 11.28 mls/hr IV . Q8H52M RENA Rx#:[id number] Tube Feeding 20 150 60 Other 30 Output: Urine 766 560 0236 Other: Voiding Method Indwelling Catheter Indwelling Catheter ABP, PAP, CO, CI - Last Documented Arterial Blood Pressure 122/76 - Exam Physical Exam: Revealed a 65-year-old white male sedated, intubated, and m echanically ventilated. Head: Atraumatic, normocephalic. Orogastric tube and orotracheal tubes are in place. HEENT:[Neck is supple.] [No neck masses.] [No thyromegaly.] [No JVD.] PERRLA, EOMI, no icterus, moist mucous membranes. Chest: [Symmetrical chest expansion, scattered rhonchi noted bilaterally. Crackles at the bases.] Cardiac Exam: Irregular irregular rhythm, no S3 gallop, no murmur. Abdomen: [Obese, Soft, nontender, no megaly, no rebound, no guarding, normal bowel sounds.] Extremities: 2+ bipedal edema. Good pulses bilaterally. Several wounds noted on the lower extremities. Healing. And chronic Neurological Exam: Sedated, on propofol, calm, otherwise could not be assessed psychiatric: Could not be assessed. Skin: Multiple old ones on upper and lower extremities. Otherwise negative. No evidence of cellulitis Lymphatics: No cervical lymphadenopathy. - Labs CBC & Chem 7: 03/13/20 04:30 03/13/20 04:30 Labs: Abnormal Lab Results - Last 24 Hours (Table) 03/12/20 03/13/20 03/13/20 Range/Units 04:00 04:30 04:30 RBC 3.60 L (4.30-5.90) m/uL Hgb 11.7 L (13.0-17.5) gm/dL MCV 108.6 H (80.0-100.0) fL MCHC 29.9 L (31.0-37.0) g/dL RDW 20.6 H (11.5-15.5) % Plt Count 73 L (150-450) k/uL Lymphocytes # 0.4 L (1.0-4.8) k/uL Macrocytosis Marked A APTT (22.0-30.0) sec ABG HCO3 (21-25) mmol/L ABG O2 Saturation (94-97) % Sodium 136 L (137-145) mmol/L Chloride 111 H (98-107) mmol/L Carbon Dioxide 19 L (22-30) mmol/L BUN 26 H (9-20) mg/dL Glucose 124 H (74-99) mg/dL POC Glucose (mg/dL) (75-99) mg/dL Calcium 6.6 L (8.4-10.2) mg/dL Procalcitonin 0.51 H (0.02-0.09) ng/mL 03/13/20 03/13/20 03/13/20 Range/Units 04:30 04:33 06:09 RBC (4.30-5.90) m/uL Hgb (13.0-17.5) gm/dL MCV (80.0-100.0) fL MCHC (31.0-37.0) g/dL RDW (11.5-15.5) % Plt Count (150-450) k/uL Lymphocytes # (1.0-4.8) k/uL Macrocytosis APTT 63.6 H (22.0-30.0) sec ABG HCO3 20 L (21-25) mmol/L ABG O2 Saturation 97.2 H (94-97) % Sodium (137-145) mmol/L Chloride (98-107) mmol/L Carbon Dioxide (22-30) mmol/L BUN (9-20) mg/dL Glucose (74-99) mg/dL POC Glucose (mg/dL) 125 H (75-99) mg/dL Calcium (8.4-10.2) mg/dL Procalcitonin (0.02-0.09) ng/mL 03/13/20 Range/Units 11:38 RBC (4.30-5.90) m/uL Hgb (13.0-17.5) gm/dL MCV (80.0-100.0) fL MCHC (31.0-37.0) g/dL RDW (11.5-15.5) % Plt Count (150-450) k/uL Lymphocytes # (1.0-4.8) k/uL Macrocytosis APTT (22.0-30.0) sec ABG HCO3 (21-25) mmol/L ABG O2 Saturation (94-97) % Sodium (137-145) mmol/L Chloride (98-107) mmol/L Carbon Dioxide (22-30) mmol/L BUN (9-20) mg/dL Glucose (74-99) mg/dL POC Glucose (mg/dL) 127 H (75-99) mg/dL Calcium (8.4-10.2) mg/dL Procalcitonin (0.02-0.09) ng/mL Microbiology - Last 24 Hours (Table) 03/11/20 09:30 Gram Stain - Final Sputum Sputum Culture - Final 03/11/20 10:10 Blood Culture - Preliminary Blood No Growth after 24 hours Assessment and Plan Assessment: Impression: Acute hypoxic respiratory failure, multifactorial. Acute on chronic systolic congestive heart failure and LV dysfunction. Bilateral pleural effusions, could be malignant or could be cardiac in nature or possibly parapneumonic. I believe the pleural effusions are mostly cardiac in nature and secondary to congestive heart failure. Severe LV dysfunction with ejection fraction of 50-55%. Metastatic adenocarcinoma of the lung with extensive skeletal metastasis. Chronic atrial fibrillation. Hypotension requiring pressors, possible sepsis, cultures have been negative so far, patient remains on antibiotics. Empirically Extensive debility secondary to above mentioned comorbidities. Previous history of right IJ deep vein thrombosis. Recommendation: Continue ventilatory support. However flow was increased to 75 L/m. Rate was decreased to 24/m. Endotracheal tube was advanced 3 see him down. PEEP was decreased down to 8 Continue nutritional support. Continue enteral feeding. Continue hemodynamic support. Titrate norepinephrine accordingly keep mean arterial pressure above 65. Continue diuretics. Continue GI and DVT prophylaxis. Continue antibiotics and adjust accordingly to final cultures. Continue Lasix 40 mg IV push 1 today, Switched Cardizem to amiodarone. Oncology to arrange for family meeting and discuss overall prognosis from his metastatic lung cancer. What I see is a very poor prognostic picture, patient has multiple comorbidities, and comfort care should be seriously considered. Apparently oncology staff was trying to discuss his condition with the family over the weekend, but this never happened. Again I would strongly recommend comfort care measures since the prognosis is extremely poor. We will continue to follow Critical care time is 35 minutes Time with Patient: Greater than 30
[2020-03-13 13:01] LABS: Glucose,Whole Blood 120 mg/dL (75-99)
[2020-03-13] MEDS: AMIODARONE 300 MG in DEXTROSE 5% IN WATER 250 ML IV SCH ×2 (14:23)
[2020-03-13] MEDS: HEPARIN SOD,PORK IN 0.45% NACL 25,000 UNIT in 0.45% NACL 1 250ML.BAG IV SCH (16:07)
--- NOTE | 2020-03-13 16:17 | P.PN ---
Subjective Progress Note Date: 03/13/20 Principal diagnosis: pleural effusion, a-fib Pt is sedated and mechanically ventilated, at bedside. Pt does not appear to be in any distress Objective - Vital Signs Vital signs: Vital Signs Temp 97.7 F 03/13/20 08:15 Pulse 130 H 03/13/20 15:55 Resp 24 03/13/20 15:00 BP 113/86 03/13/20 09:00 Pulse Ox 97 03/13/20 15:00 Intake & Output 03/12/20 03/13/20 03/13/20 18:59 06:59 18:59 Intake Total 2079.585 7007.062 0897.724 Output Total 889 033 7331 Balance 1619.186 3154.666 -582.276 Weight 105 kg 104.1 kg Intake: IV 1360 1270 560 Piperacillin-Tazobactam 3 100 .375 gm In Sodium Chloride 0.9% 100 ml @ 25 mls/hr IVPB Q12HR RENA Rx #:[id number] Sodium Chloride 0.9% 1, 110 120 10 000 ml @ 20 mls/hr IV . Q24H RENA Rx#:[id number] Sodium Chloride 0.9% 1, 900 900 550 000 ml @ 75 mls/hr IV . [id number] RENA Rx#:[id number] Vancomycin 1,500 mg In 250 250 Sodium Chloride 0.9% 250 ml @ 125 mls/hr IVPB Q12H RENA Rx#:[id number] Intake, IV Titration 699.585 568.666 527.724 Amount Diltiazem 125 mg In 141.583 110.666 50.167 Sodium Chloride 0.9% 100 ml @ 5 MG/HR 5 mls/hr IV .Q24H RENA Rx#:[id number] Heparin Sod,Pork in 0.45% 154.957 218.428 NaCl 25,000 unit In 0.45 % NaCl 1 250ml.bag @ 10. 638 UNITS/KG/HR 10 mls/hr IV .Q24H RENA Rx#: [id number] Norepinephrine 8 mg In 131.981 258 129.143 Sodium Chloride 0.9% 250 ml @ 0.05 MCG/KG/MIN 9. 095 mls/hr IV .Q24H RENA Rx#:[id number] Piperacillin-Tazobactam 3 100 .375 gm In Sodium Chloride 0.9% 100 ml @ 25 mls/hr IVPB Q12H RENA Rx# :[id number] propofoL 1,000 mg In 271.064 100 129.986 Empty Bag 1 bag @ 20 MCG/ KG/MIN 11.28 mls/hr IV . Q8H52M RENA Rx#:[id number] Tube Feeding 20 150 200 Other 60 Output: Urine 738 693 2456 Other: Voiding Method Indwelling Catheter Indwelling Catheter Indwelling Catheter # Voids 1 ABP, PAP, CO, CI - Last Documented Arterial Blood Pressure 120/70 - Constitutional General appearance: Present: no acute distress, obese - Psychiatric Psychiatric: Absent: A&O x's 3, appropriate affect, intact judgment & insight - Labs CBC & Chem 7: 03/13/20 04:30 03/13/20 04:30 Labs: Abnormal Lab Results - Last 24 Hours (Table) 03/12/20 03/13/20 03/13/20 Range/Units 04:00 04:30 04:30 RBC 3.60 L (4.30-5.90) m/uL Hgb 11.7 L (13.0-17.5) gm/dL MCV 108.6 H (80.0-100.0) fL MCHC 29.9 L (31.0-37.0) g/dL RDW 20.6 H (11.5-15.5) % Plt Count 73 L (150-450) k/uL Lymphocytes # 0.4 L (1.0-4.8) k/uL Macrocytosis Marked A APTT (22.0-30.0) sec ABG HCO3 (21-25) mmol/L ABG O2 Saturation (94-97) % Sodium 136 L (137-145) mmol/L Chloride 111 H (98-107) mmol/L Carbon Dioxide 19 L (22-30) mmol/L BUN 26 H (9-20) mg/dL Glucose 124 H (74-99) mg/dL POC Glucose (mg/dL) (75-99) mg/dL Calcium 6.6 L (8.4-10.2) mg/dL Procalcitonin 0.51 H (0.02-0.09) ng/mL 03/13/20 03/13/2003/13/20 Range/Units 04:30 04:33 06:09 RBC (4.30-5.90) m/uL Hgb (13.0-17.5) gm/dL MCV (80.0-100.0) fL MCHC (31.0-37.0) g/dL RDW (11.5-15.5) % Plt Count (150-450) k/uL Lymphocytes # (1.0-4.8) k/uL Macrocytosis APTT 63.6 H (22.0-30.0) sec ABG HCO3 20 L (21-25) mmol/L ABG O2 Saturation 97.2 H (94-97) % Sodium (137-145) mmol/L Chloride (98-107) mmol/L Carbon Dioxide (22-30) mmol/L BUN (9-20) mg/dL Glucose (74-99) mg/dL POC Glucose (mg/dL) 125 H (75-99) mg/dL Calcium (8.4-10.2) mg/dL Procalcitonin (0.02-0.09) ng/mL 03/13/20 03/13/20 Range/Units 11:38 13:00 RBC (4.30-5.90) m/uL Hgb (13.0-17.5) gm/dL MCV (80.0-100.0) fL MCHC (31.0-37.0) g/dL RDW (11.5-15.5) % Plt Count (150-450) k/uL Lymphocytes # (1.0-4.8) k/uL Macrocytosis APTT (22.0-30.0) sec ABG HCO3 (21-25) mmol/L ABG O2 Saturation (94-97) % Sodium (137-145) mmol/L Chloride (98-107) mmol/L Carbon Dioxide (22-30) mmol/L BUN (9-20) mg/dL Glucose (74-99) mg/dL POC Glucose (mg/dL) 127 H 120 H (75-99) mg/dL Calcium (8.4-10.2) mg/dL Procalcitonin (0.02-0.09) ng/mL Microbiology - Last 24 Hours (Table) 03/11/20 10:10 Blood Culture - Preliminary Blood No Growth after 48 hours 03/11/20 09:30 Gram Stain - Final Sputum Sputum Culture - Final - Imaging and Cardiology Chest x-ray: report reviewed Assessment and Plan (1) Atrial fibrillation with RVR Current Visit: Yes Status: Acute Priority: High Code(s): I48.91 - UNSPECIFIED ATRIAL FIBRILLATION SNOMED Code(s): 592939952337528 (2) Pleural effusion Current Visit: Yes Status: Acute Priority: High Code(s): J90 - PLEURAL EFFUSION, NOT ELSEWHERE CLASSIFIED SNOMED Code(s): 56726039 (3) Metastatic lung carcinoma Narrative/Plan: Pt has metastatic disease to the bones. His disease was felt to be treatable at the time of diagnosis. He did have radiation to painful bone mets. Unfortunately, there have been multiple problems with proceeding with cancer treatment, as previously mentioned. I spoke with , she had no questions or concerns about cancer at this time. We discussed that pt is not a candidate for treatment due to poor performance status coming into the hospital that is certainly not going to be improved after a prolonged hospitalization and mechanical ventilation. We will follow PRN for now We are available if any other questions or concerns. Current Visit: No Status: Chronic Priority: High Code(s): C78.00 - SECONDARY MALIGNANT NEOPLASM OF UNSPECIFIED LUNG SNOMED Code(s): 30135661 Plan: Critical care at this time continues
[2020-03-13 19:02] LABS: Glucose,Whole Blood 115 mg/dL (75-99)
[2020-03-13] MEDS: LORazepam 1 MG TAB PO SCH (21:28)
[2020-03-13 23:27] LABS: Glucose,Whole Blood 113 mg/dL (75-99)
[2020-03-14] MEDS: AMIODARONE 300 MG in DEXTROSE 5% IN WATER 250 ML IV SCH ×2 (00:19)
[2020-03-14] MEDS: INSULIN ASPART (NovoLOG) 100 UNIT/ML VIAL SQ SCH ×4 (00:20→19:57)
[2020-03-14] MEDS: DILTIAZEM 125 MG in SODIUM CHLORIDE 0.9% 100 ML IV SCH ×2 (04:02→16:56)
[2020-03-14] MEDS: PIPERACILLIN-TAZOBACTAM 3.375 GM in SODIUM CHLORIDE 0.9% 100 ML IVPB SCH ×3 (04:03→20:29)
[2020-03-14] MEDS: NOREPINEPHRINE 8 MG in SODIUM CHLORIDE 0.9% 250 ML IV SCH ×2 (04:05→16:09)
[2020-03-14 05:18] LABS: Anisocytosis Moderate; Basophils % (A) 1 %; Eosinophils # (A) 0.3 k/uL (0-0.7); Eosinophils % (A) 4 %; HCT 36.8 % (39.0-53.0); HGB 11.1 gm/dL (13.0-17.5); Hypochromasia Marked; Lymphocytes # (A) 0.2 k/uL (1.0-4.8); Lymphocytes % (A) 3 %; MCH 32.5 pg (25.0-35.0); MCHC 30.3 g/dL (31.0-37.0); Macrocytosis Marked; Mean Platelet Volume 11.2; Monocytes # (A) 0.3 k/uL (0-1.0); Monocytes % (A) 5 %; Neutrophils # (A) 5.7 k/uL (1.3-7.7); Neutrophils % (A) 87 %; Poikilocytosis Slight; RBC 3.42 m/uL (4.30-5.90); RDW 20.5 % (11.5-15.5); WBC 6.5 k/uL (3.8-10.6)
[2020-03-14 05:34] LABS: MCV 107.4 fL (80.0-100.0); Platelet Count 52 k/uL (150-450)
[2020-03-14 06:09] LABS: Glucose,Whole Blood 138 mg/dL (75-99)
[2020-03-14] MEDS: SODIUM CHLORIDE 0.9% 1,000 ML IV SCH (06:15)
[2020-03-14 06:18] LABS: African American GFR (CKD) >90 (>60 ml/min/1.73 sqM); Anion Gap 1 mmol/L; Blood Urea Nitrogen 21 mg/dL (9-20); Carbon Dioxide 25 mmol/L (22-30); Chloride 109 mmol/L (98-107); Glucose 149 mg/dL (74-99); Non-African American GFR(CKD) >90 (>60 ml/min/1.73 sqM); Potassium 3.7 mmol/L (3.5-5.1); Sodium 135 mmol/L (137-145)
[2020-03-14] MEDS: MORPHINE SULFATE 4 MG/ML SYRINGE IV PRN ×2 (06:25→16:54)
[2020-03-14] MEDS ORDERED: POTASSIUM BICARBONATE/CIT AC 20 MEQ TABLET.EFF PO ONE (06:55)
[2020-03-14] MEDS: IPRATROPIUM-ALBUTEROL 3 ML NEB INHALATION SCH ×4 (07:13→19:51)
--- NOTE | 2020-03-14 07:36 | P.PN ---
Subjective Progress Note Date: 03/14/20 Principal diagnosis: Long-standing persistent atrial fibrillation This is a 65-year-old gentleman with an extensive medical history consistent of metastatic lung cancer as well as chronic obstructive pulmonary disease as well as long-standing persistent atrial fibrillation who was admitted to the hospital with acute hypoxic respiratory failure requiring intubation and mechanical ventilation. The patient was seen today March 142019. He continues to be intubated on mechanical ventilation. He continues to be hemodynamically unstable and requires norepinephrine. Unfortunately he continues to be tachycardic on amiodarone IV as well as metoprolol by mouth. Last night we added Cardizem IV to the current medical regimen. If the patient continues to be full code and continues to be tachycardic I would consider doing cardioversion on him. There is a discussion that the patient [facility]fort [facility]. We'll follow-up on that. Objective - Vital Signs Vital signs: Vital Signs Temp 97.8 F 03/14/20 04:00 Pulse 133 H 03/14/20 07:13 Resp 24 03/14/20 07:00 BP 85/69 03/13/20 16:00 Pulse Ox 96 03/14/20 07:00 Intake & Output 03/13/20 03/14/20 03/14/20 18:59 06:59 18:59 Intake Total 5129.751 4073.451 115 Output Total 2110 2655 60 Balance -451.019 -488.549 55 Weight 110 kg Intake: IV 660 1083 73 Piperacillin-Tazobactam 3 100 .375 gm In Sodium Chloride 0.9% 100 ml @ 25 mls/hr IVPB Q8H RENA Rx#: [id number] Sodium Chloride 0.9% 1, 10 000 ml @ 20 mls/hr IV . Q24H RENA Rx#:[id number] Sodium Chloride 0.9% 1, 650 825 70 000 ml @ 75 mls/hr IV . [id number] RENA Rx#:[id number] Vancomycin 1,500 mg In 125 Sodium Chloride 0.9% 250 ml @ 125 mls/hr IVPB Q12H RENA Rx#:[id number] artline flush 33 3 Intake, IV Titration 678.981 489.451 Amount Amiodarone 300 mg In 248.333 Dextrose 5% in Water 250 ml @ 0.5 MG/MIN 25 mls/hr IV .Q10H RENA Rx#: [id number] Diltiazem 125 mg In 50.167 0 Sodium Chloride 0.9% 100 ml @ 5 MG/HR 5 mls/hr IV .Q24H RENA Rx#:[id number] Heparin Sod,Pork in 0.45% 218.428 NaCl 25,000 unit In 0.45 % NaCl 1 250ml.bag @ 10. 638 UNITS/KG/HR 10 mls/hr IV .Q24H RENA Rx#: [id number] Norepinephrine 8 mg In 210.386 60.842 Sodium Chloride 0.9% 250 ml @ 0.05 MCG/KG/MIN 9. 095 mls/hr IV .Q24H RENA Rx#:[id number] propofoL 1,000 mg In 200.000 180.276 Empty Bag 1 bag @ 20 MCG/ KG/MIN 11.28 mls/hr IV . Q8H52M RENA Rx#:[id number] Tube Feeding 260 504 42 Other 60 90 Output: Urine 2110 2655 60 Other: Voiding Method Indwelling Catheter Indwelling Catheter # Voids 1 ABP, PAP, CO, CI - Last Documented Arterial Blood Pressure 111/75 - Constitutional General appearance: Present: no acute distress - Respiratory Respiratory: bilateral: diminished - Cardiovascular Rhythm: irregularly irregular Heart sounds: normal: S1, S2 - Labs CBC & Chem 7: 03/14/20 05:00 03/14/20 05:00 Labs: Abnormal Lab Results - Last 24 Hours (Table) 03/13/20 03/13/20 03/13/20 Range/Units 11:38 13:00 19:00 RBC (4.30-5.90) m/uL Hgb (13.0-17.5) gm/dL Hct (39.0-53.0) % MCV (80.0-100.0) fL MCHC (31.0-37.0) g/dL RDW (11.5-15.5) % Plt Count (150-450) k/uL Lymphocytes # (1.0-4.8) k/uL Macrocytosis APTT (22.0-30.0) sec Sodium (137-145) mmol/L Chloride (98-107) mmol/L BUN (9-20) mg/dL Glucose (74-99) mg/dL POC Glucose (mg/dL) 127 H 120 H 115 H (75-99) mg/dL Calcium (8.4-10.2) mg/dL 03/13/20 03/14/20 03/14/20 Range/Units 23:25 05:00 05:00 RBC 3.42 L (4.30-5.90) m/uL Hgb 11.1 L (13.0-17.5) gm/dL Hct 36.8 L (39.0-53.0) % MCV 107.4 H (80.0-100.0) fL MCHC 30.3 L (31.0-37.0) g/dL RDW 20.5 H (11.5-15.5) % Plt Count 52 L (150-450) k/uL Lymphocytes # 0.2 L (1.0-4.8) k/uL Macrocytosis Marked A APTT (22.0-30.0) sec Sodium 135 L (137-145) mmol/L Chloride 109 H (98-107) mmol/L BUN 21 H (9-20) mg/dL Glucose 149 H (74-99) mg/dL POC Glucose (mg/dL) 113 H (75-99) mg/dL Calcium 7.0 L (8.4-10.2) mg/dL 03/14/20 03/14/20 Range/Units 05:00 06:07 RBC (4.30-5.90) m/uL Hgb (13.0-17.5) gm/dL Hct (39.0-53.0) % MCV (80.0-100.0) fL MCHC (31.0-37.0) g/dL RDW (11.5-15.5) % Plt Count (150-450) k/uL Lymphocytes # (1.0-4.8) k/uL Macrocytosis APTT 45.3 H (22.0-30.0) sec Sodium (137-145) mmol/L Chloride (98-107) mmol/L BUN (9-20) mg/dL Glucose (74-99) mg/dL POC Glucose (mg/dL) 138 H (75-99) mg/dL Calcium (8.4-10.2) mg/dL Microbiology - Last 24 Hours (Table) 03/11/20 10:10 Blood Culture - Preliminary Blood No Growth after 48 hours 03/11/20 09:30 Gram Stain - Final Sputum Sputum Culture - Final Assessment and Plan Assessment: Assessment #1 acute hypoxic respiratory failure #2 hypotension requires vasopressors #3 atrial fibrillation with RVR #4 metastatic lung cancer #5 multiple comorbid conditions Plan #1 continue amiodarone IV #2 continue Cardizem IV #3 continue metoprolol by mouth #4 consider cardioversion if the patient continues to be full code
[2020-03-14] MEDS ORDERED: FUROSEMIDE 10 MG/ML 4 ML VIAL IV SCH (08:00)
--- NOTE | 2020-03-14 08:07 | XR ---
EXAMINATION TYPE: XR chest 1V DATE OF EXAM: 03/14/2020 COMPARISON: Prior chest x-ray 03/13/2020 HISTORY: Shortness of breath TECHNIQUE: Single frontal view of the chest is obtained. FINDINGS: Endotracheal tube, NG tube, left jugular central venous catheter, right-sided Port-A-Cath are all again noted and are overlying appropriate positions. Bibasilar increased density persists. He art size is stable. There is no evident pneumothorax. IMPRESSION: Bibasilar atelectasis and associated effusions versus edema, correlate to exclude pneumo flaquito, follow-up recommended
--- NOTE | 2020-03-14 08:08 | US ---
EXAMINATION TYPE: US chest DATE OF EXAM: 03/14/2020 COMPARISON: Chest x-ray same date CLINICAL HISTORY: Markings for thoracentesis by pulmonary staff. Chest marking TECHNIQUE: Targeted ultrasound of the posterior lower bilateral hemithoraces EXAM MEASUREMENTS: Right Pleural Effusion pocket size: 11.6 cm Right skin surface to fluid distance: 2.5 cm Lung seen within posterior portion of fluid pocket Left Pleural Effusion pocket size: 6.9 cm Left skin surface to fluid distance: 2.2 cm Lung seen within anterior portion of fluid pocket Right side marked for possible thoracentesis outside the dept. Left side marked for possible thoracentesis outside the dept. Pulmonologists are able to review the images in the patient?s EMR. IMPRESSIONS: Bilateral pleural effusions right greater than left
[2020-03-14 08:12] VITALS: TEMP 97.6
[2020-03-14 08:14] LABS: ABG Base Excess -0.4 mmol/L; ABG HCO3 24 mmol/L (21-25); ABG Oxygen Saturation 97.4 % (94-97); ABG PCO2 34 mmHg (35-45); ABG PH 7.45 (7.35-7.45); ABG PO2 86 mmHg (83-108); ABG TCO2 25 mmol/L (19-24); Allen Test Performed? Yes
[2020-03-14] MEDS: METOPROLOL TARTRATE 25 MG TAB PO SCH ×2 (08:33→17:31)
[2020-03-14] MEDS: CALCIUM CARB-VIT D 500MG-200UN 1 EACH TAB PO SCH ×2 (08:33→17:31)
[2020-03-14] MEDS: THIAMINE 100 MG TAB PO SCH (08:33)
[2020-03-14] MEDS: FOLIC ACID 1 MG TAB PO SCH (08:33)
[2020-03-14] MEDS: CHLORHEXIDINE GLUCONATE 15 ML CUP MUCOUS MEM SCH (08:33)
[2020-03-14] MEDS: LORATADINE 10 MG TAB PO SCH (08:33)
[2020-03-14] MEDS: NYSTATIN 100,000 UNIT/ML SUSP 500,000 UNIT/5 ML CUP PO SCH ×3 (08:34→19:57)
[2020-03-14] MEDS: CHOLECALCIFEROL 400 UNIT TAB PO SCH (08:35)
[2020-03-14] MEDS: levETIRAcetam 250 MG TAB PO SCH (08:35)
[2020-03-14] MEDS ORDERED: POTASSIUM BICARBONATE/CIT AC 20 MEQ TABLET.EFF PO SCH (09:00)
[2020-03-14] MEDS ORDERED: SODIUM CHLORIDE 0.9% 500 ML 500 ML IV SCH (09:15)
[2020-03-14] MEDS ORDERED: PANTOPRAZOLE 40 MG/10 ML VIAL IVP SCH (09:30)
[2020-03-14] MEDS: FUROSEMIDE 100 MG in SODIUM CHLORIDE 0.9% 90 ML IV SCH ×2 (09:56→20:27)
[2020-03-14] MEDS: VANCOMYCIN 1,750 MG in SODIUM CHLORIDE 0.9% 500 ML 500 ML IVPB SCH ×2 (10:07→22:58)
--- NOTE | 2020-03-14 10:08 | P.PN ---
Subjective Progress Note Date: 03/13/20 Principal diagnosis: Acute hypoxic respiratory failure Bilateral pleural effusion/aspiration pneumonia A. 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 Symptoms progressed with the past several days. Patient does have metastatic lung cancer and saw Dr. Orta today who advised him to come to the emergency department. Patient does complain of leg swelling increasing over the past few days. No chest pain. Patient has occasional cough. Dyspnea increases with lying flat. Workup in ED including an EKG showed patient to be in atrial fibrillation with RVR with heart rate in 150s. No acute ST or T-wave changes; patient was started on IV Cardizem which was titrated to control heart rate; chest x-ray shows moderate to large right-sided pleural effusion; [facility] evaluation 03/11/2020 Patient is seen and evaluated at bedside in ICU; earlier this morning, the patient became severely hypoxic with his pulse ox drop in the mid 40s. He was placed on a nonrebreather and later on on a BiPAP without any response. He was transferred to the intensive care unit where he was intubated and placed on a mechanical ventilator. He became hypotensive and he was also started on pressors. His white cell count is 6.3. Hemoglobin 11.4. Chest x-ray post intubation showed bilateral pleural effusion worse on the right. He has moderate-sized bilateral pleural effusion. He has also pulmonary vascular congestion. NG tube is in a good location. 03/12/2020 Patient remains in ICU. Sedated and mechanically ventilated Remains hypotensive. The patient is on levofed and normal saline at the rate of 75 mL an hour. Cardizem drip is at 10 mg an hour regarding his atrial fibrillation and this will be gradually weaned off. The patient remains on IV heparin. Antibiotics in form of of Zosyn and vancomycin. Sputum culture was sent. Blood culture was sent. Results are still pending for now. Meanwhile, the repeat chest x-ray from today shows infiltrates/atelectasis/effusion the lung bases bilaterally. Tolerating enteral feeding for nutritional support. The patient's white cell count of 5.6. Renal function is stable. He has developed some non-anion gap metabolic acidosis with a serum bicarb of 18. Calcium level is at 6.7. Sugar today's is 106. 03/13/2020 Patient is currently mechanical ventilator. ABG showed pH of 7.35, PCO2 36, PO2 93 and bicarb 20. FiO2 50% Laboratory data showed sodium 136, chloride 111 and bicarb 19, BUN 36 WBC 7.0 and hemoglobin 11.7 currently being continued on normal saline at 75 cc/h. Patient is still Levophed drip and Cardizem drip has been changed to amiodarone. Patient does have atrial fibrillation. Chest x-ray showed increasing bilateral infiltrate and pleural effusion correlate for pneumonia otherwise consider CHF Echocardiogram showed ejection fraction 30 to 30%. Currently on enteral feeding. Family is considering comfort care and possible hospice care transfer. Discussed with his at bedside. Patient is currently on antibiotics in the form of vancomycin and Zosyn. Current medications reviewed. Objective - Vital Signs Vital signs: Vital Signs Temp 97.8 F 03/13/20 16:00 Pulse 128 H 03/13/20 16:10 Resp 24 03/13/20 16:00 BP 85/69 03/13/20 16:00 Pulse Ox 95 03/13/20 16:00 Intake & Output 03/12/20 03/13/20 03/13/20 18:59 06:59 18:59 Intake Total 2079.585 0338.038 6640.967 Output Total 262 087 7487 Balance 3547.119 3934.666 -501.033 Weight 105 kg 104.1 kg Intake: IV 1360 1270 560 Piperacillin-Tazobactam 3 100 .375 gm In Sodium Chloride 0.9% 100 ml @ 25 mls/hr IVPB Q12HR RE[facility] Rx #:[id number] Sodium Chloride 0.9% 1, 110 120 10 000 ml @ 20 mls/hr IV . Q24H RE[facility] Rx#:[id number] Sodium Chloride 0.9% 1, 900 900 550 000 ml @ 75 mls/hr IV . [id number] RENA Rx#:[id number] Vancomycin 1,500 mg In 250 250 Sodium Chloride 0.9% 250 ml @ 125 mls/hr IVPB Q12H RENA Rx#:[id number] Intake, IV Titration 699.585 568.666 608.967 Amount Diltiazem 125 mg In 141.583 110.666 50.167 Sodium Chloride 0.9% 100 ml @ 5 MG/HR 5 mls/hr IV .Q24H RENA Rx#:[id number] Heparin Sod,Pork in 0.45% 154.957 218.428 NaCl 25,000 unit In 0.45 % NaCl 1 250ml.bag @ 10. 638 UNITS/KG/HR 10 mls/hr IV .Q24H RENA Rx#: [id number] Norepinephrine 8 mg In 131.981 258 210.386 Sodium Chloride 0.9% 250 ml @ 0.05 MCG/KG/MIN 9. 095 mls/hr IV .Q24H RENA Rx#:[id number] Piperacillin-Tazobactam 3 100 .375 gm In Sodium Chloride 0.9% 100 ml @ 25 mls/hr IVPB Q12H RENA Rx# :[id number] propofoL 1,000 mg In 271.064 100 129.986 Empty Bag 1 bag @ 20 MCG/ KG/MIN 11.28 mls/hr IV . Q8H52M RENA Rx#:[id number] Tube Feeding 20 150 200 Other 60 Output: Urine 373 118 2685 Other: Voiding Method Indwelling Catheter Indwelling Catheter Indwelling Catheter # Voids 1 ABP, PAP, CO, CI - Last Documented Arterial Blood Pressure 87/55 - Exam PHYSICAL EXAMINATION: GENERAL: The patient is intubated and mechanically ventilated HEENT: Pupils are round and equally reacting to light. EOMI. No scleral icterus. No conjunctival pallor. Normocephalic, atraumatic. No pharyngeal erythema. No thyromegaly. CARDIOVASCULAR: S1 and S2 present. No murmurs, rubs, or gallops. PULMONARY: Chest is clear to auscultation, no wheezing or crackles. ABDOMEN: Soft, nontender, nondistended, normoactive bowel sounds. No palpable organomegaly. MUSCULOSKELETAL: No joint swelling or deformity. EXTREMITIES: No cyanosis, clubbing, or pedal edema. NEUROLOGICAL: Unable to evaluate. SKIN: No rashes. - Labs CBC & Chem 7: 03/14/20 05:00 03/14/20 05:00 Labs: Abnormal Lab Results - Last 24 Hours (Table) 03/12/20 03/13/20 03/13/20 Range/Units 04:00 04:30 04:30 RBC 3.60 L (4.30-5.90) m/uL Hgb 11.7 L (13.0-17.5) gm/dL MCV 108.6 H (80.0-100.0) fL MCHC 29.9 L (31.0-37.0) g/dL RDW 20.6 H (11.5-15.5) % Plt Count 73 L (150-450) k/uL Lymphocytes # 0.4 L (1.0-4.8) k/uL Macrocytosis Marked A APTT (22.0-30.0) sec ABG HCO3 (21-25) mmol/L ABG O2 Saturation (94-97) % Sodium 136 L (137-145) mmol/L Chloride 111 H (98-107) mmol/L Carbon Dioxide 19 L (22-30) mmol/L BUN 26 H (9-20) mg/dL Glucose 124 H (74-99) mg/dL POC Glucose (mg/dL) (75-99) mg/dL Calcium 6.6 L (8.4-10.2) mg/dL Procalcitonin 0.51 H (0.02-0.09) ng/mL 03/13/20 03/13/20 03/13/20 Range/Units 04:30 04:33 06:09 RBC (4.30-5.90) m/uL Hgb (13.0-17.5) gm/dL MCV (80.0-100.0) fL MCHC (31.0-37.0) g/dL RDW (11.5-15.5) % Plt Count (150-450) k/uL Lymphocytes # (1.0-4.8) k/uL Macrocytosis APTT 63.6 H (22.0-30.0) sec ABG HCO3 20 L (21-25) mmol/L ABG O2 Saturation 97.2 H (94-97) % Sodium (137-145) mmol/L Chloride (98-107) mmol/L Carbon Dioxide (22-30) mmol/L BUN (9-20) mg/dL Glucose (74-99) mg/dL POC Glucose (mg/dL) 125 H (75-99) mg/dL Calcium (8.4-10.2) mg/dL Procalcitonin (0.02-0.09) ng/mL 03/13/20 03/13/20 Range/Units 11:38 13:00 RBC (4.30-5.90) m/uL Hgb (13.0-17.5) gm/dL MCV (80.0-100.0) fL MCHC (31.0-37.0) g/dL RDW (11.5-15.5) % Plt Count (150-450) k/uL Lymphocytes # (1.0-4.8) k/uL Macrocytosis APTT (22.0-30.0) sec ABG HCO3 (21-25) mmol/L ABG O2 Saturation (94-97) % Sodium (137-145) mmol/L Chloride (98-107) mmol/L Carbon Dioxide (22-30) mmol/L BUN (9-20) mg/dL Glucose (74-99) mg/dL POC Glucose (mg/dL) 127 H 120 H (75-99) mg/dL Calcium (8.4-10.2) mg/dL Procalcitonin (0.02-0.09) ng/mL Microbiology - Last 24 Hours (Table) 03/11/20 10:10 Blood Culture - Preliminary Blood No Growth after 48 hours 03/11/20 09:30 Gram Stain - Final Sputum Sputum Culture - Final Assessment and Plan Assessment: Assessment: 1. Acute hypoxic respiratory failure currently on mechanical ventilator. Multifactorial. 1. Atrial fibrillation with RVR; Cardizem drip has been discontinued and patient was started on amiodarone.; metoprolol 100 mg daily. on Heparin Drip 2. Large right-sided pleural effusion/dyspnea; Likely due to CHF versus malignant pleural effusion vs para Pneumonic Continued on IV diuresis and Abx. 3. Metastatic lung cancer/elevated transaminitis/elevated bilirubin; patient is followed by oncology; possibility of liver metastases; we will trend liver enzymes if needed 4. Acute on chronic CHF with systolic dysfunction. start patient on Lasix 40 mg IV every 12 hours; we will monitor strict CLEMENT's, daily weights, renal function and electrolytes;Cardiology is following. 5. Seizure disorder; continue with Keppra 500 mg daily along with 500 mg daily at bedtime 6. Hypertension; Lopressor 100 mg twice a day DVT prophylaxis; SCDs, also on Heparin Drip. CODE STATUS; full code Time with Patient: Greater than 30
[2020-03-14] MEDS ORDERED: AMIODARONE 300 MG in DEXTROSE 5% IN WATER 250 ML IV SCH ×2 (10:15)
--- NOTE | 2020-03-14 11:00 | XR ---
EXAMINATION TYPE: XR chest 1V portable DATE OF EXAM: 03/14/2020 COMPARISON: Prior chest x-ray 03/14/2020 HISTORY: Status post right thoracentesis TECHNIQUE: Single frontal view of the chest is obtained. FINDINGS: There is improved visualization of the right hemidiaphragm. Some residual basilar atelecta tic changes are present. There is no pneumothorax. IMPRESSION: No evident complication status post right thoracentesis.
[2020-03-14 11:21] LABS: Glucose,Whole Blood 111 mg/dL (75-99)
[2020-03-14] MEDS: HEPARIN SOD,PORK IN 0.45% NACL 25,000 UNIT in 0.45% NACL 1 250ML.BAG IV SCH (11:21)
--- NOTE | 2020-03-14 11:51 | P.PN ---
Subjective Progress Note Date: 03/14/20 Principal diagnosis: pleural effusion, a-fib, metastatic NSCLC Pt is sedated and mechanically ventilated. Pt does not appear to be in any distress Objective - Vital Signs Vital signs: Vital Signs Temp 97.6 F 03/14/20 08:00 Pulse 130 H 03/14/20 11:00 Resp 20 03/14/20 11:00 BP 85/69 03/13/20 16:00 Pulse Ox 99 03/14/20 11:00 Intake & Output 03/13/20 03/14/20 03/14/20 18:59 06:59 18:59 Intake Total 4581.848 3599.451 836.456 Output Total 2110 2655 570 Balance -451.019 -488.549 266.456 Weight 110 kg Intake: IV 660 1083 330 Piperacillin-Tazobactam 3 100 .375 gm In Sodium Chloride 0.9% 100 ml @ 25 mls/hr IVPB Q8H RE[facility] Rx#: [id number] Sodium Chloride 0.9% 1, 10 000 ml @ 20 mls/hr IV . Q24H RE[facility] Rx#:[id number] Sodium Chloride 0.9% 1, 650 825 190 000 ml @ 50 mls/hr IV . Q20H RE[facility] Rx#:[id number] Vancomycin 1,500 mg In 125 125 Sodium Chloride 0.9% 250 ml @ 125 mls/hr IVPB Q12H RE[facility] Rx#:[id number] artline flush 33 15 Intake, IV Titration 678.981 489.451 344.456 Amount Amiodarone 300 mg In 248.333 Dextrose 5% in Water 250 ml @ 0.5 MG/MIN 25 mls/hr IV .Q10H RE[facility] Rx#: [id number] Diltiazem 125 mg In 50.167 0 Sodium Chloride 0.9% 100 ml @ 5 MG/HR 5 mls/hr IV .Q24H RENA Rx#:[id number] Heparin Sod,Pork in 0.45% 218.428 137.093 NaCl 25,000 unit In 0.45 % NaCl 1 250ml.bag @ 10. 638 UNITS/KG/HR 10 mls/hr IV .Q24H RENA Rx#: [id number] Norepinephrine 8 mg In 210.386 60.842 104.950 Sodium Chloride 0.9% 250 ml @ 0.05 MCG/KG/MIN 9. 095 mls/hr IV .Q24H RENA Rx#:[id number] propofoL 1,000 mg In 200.000 180.276 102.413 Empty Bag 1 bag @ 20 MCG/ KG/MIN 11.28 mls/hr IV . Q8H52M [facility] Rx#:[id number] Tube Feeding 260 504 162 Other 60 90 Output: Urine 2110 2655 570 Other: Voiding Method Indwelling Catheter Indwelling Catheter # Voids 1 ABP, PAP, CO, CI - Last Documented Arterial Blood Pressure 104/68 - Constitutional General appearance: Present: no acute distress, obese - EENT Eyes: Present: anicteric sclerae, PERRLA - Respiratory Respiratory: right: dullness, bilateral: CTA - Cardiovascular Details: tachycardia, generalized anasarca Heart sounds: normal: S1, S2 - Peripheral edema leg Peripheral Edema: bilateral: 2+ (non-pitting) - Gastrointestinal General gastrointestinal: Present: decreased bowel sounds, soft - Psychiatric Psychiatric: Absent: A&O x's 3, appropriate affect, intact judgment & insight - Labs CBC & Chem 7: 03/14/20 05:00 03/14/20 05:00 Labs: Abnormal Lab Results - Last 24 Hours (Table) 03/13/20 03/13/20 03/13/20 Range/Units 13:00 19:00 23:25 RBC (4.30-5.90) m/uL Hgb (13.0-17.5) gm/dL Hct (39.0-53.0) % MCV (80.0-100.0) fL MCHC (31.0-37.0) g/dL RDW (11.5-15.5) % Plt Count (150-450) k/uL Lymphocytes # (1.0-4.8) k/uL Macrocytosis APTT (22.0-30.0) sec ABG pCO2 (35-45) mmHg ABG Total CO2 (19-24) mmol/L ABG O2 Saturation (94-97) % Sodium (137-145) mmol/L Chloride (98-107) mmol/L BUN (9-20) mg/dL Glucose (74-99) mg/dL POC Glucose (mg/dL) 120 H 115 H 113 H (75-99) mg/dL Calcium (8.4-10.2) mg/dL 03/14/20 03/14/20 03/14/20 Range/Units 05:00 05:00 05:00 RBC 3.42 L (4.30-5.90) m/uL Hgb 11.1 L (13.0-17.5) gm/dL Hct 36.8 L (39.0-53.0) % MCV 107.4 H (80.0-100.0) fL MCHC 30.3 L (31.0-37.0) g/dL RDW 20.5 H (11.5-15.5) % Plt Count 52 L (150-450) k/uL Lymphocytes # 0.2 L (1.0-4.8) k/uL Macrocytosis Marked A APTT 45.3 H (22.0-30.0) sec ABG pCO2 (35-45) mmHg ABG Total CO2 (19-24) mmol/L ABG O2 Saturation (94-97) % Sodium 135 L (137-145) mmol/L Chloride 109 H (98-107) mmol/L BUN 21 H (9-20) mg/dL Glucose 149 H (74-99) mg/dL POC Glucose (mg/dL) (75-99) mg/dL Calcium 7.0 L (8.4-10.2) mg/dL 03/14/20 03/14/20 03/14/20 Range/Units 06:07 08:12 11:19 RBC (4.30-5.90) m/uL Hgb (13.0-17.5) gm/dL Hct (39.0-53.0) % MCV (80.0-100.0) fL MCHC (31.0-37.0) g/dL RDW (11.5-15.5) % Plt Count (150-450) k/uL Lymphocytes # (1.0-4.8) k/uL Macrocytosis APTT (22.0-30.0) sec ABG pCO2 34 L (35-45) mmHg ABG Total CO2 25 H (19-24) mmol/L ABG O2 Saturation 97.4 H (94-97) % Sodium (137-145) mmol/L Chloride (98-107) mmol/L BUN (9-20) mg/dL Glucose (74-99) mg/dL POC Glucose (mg/dL) 138 H 111 H (75-99) mg/dL Calcium (8.4-10.2) mg/dL Microbiology - Last 24 Hours (Table) 03/11/20 10:10 Blood Culture - Preliminary Blood No Growth after 48 hours 03/11/20 09:30 Gram Stain - Final Sputum Sputum Culture - Final - Imaging and Cardiology Chest x-ray: report reviewed Assessment and Plan (1) Atrial fibrillation with RVR Current Visit: Yes Status: Acute Priority: High Code(s): I48.91 - UNSPECIFIED ATRIAL FIBRILLATION SNOMED Code(s): 297659602567035 (2) Pleural effusion Current Visit: Yes Status: Acute Priority: High Code(s): J90 - PLEURAL EFFUSION, NOT ELSEWHERE CLASSIFIED SNOMED Code(s): 96001284 (3) Metastatic lung carcinoma Narrative/Plan: Pt has metastatic disease to the bones. His disease was felt to be treatable at the time of diagnosis. He did have radiation to painful bone mets. Unfortunately, there have been multiple problems with proceeding with cancer treatment, as previously mentioned. It has been discussed that pt is not a candidate for treatment due to poor p erformance status coming into the hospital, which will not be improved after a prolonged hospitalization and mechanical ventilation. We will follow PRN for now We are available if any other questions or concerns. Current Visit: No Status: Chronic Priority: High Code(s): C78.00 - SECONDARY MALIGNANT NEOPLASM OF UNSPECIFIED LUNG SNOMED Code(s): 52674381 Plan: Critical care at this time continues
--- NOTE | 2020-03-14 12:25 | PCN ---
PROCEDURE NOTE RIGHT-SIDED THORACENTESIS: PREOPERATIVE DIAGNOSIS: Large right pleural effusion. POSTOPERATIVE DIAGNOSIS: Large right pleural effusion. ANESTHESIA USED: 2 mL of 1% lidocaine. PROCEDURE DESCRIPTION: The patient was placed in a sitting upright position, the area below the right scapula was prepared in a sterile fashion and drapes were applied. The fluid was earlier localized by ultrasound guidance. And the area at the level of that tip of the scapula and eighth intercostal space was locally anesthetized. Then a 22-gauge needle was inserted and all the way to the pleural space, the fluid was localized with the needle. Then a small tiny incision was made at the same site and a standard 8-Indian thoracentesis catheter was used and advanced at the same site into the pleural space. As soon as the fluid was obtained, the catheter was advanced over the needle into the pleural space and the needle was pulled out of the pleural space. Approximately 2500 mL of dark yellow fluid was removed from the right pleural space. The fluid was free flowing, and again, 2500 mL total was removed. The procedure was well tolerated. No evidence of any immediate complications. Chest x-ray showed no evidence of pneumothorax. MMODL / IJN: [id number] /
--- NOTE | 2020-03-14 12:39 | P.PN ---
Subjective Progress Note Date: 03/14/20 Principal diagnosis: Acute hypoxic respiratory failure secondary to metastatic lung cancer bilateral pleural effusions cardiomyopathy and chronic systolic congestive heart failure, possible sepsis. This is a 65-year-old. Male patient with metastatic adenocarcinoma of the lung was receiving most of his care in outside facilities and locally being followed up by Dr. bahena . The patient came in yesterday to the hospital because of feeling weak, lethargic, hypotension, atrial fibrillation and shortness of breath and he was found to have large bilateral pleural effusions. Subsequently earlier this morning, the patient became severely hypoxic with his pulse ox drop in the mid 40s. He was placed on a nonrebreather and later on on a BiPAP without any response. He was transferred to the intensive care unit where he was intubated and placed on a mechanical ventilator. He became hypotensive and he was also started on pressors. I was able to stabilize patient's condition. I have them currently intubated on mechanical ventilator on propofol which is running at 20 mg per KG per minute. The patient is also on norepinephrine infusion running at 0.1 g per KG per minute. He is on a mechanical ventilator. Most recent vent settings with assist control of 28 with a tidal volume of 500 and FiO2 of 100% with a PEEP of 10. Blood gases on this setting showed a pH of 7.35 with a pCO2 of 45 and pO2 of 103. Triple lumen cath was established in the left IJ. An outlying catheter was also established. His white cell count is 6.3. Hemoglobin 11.4. Chest x-ray post intubation showed bilateral pleural effusion worse on the right. He has moderate-sized bilateral pleural effusion. He has also pulmonary vascular congestion. NG tube is in a good location. There is cardiomegaly. In terms of his lung cancer, the patient was diagnosed having metastatic lung cancer. He initially presented with hip pain and right shoulder pain and he was found to have mass in the right apex and another 2 cm mass in the left midlung. CAT scan of the upper extremity showed a lytic destructive lesion involving the right clavicle with associated soft tissue swelling and the patient was also found to have a 2.6 cm lytic lesion involving the T4 vertebral body and another smaller lesion involving the left rib. The patient underwent a biopsy of the right clavicle and the diagnosis was consistent with adenocarcinoma of a lung primary. MRI of the brain was negative. MRI of the thoracic spine showed also T4 vertebral body involvement without evidence of any cord compression. CAT scan of the abdomen and pelvis showed no intra-abdominal metastases. However there was extensive involvement of the left hip, pelvic bone and left upper femur. Biomarkers were negative. The patient underwent ORIF and following that he developed a PE and he was placed on Eliquis. The patient was started on systemic chemotherapy and radiation therapy to his T4 spine. He completed radiation therapy [facility]. He received 1 cycle of carboplatinum, Alimta and Keytruda . History of a course was also [place] by development of ulcers and wounds and necrotic changes involving the dorsal aspect of the right hand and left hand. He required incision and drainage and antibiotics. He also had DVT of the right internal jugular vein. He has been utilizing excessive amount of narcotic medications. He is also using marijuana. He is quite weak and debilitated. He was lethargic following this systemic chemotherapy based on the reported was given by oncology. 03/12/2020, the patient is being seen for a follow-up. Sedated this morning on propofol at 40 mg per KG per minute. Still having issues with hypotension. The patient is on levo fed which is in order of 0.1 g per KG per minute which is 9 g per minute. He is also on normal saline at the rate of 75 mL an hour. Ca rdizem drip is at 10 mg an hour regarding his atrial fibrillation and this will be gradually weaned off. The patient remains on IV heparin. Antibiotic coverage continues to be a combination of Zosyn and vancomycin. Sputum culture was sent. Blood culture was sent. Results are still pending for now. Meanwhile, the repeat chest x-ray from today shows infiltrates/atelectasis/effusion the lung bases bilaterally. The patient remains on assist control mode of ventilation at the rate of 28 with a tidal volume of 500 FiO2 of 50% with a PEEP of 10. The pH is at 7.34 with a pCO2 of 34 and pO2 of 86. The patient is well sedated, comfortable. Tolerating enteral feeding for nutritional support. The patient's white cell count of 5.6. Renal function is stable. He has developed some non-anion gap metabolic acidosis with a serum bicarb of 18. Calcium level is at 6.7. Sugar today's is 106. Patient was reevaluated today on 03/13/20, patient remains in the ICU, intubated and mechanically ventilated. His present ventilator settings are assist control rate of 28 volume is 500 FiO2 is 50% and PEEP 10. His ABG this morning showed a pO2 of 9536 pH of 7.35. Patient is on IV fluid at 0.9 normal saline 75 mL per hour. He is on norepinephrine at 0.15 mcg/kg/m Cardizem drip which was already changed to amiodarone. He is also on propofol at 40 mcg/kg/m. Patient remains on feeding at 20 mL per hour. He is also on antibiotics in the form of Zosyn and vancomycin. Patient is atrial fibrillation with a rate of 116 beats per minutes. Chest x-ray continues to show bilateral pleural effusions, endotracheal tube was noted to be high in the trachea. This was advanced to see him down. Echocardiogram showed LV dysfunction with ejection fraction of 30- 35%. Patient is sedated, and his ventilator settings were adjusted, he was already seen by cardiology, and the plan is to switch him to amiodarone instead of Cardizem. Patient is tolerating enteral feeding. Labs were reviewed WBC co unt 7 hemoglobin is 11.7 PTT is 63.6. Basic metabolic profile is normal, bicarb is a bit low at 19, renal profile is normal. Reevaluated today on 03/14/20, remains in the intensive care unit, intubated and mechanically ventilated. Sedated, on propofol, his ventilator settings are assist control rate of 24 tidal volume is 500 FiO2 is 50% PEEP is at 8. ABG showed a pO2 of 86 pCO2 of 34 pH of 7.45 hence I cut down his assist-control rate to 20. Patient remains on multiple drips including norepinephrine at 7 mcg/h, IV fluid at 50 mL per hour. And I cut it down to KVO he is on Cardizem at 10 mg per hour amiodarone 0.5 milligrams per minute propofol at 35 mcg/kg/m and I switch him today from IV Lasix to Lasix infusion at 10 mg per hour. Patient is also on heparin which I discontinued because the platelets are down to 50,000. Chest x-ray continues to show evidence of congestive heart failure, actually his fluid balance is positive and his weight is up, this is in spite of Lasix at 40 mg IV push every 8 hours. Then I discontinued the Lasix and I placed him on Lasix drip. Patient remains in atrial fibrillation with RVR with a rate of 133 up to 140. Patient remains on enteral feeding up to goal. Considering the fact that the patient did not improve much, chest x-ray continues to show bilateral pleural effusions, I went ahead and obtained a consent from family to perform a right-sided thoracentesis, and I went ahead and drained about 2.5 L of fluid from the right pleural space. My plan is to hold propofol, work on weaning the patient and possibly extubating him. Family is agreeable to the approach of weaning extubation not to reintubate and possibly hospice at home. CODE STATUS was changed yesterday to DO NOT RESUSCITATE CODE STATUS. Objective - Vital Signs Vital signs: Vital Signs Temp 97.6 F 03/14/20 08:00 Pulse 121 H 03/14/20 12:00 Resp 21 03/14/20 12:00 BP 85/69 03/13/20 16:00 Pulse Ox 96 03/14/20 12:00 Intake & Output 03/13/20 03/14/20 03/14/20 18:59 06:59 18:59 Intake Total 9517.513 0152.451 988.456 Output Total 2110 2655 3270 Balance -451.019 -488.549 -2281.544 Weight 110 kg Intake: IV 660 1083 482 Piperacillin-Tazobactam 3 100 25 .375 gm In Sodium Chloride 0.9% 100 ml @ 25 mls/hr IVPB Q8H RENA Rx#: [id number] Sodium Chloride 0.9% 1, 10 000 ml @ 20 mls/hr IV . Q24H RENA Rx#:[id number] Sodium Chloride 0.9% 1, 650 825 190 000 ml @ 50 mls/hr IV . Q20H RENA Rx#:[id number] Vancomycin 1,500 mg In 125 249 Sodium Chloride 0.9% 250 ml @ 125 mls/hr IVPB Q12H RENA Rx#:[id number] artline flush 33 18 Intake, IV Titration 678.981 489.451 344.456 Amount Amiodarone 300 mg In 248.333 Dextrose 5% in Water 250 ml @ 0.5 MG/MIN 25 mls/hr IV .Q10H RENA Rx#: [id number] Diltiazem 125 mg In 50.167 0 Sodium Chloride 0.9% 100 ml @ 5 MG/HR 5 mls/hr IV .Q24H RENA Rx#:[id number] Heparin Sod,Pork in 0.45% 218.428 137.093 NaCl 25,000 unit In 0.45 % NaCl 1 250ml.bag @ 10. 638 UNITS/KG/HR 10 mls/hr IV .Q24H RENA Rx#: [id number] Norepinephrine 8 mg In 210.386 60.842 104.950 Sodium Chloride 0.9% 250 ml @ 0.05 MCG/KG/MIN 9. 095 mls/hr IV .Q24H RENA Rx#:[id number] propofoL 1,000 mg In 200.000 180.276 102.413 Empty Bag 1 bag @ 20 MCG/ KG/MIN 11.28 mls/hr IV . Q8H52M RENA Rx#:[id number] Tube Feeding 260 504 162 Other 60 90 Output: Urine 2110 2655 770 Other 2500 Other: Voiding Method Indwelling Catheter Indwelling Catheter # Voids 1 ABP, PAP, CO, CI - Last Documented Arterial Blood Pressure 109/72 - Exam Physical Exam: Revealed a 65-year-old white male sedated, intubated, and mechanically ventilated. Head: Atraumatic, normocephalic. Orogastric tube and orotracheal tubes are in place. HEENT:[Neck is supple.] [No neck masses.] [No thyromegaly.] [No JVD.] PERRLA, EOMI, no icterus, moist mucous membranes. Chest: [Symmetrical chest expansion, scattered rhonchi noted bilaterally. Crack les at the bases.] Cardiac Exam: Irregular irregular rhythm, no S3 gallop, no murmur. Abdomen: [Obese, Soft, nontender, no megaly, no rebound, no guarding, normal bowel sounds.] Extremities: 2+ bipedal edema. Good pulses bilaterally. Several wounds noted on the lower extremities. Healing. And chronic Neurological Exam: Sedated, on propofol, calm, otherwise could not be assessed psychiatric: Could not be assessed. Skin: Multiple old ones on upper and lower extremities. Otherwise negative. No evidence of cellulitis Lymphatics: No cervical lymphadenopathy. - Labs CBC & Chem 7: 03/14/20 05:00 03/14/20 05:00 Labs: Abnormal Lab Results - Last 24 Hours (Table) 03/13/20 03/13/20 03/13/20 Range/Units 13:00 19:00 23:25 RBC (4.30-5.90) m/uL Hgb (13.0-17.5) gm/dL Hct (39.0-53.0) % MCV (80.0-100.0) fL MCHC (31.0-37.0) g/dL RDW (11.5-15.5) % Plt Count (150-450) k/uL Lymphocytes # (1.0-4.8) k/uL Macrocytosis APTT (22.0-30.0) sec ABG pCO2 (35-45) mmHg ABG Total CO2 (19-24) mmol/L ABG O2 Saturation (94-97) % Sodium (137-145) mmol/L Chloride (98-107) mmol/L BUN (9-20) mg/dL Glucose (74-99) mg/dL POC Glucose (mg/dL) 120 H 115 H 113 H (75-99) mg/dL Calcium (8.4-10.2) mg/dL 03/14/20 03/14/20 03/14/20 Range/Units 05:00 05:00 05:00 RBC 3.42 L (4.30-5.90) m/uL Hgb 11.1 L (13.0-17.5) gm/dL Hct 36.8 L (39.0-53.0) % MCV 107.4 H (80.0-100.0) fL MCHC 30.3 L (31.0-37.0) g/dL RDW 20.5 H (11.5-15.5) % Plt Count 52 L (150-450) k/uL Lymphocytes # 0.2 L (1.0-4.8) k/uL Macrocytosis Marked A APTT 45.3 H (22.0-30.0) sec ABG pCO2 (35-45) mmHg ABG Total CO2 (19-24) mmol/L ABG O2 Saturation (94-97) % Sodium 135 L (137-145) mmol/L Chloride 109 H (98-107) mmol/L BUN 21 H (9-20) mg/dL Glucose 149 H (74-99) mg/dL POC Glucose (mg/dL) (75-99) mg/dL Calcium 7.0 L (8.4-10.2) mg/dL 03/14/20 03/14/20 03/14/20 Range/Units 06:07 08:12 11:19 RBC (4.30-5.90) m/uL Hgb (13.0-17.5) gm/dL Hct (39.0-53.0) % MCV (80.0-100.0) fL MCHC (31.0-37.0) g/dL RDW (11.5-15.5) % Plt Count (150-450) k/uL Lymphocytes # (1.0-4.8) k/uL Macrocytosis APTT (22.0-30.0) sec ABG pCO2 34 L (35-45) mmHg ABG Total CO2 25 H (19-24) mmol/L ABG O2 Saturation 97.4 H (94-97) % Sodium (137-145) mmol/L Chloride (98-107) mmol/L BUN (9-20) mg/dL Glucose (74-99) mg/dL POC Glucose (mg/dL) 138 H 111 H (75-99) mg/dL Calcium (8.4-10.2) mg/dL Microbiology - Last 24 Hours (Table) 03/11/20 10:10 Blood Culture - Preliminary Blood No Growth after 48 hours 03/11/20 09:30 Gram Stain - Final Sputum Sputum Culture - Final Assessment and Plan Assessment: Impression: Acute hypoxic respiratory failure, multifactorial. Acute on chronic systolic congestive heart failure and LV dysfunction. Bilateral pleural effusions, could be malignant or could be cardiac in nature or possibly parapneumonic. Status post thoracentesis on the right side, 2.5 L of fluid drained. Severe LV dysfunction with ejection fraction of 50-55%. Metastatic adenocarcinoma of the lung with extensive skeletal metastasis. Chronic atrial fibrillation. Hypotension requiring pressors, possible sepsis, cultures have been negative so far, patient remains on antibiotics. Empirically Extensive debility secondary to above mentioned comorbidities. Previous history of right IJ deep vein thrombosis. Thrombocytopenia with significant drop in platelets, hence will hold heparin. Recommendation: Right-sided thoracentesis was performed. Continue ventilatory support. Assist-control rate is 20, otherwise continue rest of the same ventilatory settings Continue nutritional support. Continue enteral feeding. Continue hemodynamic support. Titrate norepinephrine accordingly. Continue amiodarone Discontinue heparin because of the significant drop in his platelets Continue diuretics. Lasix was changed to Lasix infusion at 10 mg per hour. Continue GI and DVT prophylaxis. Continue antibiotics and adjust accordingly to final cultures. I had a long discussion yesterday with his and with his [id number] is also a physician regarding his overall prognosis, and they are very well aware of his poor prognosis. CODE STATUS was changed to DO NOT RESUSCITATE CODE STATUS. would like me to work hard on getting to the point of extubating him, and hopefully send him home with hospice. And we will go ahead and try to do this. We will continue to follow Critical care time is 33 minutes, not including time spent on procedures. Time with Patient: Greater than 30
[2020-03-14 13:02] LABS: Appearance,BF Hazy
[2020-03-14 13:03] LABS: Nucleated Cells, Body Fluid 225 /uL; RBC, Body Fluid 773 /uL
--- NOTE | 2020-03-14 13:09 | CDI ---
Documentation Clarification Form Date: 03/14/2020 CDS: Katherine Thurman RN, CCDS Admit Date: 03/10/2020 Patient Name: Aristeo Goodman ATTENTION: The Clinical Documentation Specialists (CDI) and [facility] Coding Staff appreciate your assistance in clarifying documentation. Please respond to the clarification below the line at the bottom and electronically sign. The CDI & [facility] Coding staff will review the response and follow-up if needed. Please note: Queries are made part of the Legal Health Record. If you have any questions, please contact the author of this message via ITS. Dr. Teena MD The diagnosis Sepsis is documented in the record by: Cardiology progress note Hypotension requiring vasopressor support, possible sepsis. 03/12 Critical Care progress note Hypotension requiring pressors, possible sepsis, cultures have been negative so far, patient remains on antibiotics. Empirically 03/13 History/Risk Factors: 65-year-old male presents to the ED with shortness of breath, leg swelling and weakness. Medical History: Atrial Fibrillation, adenocarcinoma of the lung, bone metastasis Clinical Indicators: 03/10: Labs: Lymph 0.3; 03/10 CXR: Large right pleural effusion increased vs [id number] 03/14 CXR: Bibasilar atelectasis and associated effusions versus edema, correlate to exclude pneumonia Treatment: 03/11 Vancomycin Ivpb; Piperacillin Ivpb; 0.9ns 1L bolus; Please clarify if the Sepsis was: Present/active this admission Treated and resolved this admission Ruled out Other, please specify Clinically unable to determine (Last Query Form Revision: February 2019) not my patient MTDD
[2020-03-14 13:26] LABS: Mononuclear WBC,Body Fluid 68 %; Polynuclear WBC,Body Fluid 32 %; Total Cells Counted,Body Fluid 100
[2020-03-14 13:39] LABS: ABG Base Excess -0.2 mmol/L; ABG Oxygen Saturation 97.6 % (94-97); ABG PCO2 37 mmHg (35-45); ABG PH 7.43 (7.35-7.45); ABG PO2 92 mmHg (83-108); ABG PO2, Temp Corrected 92.2; Allen Test Performed? Yes
[2020-03-14 17:36] LABS: Hemoglobin A1C 5.1 % (4.0-6.0)
[2020-03-14 18:15] LABS: Glucose,Whole Blood 105 mg/dL (75-99)
[2020-03-14 18:52] LABS: Glucose, BF Source Pleural Fluid; Glucose, Body Fluid 133 mg/dL; LDH, Body Fluid Source Pleural Fluid; Total Protein, Body Fluid 2200 mg/dL
[2020-03-14] MEDS ORDERED: ACETAMINOPHEN SUPPOSITORY 650 MG SUPP RECTAL PRN (20:03)
[2020-03-14] MEDS ORDERED: LORazepam 2 MG/ML INJ IV PRN ×2 (20:03→23:06)
[2020-03-14] MEDS ORDERED: MORPHINE SULFATE 4 MG/ML SYRINGE IV PRN (20:15)
[2020-03-14] MEDS ORDERED: SCOPOLAMINE 1.5MG/72HR PATCH TRANSDERM SCH (20:15)
[2020-03-14 20:40] VITALS: BP 101/75; PULSE 111; RESP 23
[2020-03-14] MEDS ORDERED: MORPHINE SULFATE (100 MG/2 ML) 100 MG in SODIUM CHLORIDE 0.9% 100 ML IV SCH (21:00)
[2020-03-14] MEDS ORDERED: ATROPINE OPHTH SOLN 1% 5ML BTL SUBLINGUAL PRN (21:00)
[2020-03-14] MEDS: LORazepam 1 MG TAB PO SCH (21:33)
--- NOTE | 2020-03-15 12:09 | CDI ---
Documentation Clarification Form Date: 03/14/2020 CDS: Katherine Thurman RN, CCDS Admit Date: 03/10/2020 Patient Name: Aristeo Goodman ATTENTION: The Clinical Documentation Specialists (CDI) and [facility] Coding Staff appreciate your assistance in clarifying documentation. Please respond to the clarification below the line at the bottom and electronically sign. The CDI & [facility] Coding staff will review the response and follow-up if needed. Please note: Queries are made part of the Legal Health Record. If you have any questions, please contact the author of this message via ITS. Dr. Fela MD The diagnosis Sepsis is documented in the record by: Cardiology progress note Hypotension requiring vasopressor support, possible sepsis. 03/12 Critical Care progress note Hypotension requiring pressors, possible sepsis, cultures have been negative so far, patient remains on antibiotics. Empirically 03/13 History/Risk Factors: 65-year-old male presents to the ED with shortness of breath, leg swelling and weakness. Medical History: Atrial Fibrillation, adenocarcinoma of the lung, bone metastasis Clinical Indicators: 03/10 VSS: B/P: 109/65; HR: 151; RR: 22; SpO2 96% 3L nasal cannula. 03/10: Labs: Lymph 0.3; Wbc 6.8, 03/10 CXR: Large right pleural effusion increased vs 03/14 CXR: Bibasilar atelectasis and associated effusions versus edema, correlate to exclude pneumonia Treatment: 03/10 Cardizem IV followed by IVPB d/c 03/14; 03/11 Vancomycin Ivpb d/c 03/14 ; Piperacillin Ivpb d/c 03/14; 0.9ns 1L bolus; Lasix Iv x1 followed by Q 12 hrs changed on 03/14 IV q 8 hrs; Lopressor po BID changed 03/13 TID; Norepinephrine IV d/c 03/14; 03/13 Amiodarone IV d/c 03/14 In your professional opinion, can you please clarify Sepsis? Sepsis with Septic Shock Please specify cause Sepsis rule out. Other, please specify Unable to determine (Last Query Form Revision: February 2019) Sepsis rule out. MTDD
--- NOTE | 2020-03-17 09:02 | CDI ---
Documentation Clarification Form Date: 03/17/20 From: Sadie Kim Phone: If you have a question about this query, please contact Piper Lechuga, Data Integration Developer at [phone] between 8am and 5pm. Admit Date: 03/10/20 Discharge Date: 03/15/20 Patient Name: GERARDO LESLIE Visit Number: [id number] ATTENTION: The Clinical Documentation Specialists (CDI) and [facility] Coding Staff appreciate your assistance in clarifying documentation. Please respond to the clarification below the line at the bottom and electronically sign. The CDI & [facility] Coding staff will review the response and follow-up if needed. Please note: Queries are made part of the Legal Health Record. If you have any questions, please contact the author of this message via ITS. Dear Dr. Gwen Chahal, Altered Mental Status was documented in the Dr Suresh's consult and per Dr Reza's consult is stated "Encephalopathy workup - consider inappropriate use of prescribed medication plus/minus alcohol/marijuana". History/Risk Factors: Bilateral lung cancer, bone mets, acute on chronic hypoxic respiratory failure, aspiration pneumonia, pleural effusions, acute DVT right internal jugular vein, pericardial effusion, thrombocytopenia, cardiomyopathy, HTN w acute on chronic systolic CHF, poss sepsis Clinical Indicators: Mental status changes. Per Dr Reza's consult - ROS unobtainable: due to mental status, recently increased to fentanyl 50 mcg ?contributing to mental status. 03/11 Labs: K-5.5, BUN-26, Glucose-106, CA-7.9, Total Bilirubin-1.9,AST-121, ALT- 91, Co2-28 CT: none Treatment: evaluation in process In your professional opinion, please clarify the etiology of the Altered Mental Status, if known. Delirium (specify cause): Dementia (if know, specify Type and if with/without Behavioral Disturbance) Encephalopathy (specify Type and Underlying Medical Illness) Other condition (please specify) Unable to determine Encephalopathy- metabolic MTDD
--- NOTE | 2020-03-17 10:23 | CDI ---
Documentation Clarification Form Date: 03/17/20 From: Sadie Kim Phone: If you have a question about this query, please contact Piper Lechuga, [employer] at [phone] between 8am and 5pm. Admit Date: 02/28/20 Discharge Date: 03/16/20 Patient Name: BAILEY AVILA Visit Number: [id number] ATTENTION: The Clinical Documentation Specialists (CDI) and [facility] Coding Staff appreciate your assistance in clarifying documentation. Please respond to the clarification below the line at the bottom and electronically sign. The CDI & [facility] Coding staff will review the response and follow-up if needed. Please note: Queries are made part of the Legal Health Record. If you have any questions, please contact the author of this message via ITS. Dear Dr. Lilli Garcia, The patient has Type II diabetes insulin-dependent, as indicated in PN 03/10. Patient has headaches extremely fluctuating blood sugars over the last [address] down to 100's to above 300. POC Glucose (02/27-03/16): 338, 291, 272, 245, 277, 276, 236, 273, 287, 262, 306, 229, 238, 223, 260, 281, 291, 213, 217, 164, 164, 175, 195, 219, 241, 172, 223, 118, 195, 205, 249, 159, 167, 149, 256, 225, 135, 149, 308, 111, 225, 190, 204, 118, 339, 213, 218, 129, 226, 173, 268, 216, 266, 244, 246, 219, 271, 201, 271, 286, 270, 244, 351, 292, 284, 249, 304, 337,344, 271, 336 Glucose (02/26, 11/28, 03/10)-431, 292, 145 Treatment: Continue with current doses of long-acting, sliding scale, fixed dose short acting Insulin.Per [facility] - query the provider for clarification whether the patient has hyperglycemia or hypoglycemia so that the appropriate code may be reported - uncontrolled diabetes indicates that the patient's blood sugar is not at an acceptable level, because it is either too high or too low. In order to capture the severity of Illness and necessary documentation specificity, please clarify if Type 2 uncontrolled diabetes is: Hyperglycemia Hypoglycemia Other, please specify Unable to Determine MTDD
--- NOTE | 2020-03-20 15:33 | CDI ---
Documentation Clarification Form Date: 03/20/2020 03:21:02 PM From: Katherine Thurman RN CCDS Admit Date: 03/10/2020 02:11:00 PM Patient Name: Aristeo Goodman Visit Number: [id number] Discharge Date: 03/15/2020 10:09:00 AM ATTENTION: The Clinical Documentation Specialists (CDI) and [facility] Coding Staff appreciate your assistance in clarifying documentation. Please respond to the clarification below the line at the bottom and electronically sign. The CDI & [facility] Coding staff will review the response and follow-up if needed. Please note: Queries are made part of the Legal Health Record. If you have any questions, please contact the author of this message via ITS. Dr. Chris Obregon Hypotension requiring vasopressor support is documented in the cardiology progress note 03/12 History/Risk Factors: 65-year-old male presents to the ED with shortness of breath, leg swelling and weakness. Medical History: Atrial Fibrillation, adenocarcinoma of the lung, bone metastasis Clinical Indicators: 03/10 12:10 VSS: B/P: 109/65; HR: 151; RR: 22; SpO2 96% 3L nasal cannula. 03/10 12:44 VSS B/P: 86/51; HR:150; RR: 18; Spo2 94% 6L nasal cannula 03/11 09:30 VSS B/P: 73/62; HR: 92; RR: 12; SpO2 95% 03/10: Labs: Lymph 0.3; Wbc 6.8, 03/10 CXR: Large right pleural effusion increased vs 03/14 CXR: Bibasilar atelectasis and associated effusions versus edema, correlate to exclude pneumonia Treatment: 03/10 Cardizem IV followed by IVPB d/c 03/14; 03/11 Vancomycin Ivpb d/c 03/14 ; Piperacillin Ivpb d/c 03/14; 0.9ns 1L bolus; Lasix Iv x1 followed by Q 12 hrs changed on 03/14 IV q 8 hrs; Lopressor po BID changed 03/13 TID; 03/11 Norepinephrine IV d/c 03/14; 03/13 Amiodarone IV d/c 03/14 In your professional opinion, can you please specify the hypotension requiring vasopressor support? Cardiogenic Shock please specify Cause if known Shock ruled out Other, please specify Unable to determine (Last Revision: March 2017) not my documentation MTDD
--- NOTE | 2020-03-21 08:06 | CDI ---
Documentation Clarification Form Date: 03/20/2020 03:21:02 PM From: Katherine Thurman RN CCDS Admit Date: 03/10/2020 02:11:00 PM Patient Name: Aristeo Goodman Visit Number: [id number] Discharge Date: 03/15/2020 10:09:00 AM ATTENTION: The Clinical Documentation Specialists (CDI) and [facility] Coding Staff appreciate your assistance in clarifying documentation. Please respond to the clarification below the line at the bottom and electronically sign. The CDI & [facility] Coding staff will review the response and follow-up if needed. Please note: Queries are made part of the Legal Health Record. If you have any questions, please contact the author of this message via ITS. Dr. Chahal, Hypotension requiring vasopressor support is documented in the cardiology progress note 03/12 History/Risk Factors: 65-year-old male presents to the ED with shortness of breath, leg swelling and weakness. Medical History: Atrial Fibrillation, adenocarcinoma of the lung, bone metastasis Clinical Indicators: 03/10 12:10 VSS: B/P: 109/65; HR: 151; RR: 22; SpO2 96% 3L nasal cannula. 03/10 12:44 VSS B/P: 86/51; HR:150; RR: 18; Spo2 94% 6L nasal cannula 03/11 09:30 VSS B/P: 73/62; HR: 92; RR: 12; SpO2 95% 03/10: Labs: Lymph 0.3; Wbc 6.8, 03/10 CXR: Large right pleural effusion increased vs 03/14 CXR: Bibasilar atelectasis and associated effusions versus edema, correlate to exclude pneumonia Treatment: 03/10 Cardizem IV followed by IVPB d/c 03/14; 03/11 Vancomycin Ivpb d/c 03/14 ; Piperacillin Ivpb d/c 03/14; 0.9ns 1L bolus; Lasix Iv x1 followed by Q 12 hrs changed on 03/14 IV q 8 hrs; Lopressor po BID changed 03/13 TID; 03/11 Norepinephrine IV d/c 03/14; 03/13 Amiodarone IV d/c 03/14 In your professional opinion, can you please specify the hypotension requiring vasopressor support? Cardiogenic Shock please specify Cause if known Shock ruled out Other, please specify Unable to determine (Last Revision: March 2017) Cardiogenic Shock due to Afib with RVR MTDD
--- NOTE | 2020-03-29 19:06 | P.PN ---
Subjective Progress Note Date: 03/14/20 Principal diagnosis: Acute hypoxic respiratory failure Bilateral pleural effusion/aspiration pneumonia A. 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 Symptoms progressed with the past several days. Patient does have metastatic lung cancer and saw Dr. Orta today who advised him to come to the emergency department. Patient does complain of leg swelling increasing over the past few days. No chest pain. Patient has occasional cough. Dyspnea increases with lying flat. Workup in ED including an EKG showed patient to be in atrial fibrillation with RVR with heart rate in 150s. No acute ST or T-wave changes; patient was started on IV Cardizem which was titrated to control heart rate; chest x-ray shows moderate to large right-sided pleural effusion; patient is admitted to the [facility] for cardiology and pulmonary evaluation 03/11/2020 Patient is seen and evaluated at bedside in ICU; earlier this morning, the patient became severely hypoxic with his pulse ox drop in the mid 40s. He was placed on a nonrebreather and later on on a BiPAP without any response. He was transferred to the intensive care unit where he was intubated and placed on a mechanical ventilator. He became hypotensive and he was also started on pressors. His white cell count is 6.3. Hemoglobin 11.4. Chest x-ray post intubation showed bilateral pleural effusion worse on the right. He has moderate-sized bilateral pleural effusion. He has also pulmonary vascular congestion. NG tube is in a good location. 03/12/2020 Patient remains in ICU. Sedated and mechanically ventilated Remains hypotensive. The patient is on levofed and normal saline at the rate of 75 mL an hour. Cardizem drip is at 10 mg an hour regarding his atrial fibrillation and this will be gradually weaned off. The patient remains on IV heparin. Antibiotics in form of of Zosyn and vancomycin. Sputum culture was sent. Blood culture was sent. Results are still pending for now. Meanwhile, the repeat chest x-ray from today shows infiltrates/atelectasis/effusion the lung bases bilaterally. Tolerating enteral feeding for nutritional support. The patient's white cell count of 5.6. Renal function is stable. He has developed some non-anion gap metabolic acidosis with a serum bicarb of 18. Calcium level is at 6.7. Sugar today's is 106. 03/13/2020 Patient is currently mechanical ventilator. ABG showed pH of 7.35, PCO2 36, PO2 93 and bicarb 20. FiO2 50% Laboratory data showed sodium 136, chloride 111 and bicarb 19, BUN 36 WBC 7.0 and hemoglobin 11.7 currently being continued on normal saline at 75 cc/h. Patient is still Levophed drip and Cardizem drip has been changed to amiodarone. Patient does have atrial fibrillation. Chest x-ray showed increasing bilateral infiltrate and pleural effusion correlate for pneumonia otherwise consider CHF Echocardiogram showed ejection fraction 30 to 30%. Currently on enteral feeding. Family is considering comfort care and possible hospice care transfer. Discussed with his at bedside. Patient is currently on antibiotics in the form of vancomycin and Zosyn. 03/14/2020 Patient is currently intubated and mechanically ventilated. Patient is sedated. Patient still remains on norepinephrine drip. Continued on Cardizem drip and amiodarone drip for atrial fibrillation. IV Lasix was changed to Lasix drip. Chest x-ray showed evidence of CHF. Patient remained on atrial fibrillation with rapid regular rate with heart rate around 130s Remains tube feeding. Patient is still having bilateral pleural effusion right more than left. Patient underwent thoracentesis with 1 2.5 L fluid removal from the right pleural space. Patient was eventually extubated and family does not want to reintubate again and considering hospice care. Current medications reviewed. Objective - Vital Signs Vital signs: Vital Signs Temp 97.6 F 03/14/20 08:00 Pulse 120 H 03/14/20 15:00 Resp 24 03/14/20 15:00 BP 85/69 03/13/20 16:00 Pulse Ox 94 L 03/14/20 15:00 Intake & Output 03/13/20 03/14/20 03/14/20 18:59 06:59 18:59 Intake Total 2048.400 5126.451 1429.410 Output Total 2110 0495 4320 Balance -451.019 -488.549 -2890.590 Weight 110 kg Intake: IV 660 1083 807 Piperacillin-Tazobactam 3 100 90 .375 gm In Sodium Chloride 0.9% 100 ml @ 25 mls/hr IVPB Q8H [facility] Rx#: [id number] Sodium Chloride 0.9% 1, 10 000 ml @ 20 mls/hr IV . Q24H [facility] Rx#:[id number] Sodium Chloride 0.9% 1, 650 825 190 000 ml @ 50 mls/hr IV . Q20H [facility] Rx#:[id number] Vancomycin 1,500 mg In 125 250 Sodium Chloride 0.9% 250 ml @ 125 mls/hr IVPB Q12H [facility] Rx#:[id number] artline flush 33 277 Intake, IV Titration 678.981 489.451 460.410 Amount Amiodarone 300 mg In 248.333 Dextrose 5% in Water 250 ml @ 0.5 MG/MIN 25 mls/hr IV .Q10H [facility] Rx#: [id number] Diltiazem 125 mg In 50.167 0 Sodium Chloride 0.9% 100 ml @ 5 MG/HR 5 mls/hr IV .Q24H [facility] Rx#:[id number] Heparin Sod,Pork in 0.45% 218.428 137.093 NaCl 25,000 unit In 0.45 % NaCl 1 250ml.bag @ 10. 638 UNITS/KG/HR 10 mls/hr IV .Q24H [facility] Rx#: [id number] Norepinephrine 8 mg In 210.386 60.842 220.904 Sodium Chloride 0.9% 250 ml @ 0.05 MCG/KG/MIN 9. 095 mls/hr IV .Q24H [facility] Rx#:[id number] propofoL 1,000 mg In 200.000 180.276 102.413 Empty Bag 1 bag @ 20 MCG/ KG/MIN 11.28 mls/hr IV . Q8H52M [facility] Rx#:[id number] Tube Feeding 260 504 162 Other 60 90 Output: Urine 2110 2655 1820 Other 2500 Other: Voiding Method Indwelling Catheter Indwelling Catheter # Voids 1 ABP, PAP, CO, CI - Last Documented Arterial Blood Pressure 119/72 - Exam PHYSICAL EXAMINATION: GENERAL: The patient is Currently lying in the bed. Extubated. Lethargic awake alert oriented x0-1. HEENT: Pupils are round and equally reacting to light. EOMI. No scleral icterus. No conjunctival pallor. Normocephalic, atraumatic. No pharyngeal erythema. No thyromegaly. CARDIOVASCULAR: S1 and S2 present. No murmurs, rubs, or gallops. PULMONARY: Bibasilar coarse sounds. No wheezing.. ABDOMEN: Soft, nontender, nondistended, normoactive bowel sounds. No palpable organomegaly. MUSCULOSKELETAL: No joint swelling or deformity. EXTREMITIES: No cyanosis, clubbing, or pedal edema. NEUROLOGICAL: Unable to evaluate. SKIN: No rashes. - Labs CBC & Chem 7: 03/14/20 05:00 03/14/20 14:15 Labs: Abnormal Lab Results - Last 24 Hours (Table) 03/13/20 03/13/20 03/14/20 Range/Units 19:00 23:25 05:00 RBC 3.42 L (4.30-5.90) m/uL Hgb 11.1 L (13.0-17.5) gm/dL Hct 36.8 L (39.0-53.0) % MCV 107.4 H (80.0-100.0) fL MCHC 30.3 L (31.0-37.0) g/dL RDW 20.5 H (11.5-15.5) % Plt Count 52 L (150-450) k/uL Lymphocytes # 0.2 L (1.0-4.8) k/uL Macrocytosis Marked A APTT (22.0-30.0) sec ABG pCO2 (35-45) mmHg ABG Total CO2 (19-24) mmol/L ABG O2 Saturation (94-97) % Sodium (137-145) mmol/L Chloride (98-107) mmol/L BUN (9-20) mg/dL Glucose (74-99) mg/dL POC Glucose (mg/dL) 115 H 113 H (75-99) mg/dL Calcium (8.4-10.2) mg/dL 03/14/20 03/14/20 03/14/20 Range/Units 05:00 05:00 06:07 RBC (4.30-5.90) m/uL Hgb (13.0-17.5) gm/dL Hct (39.0-53.0) % MCV (80.0-100.0) fL MCHC (31.0-37.0) g/dL RDW (11.5-15.5) % Plt Count (150-450) k/uL Lymphocytes # (1.0-4.8) k/uL Macrocytosis APTT 45.3 H (22.0-30.0) sec ABG pCO2 (35-45) mmHg ABG Total CO2 (19-24) mmol/L ABG O2 Saturation (94-97) % Sodium 135 L (137-145) mmol/L Chloride 109 H (98-107) mmol/L BUN 21 H (9-20) mg/dL Glucose 149 H (74-99) mg/dL POC Glucose (mg/dL) 138 H (75-99) mg/dL Calcium 7.0 L (8.4-10.2) mg/dL 03/14/20 03/14/20 03/14/20 Range/Units 08:12 11:19 13:37 RBC (4.30-5.90) m/uL Hgb (13.0-17.5) gm/dL Hct (39.0-53.0) % MCV (80.0-100.0) fL MCHC (31.0-37.0) g/dL RDW (11.5-15.5) % Plt Count (150-450) k/uL Lymphocytes # (1.0-4.8) k/uL Macrocytosis APTT (22.0-30.0) sec ABG pCO2 34 L (35-45) mmHg ABG Total CO2 25 H (19-24) mmol/L ABG O2 Saturation 97.4 H 97.6 H (94-97) % Sodium (137-145) mmol/L Chloride (98-107) mmol/L BUN (9-20) mg/dL Glucose (74-99) mg/dL POC Glucose (mg/dL) 111 H (75-99) mg/dL Calcium (8.4-10.2) mg/dL Microbiology - Last 24 Hours (Table) 03/14/20 10:25 Body Fluid Culture - Preliminary Pleural Fluid 03/14/20 10:25 Fungal Culture - Preliminary Pleural Fluid 03/14/20 10:25 Acid Fast Bacilli Culture - Preliminary Pleural Fluid 03/11/20 10:10 Blood Culture - Preliminary Blood No Growth after 72 hours Assessment and Plan Assessment: Assessment: 1. Acute hypoxic respiratory failure . Bilateral pleural effusion, CHF and po ssible pneumonia. Multifactorial. 1. Atrial fibrillation with RVR; Cardizem drip has been discontinued and patient was started on amiodarone.; metoprolol 100 mg daily. on Heparin Drip 2. Large right-sided pleural effusion/dyspnea; Likely due to CHF versus malignant pleural effusion vs para Pneumonic Continued on IV diuresis and Abx. 3. Metastatic lung cancer/elevated transaminitis/elevated bilirubin; patient is followed by oncology; possibility of liver metastases; we will trend liver enzymes if needed 4. Acute on chronic CHF with systolic dysfunction. start patient on Lasix 40 mg IV every 12 hours; we will monitor strict CLEMENT's, daily weights, renal function and electrolytes;Cardiology is following. 5. Seizure disorder; continue with Keppra 500 mg daily along with 500 mg daily at bedtime 6. Hypertension; Lopressor 100 mg twice a day DVT prophylaxis; SCDs, also on Heparin Drip. CODE STATUS; full code Time with Patient: Greater than 30
--- NOTE | 2020-03-29 19:09 | P.DS ---
Providers Date of admission: 03/10/20 14:11 Expected date of discharge: 03/14/20 Attending physician: Brendan Dickinson Consults: 03/10/20 14:12 Consult Physician Routine Consulting Provider: Chau Reza Consult Reason/Comments: Oncological care Do you want consulting provider notified?: Already Contacted Consult Physician Urgent Consulting Provider: Theodore Chavez Consult Reason/Comments: Dyspnea and large right effusion Do you want consulting provider notified?: Yes Consult Physician Urgent Consulting Provider: Jh Stephens Consult Reason/Comments: Pleural effusion, A. fib with RVR Do you want consulting provider notified?: Yes Primary care physician: Dilshad Ramírez MD Hospital Course: diagnosis 1. Acute hypoxic respiratory failure . Bilateral pleural effusion, CHF and possible pneumonia. Multifactorial. 1. Atrial fibrillation with RVR; Cardizem drip has been discontinued and patient was started on amiodarone.; metoprolol 100 mg daily. on Heparin Drip 2. Large right-sided pleural effusion/dyspnea; Likely due to CHF versus malignant pleural effusion vs para Pneumonic Continued on IV diuresis and Abx. 3. Metastatic lung cancer/elevated transaminitis/elevated bilirubin; patient is followed by oncology; possibility of liver metastases; we will trend liver enzymes if needed 4. Acute on chronic CHF with systolic dysfunction. start patient on Lasix 40 mg IV every 12 hours; we will monitor strict CLEMENT's, daily weights, renal function and electrolytes;Cardiology is following. 5. Seizure disorder; continue with Keppra 500 mg daily along with 500 mg daily at bedtime 6. Hypertension; Lopressor 100 mg twice a day DVT prophylaxis; SCDs, also on Heparin Drip. Hospital course 65-year-old male presenting to the emergency Department with complaints of short of breath and weakness. Symptoms progressed with the past several days. Patient does have metastatic lung cancer and saw Dr. Orta today who advised him to come to the emergency department. Patient does complain of leg swelling increasing over the past few days. No chest pain. Patient has occasional cough. Dyspnea increases with lying flat. Workup in ED including an EKG showed patient to be in atrial fibrillation with RVR with heart rate in 150s. No acute ST or T-wave changes; patient was started on IV Cardizem which was titrated to control heart rate; chest x-ray shows moderate to large right-sided pleural effusion; [facility] 03/11/2020 Patient is seen and evaluated at bedside in ICU; earlier this morning, the patient became severely hypoxic with his pulse ox drop in the mid 40s. He was placed on a nonrebreather and later on on a BiPAP without any response. He was transferred to the intensive care unit where he was intubated and placed on a mechanical ventilator. He became hypotensive and he was also started on pressors. His white cell count is 6.3. Hemoglobin 11.4. Chest x-ray post intubation showed bilateral pleural effusion worse on the right. He has moderate-sized bilateral pleural effusion. He has also pulmonary vascular congestion. NG tube is in a good location. 03/12/2020 Patient remains in ICU. Sedated and mechanically ventilated Remains hypotensive. The patient is on levofed and normal saline at the rate of 75 mL an hour. Cardizem drip is at 10 mg an hour regarding his atrial fibrillation and this will be gradually weaned off. The patient remains on IV heparin. Antibiotics in form of of Zosyn and vancomycin. Sputum culture was sent. Blood culture was sent. Results are still pending for now. Meanwhile, the repeat chest x-ray from today shows infiltrates/atelectasis/effusion the lung bases bilaterally. Tolerating enteral feeding for nutritional support. The patient's white cell count of 5.6. Renal function is stable. He has developed some non-anion gap m etabolic acidosis with a serum bicarb of 18. Calcium level is at 6.7. Sugar today's is 106. 03/13/2020 Patient is currently mechanical ventilator. ABG showed pH of 7.35, PCO2 36, PO2 93 and bicarb 20. FiO2 50% Laboratory data showed sodium 136, chloride 111 and bicarb 19, BUN 36 WBC 7.0 and hemoglobin 11.7 currently being continued on normal saline at 75 cc/h. Patient is still Levophed drip and Cardizem drip has been changed to amiodarone. Patient does have atrial fibrillation. Chest x-ray showed increasing bilateral infiltrate and pleural effusion correlate for pneumonia otherwise consider CHF Echocardiogram showed ejection fraction 30 to 30%. Currently on enteral feeding. Family is considering comfort care and possible hospice care transfer. Discussed with his at bedside. Patient is currently on antibiotics in the form of vancomycin and Zosyn. 03/14/2020 Patient is currently intubated and mechanically ventilated. Patient is sedated. Patient still remains on norepinephrine drip. Continued on Cardizem drip and amiodarone drip for atrial fibrillation. IV Lasix was changed to Lasix drip. Chest x-ray showed evidence of CHF. Patient remained on atrial fibrillation w ith rapid regular rate with heart rate around 130s Remains tube feeding. Patient is still having bilateral pleural effusion right more than left. Patient underwent thoracentesis with 1 2.5 L fluid removal from the right pleural space. Patient was eventually extubated and family does not want to reintubate again and considering hospice care.Patient was and family has been notified. Patient Condition at Discharge: Undetermined Plan - Discharge Summary Discharge Rx Participant: Yes New Discharge Prescriptions: No Action levETIRAcetam [Keppra] 500 mg PO HS Ipratropium-Albuterol Nebulize [Duoneb 0.5 mg-3 mg/3 ml Soln] 3 ml INHALATION RT-QID PRN ml PRN Reason: Shortness Of Breath Or Wheezing Thiamine [Vitamin B-1] 100 mg PO DAILY 30 Days #30 tab Cholecalciferol [Vitamin D3] 400 unit PO DAILY Calcium/Magnesium/Zinc [Cflwzax-Jwubndygy-Izic Tablet] 1 tab PO TID Nystatin 100,000 Unit/ml Susp [Mycostatin Oral Susp] 4 ml PO QID levETIRAcetam [Keppra Xr] 500 mg PO DAILY Folic Acid 1 mg PO DAILY Loratadine [Claritin] 10 mg PO DAILY LORazepam [Ativan] 0.5 mg PO BID PRN PRN Reason: Anxiety LORazepam 1 mg PO HS Apixaban [Eliquis] 5 mg PO BID #0 tab Furosemide [Lasix] 40 mg PO DAILY 30 Days #30 tab Metoprolol Tartrate [Lopressor] 100 mg PO BID 30 Days #60 tab Potassium Chloride [Klor-Con 10] 10 meq PO DAILY oxyCODONE HCL/ACETAMINOPHEN [Percocet 5-325 mg] 1 tab PO Q6HR PRN PRN Reason: Pain fentaNYL 50MCG/HR PATCH [Duragesic 50MCG/HR] 50 mcg TRANSDERM Q72H Discharge Medication List levETIRAcetam [Keppra] 500 mg PO HS 12/12/19 [History] Ipratropium-Albuterol Nebulize [Duoneb 0.5 mg-3 mg/3 ml Soln] 3 ml INHALATION RT-QID PRN ml 12/15/19 [Rx] Thiamine [Vitamin B-1] 100 mg PO DAILY 30 Days #30 tab 12/15/19 [Rx] Calcium/Magnesium/Zinc [Uupfnly-Upxincklw-Exux Tablet] 1 tab PO TID 02/04/20 [History] Cholecalciferol [Vitamin D3] 400 unit PO DAILY 02/04/20 [History] Folic Acid 1 mg PO DAILY 02/04/20 [History] Loratadine [Claritin] 10 mg PO DAILY 02/04/20 [History] Nystatin 100,000 Unit/ml Susp [Mycostatin Oral Susp] 4 ml PO QID 02/04/20 [History] levETIRAcetam [Keppra Xr] 500 mg PO DAILY 02/04/20 [History] LORazepam 1 mg PO HS 02/07/20 [History] LORazepam [Ativan] 0.5 mg PO BID PRN 02/07/20 [History] Apixaban [Eliquis] 5 mg PO BID #0 tab 02/09/20 [Rx] Furosemide [Lasix] 40 mg PO DAILY 30 Days #30 tab 02/09/20 [Rx] Metoprolol Tartrate [Lopressor] 100 mg PO BID 30 Days #60 tab 02/09/20 [Rx] Potassium Chloride [Klor-Con 10] 10 meq PO DAILY 03/10/20 [History] fentaNYL 50MCG/HR PATCH [Duragesic 50MCG/HR] 50 mcg TRANSDERM Q72H 03/10/20 [History] oxyCODONE HCL/ACETAMINOPHEN [Percocet 5-325 mg] 1 tab PO Q6HR PRN 03/10/20 [History] Follow up Appointment(s)/Referral(s): Rebekah Da Silva NPC [REFERRING] - 1-2 days [facility], [NON-STAFF] - Discharge Disposition: - Preliminary Cause of Preliminary Cause of : Metastatic lung cancer with bilateral pleural effusions and resp failure
== END 2020-03-15 10:09 | disposition expired | DRG 308 ==
LOC: EC 11:23 → SUPCPDRO 11:23 → 3SCARD 14:11 → 2SICU 03-11 08:54
PROVIDERS: ADMIT Internal Medicine; ATTEND Internal Medicine
PROC: 0BH17EZ Insertion of Endotracheal Airway into Trachea, Via Natural or Artificial Opening (ICD-10-PCS; principal; 2020-03-11)
PROC: 5A1945Z Respiratory Ventilation, 24-96 Consecutive Hours (ICD-10-PCS; 2020-03-11)
PROC: 3E033XZ Introduction of Vasopressor into Peripheral Vein, Percutaneous Approach (ICD-10-PCS; 2020-03-11)
PROC: 02HV33Z Insertion of Infusion Device into Superior Vena Cava, Percutaneous Approach (ICD-10-PCS; 2020-03-11)
PROC: 03HY32Z Insertion of Monitoring Device into Upper Artery, Percutaneous Approach (ICD-10-PCS; 2020-03-11)
PROC: 4A133B1 Monitoring of Arterial Pressure, Peripheral, Percutaneous Approach (ICD-10-PCS; 2020-03-11)
PROC: 4A133J1 Monitoring of Arterial Pulse, Peripheral, Percutaneous Approach (ICD-10-PCS; 2020-03-11)
PROC: 0D9670Z Drainage of Stomach with Drainage Device, Via Natural or Artificial Opening (ICD-10-PCS; 2020-03-11)
PROC: 3E0G76Z Introduction of Nutritional Substance into Upper GI, Via Natural or Artificial Opening (ICD-10-PCS; 2020-03-12)
PROC: 0W993ZX Drainage of Right Pleural Cavity, Percutaneous Approach, Diagnostic (ICD-10-PCS; 2020-03-14)
DX: I48.11 Longstanding persistent atrial fibrillation (principal); J96.21 Acute and chronic respiratory failure with hypoxia; J69.0 Pneumonitis due to inhalation of food and vomit; I50.23 Acute on chronic systolic (congestive) heart failure; G93.41 Metabolic encephalopathy; J91.8 Pleural effusion in other conditions classified elsewhere; I82.C11 Acute embolism and thrombosis of right internal jugular vein; C79.51 Secondary malignant neoplasm of bone; I31.3 Pericardial effusion (noninflammatory); E87.2 Acidosis; C34.11 Malignant neoplasm of upper lobe, right bronchus or lung; C34.32 Malignant neoplasm of lower lobe, left bronchus or lung; L03.113 Cellulitis of right upper limb; R57.0 Cardiogenic shock; D69.6 Thrombocytopenia, unspecified; I42.9 Cardiomyopathy, unspecified; J44.9 Chronic obstructive pulmonary disease, unspecified; I11.0 Hypertensive heart disease with heart failure; G40.909 Epilepsy, unspecified, not intractable, without status epilepticus; Z66 Do not resuscitate; Z51.5 Encounter for palliative care; G72.9 Myopathy, unspecified; G89.3 Neoplasm related pain (acute) (chronic); I08.1 Rheumatic disorders of both mitral and tricuspid valves; R40.2142 Coma scale, eyes open, spontaneous, at arrival to emergency department; R40.2362 Coma scale, best motor response, obeys commands, at arrival to emergency department; R40.2252 Coma scale, best verbal response, oriented, at arrival to emergency department; R40.2364 Coma scale, best motor response, obeys commands, 24 hours or more after hospital admission; R40.2144 Coma scale, eyes open, spontaneous, 24 hours or more after hospital admission; R40.2244 Coma scale, best verbal response, confused conversation, 24 hours or more after hospital admission; T45.516A Underdosing of anticoagulants, initial encounter; Z91.128 Patient's intentional underdosing of medication regimen for other reason; F32.9 Major depressive disorder, single episode, unspecified; H91.91 Unspecified hearing loss, right ear; R74.0 Nonspecific elevation of levels of transaminase and lactic acid dehydrogenase [LDH]; R53.81 Other malaise; E66.9 Obesity, unspecified; Z68.32 Body mass index [BMI] 32.0-32.9, adult; F17.210 Nicotine dependence, cigarettes, uncomplicated; Z71.6 Tobacco abuse counseling; Z79.01 Long term (current) use of anticoagulants; Z79.891 Long term (current) use of opiate analgesic; Z79.899 Other long term (current) drug therapy; Z91.81 History of falling; Z87.311 Personal history of (healed) other pathological fracture; Z92.3 Personal history of irradiation; Z87.39 Personal history of other diseases of the musculoskeletal system and connective tissue; Z71.3 Dietary counseling and surveillance; Z86.718 Personal history of other venous thrombosis and embolism; Z86.711 Personal history of pulmonary embolism; Z98.890 Other specified postprocedural states; Z87.81 Personal history of (healed) traumatic fracture; Y63.6 Underdosing and nonadministration of necessary drug, medicament or biological substance; Z82.49 Family history of ischemic heart disease and other diseases of the circulatory system; Z83.3 Family history of diabetes mellitus
CPT/HCPCS: 36415; 71045; 71046; 76604; 80048; 80053; 80076; 80202; 80306; 80307; 80320; 81001; 82805; 82945; 83036; 83615; 83735; 83880; 84132; 84145; 84157; 84484; 85025; 85027; 85610; 85730; 87040; 87070; 87102; 87116; 87205; 87206; 88108; 88305; 88341; 88342; 89050; 93005; 94002; 94003; 94640; 96365; 96366; 96376; 99291